=== PATIENT | male | born 1950 | race African-American/Black ===

== ENCOUNTER 2020-08-15 19:02 | Inpatient (IN) ==
--- NOTE | 2020-08-15 20:02 | Emergency Department Note ---
History of Present Illness General Chief complaint: Abdominal Pain Stated complaint: SOB; WEAKNESS; EDEMA, FLUID SAC ON PENIS TIP Time Seen by Provider: 08/15/20 19:27 Source: patient and other (Kirstie RN at [facility]) Mode of arrival: EMS History of Present Illness Provider complaint: Increased confusion Onset (ago): day(s) 3 Location: head Severity: moderate Pain Consistency: + intermittent Quality: + other (Confusion) Relieved By: + none Associated symptoms: no chest pain, no cough, no fever/chills, no headaches, no nausea/vomiting and no shortness of breath This is a 69-year-old male sent in from the [facility] for evaluation. I did obtain history from the patient as well as Kirstie who is the RN there. She states that they did a routine vital sign check and his pulse ox was 84%. He did not display any signs of shortness of breath or difficulty breathing. They rechecked it again it was 89. They try to put him on oxygen but he took it off stating that it was blowing up his penis. He then showed them his penis which was swollen. Kirstie spoke to Dr. Mcdonald who recommended he be sent into the emergency department. The patient states that his penis was swollen today. He also complains of swelling to his legs but does not know when it started. Kirstie stated that he is also been confused for the past 3 days. He does have a history of colon cancer as well as lung cancer neither of which are being treated. 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 He denies having any headaches. Kirstie stated that he will sometimes staring to space and they will have to try to get his attention. He denies any fever, vomiting or diarrhea. He has had no urinary symptoms. Home Medications Medication Instructions Recorded Confirmed Type carvedilol 3.125 mg PO BID 08/15/20 08/15/20 History dextromethorphan-guaifenesin 10 ml PO TID PRN 08/15/20 08/15/20 History [Cough-Chest Congestion DM] dicyclomine 20 mg PO TID PRN 08/15/20 08/15/20 History ferrous gluconate 324 mg PO BID 08/15/20 08/15/20 History fluticasone propion-salmeterol 1 inh INHALATION BID 08/15/20 08/15/20 History [Wixela Inhub] levalbuterol tartrate [Xopenex HFA] 2 inh INHALATION QID PRN 08/15/20 08/15/20 History mirtazapine 15 mg PO HS 08/15/20 08/15/20 History multivitamin 1 tab PO DAILY 08/15/20 08/15/20 History oxycodone-acetaminophen [Percocet] 1 tab PO UD 08/15/20 08/15/20 History pantoprazole 40 mg PO DAILY 08/15/20 08/15/20 History polyethylene glycol 3350 [Miralax] 17 g PO BID 08/15/20 08/15/20 History sennosides [senna] 8.6 mg PO BID 08/15/20 08/15/20 History Allergies Allergy/AdvReac Type Severity Reaction Status Date / Time No Known Allergies Allergy Unverified 08/15/20 20:32 IV contrast Allergy Intermediate hives/vomit Uncoded 08/15/20 22:50 ing Past Med/Surg History Medical History Colon cancer Lung cancer Social History Smoking Status: Never smoker Feels Safe at Home: Yes Review of Systems See HPI for pertinent positives & negatives. and A total of 10 systems reviewed and were otherwise negative Physical Exam Vital Signs Vital Signs - 24 hr 08/15/20 19:12 08/15/20 19:16 08/15/20 19:17 Temperature Temperature Source Pulse Rate 70 76 70 Pulse Rate from SpO2 Sensor 69 74 69 Pulse Rhythm Pulse Strength Respiratory Rate 16 20 19 Respiratory Effort / Characteristics Respiratory Depth Respiratory Pattern Blood Pressure 112/78 Blood Pressure Mean 89 Blood Pressure Position Pulse Oximetry 91 96 95 Oxygen Delivery Method Sepsis Recent Fever Within 48 Hours Sepsis New/Unexplained Change in Mental Status Sepsis Action Taken by Nursing 08/15/20 19:18 08/15/20 19:20 08/15/20 19:30 Temperature 36.4 C L Temperature Source Oral Pulse Rate 61 71 79 Pulse Rate from SpO2 Sensor 63 73 Pulse Rhythm Regular Pulse Strength Normal Respiratory Rate 19 14 19 Respiratory Effort / Characteristics Non-Labored Respiratory Depth Normal Respiratory Pattern Regular Blood Pressure 112/78 Blood Pressure Mean 89 Blood Pressure Position Sitting Pulse Oximetry 98 95 98 Oxygen Delivery Method Room Air Sepsis Recent Fever Within 48 Hours No Sepsis New/Unexplained Change in Mental Status N/A Sepsis Action Taken by Nursing No Action Required 08/15/20 19:40 08/15/20 19:47 08/15/20 19:50 Temperature Temperature Source Pulse Rate 64 88 64 Pulse Rate from SpO2 Sensor 75 61 77 Pulse Rhythm Pulse Strength Respiratory Rate 17 16 16 Respiratory Effort / Characteristics Respiratory Depth Respiratory Pattern Blood Pressure Blood Pressure Mean 80 Blood Pressure Position Pulse Oximetry 95 94 96 Oxygen Delivery Method Sepsis Recent Fever Within 48 Hours Sepsis New/Unexplained Change in Mental Status Sepsis Action Taken by Nursing 08/15/20 20:03 08/15/20 20:10 08/15/20 20:20 Temperature Temperature Source Pulse Rate 75 72 86 Pulse Rate from SpO2 Sensor 64 83 Pulse Rhythm Pulse Strength Respiratory Rate 17 13 13 Respiratory Effort / Characteristics Respiratory Depth Respiratory Pattern Blood Pressure Blood Pressure Mean Blood Pressure Position Pulse Oximetry 97 95 Oxygen Delivery Method Sepsis Recent Fever Within 48 Hours Sepsis New/Unexplained Change in Mental Status Sepsis Action Taken by Nursing 08/15/20 20:30 08/15/20 20:31 08/15/20 20:57 Temperature Temperature Source Pulse Rate 85 68 62 Pulse Rate from SpO2 Sensor 88 78 59 L Pulse Rhythm Pulse Strength Respiratory Rate 12 12 16 Respiratory Effort / Characteristics Respiratory Depth Respiratory Pattern Blood Pressure 86/67 L 100/64 Blood Pressure Mean 73 76 Blood Pressure Position Pulse Oximetry 96 96 96 Oxygen Delivery Method Sepsis Recent Fever Within 48 Hours Sepsis New/Unexplained Change in Mental Status Sepsis Action Taken by Nursing 08/15/20 21:00 08/15/20 21:15 08/15/20 21:32 Temperature Temperature Source Pulse Rate 73 77 77 Pulse Rate from SpO2 Sensor 81 72 Pulse Rhythm Pulse Strength Respiratory Rate 14 17 17 Respiratory Effort / Characteristics Respiratory Depth Respiratory Pattern Blood Pressure 102/69 95/65 L Blood Pressure Mean 80 75 Blood Pressure Position Pulse Oximetry 94 95 94 Oxygen Delivery Method Room Air Room Air Room Air Sepsis Recent Fever Within 48 Hours Sepsis New/Unexplained Change in Mental Status Sepsis Action Taken by Nursing 08/15/20 21:34 08/15/20 21:45 08/15/20 22:19 Temperature Temperature Source Pulse Rate 66 Pulse Rate from SpO2 Sensor 60 63 Pulse Rhythm Pulse Strength Respiratory Rate 18 17 Respiratory Effort / Characteristics Respiratory Depth Respiratory Pattern Blood Pressure 106/78 104/65 114/61 Blood Pressure Mean 87 78 78 Blood Pressure Position Pulse Oximetry 95 95 94 Oxygen Delivery Method Room Air Room Air Room Air Sepsis Recent Fever Within 48 Hours Sepsis New/Unexplained Change in Mental Status Sepsis Action Taken by Nursing 08/15/20 22:30 08/15/20 22:32 Temperature Temperature Source Pulse Rate Pulse Rate from SpO2 Sensor 90 77 Pulse Rhythm Pulse Strength Respiratory Rate Respiratory Effort / Characteristics Respiratory Depth Respiratory Pattern Blood Pressure 102/62 Blood Pressure Mean 75 Blood Pressure Position Pulse Oximetry 94 93 Oxygen Delivery Method Room Air Room Air Sepsis Recent Fever Within 48 Hours Sepsis New/Unexplained Change in Mental Status Sepsis Action Taken by Nursing Constitutional: Vital signs reviewed. Eyes: Pupils are equal round reactive to light. Conjunctiva are noninjected. ENT: Pharynx is clear without erythema or exudate. Mucous membranes are moist. Neck supple without meningeal signs. Respiratory: Clear to auscultation bilaterally. Breath sounds are equal bilaterally. Cardiovascular: Regular rate and rhythm. No rubs or gallops. GI: Soft, nondistended and nontender. Bowel sounds are present. : Normal testicles without scrotal swelling or tenderness. The phallus demonstrates cystic swelling at the distal end without significant tenderness. The swelling is about the size of a walnut. Musculoskeletal: Bilateral lower extremity edema. No lower extremity tenderness. Integumentary: No cyanosis. or jaundice. Neurological: The patient is awake and alert. He is alert and oriented x3. No focal deficits. Psychiatric: Normal affect. Not anxious appearing. Medical Decision Making Differential Diagnosis Anasarca, nephrotic syndrome, metastatic disease to the brain, DVT, ICH, metabolic derangement Medical Records Attestation: I reviewed the patient's medical records. I did perform a limited focused review of portions of the patient's old chart on the electronic medical record. The patient has had no prior visits to this hospital. Home Medications Current Medication List: was personally reviewed by me Laboratory Data Attestation: I reviewed the patient's lab results. Result diagrams: 08/15/20 21:13 08/15/20 21:13 Lab Results 08/15/20 08/15/20 08/15/20 Range/Units 21:13 21:13 22:27 WBC 28.40 H (4.8-10.8) K/uL RBC 4.00 L (4.7-6.1) M/uL Hgb 10.6 L (14.0-18.0) g/dL Hct 33.6 L (42-52) % MCV 84.0 (80-100) fL MCH 26.5 (25-34) pg MCHC 31.5 L (32-36) g/dL RDW Std Deviation 57.1 H (36.4-46.3) fL RDW Coeff of Acacia 19.7 H (11.5-14.5) % Plt Count 375 (130-400) K/uL MPV 8.3 (7.4-10.4) fL Immature Gran % (Auto) 0.6 % Neut % (Auto) 85.6 % Lymph % (Auto) 6.2 % Stewart % (Auto) 5.5 % Eos % (Auto) 1.9 % Baso % (Auto) 0.2 % Neut # (Auto) 24.30 H (1.4-6.5) K/uL Lymph # (Auto) 1.77 (1.2-3.4) K/uL Stewart # (Auto) 1.57 H (0.11-0.59) K/uL Eos # (Auto) 0.53 H (0-0.5) K/uL Baso # (Auto) 0.05 (0-0.2) K/uL Immature Gran # (Auto) 0.18 H (0.00-0.02) K/uL Absolute Nucleated RBC 0.10 H (0-0) K/uL Nucleated RBC % (auto) 0.4 % Sodium 139 (136-145) mmol/L Potassium 4.2 (3.5-5.1) mmol/L Chloride 101 (98-107) mmol/L Carbon Dioxide 27 (21-32) mmol/L Anion Gap 10.0 (3-11) BUN 44 H (7-18) mg/dl Creatinine 1.04 (0.6-1.4) mg/dl Est Cr Clr Drug Dosing 56.7 ml/min Est GFR ( Amer) 83.3 ml/min Est GFR (Non-Af Amer) 71.9 ml/min BUN/Creatinine Ratio 42.5 H (10-20) Glucose 89 (70-99) mg/dl Calcium 9.3 (8.5-10.1) mg/dl Total Bilirubin 0.4 (0.2-1) mg/dl AST 16 (15-37) U/L ALT 13 (12-78) U/L Alkaline Phosphatase 84 (45-117) U/L Troponin I < 0.015 (0-0.045) ng/ml NT-Pro-B Natriuret Pep 5030 H (0-900) pg/ml Total Protein 8.0 (6.4-8.2) gm/dl Albumin 2.0 L (3.4-5.0) gm/dl Globulin 6.0 H (2.5-4.0) gm/dl Albumin/Globulin Ratio 0.3 L (0.9-2) Lipase 33 L (73-393) U/L COVID-19 Eval Order Covid19 at [facility] Imaging Data Radiologist's Impression: Chest X-Ray 08/15/20 19:53 SINGLE VIEW CHEST CLINICAL HISTORY: Pneumonia. FINDINGS: 2 AP, portable, upright chest radiographs are compared obtained. No prior studies are available for comparison at the time of dictation. The examination is degraded by portable technique and patient rotation. The cardiomediastinal silhouette is partially obscured. There is atherosclerotic calcification of the thoracic aorta. There is elevation of the right hemidiaphragm with basilar consolidation. Question a small right pleural effusion. The left lung appears clear. No pneumothorax is seen. The skeletal structures are osteopenic. The bony thorax is grossly intact. IMPRESSION: 1. There is elevation of the right hemidiaphragm with associated basilar consolidation. This could represent atelectasis versus an infectious/inflammatory pneumonitis. Clinical correlation will be required and radiographic follow-up to resolution is recommended. 2. Question a small right pleural effusion. ACT 112: Negative or not required by law. Electronically signed by: Tenzin Huerta M.D. 08/15/2020 8:[address] 08/15/20 19:53 CT SCAN OF THE BRAIN WITHOUT IV CONTRAST CLINICAL HISTORY: Change in mental status. COMPARISON STUDY: No priors. TECHNIQUE: Unenhanced axial CT scan of the brain is performed from the vertex to the skull base. A dose lowering technique was utilized adhering to the principles of ALARA. 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 There are age-related involutional changes noting mild to moderate subcortical and periventricular microangiopathic change. There is no hemorrhage, mass effect, or evidence of acute territorial ischemia by CT criteria. Yanez-white matter differentiation is preserved. No extra-axial fluid collection is seen. Ventricles, sulci, cisterns: Prominent secondary to involutional change. Intracranial vasculature: There is atherosclerotic calcification of the cavernous carotid arteries.. Calvarium: Unremarkable. Sinuses and mastoids: The visualized paranasal sinuses are clear. The mastoid air cells are well pneumatized. Orbits: The bony orbits are grossly intact. IMPRESSION: There is no hemorrhage, mass effect, or evidence of acute territorial ischemia by CT criteria. ACT 112: Negative or not required by law. Electronically signed by: Tenzin Huerta M.D. 08/15/2020 8:50 PM Venous Doppler Study 08/15/20 19:53 ULTRASOUND BILATERAL LOWER EXTREMITY VENOUS CLINICAL HISTORY: Lower extremity edema. COMPARISON STUDY: No priors. TECHNIQUE: Real-time, grayscale, and color Doppler sonography of the deep veins of the right and left lower extremity was performed from the inguinal crease to the calf. Compression and augmentation were utilized. FINDINGS: There is no sonographic evidence of deep venous thrombosis identified in the right or left lower extremity. The common femoral, superficial femoral, and popliteal veins are patent and normally compressible bilaterally. The greater saphenous vein and the profunda femoris vein at the junction with the common femoral vein are clear in both legs. The visualized calf veins are patent bilaterally. Soft tissue edema is present in both legs. IMPRESSION: There is no sonographic evidence of deep venous thrombosis identified in the right or left lower extremity. ACT 112: Negative or not required by law. Electronically signed by: Tenzin Huerta M.D. 08/15/2020 11:17 PM Abdomen/Pelvis CT 08/15/20 21:36 CT SCAN OF THE CHEST, ABDOMEN, AND PELVIS WITHOUT IV CONTRAST CLINICAL HISTORY: Dyspnea. Change in mental status. Generalized abdominal pain. COMPARISON STUDY: Chest x-ray dated 08/15/2020. TECHNIQUE: Unenhanced CT scan of the chest, abdomen, and pelvis was performed from the thoracic inlet to the proximal femora. Images are reviewed in the axial, sagittal, and coronal planes. IV contrast was not administered due to a possible history of contrast allergy. Note that the examination is significantly suboptimal without oral and IV contrast. There is streak artifact from the arms which could not be elevated above the chest or abdomen. A dose lowering technique was utilized adhering to the principles of ALARA. CT DOSE: 591.18 mGy.cm FINDINGS: CHEST: Thyroid: Imaged portions of the thyroid gland are normal in size and heterogeneous and attenuation. Thoracic aorta: There is atherosclerotic calcification of the thoracic aorta. There is mild ectasia of the ascending thoracic aorta which measures up to 3.7 cm in diameter. The remainder of the thoracic aorta is normal in caliber and the arch demonstrates standard 3-vessel anatomy. Heart: The heart is normal in size noting a small pericardial effusion. There is mixed attenuation of the cardiac blood pool as compared to the myocardium suggesting anemia. There are scattered coronary artery calcifications. Lungs and pleural spaces: Emphysematous change is noted. There is elevation of the right hemidiaphragm with dense consolidation at the right lung base with atelectasis of the right lower lung. There is a lobular focus of masslike co nsolidation at the anterior right lung base, best seen on image #169. This measures 7.7 x 4.8 cm. There is also heterogeneous masslike consolidation throughout the right lower lung. Foci of subpleural groundglass change are seen in the left upper lobe. There is at least trace right pleural effusion. There is no left pleural effusion. The trachea and central airways are clear. Mediastinum: There is mild leftward shift of the mediastinum. No mediastinal adenopathy is clearly identified. Francisca: Not well assessed without IV contrast. Axillae: There is no axillary lymphadenopathy. Bony thorax: No lytic or blastic lesions are identified. Soft tissues: The patient is cachectic. There is anasarca of the body wall. ABDOMEN AND PELVIS: Liver: Evaluation of the liver significantly degraded by streak artifact. The unenhanced liver is grossly normal in size, contour, and attenuation. There is no intrahepatic biliary ductal dilatation. Gallbladder: Unremarkable. Spleen: Normal in size and attenuation. Pancreas: Not well visualized. Adrenal glands: Unremarkable. Kidneys: Evaluation of the kidneys is significantly degraded by streak artifact. The unenhanced kidneys demonstrate mild cortical atrophy and are without hydronephrosis. No renal calculi are identified. There is no evidence of contour deforming mass lesion. Abdominal vasculature: The abdominal aorta is normal in course and caliber noting moderate to advanced atherosclerotic calcification. Bowel: There is no bowel obstruction. [id number] fecal retention is seen throughout the colon. Postoperative change is suggested involving the right colon. The appendix is not visualized. Peritoneum: There is no intraperitoneal free air or abdominal ascites. There is diffuse mesenteric edema. Lymphadenopathy: No obvious adenopathy is identified. This is not well assessed. Pelvic viscera: The prostate gland is mildly enlarged and heterogeneous. The bladder wall appears thickened and trabeculated indicating chronic outlet obstruction. There is scrotal edema. Skeletal structures: The skeletal structures are osteopenic. No lytic or blastic lesions are seen. 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 IMPRESSION: 1. Severely suboptimal examination without oral and IV contrast. The examination is also markedly compromised by streak artifact, diffuse edema, and patient cachexia. 2. Emphysema. 3. There is masslike consolidation at the right lung base with atelectasis of the right lower lung and mild leftward shift of the mediastinum. The findings are suspicious for large underlying mass lesion(s). This is not well evaluated on this examination. Correlate clinically for evidence of superimposed infection/pneumonia. 4. There are foci of subpleural groundglass consolidation in the left upper lobe. This could represent chronic parenchymal change versus a mild infectious/inflammatory pneumonitis. 5. There is at least trace right pleural effusion. 6. No gross abnormality is seen in the abdomen or pelvis. 7. There is diffuse anasarca of the body wall and cachexia. 8. Postoperative change is noted involving the right colon. Correlate with the patient's medical/oncological history. 9. Additional findings as above. ACT 112: Negative or not required by law. Electronically signed by: Tenzin Huerta M.D. 08/15/2020 10:[address] 08/15/20 21:36 CT SCAN OF THE CHEST, ABDOMEN, AND PELVIS WITHOUT IV CONTRAST CLINICAL HISTORY: Dyspnea. Change in mental status. Generalized abdominal pain. COMPARISON STUDY: Chest x-ray dated 08/15/2020. TECHNIQUE: Unenhanced CT scan of the chest, abdomen, and pelvis was performed from the thoracic inlet to the proximal femora. Images are reviewed in the axial, sagittal, and coronal planes. IV contrast was not administered due to a possible history of contrast allergy. Note that the examination is significantly suboptimal without oral and IV contrast. There is streak artifact from the arms which could not be elevated above the chest or abdomen. A dose lowering techni que was utilized adhering to the principles of ALARA. CT DOSE: 591.18 mGy.cm FINDINGS: CHEST: Thyroid: Imaged portions of the thyroid gland are normal in size and heterogeneous and attenuation. Thoracic aorta: There is atherosclerotic calcification of the thoracic aorta. There is mild ectasia of the ascending thoracic aorta which measures up to 3.7 cm in diameter. The remainder of the thoracic aorta is normal in caliber and the arch demonstrates standard 3-vessel anatomy. Heart: The heart is normal in size noting a small pericardial effusion. There is mixed attenuation of the cardiac blood pool as compared to the myocardium suggesting anemia. There are scattered coronary artery calcifications. Lungs and pleural spaces: Emphysematous change is noted. There is elevation of the right hemidiaphragm with dense consolidation at the right lung base with atelectasis of the right lower lung. There is a lobular focus of masslike consolidation at the anterior right lung base, best seen on image #169. This measures 7.7 x 4.8 cm. There is also heterogeneous masslike consolidation throughout the right lower lung. Foci of subpleural groundglass change are seen in the left upper lobe. There is at least trace right pleural effusion. There is no left pleural effusion. The trachea and central airways are clear. Mediastinum: There is mild leftward shift of the mediastinum. No mediastinal a denopathy is clearly identified. Francisca: Not well assessed without IV contrast. Axillae: There is no axillary lymphadenopathy. Bony thorax: No lytic or blastic lesions are identified. Soft tissues: The patient is cachectic. There is anasarca of the body wall. ABDOMEN AND PELVIS: Liver: Evaluation of the liver significantly degraded by streak artifact. The unenhanced liver is grossly normal in size, contour, and attenuation. There is no intrahepatic biliary ductal dilatation. Gallbladder: Unremarkable. Spleen: Normal in size and attenuation. Pancreas: Not well visualized. Adrenal glands: Unremarkable. Kidneys: Evaluation of the kidneys is significantly degraded by streak artifact. The unenhanced kidneys demonstrate mild cortical atrophy and are without hydronephrosis. No renal calculi are identified. There is no evidence of contour deforming mass lesion. Abdominal vasculature: The abdominal aorta is normal in course and caliber noting moderate to advanced atherosclerotic calcification. Bowel: There is no bowel obstruction. [id number] fecal retention is seen throughout the colon. Postoperative change is suggested involving the right colon. The appendix is not visualized. Peritoneum: There is no intraperitoneal free air or abdominal ascites. There is diffuse mesenteric edema. Lymphadenopathy: No obvious adenopathy is identified. This is not well assessed. Pelvic viscera: The prostate gland is mildly enlarged and heterogeneous. The bladder wall appears thickened and trabeculated indicating chronic outlet obstruction. There is scrotal edema. Skeletal structures: The skeletal structures are osteopenic. No lytic or blastic lesions are seen. 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 IMPRESSION: 1. Severely suboptimal examination without oral and IV contrast. The examination is also markedly compromised by streak artifact, diffuse edema, and patient cachexia. 2. Emphysema. 3. There is masslike consolidation at the right lung base with atelectasis of the right lower lung and mild leftward shift of the mediastinum. The findings are suspicious for large underlying mass lesion(s). This is not well evaluated on this examination. Correlate clinically for evidence of superimposed infec tion/pneumonia. 4. There are foci of subpleural groundglass consolidation in the left upper lobe. This could represent chronic parenchymal change versus a mild infectious/inflammatory pneumonitis. 5. There is at least trace right pleural effusion. 6. No gross abnormality is seen in the abdomen or pelvis. 7. There is diffuse anasarca of the body wall and cachexia. 8. Postoperative change is noted involving the right colon. Correlate with the patient's medical/oncological history. 9. Additional findings as above. ACT 112: Negative or not required by law. Electronically signed by: Tenzin Huerta M.D. 08/15/2020 10:39 PM ECG Data Attestation: I personally reviewed and interpreted this ECG as follows: Indication: + altered mental status Rate (beats per minute): 74 Rhythm: + normal sinus ECG [place]: + Left axis deviation ECG Findings: + Other (Low voltage QRS) Comparison ECG Date: no prior available MDM Narrative I did evaluate the patient as noted above. The patient is presenting with change in mental status as well as low O2 saturations. He is a bit confused here and contradicts himself at times. I did obtain history from the patient as well as his nurse Kirstie at the [facility]. She stated his O2 saturation was 84% on room air but he had no difficulty breathing. His O2 saturation here is 97% on room air. IV access was established. I did place an order for continuous cardiac monitoring. The monitor showed normal sinus rhythm at a rate of 62 bpm. I did order and personally review the patient's 12-lead EKG as described above. He has low voltage QRS. Q waves inferiorly. I did order and personally reviewed the images of the patient's chest x-ray as described above. He has an elevated right hemidiaphragm. Underlying infiltrate cannot be excluded. I did order a urine analysis. I did order and review the patient's blood work as noted in the electronic medical record. His white count is 28,000. Blood cultures were ordered. Hemoglobin is 10.6. Platelet count is 375. Electrolytes are unremarkable. Troponin is negative. BNP is 5000. LFTs and lipase are unremarkable. I did order a CT of the chest, abdomen and pelvis. Initially I did order this with IV contrast but the patient stated that he had an allergy to IV contrast and that he developed hives, vomiting and he "freaked out." I did review the images myself as well as the radiology report as described above. Exam is compromised due to the lack of contrast due to his allergy. He does appear to have a large consolidation in the right lower lobe. He also has some focal subpleural groundglass consolidation of the left upper lobe. I did treat him with Zosyn IV. He has diffuse anasarca of the body wall. I did order a Doppler ultrasound of the lower extremities to rule out DVT. There is no evidence of DVT. I did discuss the test results with the patient. He will be hospitalized for further care and evaluation. I did discuss case with the hospitalist and case worker. Covid screening test is pending. Impression & Plan Multifocal pneumonia, Lung cancer, Altered mental status, Anasarca, Anemia Discharge Plan Visit Data Chief Complaint: Abdominal Pain Stated Complaint: SOB; WEAKNESS; EDEMA, FLUID SAC ON PENIS TIP ED Provider: Doron Mcclain Discharge Problem: Multifocal pneumonia, Lung cancer, Altered mental status, Anasarca, Anemia Condition: Good Prescriptions Prescriptions: No Action multivitamin Tablet 1 tab PO DAILY RF: 0 carvedilol 3.125 mg Tablet 3.125 mg PO BID RF: 0 mirtazapine 15 mg Tablet 15 mg PO HS RF: 0 ferrous gluconate 324 mg (37.5 mg iron) Tablet 324 mg PO BID RF: 0 fluticasone propion-salmeterol [Wixela Inhub] 250-50 mcg/dose Blister With Device 1 inh INHALATION BID RF: 0 sennosides [senna] 8.6 mg Tablet 8.6 mg PO BID RF: 0 polyethylene glycol 3350 [Miralax] 17 gram Powder In Packet 17 g PO BID RF: 0 oxycodone-acetaminophen [Percocet] 5-325 mg Tablet 1 tab PO UD RF: 0 pantoprazole 40 mg Tablet,Delayed Release (Dr/Ec) 40 mg PO DAILY RF: 0 dicyclomine 20 mg Tablet 20 mg PO TID PRN (Reason: Unknown) RF: 0 Cough-Chest Congestion DM 5-100 mg/5 mL Liquid 10 ml PO TID PRN (Reason: Unknown) RF: 0 levalbuterol tartrate [Xopenex HFA] 45 mcg/actuation Hfa Aerosol Inhaler 2 inh INHALATION QID PRN (Reason: Unknown) RF: 0 [facility] - Discharge Problem: Lung cancer Qualifiers: Laterality: right Lung location: lower lobe of lung Qualified Code(s): C34.31 - Malignant neoplasm of lower lobe, right bronchus or lung Altered mental status Qualifiers: Altered mental status type: unspecified Qualified Code(s): R41.82 - Altered mental status, unspecified Anemia Qualifiers: Anemia type: unspecified type Qualified Code(s): D64.9 - Anemia, unspecified
--- NOTE | 2020-08-15 20:23 | XRay Report ---
SINGLE VIEW CHEST CLINICAL HISTORY: Pneumonia. FINDINGS: 2 AP, portable, upright chest radiographs are compared obtained. No prior studies are avail able for comparison at the time of dictation. The examination is degraded by portable technique and p atient rotation. The cardiomediastinal silhouette is partially obscured. There is atherosclerotic c alcification of the thoracic aorta. There is elevation of the right hemidiaphragm with basilar consol idation. Question a small right pleural effusion. The left lung appears clear. No pneumothorax is see n. The skeletal structures are osteopenic. The bony thorax is grossly intact. IMPRESSION: 1. There is elevation of the right hemidiaphragm with associated basilar consolidation. This could re present atelectasis versus an infectious/inflammatory pneumonitis. Clinical correlation will be requi red and radiographic follow-up to resolution is recommended. 2. Question a small right pleural effusion. ACT 112: Negative or not required by law. Electronically signed by: Tenzin Huerta M.D. 08/15/2020 8:21 PM
--- NOTE | 2020-08-15 20:52 | CT Scan Report ---
CT SCAN OF THE BRAIN WITHOUT IV CONTRAST CLINICAL HISTORY: Change in mental status. COMPARISON STUDY: No priors. TECHNIQUE: Unenhanced axial CT scan of the brain is performed from the vertex to the skull base. A do se lowering technique was utilized adhering to the principles of ALARA. 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 There are age-related involutional changes noting mild to moderate subcortical and periventricular microangiopathic change. There is no hemorrhage, mass effect, or evidence of acute territorial ischem ia by CT criteria. Yanez-white matter differentiation is preserved. No extra-axial fluid collection is seen. Ventricles, sulci, cisterns: Prominent secondary to involutional change. Intracranial vasculature: There is atherosclerotic calcification of the cavernous carotid arteries.. Calvarium: Unremarkable. Sinuses and mastoids: The visualized paranasal sinuses are clear. The mastoid air cells are well pneu matized. Orbits: The bony orbits are grossly intact. IMPRESSION: There is no hemorrhage, mass effect, or evidence of acute territorial ischemia by CT nati amezquita. ACT 112: Negative or not required by law. Electronically signed by: Tenzin Huerta M.D. 08/15/2020 8:50 PM
[2020-08-15 21:26] LABS: Hematocrit (blood only) 33.6 % (42-52); Hemoglobin 10.6 g/dL (14.0-18.0); Mean Corpuscular Hemoglobin 26.5 pg (25-34); Mean Corpuscular Hgb Conc 31.5 g/dL (32-36); Mean Platelet Volume 8.3 fL (7.4-10.4); Nucleated RBC % (auto) 0.4 %; Platelet Count 375 K/uL (130-400); RDW Coefficient of Variation 19.7 % (11.5-14.5); RDW Standard Deviation 57.1 fL (36.4-46.3)
[2020-08-15 21:43] LABS: Alanine Aminotransferase 13 U/L (12-78); Aspartate Aminotransferase 16 U/L (15-37); BUN Creatinine Ratio 42.5 (10-20); Blood Urea Nitrogen 44 mg/dl (7-18); Calcium 9.3 mg/dl (8.5-10.1); Carbon Dioxide 27 mmol/L (21-32); Chloride 101 mmol/L (98-107); Creatinine Clr Calc Pharmacy 56.7 ml/min; Est GFR (African American) 83.3 ml/min; Est GFR (Non-African American) 71.9 ml/min; Glucose 89 mg/dl (70-99); Lipase 33 U/L (73-393); Potassium 4.2 mmol/L (3.5-5.1); Sodium 139 mmol/L (136-145)
[2020-08-15 21:48] LABS: Albumin Globulin Ratio 0.3 (0.9-2); Alkaline Phosphatase 84 U/L (45-117); Bilirubin,Total 0.4 mg/dl (0.2-1); NT Pro B Type Natriuretic Pept 5030 pg/ml (0-900); Troponin I < 0.015 ng/ml (0-0.045)
[2020-08-15 22:13] LABS: Basophils # (auto) 0.05 K/uL (0-0.2); Basophils % (auto) 0.2 %; Eosinophils # (auto) 0.53 K/uL (0-0.5); Eosinophils % (auto) 1.9 %; Immature Granulocytes # (auto) 0.18 K/uL (0.00-0.02); Immature Granulocytes % (auto) 0.6 %; Lymphocytes # (auto) 1.77 K/uL (1.2-3.4); Lymphocytes % (auto) 6.2 %; Monocytes # (auto) 1.57 K/uL (0.11-0.59); Monocytes % (auto) 5.5 %; Neutrophils % (auto) 85.6 %
--- NOTE | 2020-08-15 22:40 | CT Scan Report ---
CT SCAN OF THE CHEST, ABDOMEN, AND PELVIS WITHOUT IV CONTRAST CLINICAL HISTORY: Dyspnea. Change in mental status. Generalized abdominal pain. COMPARISON STUDY: Chest x-ray dated 08/15/2020. TECHNIQUE: Unenhanced CT scan of the chest, abdomen, and pelvis was performed from the thoracic inlet to the proximal femora. Images are reviewed in the axial, sagittal, and coronal planes. IV contrast was not administered due to a possible history of contrast allergy. Note that the examination is sign ificantly suboptimal without oral and IV contrast. There is streak artifact from the arms which could not be elevated above the chest or abdomen. A dose lowering technique was utilized adhering to the p rinciples of ALARA. CT DOSE: 591.18 mGy.cm FINDINGS: CHEST: Thyroid: Imaged portions of the thyroid gland are normal in size and heterogeneous and attenuation. Thoracic aorta: There is atherosclerotic calcification of the thoracic aorta. There is mild ectasia o f the ascending thoracic aorta which measures up to 3.7 cm in diameter. The remainder of the thoracic aorta is normal in caliber and the arch demonstrates standard 3-vessel anatomy. Heart: The heart is normal in size noting a small pericardial effusion. There is mixed attenuation of the cardiac blood pool as compared to the myocardium suggesting anemia. There are scattered coronary artery calcifications. Lungs and pleural spaces: Emphysematous change is noted. There is elevation of the right hemidiaphrag m with dense consolidation at the right lung base with atelectasis of the right lower lung. There is a lobular focus of masslike consolidation at the anterior right lung base, best seen on image #169. T his measures 7.7 x 4.8 cm. There is also heterogeneous masslike consolidation throughout the right lo wer lung. Foci of subpleural groundglass change are seen in the left upper lobe. There is at least tr uli right pleural effusion. There is no left pleural effusion. The trachea and central airways are cl ear. Mediastinum: There is mild leftward shift of the mediastinum. No mediastinal adenopathy is clearly id entified. Francisca: Not well assessed without IV contrast. Axillae: There is no axillary lymphadenopathy. Bony thorax: No lytic or blastic lesions are identified. Soft tissues: The patient is cachectic. There is anasarca of the body wall. ABDOMEN AND PELVIS: Liver: Evaluation of the liver significantly degraded by streak artifact. The unenhanced liver is aníbal ssly normal in size, contour, and attenuation. There is no intrahepatic biliary ductal dilatation. Gallbladder: Unremarkable. Spleen: Normal in size and attenuation. Pancreas: Not well visualized. Adrenal glands: Unremarkable. Kidneys: Evaluation of the kidneys is significantly degraded by streak artifact. The unenhanced kidne ys demonstrate mild cortical atrophy and are without hydronephrosis. No renal calculi are identified. There is no evidence of contour deforming mass lesion. Abdominal vasculature: The abdominal aorta is normal in course and caliber noting moderate to advance d atherosclerotic calcification. Bowel: There is no bowel obstruction. [id number]-oajeivxa fecal retention is seen throughout the colon. Postoperative change is suggested involving the right colon. The appendix is not visualized. Peritoneum: There is no intraperitoneal free air or abdominal ascites. There is diffuse mesenteric ed marianne. Lymphadenopathy: No obvious adenopathy is identified. This is not well assessed. Pelvic viscera: The prostate gland is mildly enlarged and heterogeneous. The bladder wall appears thi ckened and trabeculated indicating chronic outlet obstruction. There is scrotal edema. Skeletal structures: The skeletal structures are osteopenic. No lytic or blastic lesions are seen. 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 IMPRESSION: 1. Severely suboptimal examination without oral and IV contrast. The examination is also markedly com promised by streak artifact, diffuse edema, and patient cachexia. 2. Emphysema. 3. There is masslike consolidation at the right lung base with atelectasis of the right lower lung an d mild leftward shift of the mediastinum. The findings are suspicious for large underlying mass lesio n(s). This is not well evaluated on this examination. Correlate clinically for evidence of superimpos ed infection/pneumonia. 4. There are foci of subpleural groundglass consolidation in the left upper lobe. This could represen t chronic parenchymal change versus a mild infectious/inflammatory pneumonitis. 5. There is at least trace right pleural effusion. 6. No gross abnormality is seen in the abdomen or pelvis. 7. There is diffuse anasarca of the body wall and cachexia. 8. Postoperative change is noted involving the right colon. Correlate with the patient's medical/onco logical history. 9. Additional findings as above. ACT 112: Negative or not required by law. Electronically signed by: Tenzin Huerta M.D. 08/15/2020 10:39 PM
[2020-08-15] MEDS ORDERED: PIPERACILLIN/TAZOBACTAM 4.5 GM/120 ML BAG IV ONE (22:43)
[2020-08-15] MEDS ORDERED: PIPERACILL/TAZOBAC CONSULT ACTIVE PRN (22:43)
--- NOTE | 2020-08-15 23:19 | Ultrasound Report ---
ULTRASOUND BILATERAL LOWER EXTREMITY VENOUS CLINICAL HISTORY: Lower extremity edema. COMPARISON STUDY: No priors. TECHNIQUE: Real-time, grayscale, and color Doppler sonography of the deep veins of the right and left lower extremity was performed from the inguinal crease to the calf. Compression and augmentation wer e utilized. FINDINGS: There is no sonographic evidence of deep venous thrombosis identified in the right or left lower extremity. The common femoral, superficial femoral, and popliteal veins are patent and normally compressible bilaterally. The greater saphenous vein and the profunda femoris vein at the junction w ith the common femoral vein are clear in both legs. The visualized calf veins are patent bilaterally. Soft tissue edema is present in both legs. IMPRESSION: There is no sonographic evidence of deep venous thrombosis identified in the right or lef t lower extremity. ACT 112: Negative or not required by law. Electronically signed by: Tenzin Huerta M.D. 08/15/2020 11:17 PM
[2020-08-15] MEDS ORDERED: VANCOMYCIN HCL 1,500 MG in SODIUM CHLORIDE 0.9% 500 ML IV ONE (23:57)
[2020-08-15] MEDS ORDERED: VANCOMYCIN CONSULT ACTIVE PRN (23:57)
--- NOTE | 2020-08-16 00:18 | History & Physical Report ---
Date of Service August 16, 2020 Assessment & Plan (1) Multifocal pneumonia: Patient is a 69 year old male with PMHx lung cancer, colon cancer of cecum, xerosis cutis, HCV infection, HLD, iron deficiency anemia, CVA, COPD, GERD, that presents from [facility] for hypoxia noted on a regular screen in addition to worsening LE edema, scrotal swelling, and abdominal pain. Multifocal in addition to Post-obstructive Pneumonia from R lung mass -Suspect the cause for patient's initial presenting hypoxia while at [facility] -CT Chest showing emphysema, R lung base with masslike consolidation with distal atelectasis, ground glass consolidation of left upper lobes -Started on IV Zosyn and Vancomycin in ED, will continue at this time -MRSA nares ordered -Repeat CXR in AM -Pulmonology consulted, though unsure of stability of patient for bronchoscopy and poor prognosis Anasarca -Patient with significant fluid overload -BMP elevated 5030 -Unfortunately patient with soft pressures in the low 100's/60's -Will give 50mg IV Albumin followed by 40mg IV lasix for diuresis -May require more diuresis since he will be receiving even more fluids with antibiotics above -Echo ordered for AM -Daily weights -Measure i/o's -Will hold home Carvedilol at this time while diuresing with patient's soft pressures COPD -Continue home Wixela -Continue home Xopenex PRN -Continue Mucinex Hx Colon Cancer of Cecum -Records requested from [facility] -CT Ab/Pelv without acute findings at this time -Holding home bowel regiment at this time Dicyclomine, Senna, Miralax -If constipation becomes an issue can consider resuming Iron Deficiency Anemia -Continue iron supplementation -Hgb stable at 10.6 GERD -Continue Pantoprazole Anxiety -Continue Mirtazapine qHS Dispo: PCU for close monitoring and IV abx and diuresis. FEN: Low Na Diet, Fluid restrict 2000mL DVT: Lovenox Code: Full. Would have further discussion regarding this with patient whenever he is more agreeable to the conversation. (2) Colon cancer: (3) Lung cancer: History of Present Illness Chief Complaint: ABDOMINAL PAIN Primary Care Provider: [facility] Patient is a 69 year old male with PMHx lung cancer, colon cancer of cecum, xerosis cutis, HCV infection, HLD, iron deficiency anemia, CVA, COPD, GERD, that presents from [facility] for hypoxia noted on a regular screen in addition to worsening LE edema, scrotal swelling, and abdominal pain. Initially patient was difficult to converse with due to continuously falling asleep, the second half of the interview and examination was limited by patient's agitation. Prior to becoming resistant to answering questions, patient was able to note that he was recently seen at [facility] for abdominal surgery regarding his colon cancer. He notes that he has been having ongoing abdominal pain since then. He also notes that for the past 2 days he has had worsening SOB in addition to LE swelling that progressed to his scrotum. He denies any fever, chills, chest pain. When discussing code status, patient became very agitated. He noted ineveline ramirez that "I would not want that" to chest compressions and "I certainly wouldn't want that" for intubation, however, would later go to say that he "just want to live my life." Previous record review notes that patient had wanted to be a full code as he has a parole hearing coming up in the next few months that he would like to attend. He also notes that all he really wants right now is to talk to his family. Med Hx: lung cancer, colon cancer of cecum, xerosis cutis, HCV infection, HLD, iron deficiency anemia, CVA, COPD, GERD Surg Hx: Unable to obtain from patient, records requested from [facility] Soc Hx: Unable to obtain from patient Allergies Allergy/AdvReac Type Severity Reaction Status Date / Time Iodinated Contrast Media Allergy Intermediate hives/vomiting Verified 08/16/20 02:22 (IV Contrast) Home Medications Medication Instructions Recorded Confirmed Type carvedilol 3.125 mg PO BID 08/15/20 08/15/20 History dextromethorphan-guaifenesin 10 ml PO TID PRN 08/15/20 08/15/20 History [Cough-Chest Congestion DM] dicyclomine 20 mg PO TID PRN 08/15/20 08/15/20 History ferrous gluconate 324 mg PO BID 08/15/20 08/15/20 History fluticasone propion-salmeterol 1 inh INHALATION BID 08/15/20 08/15/20 History [Wixela Inhub] levalbuterol tartrate [Xopenex HFA] 2 inh INHALATION QID PRN 08/15/20 08/15/20 History mirtazapine 15 mg PO HS 08/15/20 08/15/20 History multivitamin 1 tab PO DAILY 08/15/20 08/15/20 History oxycodone-acetaminophen [Percocet] 1 tab PO UD 08/15/20 08/15/20 History pantoprazole 40 mg PO DAILY 08/15/20 08/15/20 History polyethylene glycol 3350 [Miralax] 17 g PO BID 08/15/20 08/15/20 History sennosides [senna] 8.6 mg PO BID 08/15/20 08/15/20 History Past Med/Surg History Medical History Colon cancer Lung cancer Social History Smoking Status: Former smoker Smoking End Date: 3 years ago; Second Hand Exposure: No; Tobacco Cessation Education Requested by Patient: No Hx Alcohol Use: No Hx Substance Use: No Preferred Language: Italian Communication Ability: Effective Beliefs That Will Affect Care: None Current Living Situation: Other Current Living Situation Comment: care home Other Information That Helps Us Care for You: No Feels Safe at Home: Yes Safety Concerns: Feels Safe At This Time Assistive Devices: None Review of Systems Review of Systems: Unobtainable due to cognitive status Physical Exam Constitutional: + ill appearing, + thin, + cachectic, + behavioral limitations, + frail appearing and + malnourished Eyes: + anicteric sclerae, + corneal abnormality, PERRL and EOM intact bilaterally ENMT: external ear and nose normal, oropharynx normal Neck: trachea midline, no thyromegaly Respiratory: normal respiratory effort, + cough and able to speak in complete sentences; no respiratory distress, no labored breathing and does not use accessory muscles Auscultation: + diminished lung sounds (severely diminished in R middle and lower lobes ) and + rales (throughout ) Cardiovascular: Rate/Rhythm: regular rate and regular rhythm Heart Sounds: + murmur (2/6 VIDA ) Extremities: + edema (2-3+ to the pelvis and scrotum); no calf tenderness Gastrointestinal (Abdomen): Inspection/Auscultation: abdomen normal to inspection and normal bowel sounds; abdomen not distended Percussion/Palpation: + abdomen tender (diffusely throughout ) and abdomen soft Musculoskeletal: Head/Neck/Chest: normocephalic and head atraumatic 4/5 strength in LE b/l 5/5 in UE b/l Neurologic: normal touch/pain/proprioception, awake and + confused Psychiatric: Orientation: alert, oriented to person, oriented to place, oriented to time and + guarded Eye Contact: + fair eye contact Results & Data Results & Data ([facility]) Vital Signs (Past 12 Hours) Vital Signs Temp Pulse Resp BP Pulse Ox 08/15/20 22:32 93 08/15/20 22:30 102/62 94 08/15/20 22:19 114/61 94 08/15/20 21:45 66 17 104/65 95 08/15/20 21:34 18 106/78 95 08/15/20 21:32 77 17 94 08/15/20 21:15 77 17 95/65 L 95 08/15/20 21:00 73 14 102/69 94 08/15/20 20:57 62 16 100/64 96 08/15/20 20:31 68 12 86/67 L 96 08/15/20 20:30 85 12 96 08/15/20 20:20 86 13 95 08/15/20 20:10 72 13 97 08/15/20 20:03 75 17 08/15/20 19:50 64 16 96 08/15/20 19:47 88 16 94 08/15/20 19:40 64 17 95 08/15/20 19:30 79 19 98 08/15/20 19:20 71 14 95 08/15/20 19:18 36.4 C L 61 19 112/78 98 08/15/20 19:17 70 19 95 08/15/20 19:16 76 20 112/78 96 08/15/20 19:12 70 16 91 Supervising Physician Co-Signing Physician Notes Attending addendum: I have physically seen this patient, have supervised the medical residents activities, and agree with the H&P unless as otherwise noted. Assessment and Plan: Multifocal pneumonia/postobstructive/right lung mass/COPD- Continue vancomycin IV and Zosyn IV begun in the ED Duonebs every 4 hours while awake and every 2 hours when necessary. Guaifenesin extended release 600 mg p.o. twice daily Continue Wixela, and Xopenex HFA as needed Consult pulmonology Anasarca- The patient will be admitted to telemetry for serial cardiac enzymes, serial EKG's, cardiac rhythm monitoring and a 2-D echocardiogram with Dopplers. Give combinations of albumin IV and Lasix IV and follow diuretic response, and maintaining adequate blood pressure Hold carvedilol due to borderline blood pressures Remaining orders and notations as noted Resident Activity Tracking Resident Involvement: Resident Care Provided Care Provided: Adult Hospital Medicine (1) Lung cancer Laterality: right Lung location: lower lobe of lung Qualified Code(s): C34.31 - Malignant neoplasm of lower lobe, right bronchus or lung
[2020-08-16] MEDS ORDERED: FUROSEMIDE 40 MG/4 ML VIAL IV STA (00:28)
[2020-08-16] MEDS: ALBUMIN 25% 12.5 GM/50 ML VIAL IV SCH ×8 (00:50→07:52)
[2020-08-16 01:24] LABS: Appearance Urine Clear (Clear); Bacteria Urine Automated Negative (Negative); Bilirubin Urine Negative (Negative); Blood Urine Negative (Negative); Color Urine Yellow; Glucose Urine UA Negative (Negative); Ketones Urine Negative (Negative); Leukocyte Esterase Urine Negative (Negative); Nitrite Urine Negative (Negative); Protein Urine Trace (Negative); RBC Urine Automated 0-4 /hpf (0-4); Specific Gravity Urine 1.019 (1.000-1.030); Urobilinogen Urine Negative (Negative)
[2020-08-16 01:32] LABS: INR 1.4 (0.9-1.1); Partial Thromboplastin Time 27.4 Seconds (21.0-31.0); Prothrombin Time 13.5 Seconds (9.0-12.0)
[2020-08-16 01:39] LABS: Cast Urine Automated 0 /lpf (0-5)
[2020-08-16] MEDS ORDERED: ACETAMINOPHEN 325 MG TAB PO PRN (02:15)
[2020-08-16] MEDS ORDERED: PIPERACILL/TAZOBAC CONSULT ACTIVE PRN (02:15)
[2020-08-16] MEDS ORDERED: guaiFENesin/DEXTROM SYRUP 200MG/20MG 10ML UDC PO PRN (02:15)
[2020-08-16] MEDS ORDERED: VANCOMYCIN HCL 1,250 MG in SODIUM CHLORIDE 0.9% 500 ML IV ONE (02:15)
[2020-08-16] MEDS ORDERED: ONDANSETRON INJ 2 MG/ML 2 ML VIAL IV PRN (02:15)
[2020-08-16] MEDS ORDERED: VANCOMYCIN CONSULT ACTIVE PRN (02:15)
[2020-08-16] MEDS: oxyCODONE/ACETAMINOPHEN 5mg/325mg TAB PO SCH ×2 (02:33→18:36)
[2020-08-16] MEDS: FLUTICASONE/VILANTEROL 200/25MCG 14 PUFFS/INHALER INH SCH (03:00)
[2020-08-16] MEDS ORDERED: FUROSEMIDE 40 MG/4 ML VIAL IV ONE ×2 (03:45→04:00)
[2020-08-16] MEDS ORDERED: FUROSEMIDE 40 MG in SYRINGE 0 ML IV ONE (03:48)
[2020-08-16] MEDS: MAGNESIUM SULFATE / D5W 1 GM/100 ML BAG IV SCH ×2 (04:01→05:12)
[2020-08-16] MEDS ORDERED: AMIODARONE / D5W 150 MG/100 ML BAG IV STA (04:02)
[2020-08-16] MEDS ORDERED: AMIODARONE IV BOLUS & DRIP IV STA (04:02)
[2020-08-16] MEDS ORDERED: 0.2 MICRON FILTER SET 1 EA IV ONE (04:02)
[2020-08-16] MEDS ORDERED: STAT IV Infusion **Titration per Protocol STA (04:02)
[2020-08-16] MEDS ORDERED: AMIODARONE 150MG / 100ML D5W IV ONE (04:04)
[2020-08-16] MEDS ORDERED: AMIODARONE / D5W 360 MG/200 ML BAG IV ONE (04:15)
[2020-08-16] MEDS: PIPERACILLIN/TAZOBACTAM 3.375 GM in DEXTROSE 5% 100 ML IV SCH ×3 (06:19→21:54)
[2020-08-16 07:45] LABS: Hematocrit (blood only) 30.5 % (42-52); Hemoglobin 9.6 g/dL (14.0-18.0); Mean Corpuscular Hemoglobin 26.7 pg (25-34); Mean Corpuscular Hgb Conc 31.5 g/dL (32-36); Mean Platelet Volume 8.3 fL (7.4-10.4); Nucleated RBC # (auto) 0.06 K/uL (0-0); Nucleated RBC % (auto) 0.2 %; Platelet Count 345 K/uL (130-400); RDW Coefficient of Variation 19.8 % (11.5-14.5); RDW Standard Deviation 57.7 fL (36.4-46.3); Red Blood Count 3.59 M/uL (4.7-6.1); White Blood Count 23.87 K/uL (4.8-10.8)
[2020-08-16] MEDS: ENOXAPARIN INJ 40 MG/0.4 ML SYR SQ SCH (07:55)
[2020-08-16] MEDS: FERROUS GLUCONATE 324 MG TAB PO SCH ×2 (07:58→16:43)
[2020-08-16] MEDS: PANTOprazole 40 MG TAB PO SCH (07:59)
[2020-08-16 08:06] LABS: Basophils # (auto) 0.03 K/uL (0-0.2); Basophils % (auto) 0.1 %; Eosinophils # (auto) 0.29 K/uL (0-0.5); Eosinophils % (auto) 1.2 %; Immature Granulocytes # (auto) 0.09 K/uL (0.00-0.02); Immature Granulocytes % (auto) 0.4 %; Lymphocytes % (auto) 6.3 %; Monocytes # (auto) 1.34 K/uL (0.11-0.59); Monocytes % (auto) 5.6 %; Neutrophils # (auto) 20.62 K/uL (1.4-6.5); Neutrophils % (auto) 86.4 %; Target Cells 1+; Toxic Vacuolation 3+
[2020-08-16 08:12] LABS: Albumin Level 2.1 gm/dl (3.4-5.0); Calcium 8.9 mg/dl (8.5-10.1); Creatinine Clr Calc Pharmacy 63.4 ml/min; Est GFR (African American) 100.2 ml/min; Est GFR (Non-African American) 86.4 ml/min; Magnesium 2.8 mg/dl (1.8-2.4); Potassium 3.9 mmol/L (3.5-5.1)
[2020-08-16 08:14] LABS: Albumin Globulin Ratio 0.4 (0.9-2); Bilirubin,Total 0.5 mg/dl (0.2-1); Globulin 4.7 gm/dl (2.5-4.0); Total Protein 6.8 gm/dl (6.4-8.2)
--- NOTE | 2020-08-16 08:25 | Hospitalist Progress Note ---
Date of Service August 16, 2020 Assessment & Plan (1) Multifocal pneumonia: Patient is a 69 year old male with PMHx lung cancer, colon cancer of cecum, xerosis cutis, HCV infection, HLD, iron deficiency anemia, CVA, COPD, GERD, that presents from [facility] for hypoxia noted on a regular screen in addition to worsening LE edema, scrotal swelling, and abdominal pain. Sepsis secondary to multifocal in addition to Post-obstructive Pneumonia from R lung mass Suspect the cause for patient's initial presenting hypoxia while at [facility]. CT Chest showing emphysema, R lung base with masslike consolidation with distal atelectasis, ground glass consolidation of left upper lobes. Meeting SIRS criteria, white count, hypotensive, tachycardic, tachypneic. MRSA nares negative -Continue empiric antibiotics with IV Zosyn and Vancomycin -Lactate: 6.1-> 5.8 -Started on hydrocortisone 50 mg every 6 hours for relative adrenal insufficiency -BP improving, tachycardia resolved, tachypnea resolved -Pulmonology consulted following recommendations -Right lower lobe masslike consolidation unclear metastatic lesion or different primary malignancy -Follow-up with outpatient heat treater and thoracic surgeon -Will not tolerate bronchoscopy -Continue Zosyn for postobstructive pneumonia Hypotension secondary to sepsis -Treat underlying infection -Stress steroid dosing hydrocortisone 50 mg every 6 hours -Trial of 250 mg LR bolus Atrial fibrillation New onset, likely secondary to complex clinical picture. Patient responded to amiodarone overnight, achieved normal sinus rhythm @ approximately 08:08 no sign ificant improvement in pressures. -Continue amiodarone -Continue to monitor on telemetry Anasarca sec to severe right heart dysfunction Patient with significant fluid overload BMP elevated 5030. Unfortunately patient with soft pressures in the low 100's/60's. On admission - Tolerated 50mg IV Albumin followed by 40mg IV lasix for diuresis -echo: Normal LV systolic function, ejection fraction 60-65, flattened septum consistent with RV pressure/volume overload, RV severely dilated and hypokinetic, RA severely dilated, severe tricuspid regurg -Daily weights -Measure i/o's -Holding home carvedilol COPD -Continue home Wixela -Continue home Xopenex PRN -Continue Mucinex Hx Colon Cancer of Cecum Records requested from [facility] CT Ab/Pelv without acute findings at this time. Recently treated at [facility], per records review cancer is terminal, chemotherapy is being administered for palliative purposes. Radiation is not indicated. -Holding home bowel regiment at this time Dicyclomine, Senna, Miralax -If constipation becomes an issue can consider resuming Cachexia/failure to thrive Secondary to history of colon cancer. Palliative has previously been consulted per review of records patient's prognosis indicates he has approximately 3 months. Apparently the patient has a parole board hearing coming up which he would like to attend. His goal is to fight the cancer until the parole board hearing. -Consult nutrition -Palliative consultation placed, patient requested status be changed to DNR/DNI Iron Deficiency Anemia -Continue iron supplementation -Hgb stable at 10.6 GERD -Continue Pantoprazole Anxiety -Continue Mirtazapine qHS Dispo: PCU for close monitoring and IV abx and diuresis. FEN: Low Na Diet, Fluid restrict 2000mL DVT: Lovenox Code: DNR - to continue puruse further discussion for palliative care goals (2) Colon cancer: (3) Lung cancer: Admission and Anticipated Discharge Date Admission Date: August 16, 2020 Supervising Physician Co-Signing Physician Notes Resident Physician Supervision Note: I independently interviewed and examined the patient and verified the hernandez history and physical, reviewed labs and image studies and agree with resident Dr. Baker findings and care plan. Subjective Patient lying in bed this morning somnolent. Patient was arousable upon shakin g. He would intermittently fall asleep during our conversation. The patient denied pain, shortness of breath, fevers, or other complaints. Per regards patient did not eat his breakfast, patient reports voiding, stooling, and sleeping well. Physical Exam Physical Exam: General: Cachectic male in no acute distress lying in bed somnolent HEENT: Normocephalic atraumatic Neck: Normal to visual inspection Cardiac: Regular rate and rhythm I did not appreciate any significant murmurs rubs or gallops, normal S1, normal S2, 2+ pedal edema Respiratory: Clear to auscultation bilaterally with symmetrical chest expansion I did not appreciate any significant wheezes, rales, questionable crackles GI: Soft, nontender, nondistended bowel sounds present Neuro: Arousable however would frequently fall asleep, intermittently alert and oriented Psych: Cooperative with the interview Results & Data Results & Data ([facility]) Vital Signs (Past 12 Hours) Vital Signs Temp Pulse Pulse Resp BP BP Pulse Ox 08/16/20 07:11 36.4 C L 115 H 16 90/47 L 96 08/16/20 06:30 122 H 22 08/16/20 06:20 124 H 17 88/65 L 08/16/20 06:15 126 H 13 08/16/20 06:05 127 H 17 90/60 L 08/16/20 06:00 122 H 13 08/16/20 05:55 123 H 15 83/61 L 08/16/20 05:50 126 H 14 75/58 L 08/16/20 05:45 129 H 10 L 08/16/20 05:35 125 H 16 105/49 L 08/16/20 05:30 123 H 12 08/16/20 05:20 134 H 19 81/51 L 08/16/20 05:15 119 H 21 08/16/20 05:05 131 H 26 H 85/58 L 08/16/20 05:00 135 H 10 L 08/16/20 04:52 134 H 16 97/68 L 08/16/20 04:51 135 H 21 08/16/20 04:45 134 H 13 08/16/20 04:35 131 H 9 L 84/61 L 08/16/20 04:30 127 H 11 L 08/16/20 04:27 123 H 13 80/51 L 08/16/20 04:22 119 H 13 87/50 L 08/16/20 04:21 120 H 10 L 73/52 L 08/16/20 04:20 117 H 12 75/53 L 08/16/20 04:16 132 H 11 L 79/48 L 08/16/20 04:15 129 H 29 H 08/16/20 04:13 136 H 11 L 80/62 L 08/16/20 04:07 155 H 19 60/50 L 97 08/16/20 04:01 153 H 18 67/48 L 96 08/16/20 04:00 144 H 16 96 08/16/20 03:50 150 H 15 85/49 L 95 08/16/20 03:45 149 H 16 96 08/16/20 03:34 151 H 13 79/53 L 96 08/16/20 03:31 158 H 9 L 94 08/16/20 03:15 70 08/16/20 03:06 100 H 08/16/20 02:15 08/16/20 01:54 36.7 C 74 120/64 93 08/16/20 01:30 86 20 99/73 L 95 08/16/20 01:11 36.8 C 08/16/20 01:00 84 20 103/67 95 08/16/20 00:30 96 H 20 110/69 95 08/16/20 00:00 100 H 16 106/75 08/15/20 23:30 95 H 17 98/63 L 08/15/20 23:02 94 08/15/20 22:32 93 08/15/20 22:30 102/62 94 08/15/20 22:19 114/61 94 08/15/20 21:45 66 17 104/65 95 08/15/20 21:34 18 106/78 95 08/15/20 21:32 77 17 94 08/15/20 21:15 77 17 95/65 L 95 08/15/20 21:00 73 14 102/69 94 08/15/20 20:57 62 16 100/64 96 08/15/20 20:31 68 12 86/67 L 96 08/15/20 20:30 85 12 96 Pulse Ox 08/16/20 07:11 08/16/20 06:30 08/16/20 06:20 08/16/20 06:15 08/16/20 06:05 08/16/20 06:00 08/16/20 05:55 08/16/20 05:50 08/16/20 05:45 08/16/20 05:35 08/16/20 05:30 08/16/20 05:20 08/16/20 05:15 08/16/20 05:05 08/16/20 05:00 08/16/20 04:52 08/16/20 04:51 08/16/20 04:45 08/16/20 04:35 08/16/20 04:30 08/16/20 04:27 08/16/20 04:22 08/16/20 04:21 08/16/20 04:20 08/16/20 04:16 08/16/20 04:15 08/16/20 04:13 08/16/20 04:07 08/16/20 04:01 08/16/20 04:00 08/16/20 03:50 08/16/20 03:45 08/16/20 03:34 08/16/20 03:31 08/16/20 03:15 08/16/20 03:06 08/16/20 02:15 93 08/16/20 01:54 08/16/20 01:30 08/16/20 01:11 08/16/20 01:00 08/16/20 00:30 08/16/20 00:00 08/15/20 23:30 08/15/20 23:02 08/15/20 22:32 08/15/20 22:30 08/15/20 22:19 08/15/20 21:45 08/15/20 21:34 08/15/20 21:32 08/15/20 21:15 08/15/20 21:00 08/15/20 20:57 08/15/20 20:31 08/15/20 20:30 Laboratory Results 08/16/20 08/16/20 08/16/20 Range/Units 07:34 07:34 02:42 WBC 23.87 H (4.8-10.8) K/uL RBC 3.59 L (4.7-6.1) M/uL Hgb 9.6 L (14.0-18.0) g/dL Hct 30.5 L (42-52) % MCV 85.0 (80-100) fL MCH 26.7 (25-34) pg MCHC 31.5 L (32-36) g/dL RDW Std Deviation 57.7 H (36.4-46.3) fL RDW Coeff of Acacia 19.8 H (11.5-14.5) % Plt Count 345 (130-400) K/uL MPV 8.3 (7.4-10.4) fL Immature Gran % (Auto) 0.4 % Neut % (Auto) 86.4 % Lymph % (Auto) 6.3 % [place] % (Auto) 5.6 % Eos % (Auto) 1.2 % Baso % (Auto) 0.1 % Neut # (Auto) 20.62 H (1.4-6.5) K/uL Lymph # (Auto) 1.50 (1.2-3.4) K/uL [place] # (Auto) 1.34 H (0.11-0.59) K/uL Eos # (Auto) 0.29 (0-0.5) K/uL Baso # (Auto) 0.03 (0-0.2) K/uL Immature Gran # (Auto) 0.09 H (0.00-0.02) K/uL Absolute Nucleated RBC 0.06 H (0-0) K/uL Nucleated RBC % (auto) 0.2 % Toxic Vacuolation 3+ Target Cells 1+ PT (9.0-12.0) Seconds INR (0.9-1.1) APTT (21.0-31.0) Seconds PTT Ratio Sodium 138 (136-145) mmol/L Potassium 3.9 (3.5-5.1) mmol/L Chloride 103 (98-107) mmol/L Carbon Dioxide 24 (21-32) mmol/L Anion Gap 11.0 (3-11) BUN 38 H (7-18) mg/dl Creatinine 0.88 (0.6-1.4) mg/dl Est Cr Clr Drug Dosing 63.4 ml/min Est GFR ( Amer) 100.2 ml/min Est GFR (Non-Af Amer) 86.4 ml/min BUN/Creatinine Ratio 43.0 H (10-20) Glucose 97 (70-99) mg/dl Lactate (0.4-2.0) mmol/L Calcium 8.9 (8.5-10.1) mg/dl Magnesium 2.8 H (1.8-2.4) mg/dl Total Bilirubin 0.5 (0.2-1) mg/dl AST 11 L (15-37) U/L ALT 10 L (12-78) U/L Alkaline Phosphatase 65 (45-117) U/L Troponin I (0-0.045) ng/ml NT-Pro-B Natriuret Pep (0-900) pg/ml Total Protein 6.8 (6.4-8.2) gm/dl Albumin 2.1 L (3.4-5.0) gm/dl Globulin 4.7 H (2.5-4.0) gm/dl Albumin/Globulin Ratio 0.4 L (0.9-2) Lipase (73-393) U/L Procalcitonin (0-0.5) ng/ml Urine Color Urine Appearance (Clear) Urine pH (4.5-7.5) Ur Specific Chama (1.000-1.030) Urine Protein (Negative) Urine Glucose (UA) (Negative) Urine Ketones (Negative) Urine Blood (Negative) Urine Nitrite (Negative) Urine Bilirubin (Negative) Urine Urobilinogen (Negative) Ur Leukocyte Esterase (Negative) Urine WBC (Auto) (0-5) /hpf Urine RBC (Auto) (0-4) /hpf U Hyaline Cast (Auto) (0-5) /lpf U Epithel Cells (Auto) (0-5) /lpf Urine Bacteria (Auto) (Negative) Nasal Screen MRSA (PCR) Negative (Negative) COVID-19 Eval Order SARS-CoV-2 (PCR) (Negative) 08/16/20 08/16/20 08/16/20 Range/Units 01:13 01:13 00:57 WBC (4.8-10.8) K/uL RBC (4.7-6.1) M/uL Hgb (14.0-18.0) g/dL Hct (42-52) % MCV (80-100) fL MCH (25-34) pg MCHC (32-36) g/dL RDW Std Deviation (36.4-46.3) fL RDW Coeff of Acacia (11.5-14.5) % Plt Count (130-400) K/uL MPV (7.4-10.4) fL Immature Gran % (Auto) % Neut % (Auto) % Lymph % (Auto) % [place] % (Auto) % Eos % (Auto) % Baso % (Auto) % Neut # (Auto) (1.4-6.5) K/uL Lymph # (Auto) (1.2-3.4) K/uL [place] # (Auto) (0.11-0.59) K/uL Eos # (Auto) (0-0.5) K/uL Baso # (Auto) (0-0.2) K/uL Immature Gran # (Auto) (0.00-0.02) K/uL Absolute Nucleated RBC (0-0) K/uL Nucleated RBC % (auto) % Toxic Vacuolation Target Cells PT 13.5 H (9.0-12.0) Seconds INR 1.4 H (0.9-1.1) APTT 27.4 (21.0-31.0) Seconds PTT Ratio 1.0 Sodium (136-145) mmol/L Potassium (3.5-5.1) mmol/L Chloride (98-107) mmol/L Carbon Dioxide (21-32) mmol/L Anion Gap (3-11) BUN (7-18) mg/dl Creatinine (0.6-1.4) mg/dl Est Cr Clr Drug Dosing ml/min Est GFR ( Amer) ml/min Est GFR (Non-Af Amer) ml/min BUN/Creatinine Ratio (10-20) Glucose (70-99) mg/dl Lactate 5.8 H* (0.4-2.0) mmol/L Calcium (8.5-10.1) mg/dl Magnesium (1.8-2.4) mg/dl Total Bilirubin (0.2-1) mg/dl AST (15-37) U/L ALT (12-78) U/L Alkaline Phosphatase (45-117) U/L Troponin I (0-0.045) ng/ml NT-Pro-B Natriuret Pep (0-900) pg/ml Total Protein (6.4-8.2) gm/dl Albumin (3.4-5.0) gm/dl Globulin (2.5-4.0) gm/dl Albumin/Globulin Ratio (0.9-2) Lipase (73-393) U/L Procalcitonin (0-0.5) ng/ml Urine Color Yellow Urine Appearance Clear (Clear) Urine pH 5.0 (4.5-7.5) Ur Specific Chama 1.019 (1.000-1.030) Urine Protein Trace H (Negative) Urine Glucose (UA) Negative (Negative) Urine Ketones Negative (Negative) Urine Blood Negative (Negative) Urine Nitrite Negative (Negative) Urine Bilirubin Negative (Negative) Urine Urobilinogen Negative (Negative) Ur Leukocyte Esterase Negative (Negative) Urine WBC (Auto) 1-5 (0-5) /hpf Urine RBC (Auto) 0-4 (0-4) /hpf U Hyaline Cast (Auto) 0 (0-5) /lpf U Epithel Cells (Auto) 10-20 H (0-5) /lpf Urine Bacteria (Auto) Negative (Negative) Nasal Screen MRSA (PCR) (Negative) COVID-19 Eval Order SARS-CoV-2 (PCR) (Negative) 08/15/20 08/15/20 08/15/20 Range/Units 23:20 22:27 22:27 WBC (4.8-10.8) K/uL RBC (4.7-6.1) M/uL Hgb (14.0-18.0) g/dL Hct (42-52) % MCV (80-100) fL MCH (25-34) pg MCHC (32-36) g/dL RDW Std Deviation (36.4-46.3) fL RDW Coeff of Acacia (11.5-14.5) % Plt Count (130-400) K/uL MPV (7.4-10.4) fL Immature Gran % (Auto) % Neut % (Auto) % Lymph % (Auto) % [place] % (Auto) % Eos % (Auto) % Baso % (Auto) % Neut # (Auto) (1.4-6.5) K/uL Lymph # (Auto) (1.2-3.4) K/uL [place] # (Auto) (0.11-0.59) K/uL Eos # (Auto) (0-0.5) K/uL Baso # (Auto) (0-0.2) K/uL Immature Gran # (Auto) (0.00-0.02) K/uL Absolute Nucleated RBC (0-0) K/uL Nucleated RBC % (auto) % Toxic Vacuolation Target Cells PT (9.0-12.0) Seconds INR (0.9-1.1) APTT (21.0-31.0) Seconds PTT Ratio Sodium (136-145) mmol/L Potassium (3.5-5.1) mmol/L Chloride (98-107) mmol/L Carbon Dioxide (21-32) mmol/L Anion Gap (3-11) BUN (7-18) mg/dl Creatinine (0.6-1.4) mg/dl Est Cr Clr Drug Dosing ml/min Est GFR ( Amer) ml/min Est GFR (Non-Af Amer) ml/min BUN/Creatinine Ratio (10-20) Glucose (70-99) mg/dl Lactate 6.1 H* (0.4-2.0) mmol/L Calcium (8.5-10.1) mg/dl Magnesium (1.8-2.4) mg/dl Total Bilirubin (0.2-1) mg/dl AST (15-37) U/L ALT (12-78) U/L Alkaline Phosphatase (45-117) U/L Troponin I (0-0.045) ng/ml NT-Pro-B Natriuret Pep (0-900) pg/ml Total Protein (6.4-8.2) gm/dl Albumin (3.4-5.0) gm/dl Globulin (2.5-4.0) gm/dl Albumin/Globulin Ratio (0.9-2) Lipase (73-393) U/L Procalcitonin (0-0.5) ng/ml Urine Color Urine Appearance (Clear) Urine pH (4.5-7.5) Ur Specific [place]ama (1.000-1.030) Urine Protein (Negative) Urine Glucose (UA) (Negative) Urine Ketones (Negative) Urine Blood (Negative) Urine Nitrite (Negative) Urine Bilirubin (Negative) Urine Urobilinogen (Negative) Ur Leukocyte Esterase (Negative) Urine WBC (Auto) (0-5) /hpf Urine RBC (Auto) (0-4) /hpf U Hyaline Cast (Auto) (0-5) /lpf U Epithel Cells (Auto) (0-5) /lpf Urine Bacteria (Auto) (Negative) Nasal Screen MRSA (PCR) (Negative) COVID-19 Eval Order Covid19 at [facility] SARS-CoV-2 (PCR) NEGATIVE (Negative) 08/15/20 08/15/20 08/15/20 Range/Units 21:13 21:13 21:13 WBC 28.40 H (4.8-10.8) K/uL RBC 4.00 L (4.7-6.1) M/uL Hgb 10.6 L (14.0-18.0) g/dL Hct 33.6 L (42-52) % MCV 84.0 (80-100) fL MCH 26.5 (25-34) pg MCHC 31.5 L (32-36) g/dL RDW Std Deviation 57.1 H (36.4-46.3) fL RDW Coeff of Acacia 19.7 H (11.5-14.5) % Plt Count 375 (130-400) K/uL MPV 8.3 (7.4-10.4) fL Immature Gran % (Auto) 0.6 % Neut % (Auto) 85.6 % Lymph % (Auto) 6.2 % [place] % (Auto) 5.5 % Eos % (Auto) 1.9 % Baso % (Auto) 0.2 % Neut # (Auto) 24.30 H (1.4-6.5) K/uL Lymph # (Auto) 1.77 (1.2-3.4) K/uL [place] # (Auto) 1.57 H (0.11-0.59) K/uL Eos # (Auto) 0.53 H (0-0.5) K/uL Baso # (Auto) 0.05 (0-0.2) K/uL Immature Gran # (Auto) 0.18 H (0.00-0.02) K/uL Absolute Nucleated RBC 0.10 H (0-0) K/uL Nucleated RBC % (auto) 0.4 % Toxic Vacuolation Target Cells PT (9.0-12.0) Seconds INR (0.9-1.1) APTT (21.0-31.0) Seconds PTT Ratio Sodium 139 (136-145) mmol/L Potassium 4.2 (3.5-5.1) mmol/L Chloride 101 (98-107) mmol/L Carbon Dioxide 27 (21-32) mmol/L Anion Gap 10.0 (3-11) BUN 44 H (7-18) mg/dl Creatinine 1.04 (0.6-1.4) mg/dl Est Cr Clr Drug Dosing 56.7 ml/min Est GFR ( Amer) 83.3 ml/min Est GFR (Non-Af Amer) 71.9 ml/min BUN/Creatinine Ratio 42.5 H (10-20) Glucose 89 (70-99) mg/dl Lactate (0.4-2.0) mmol/L Calcium 9.3 (8.5-10.1) mg/dl Magnesium (1.8-2.4) mg/dl Total Bilirubin 0.4 (0.2-1) mg/dl AST 16 (15-37) U/L ALT 13 (12-78) U/L Alkaline Phosphatase 84 (45-117) U/L Troponin I < 0.015 (0-0.045) ng/ml NT-Pro-B Natriuret Pep 5030 H (0-900) pg/ml Total Protein 8.0 (6.4-8.2) gm/dl Albumin 2.0 L (3.4-5.0) gm/dl Globulin 6.0 H (2.5-4.0) gm/dl Albumin/Globulin Ratio 0.3 L (0.9-2) Lipase 33 L (73-393) U/L Procalcitonin 0.58 H (0-0.5) ng/ml Urine Color Urine Appearance (Clear) Urine pH (4.5-7.5) Ur Specific [place] (1.000-1.030) Urine Protein (Negative) Urine Glucose (UA) (Negative) Urine Ketones (Negative) Urine Blood (Negative) Urine Nitrite (Negative) Urine Bilirubin (Negative) Urine Urobilinogen (Negative) Ur Leukocyte Esterase (Negative) Urine WBC (Auto) (0-5) /hpf Urine RBC (Auto) (0-4) /hpf U Hyaline Cast (Auto) (0-5) /lpf U Epithel Cells (Auto) (0-5) /lpf Urine Bacteria (Auto) (Negative) Nasal Screen MRSA (PCR) (Negative) COVID-19 Eval Order SARS-CoV-2 (PCR) (Negative) Medications Administered Current Inpatient Medications Acetaminophen (Acetaminophen 325 Mg Tab) 650 mg PO Q4H PRN PRN Reason: Pain or Fever Stop: 09/15/20 02:14 Enoxaparin Sodium (Enoxaparin Inj 40 Mg/0.4 Ml Syr) 40 mg SQ Q24H [facility] Stop: 09/15/20 08:59 Last Admin: 08/16/20 07:55 Dose: 40 mg Documented by: Ferrous Gluconate (Ferrous Gluconate 324 Mg Tab) 324 mg PO BIDM [facility] Stop: 09/15/20 07:59 Last Admin: 08/16/20 07:58 Dose: 324 mg Documented by: Fluticasone/Vilanterol (Fluticasone/Vilanterol 200/25mcg 14 Puffs/Inhaler) 1 puffs INH DAILY [facility] Stop: 09/15/20 02:59 Last Admin: 08/16/20 03:00 Dose: 1 puffs Documented by: Guaifenesin/Dextromethorphan (Guaifenesin/Dextrom Syrup 200mg/20mg 10ml Udc) 10 ml PO TID PRN PRN Reason: Unknown Stop: 09/15/20 02:14 Piperacillin Sod/Tazobactam (Sod 3.375 gm/ Dextrose) 115 mls @ 28.75 mls/hr IV Q8H [facility]; Protocol Stop: 08/23/20 05:59 Last Admin: 08/16/20 06:19 Dose: 28.8 mls/hr Documented by: Amiodarone HCl/Dextrose (Nexterone / D5w) 360 mg in 200 mls @ 33.333 mls/hr IV ONE ONE Stop: 08/16/20 10:14 Last Admin: 08/16/20 04:17 Dose: 33.3 mls/hr Documented by: Amiodarone HCl/Dextrose (Nexterone / D5w) 360 mg in 200 mls @ 16.667 mls/hr IV .Q12H [facility] Stop: 09/15/20 10:14 Albumin Human (Albumin 25%) 12.5 gm in 50 mls @ 50 mls/hr IV Q1H [facility] Stop: 08/16/20 08:44 Last Admin: 08/16/20 07:52 Dose: 50 mls/hr Documented by: Vancomycin HCl 750 mg/ Sodium (Chloride) 265 mls @ 200 mls/hr IV Q12H [facility] Stop: 08/23/20 13:59 Levalbuterol HCl (Levalbuterol Tartrate 15 Gm Hfa.Aer.Ad) 2 puffs INH QID PRN PRN Reason: Unknown Stop: 09/15/20 02:14 Mirtazapine (Mirtazapine Tab 15 Mg Tab) 15 mg PO HS [facility] Stop: 09/15/20 20:59 Miscellaneous Information (Piperacill/Tazobac Consult Active) 1 ea N/A UD PRN PRN Reason: Consult Stop: 09/15/20 02:14 Miscellaneous Information (Vancomycin Consult Active) 1 ea N/A UD PRN PRN Reason: Consult Stop: 09/15/20 02:14 Ondansetron HCl (Ondansetron Inj 2 Mg/Ml 2 Ml Vial) 4 mg IV Q6H PRN PRN Reason: Nausea Stop: 09/15/20 02:14 Oxycodone/Acetaminophen (Oxycodone/Acetaminophen 5mg/325mg Tab) 1 tab PO UD [facility] Stop: 08/30/20 02:14 Last Admin: 08/16/20 02:33 Dose: 1 tab Documented by: Pantoprazole Sodium (Pantoprazole 40 Mg Tab) 40 mg PO DAILY [facility] Stop: 09/15/20 08:59 Last Admin: 08/16/20 07:59 Dose: 40 mg Documented by: Resident Activity Tracking Resident Involvement: Resident Care Provided Care Provided: Adult Hospital Medicine (1) Lung cancer Laterality: right Lung location: lower lobe of lung Qualified Code(s): C34.31 - Malignant neoplasm of lower lobe, right bronchus or lung
--- NOTE | 2020-08-16 08:41 | Pharmacy Report ---
Pharmacy Abx Dose Short Note - Date of Service August 16, 2020 - Assessment & Plan Assessment 69 year old with PMHx lung cancer, colon cancer, presenting from [facility] for hypoxia and worsening LE edema, scrotal swelling and abdominal pain. Started on broad spectrum antibiotics with vancomycin and zosyn for possible pneumonia. MRSA swab negative. Discussed with provider and will continue with vancomycin for at least another 24 hrs. Blood cultures x 2 are pending Plan Vancomycin * Received loading dose of vancomycin 1500 mg x 1 this AM (~25 mg/kg/dose) * Will plan to start vancomycin 750 mg (~13 mg/kg/dose) iv q 12 hrs based upon vancomycin AUC nomogram dosing * Plan to collect trough if vancomycin plan to be continued >48 hrs Zosyn * 3.375 gm iv q 8 hr - appropriate for CrCl >30 / no change Pharmacy will continue to follow and will adjust dose/frequency as necessary. Thank you.
[2020-08-16] MEDS ORDERED: LACTATED RINGER'S 250 ML IV ONE (09:38)
[2020-08-16] MEDS: AMIODARONE / D5W 360 MG/200 ML BAG IV SCH ×2 (09:43→21:48)
--- NOTE | 2020-08-16 10:10 | Electrocardiogram Report ---
Test Reason : Blood Pressure : / mmHG Vent. Rate : 074 BPM Atrial Rate : 074 BPM P-R Int : 128 ms QRS Dur : 076 ms QT Int : 418 ms P-R-T Axes : 064 -60 033 degrees QTc Int : 463 ms Sinus rhythm with marked sinus arrhythmia Left atrial enlargement Left anterior fascicular block Low voltage QRS Cannot rule out Anterior infarct , age undetermined Nonspecific T wave abnormality Abnormal ECG No previous ECGs available Confirmed by Gerardo Burrell ([id number]) on 08/16/2020 10:10:04 AM Referred By: [facility] Confirmed By:Gerardo Burrell
--- NOTE | 2020-08-16 10:16 | Electrocardiogram Report ---
Test Reason : Blood Pressure : / mmHG Vent. Rate : 154 BPM Atrial Rate : 182 BPM P-R Int : 000 ms QRS Dur : 074 ms QT Int : 260 ms P-R-T Axes : 000 -69 080 degrees QTc Int : 416 ms Atrial fibrillation with rapid ventricular response Left axis deviation Low voltage QRS Inferior infarct , age undetermined Anterolateral infarct (cited on or before 15-AUG-2020) Abnormal ECG When compared with ECG of 15-AUG-2020 20:13, (unconfirmed) Atrial fibrillation has replaced Sinus rhythm Vent. rate has increased BY 80 BPM Criteria for Inferior infarct , age undetermined now present Confirmed by Gerardo Burrell ([id number]) on 08/16/2020 10:15:28 AM Referred By: [facility] Confirmed By:Gerardo Burrell
[2020-08-16] MEDS: HYDROCORTISONE SOD 50 MG in SYRINGE 0 ML IV SCH ×3 (10:34→21:51)
--- NOTE | 2020-08-16 12:54 | Pulmonary Consultation ---
Date of Consultation August 16, 2020 Assessment & Plan (1) Lung cancer: 69-year-old -[place] male with a past medical history of adenocarcinoma of the colon status post hemicolectomy in April and apparent diagnosis of lung cancer. It is unclear if the lung cancer is a primary lesion o r metastatic lesion. Right lower lobe masslike consolidation: I do not have any old imaging to compare to. It is unclear if this is a metastatic lesion or a different primary malignancy. I would recommend that the patient follow-up with his outpatient pulpwood buyer and thoracic surgeon. He should also follow-up with oncology. The patient looks very frail and weak and has a poor performance status. He also has evidence of severe sepsis and severe tricuspid regurg on echo. He would not tolerate an intervention well such as bronchoscopy at this time. 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 I think it is reasonable to continue treating postobstructive pneumonia. His nasal MRSA screen was negative. I will discontinue vancomycin. Zosyn is reasonable for gram-negative and anaerobic coverage. Agree with palliative care consultation. Pulmonary will follow from the periphery. Please call with questions. Thank you for the consultation. Laterality: right Lung location: lower lobe of lung Qualified Code(s): C34.31 - Malignant neoplasm of lower lobe, right bronchus or lung (2) Colon cancer: (3) Anasarca: (4) Multifocal pneumonia: History of Present Illness Reason for Consultation: Lung mass Attending Physician: Kathy Jimenez MD History of Present Illness 69-year-old -[place] male with apparent history of adenocarcinoma of the lung and adenocarcinoma of the colon status post right hemicolectomy in April 2020 presenting to the hospital due to chest pain and hypoxia. He was found to be hypoxic on routine vital sign checks at [facility]. Pulmonary is consulted due to masslike consolidation in the right lung base with atelectasis. Patient denies any significant shortness of breath at this time. He is laying comfortably in bed. He does endorse some back pain, but he will not specify where. He denies any nausea or vomiting. He falls asleep easily. He repeated numerous times to me that he would like to go back to his hospital. When I asked him where that was he told me that it was in [place]. He is able to tell me that he is currently in [place] in the year 2020. He was also able to tell me that he has cancer that has spread throughout his body. It is noted from the HPI, the patient has seen palliative care in [facility] previously and wa s told that he would only be a candidate for palliative chemotherapy. Palliative care is consulted here. The patient is currently on room air and saturating 96%. He has a leukocytosis of 24,000. His lactate was elevated on hospital admission to 6.1 and has slightly down trended to 5.8. Blood pressure is currently 93/60. CT chest and abdomen imaging was reviewed by me. The studies are very poor given the lack of contrast and motion artifact. There is a large masslike density in the right lower lobe that is ill-defined due to the lack of contrast in the motion artifact. There are also small areas of groundglass opacities in the left upper lobe. Minimal effusion noted on the left. Echo 08/16/2020 with an EF of 60 to 65%. The right ventricle was severely dilated and hypokinetic. Severe tricuspid regurgitation secondary to annular dilation and lack of coaptation of the tricuspid valve was noted. PASP 30mmHg which is likely underestimated due to the RV dysfunction. Allergies Allergy/AdvReac Type Severity Reaction Status Date / Time Iodinated Contrast Media Allergy Intermediate hives/vomiting Verified 08/16/20 02:22 (IV Contrast) Home Medications Medication Instructions Recorded Confirmed Type carvedilol 3.125 mg PO BID 08/15/20 08/15/20 History dextromethorphan-guaifenesin 10 ml PO TID PRN 08/15/20 08/15/20 History [Cough-Chest Congestion DM] dicyclomine 20 mg PO TID PRN 08/15/20 08/15/20 History ferrous gluconate 324 mg PO BID 08/15/20 08/15/20 History fluticasone propion-salmeterol 1 inh INHALATION BID 08/15/20 08/15/20 History [Wixela Inhub] levalbuterol tartrate [Xopenex HFA] 2 inh INHALATION QID PRN 08/15/20 08/15/20 History mirtazapine 15 mg PO HS 08/15/20 08/15/20 History multivitamin 1 tab PO DAILY 08/15/20 08/15/20 History oxycodone-acetaminophen [Percocet] 1 tab PO UD 08/15/20 08/15/20 History pantoprazole 40 mg PO DAILY 08/15/20 08/15/20 History polyethylene glycol 3350 [Miralax] 17 g PO BID 08/15/20 08/15/20 History sennosides [senna] 8.6 mg PO BID 08/15/20 08/15/20 History Patient History Medical History Colon cancer Lung cancer Social History Smoking Status: Former smoker Smoking End Date: 3 years ago; Second Hand Exposure: No; Tobacco Cessation Education Requested by Patient: No Hx Alcohol Use: No Hx Substance Use: No Preferred Language: Maltese Communication Ability: Effective Beliefs That Will Affect Care: None Current Living Situation: Other Current Living Situation Comment: retirement Other Information That Helps Us Care for You: No Feels Safe at Home: Yes Safety Concerns: Feels Safe At This Time Assistive Devices: None Review of Systems Review of Systems: All systems reviewed & are unremarkable except as noted in HPI & below Physical Exam Constitutional: Cachectic appearing male in no apparent distress. Laying in bed. Respiratory: Diminished at the lung bases. No wheezes. Prolonged phase of exhalation. Cardiovascular: Rate/Rhythm: regular rate and regular rhythm Heart Sounds: normal S1 and normal S2 Extremities: + edema Gastrointestinal (Abdomen): normal bowel sounds, soft, nontender, no hepatosplenomegaly Musculoskeletal: Decreased strength in the upper and lower limbs bilaterally Skin: no rashes, warm and dry Neurologic: PERRL, EOMI, accommodation nl, no face palsy, no dysarthria Psychiatric: Orientation: alert, oriented to place and + guarded Mood: + anxious mood Results & Data Results & Data ([facility]) Vital Signs (Past 12 Hours) Vital Signs Temp Pulse Pulse Resp BP BP Pulse Ox 08/16/20 11:21 97.5 F L 64 19 93/60 L 96 08/16/20 08:47 127 H 08/16/20 07:11 97.5 F L 115 H 16 90/47 L 96 08/16/20 06:30 122 H 22 08/16/20 06:20 124 H 17 88/65 L 08/16/20 06:15 126 H 13 08/16/20 06:05 127 H 17 90/60 L 08/16/20 06:00 122 H 13 08/16/20 05:55 123 H 15 83/61 L 08/16/20 05:50 126 H 14 75/58 L 08/16/20 05:45 129 H 10 L 08/16/20 05:35 125 H 16 105/49 L 08/16/20 05:30 123 H 12 08/16/20 05:20 134 H 19 81/51 L 08/16/20 05:15 119 H 21 08/16/20 05:05 131 H 26 H 85/58 L 08/16/20 05:00 135 H 10 L 08/16/20 04:52 134 H 16 97/68 L 08/16/20 04:51 135 H 21 08/16/20 04:45 134 H 13 08/16/20 04:35 131 H 9 L 84/61 L 08/16/20 04:30 127 H 11 L 08/16/20 04:27 123 H 13 80/51 L 08/16/20 04:22 119 H 13 87/50 L 08/16/20 04:21 120 H 10 L 73/52 L 08/16/20 04:20 117 H 12 75/53 L 08/16/20 04:16 132 H 11 L 79/48 L 08/16/20 04:15 129 H 29 H 08/16/20 04:13 136 H 11 L 80/62 L 08/16/20 04:07 155 H 19 60/50 L 97 08/16/20 04:01 153 H 18 67/48 L 96 08/16/20 04:00 144 H 16 96 08/16/20 03:50 150 H 15 85/49 L 95 08/16/20 03:45 149 H 16 96 08/16/20 03:34 151 H 13 79/53 L 96 08/16/20 03:31 158 H 9 L 94 08/16/20 03:15 70 08/16/20 03:06 100 H 08/16/20 02:15 08/16/20 01:54 98.1 F 74 120/64 93 08/16/20 01:30 86 20 99/73 L 95 08/16/20 01:11 98.2 F 08/16/20 01:00 84 20 103/67 95 Pulse Ox 08/16/20 11:21 08/16/20 08:47 08/16/20 07:11 08/16/20 06:30 08/16/20 06:20 08/16/20 06:15 08/16/20 06:05 08/16/20 06:00 08/16/20 05:55 08/16/20 05:50 08/16/20 05:45 08/16/20 05:35 08/16/20 05:30 08/16/20 05:20 08/16/20 05:15 08/16/20 05:05 08/16/20 05:00 08/16/20 04:52 08/16/20 04:51 08/16/20 04:45 08/16/20 04:35 08/16/20 04:30 08/16/20 04:27 08/16/20 04:22 08/16/20 04:21 08/16/20 04:20 08/16/20 04:16 08/16/20 04:15 08/16/20 04:13 08/16/20 04:07 08/16/20 04:01 08/16/20 04:00 08/16/20 03:50 08/16/20 03:45 08/16/20 03:34 08/16/20 03:31 08/16/20 03:15 08/16/20 03:06 08/16/20 02:15 93 08/16/20 01:54 08/16/20 01:30 08/16/20 01:11 08/16/20 01:00 Vital signs, labs and imaging personally reviewed PG Care Time/CCT Total # of Minutes Spent Total Time Spent with Patient: Total time spent is greater than 50% in coordination of care (as documented) at patient's floor/unit and/or counseling patient: Coding Level of Care Code 32087 Initial Inpt Care Lvl 3 Diagnoses Lung cancer C34.31 Laterality: right Lung location: lower lobe of lung Colon cancer C18.9 Anasarca R60.1 Multifocal pneumonia J18.9
[2020-08-16] MEDS ORDERED: VANCOMYCIN HCL 750 MG in SODIUM CHLORIDE 0.9% 250 ML IV SCH (14:00)
[2020-08-16] MEDS ORDERED: MoRPHine SULFATE 2 MG/ML CARP IV PRN (19:30)
[2020-08-16] MEDS: MoRPHine SULFATE 2 MG/ML CARP IV PRN ×2 (20:25→23:49)
[2020-08-16] MEDS: MIRTAZAPINE TAB 15 MG TAB PO SCH (20:26)
--- NOTE | 2020-08-16 22:47 | Billing Data ---
Date of Service August 16, 2020 Coding Level of Care Code 15489 Initial Inpt Care Lvl 3
[2020-08-17] MEDS: oxyCODONE/ACETAMINOPHEN 5mg/325mg TAB PO SCH ×2 (00:30→10:15)
[2020-08-17] MEDS: HYDROCORTISONE SOD 50 MG in SYRINGE 0 ML IV SCH ×3 (03:56→21:53)
[2020-08-17] MEDS: MoRPHine SULFATE 2 MG/ML CARP IV PRN ×4 (03:56→21:43)
[2020-08-17] MEDS: PIPERACILLIN/TAZOBACTAM 3.375 GM in DEXTROSE 5% 100 ML IV SCH ×3 (05:27→21:43)
[2020-08-17] MEDS: LEVALBUTEROL TARTRATE 15 GM HFA.AER.AD INH PRN ×2 (06:22→15:07)
[2020-08-17 07:21] LABS: Creatinine Clr Calc Pharmacy 65.7 ml/min; Est GFR (African American) 95.4 ml/min; Est GFR (Non-African American) 82.3 ml/min
--- NOTE | 2020-08-17 08:16 | Hospitalist Progress Note ---
Date of Service August 17, 2020 Assessment & Plan (1) Multifocal pneumonia: Patient is a 69 year old male with PMHx lung cancer, colon cancer of cecum, xerosis cutis, HCV infection, HLD, iron deficiency anemia, CVA, COPD, GERD, that presents from [facility] for hypoxia noted on a regular screen in addition to worsening LE edema, scrotal swelling, and abdominal pain. Sepsis secondary to multifocal in addition to Post-obstructive Pneumonia from R lung mass Suspect the cause for patient's initial presenting hypoxia while at [facility]. CT Chest showing emphysema, R lung base with masslike consolidation with distal atelectasis, ground glass consolidation of left upper lobes. Meeting SIRS criteria, white count, hypotensive, tachycardic, tachypneic. MRSA nares negative patient made significant improvement with antibiotic therapy and stress steroid dosing. No longer meeting septic criteria as of 08/17. -Downgrade to med telemetry -Continue empiric antibiotics with IV Zosyn narrow pending culture results -WBC: 28.4->23.87->21.14 -Lactate: 6.1-> 5.8 -> -Significant improvement with hydrocortisone stress dosing, will begin to wean to 50 mg every 12 -Pulmonology consulted following recommendations -Right lower lobe masslike consolidation unclear metastatic lesion or different primary malignancy -Follow-up with outpatient infrastructure administrator and thoracic surgeon -Will not tolerate bronchoscopy -Continue Zosyn for postobstructive pneumonia Hypotension secondary to relative adrenal insufficiency and septic shock -Continue Zosyn to treat underlying infection -Wean stress steroid dosing hydrocortisone 50 mg every 12 hours Atrial fibrillation New onset, likely secondary to complex clinical picture. Patient responded to amiodarone overnight, achieved normal sinus rhythm @ approximately 08:08 no sig nificant improvement in pressures. -Transition to p.o. amiodarone 200 mg qday -Continue to monitor on telemetry Anasarca Patient with significant fluid overload BMP elevated 5030 on admit. Unfortunately patient with soft pressures in the low 100's/60's. Tolerated 50mg IV Albumin followed by 40mg IV lasix for diuresis May require more diuresis since he will be receiving even more fluids with antibiotics above. Fluid overload improving -echo: Normal LV systolic function, ejection fraction 60-65, flattened septum consistent with RV pressure/volume overload, RV severely dilated and hypokinetic, RA severely dilated, severe tricuspid regurg -Daily weights -Measure i/o's -Holding home carvedilol COPD -Continue home Wixela -Continue home Xopenex PRN -Continue Mucinex Hx Colon Cancer of Cecum Records requested from [facility] CT Ab/Pelv without acute findings at this time. Recently treated at [facility], per records review cancer is terminal, chemotherapy is being administered for palliative purposes. Radiation is not indicated. -Holding home bowel regiment at this time Dicyclomine, Senna, Miralax -If constipation becomes an issue can consider resuming Cachexia/failure to thrive Secondary to history of colon cancer. Palliative has previously been consulted per review of records patient's prognosis indicates he has approximately 3 months. Apparently the patient has a parole board hearing coming up which he would like to attend. His goal is to fight the cancer until the parole board hearing. -Consult nutrition -Palliative consultation placed, patient requested status be changed to DNR/DNI Iron Deficiency Anemia -Continue iron supplementation -Hgb stable at 10.6 GERD -Continue Pantoprazole Anxiety -Continue Mirtazapine qHS Dispo: PCU for close monitoring and IV abx and diuresis. FEN: Low Na Diet, Fluid restrict 2000mL DVT: Lovenox Code: DNR spoke with [facility] physcian, he and the [facility] are aware of code status (2) Colon cancer: (3) Lung cancer: Admission and Anticipated Discharge Date Admission Date: August 16, 2020 Subjective Lying in bed this morning in no acute distress. Reporting no acute events overnight. Patient reports he feels significantly better from yesterday. Patient is requesting to ambulate about the room and toilet on his own patient reports no problems voiding or stooling, tolerating his diet, his breathing is improved. Acute concerns all questions answered. Physical Exam Physical Exam: General: No acute distress HEENT: Normocephalic atraumatic Neck: Normal to visual inspection, trachea midline Cardiac: Regular rate and rhythm I did not appreciate significant murmurs rubs or gallops Respiratory: Left lobe crackles and rhonchi otherwise clear to auscultation bilaterally with improved breathing GI: Bowel sounds present Neuro: Alert and oriented x4 Psych: Calm and cooperative with the interview Results & Data Results & Data ([facility]) Vital Signs (Past 12 Hours) Vital Signs Temp Pulse Pulse Resp BP BP Pulse Ox 08/17/20 07:18 36.7 C 60 18 116/72 95 08/17/20 06:23 59 L 12 93 08/17/20 03:43 36.4 C L 68 13 111/71 98 08/17/20 00:00 62 08/16/20 23:43 36.7 C 60 15 115/70 95 Laboratory Results 08/17/20 Range/Units 06:20 Creatinine 0.93 (0.6-1.4) mg/dl Est Cr Clr Drug Dosing 65.7 ml/min Est GFR ( Amer) 95.4 ml/min Est GFR (Non-Af Amer) 82.3 ml/min Medications Administered Current Inpatient Medications Acetaminophen (Acetaminophen 325 Mg Tab) 650 mg PO Q4H PRN PRN Reason: Pain or Fever Stop: 09/15/20 02:14 Enoxaparin Sodium (Enoxaparin Inj 40 Mg/0.4 Ml Syr) 40 mg SQ Q24H [facility] Stop: 09/15/20 08:59 Last Admin: 08/17/20 08:39 Dose: 40 mg Documented by: Ferrous Gluconate (Ferrous Gluconate 324 Mg Tab) 324 mg PO BIDM [facility] Stop: 09/15/20 07:59 Last Admin: 08/17/20 08:39 Dose: 324 mg Documented by: Fluticasone/Vilanterol (Fluticasone/Vilanterol 200/25mcg 14 Puffs/Inhaler) 1 puffs INH DAILY [facility] Stop: 09/15/20 02:59 Last Admin: 08/17/20 08:41 Dose: 1 puffs Documented by: Guaifenesin/Dextromethorphan (Guaifenesin/Dextrom Syrup 200mg/20mg 10ml Udc) 10 ml PO TID PRN PRN Reason: Unknown Stop: 09/15/20 02:14 Piperacillin Sod/Tazobactam (Sod 3.375 gm/ Dextrose) 115 mls @ 28.75 mls/hr IV Q8H [facility]; Protocol Stop: 08/23/20 05:59 Last Infusion: 08/17/20 09:31 Dose: Infused Documented by: Amiodarone HCl/Dextrose (Nexterone / D5w) 360 mg in 200 mls @ 16.667 mls/hr IV .Q12H [facility] Stop: 09/15/20 10:14 Last Admin: 08/17/20 08:38 Dose: 0.5 mg/min, 16.7 mls/hr Documented by: Hydrocortisone Sodium (Succinate 50 mg/ Syringe) 1 mls @ 4 mls/min IV Q6H [facility] Stop: 09/15/20 09:59 Last Admin: 08/17/20 03:56 Dose: 4 mls/min Documented by: Levalbuterol HCl (Levalbuterol Tartrate 15 Gm Hfa.Aer.Ad) 2 puffs INH QID PRN PRN Reason: Unknown Stop: 09/15/20 02:14 Last Admin: 08/17/20 06:22 Dose: 2 puffs Documented by: Mirtazapine (Mirtazapine Tab 15 Mg Tab) 15 mg PO HS [facility] Stop: 09/15/20 20:59 Last Admin: 08/16/20 20:26 Dose: 15 mg Documented by: Miscellaneous Information (Piperacill/Tazobac Consult Active) 1 ea N/A UD PRN PRN Reason: Consult Stop: 09/15/20 02:14 Morphine Sulfate (Morphine Sulfate 2 Mg/Ml Carp) 1 mg IV Q3H PRN PRN Reason: Pain (1,2,3,4,5) & Pre PT Stop: 08/30/20 19:29 Morphine Sulfate (Morphine Sulfate 2 Mg/Ml Carp) 2 mg IV Q3H PRN PRN Reason: Pain (6,7,8,9,10) Stop: 08/30/20 19:29 Last Admin: 08/17/20 08:38 Dose: 2 mg Documented by: Ondansetron HCl (Ondansetron Inj 2 Mg/Ml 2 Ml Vial) 4 mg IV Q6H PRN PRN Reason: Nausea Stop: 09/15/20 02:14 Oxycodone/Acetaminophen (Oxycodone/Acetaminophen 5mg/325mg Tab) 1 tab PO UD [facility] Stop: 08/30/20 02:14 Last Admin: 08/17/20 00:30 Dose: 1 tab Documented by: Pantoprazole Sodium (Pantoprazole 40 Mg Tab) 40 mg PO DAILY [facility] Stop: 09/15/20 08:59 Last Admin: 08/17/20 08:39 Dose: 40 mg Documented by: (1) Lung cancer Laterality: right Lung location: lower lobe of lung Qualified Code(s): C34.31 - Malignant neoplasm of lower lobe, right bronchus or lung
[2020-08-17] MEDS: AMIODARONE / D5W 360 MG/200 ML BAG IV SCH (08:38)
[2020-08-17] MEDS: PANTOprazole 40 MG TAB PO SCH (08:39)
[2020-08-17] MEDS: FERROUS GLUCONATE 324 MG TAB PO SCH ×2 (08:39→17:21)
[2020-08-17] MEDS: ENOXAPARIN INJ 40 MG/0.4 ML SYR SQ SCH (08:39)
[2020-08-17] MEDS: FLUTICASONE/VILANTEROL 200/25MCG 14 PUFFS/INHALER INH SCH (08:41)
--- NOTE | 2020-08-17 09:18 | XRay Report ---
XR chest 1V portable CLINICAL HISTORY: Shortness of breath. COMPARISON STUDY: Chest radiograph and chest CT August 15, 2020. FINDINGS: Mass-like opacities within the right lower hemithorax are better depicted on prior chest CT of August 15, 2020. A small right pleural effusion is noted. There is no pneumothorax. There is no evid ence for pulmonary edema. Cardiomediastinal silhouette is stable. Mild leftward deviation of the medi astinum is again noted. IMPRESSION: Redemonstration of mass-like opacities within the right lower lobe with a small right pl eural effusion. Findings are better depicted on chest CT August 15, 2020. ACT 112: Negative or not required by law. Electronically signed by: Kirill Lobato M.D. 08/17/2020 9:17 AM
[2020-08-17 10:29] LABS: Hematocrit (blood only) 32.4 % (42-52); Hemoglobin 9.8 g/dL (14.0-18.0); Mean Corpuscular Hemoglobin 26.1 pg (25-34); Mean Corpuscular Hgb Conc 30.2 g/dL (32-36); Mean Corpuscular Volume 86.4 fL (80-100); Mean Platelet Volume 8.7 fL (7.4-10.4); Nucleated RBC # (auto) 0.06 K/uL (0-0); Nucleated RBC % (auto) 0.3 %; Platelet Count 317 K/uL (130-400); RDW Coefficient of Variation 21.1 % (11.5-14.5); RDW Standard Deviation 60.8 fL (36.4-46.3); Red Blood Count 3.75 M/uL (4.7-6.1); White Blood Count 21.14 K/uL (4.8-10.8)
[2020-08-17 10:59] LABS: Albumin Globulin Ratio 0.4 (0.9-2); Albumin Level 2.1 gm/dl (3.4-5.0); BUN Creatinine Ratio 28.5 (10-20); Bilirubin,Total 0.5 mg/dl (0.2-1); Calcium 8.6 mg/dl (8.5-10.1); Creatinine Clr Calc Pharmacy 60.5 ml/min; Est GFR (African American) 86.3 ml/min; Est GFR (Non-African American) 74.5 ml/min; Globulin 4.9 gm/dl (2.5-4.0)
[2020-08-17 11:25] LABS: Anisocytosis Present; Basophils # (auto) 0.02 K/uL (0-0.2); Basophils % (auto) 0.1 %; Echinocytes 1+; Hypochromasia Present; Immature Granulocytes # (auto) 0.06 K/uL (0.00-0.02); Immature Granulocytes % (auto) 0.3 %; Lymphocytes # (auto) 1.32 K/uL (1.2-3.4); Lymphocytes % (auto) 6.2 %; Monocytes # (auto) 1.18 K/uL (0.11-0.59); Monocytes % (auto) 5.6 %; Neutrophils # (auto) 18.56 K/uL (1.4-6.5); Neutrophils % (auto) 87.8 %
[2020-08-17 11:34] LABS: Potassium 3.7 mmol/L (3.5-5.1)
[2020-08-17] MEDS: AMIODARONE 200 MG TAB PO SCH (13:01)
[2020-08-17] MEDS: MIRTAZAPINE TAB 15 MG TAB PO SCH (21:45)
[2020-08-18] MEDS: LEVALBUTEROL TARTRATE 15 GM HFA.AER.AD INH PRN (00:04)
[2020-08-18] MEDS: MoRPHine SULFATE 2 MG/ML CARP IV PRN ×4 (01:16→14:38)
[2020-08-18] MEDS: oxyCODONE/ACETAMINOPHEN 5mg/325mg TAB PO SCH ×3 (03:10→18:16)
[2020-08-18] MEDS: PIPERACILLIN/TAZOBACTAM 3.375 GM in DEXTROSE 5% 100 ML IV SCH ×3 (06:00→21:04)
[2020-08-18 06:33] LABS: Hematocrit (blood only) 31.6 % (42-52); Hemoglobin 9.3 g/dL (14.0-18.0); Mean Corpuscular Hemoglobin 25.9 pg (25-34); Mean Corpuscular Hgb Conc 29.4 g/dL (32-36); Mean Platelet Volume 8.5 fL (7.4-10.4); Nucleated RBC # (auto) 0.03 K/uL (0-0); Nucleated RBC % (auto) 0.1 %; Platelet Count 285 K/uL (130-400); RDW Coefficient of Variation 21.4 % (11.5-14.5); RDW Standard Deviation 61.6 fL (36.4-46.3); Red Blood Count 3.59 M/uL (4.7-6.1); White Blood Count 24.25 K/uL (4.8-10.8)
[2020-08-18 07:05] LABS: Albumin Level 2.3 gm/dl (3.4-5.0); BUN Creatinine Ratio 27.9 (10-20); Calcium 8.8 mg/dl (8.5-10.1); Creatinine Clr Calc Pharmacy 65.8 ml/min; Est GFR (African American) 99.2 ml/min; Est GFR (Non-African American) 85.6 ml/min; Potassium 3.6 mmol/L (3.5-5.1)
[2020-08-18 07:08] LABS: Albumin Globulin Ratio 0.5 (0.9-2); Bilirubin,Total 0.4 mg/dl (0.2-1); Globulin 4.5 gm/dl (2.5-4.0); Total Protein 6.8 gm/dl (6.4-8.2)
[2020-08-18 07:10] LABS: Anisocytosis Present; Basophils # (auto) 0.02 K/uL (0-0.2); Basophils % (auto) 0.1 %; Eosinophils # (auto) 0.01 K/uL (0-0.5); Hypochromasia Present; Immature Granulocytes % (auto) 0.4 %; Lymphocytes # (auto) 1.25 K/uL (1.2-3.4); Lymphocytes % (auto) 5.2 %; Monocytes # (auto) 1.78 K/uL (0.11-0.59); Monocytes % (auto) 7.3 %; Neutrophils # (auto) 21.09 K/uL (1.4-6.5); Polychromasia 1+; Toxic Vacuolation 1+
--- NOTE | 2020-08-18 08:17 | Hospitalist Progress Note ---
Date of Service August 18, 2020 Assessment & Plan (1) Multifocal pneumonia: Patient is a 69 year old male with PMHx lung cancer, colon cancer of cecum, xerosis cutis, HCV infection, HLD, iron deficiency anemia, CVA, COPD, GERD, that presents from [facility] for hypoxia noted on a regular screen in addition to worsening LE edema, scrotal swelling, and abdominal pain. Sepsis secondary to multifocal in addition to Post-obstructive Pneumonia from R lung mass Suspect the cause for patient's initial presenting hypoxia while at [facility]. CT Chest showing emphysema, R lung base with masslike consolidation with distal atelectasis, ground glass consolidation of left upper lobes. Meeting SIRS criteria, white count, hypotensive, tachycardic, tachypneic. MRSA nares negative patient made significant improvement with antibiotic therapy and stress steroid dosing. No longer meeting septic criteria as of 08/17. -Downgrade to med telemetry -Cultures demonstrating no growth to date continue IV Zosyn DC on p.o. Augmentin -WBC: 28.4->23.87->21.14 -Lactate: 6.1-> 5.8 -Significant improvement with hydrocortisone stress dosing, 50 mg every 12 -Plan to decrease to 50 mg daily -Pulmonology consulted following recommendations -Right lower lobe masslike consolidation unclear metastatic lesion or different primary malignancy -Follow-up with outpatient rag sorter and thoracic surgeon -Will not tolerate bronchoscopy -Continue Zosyn for postobstructive pneumonia and transition to Augmentin on discharge Hypotension secondary to relative adrenal insufficiency and septic shock -Continue Zosyn to treat underlying infection plan to transition to Augmentin on discharge -Continue weaning stress steroid dose Atrial fibrillation New onset, likely secondary to complex clinical picture. Patient responded to amiodarone overnight, achieved normal sinus rhythm @ approximately 08:08 on 08/16 no significant improvement in pressures. -Transition to p.o. amiodarone 200 mg qday -Continue to monitor on telemetry Anasarca Given 50mg IV Albumin followed by 40mg IV lasix for diuresis for concern of fluid overload. Echo showing right sided overload likely from lung ds. -echo: Normal LV systolic function, ejection fraction 60-65, flattened septum consistent with RV pressure/volume overload, RV severely dilated and hypokinetic, RA severely dilated, severe tricuspid regurg -Daily weights -Measure i/o's -Holding home carvedilol COPD -Continue home Wixela -Continue home Xopenex PRN -Continue Mucinex Hx Colon Cancer of Cecum Records requested from [facility] CT Ab/Pelv without acute findings at this time. Recently treated at [facility], per records review cancer is terminal, chemotherapy is being administered for palliative purposes. Radiation is not indicated. -Holding home bowel regiment at this time Dicyclomine, Senna, Miralax -If constipation becomes an issue can consider resuming Cachexia/failure to thrive Secondary to history of colon cancer. Palliative has previously been consulted per review of records patient's prognosis indicates he has approximately 3 months. Apparently the patient has a parole board hearing coming up which he would like to attend. His goal is to fight the cancer until the parole board hearing. -Consult nutrition -Palliative consultation placed, patient requested status be changed to DNR/DNI Iron Deficiency Anemia -Continue iron supplementation GERD -Continue Pantoprazole Anxiety -Continue Mirtazapine qHS Dispo: med/tele FEN: Low Na Diet, Fluid restrict 2000mL DVT: Lovenox Code: DNR spoke with intermediate physcian, he and the prison are aware of code status (2) Colon cancer: (3) Lung cancer: Admission and Anticipated Discharge Date Admission Date: August 16, 2020 Supervising Physician Co-Signing Physician Notes Resident Physician Supervision Note: I independently interviewed and examined the patient and verified the hernandez history and physical, reviewed labs and image studies and agree with resident Dr. Baker findings and care plan. Subjective Patient lying in bed this morning in no acute distress, reporting no acute events overnight. Patient reports significant improvement in his breathing, and overall feelings of malaise. Patient reports he is feeling almost back to normal. Patient reports he has regained some of his strength. All questions answered, no acute concerns Physical Exam Physical Exam: General: No acute distress HEENT: Normocephalic atraumatic Neck: Normal to visual inspection, trachea midline Cardiac: Regular rate and rhythm I did not appreciate significant murmurs rubs or gallops Respiratory: Left lobe crackles and rhonchi otherwise clear to auscultation bilaterally with improved breathing GI: Bowel sounds present Neuro: Alert and oriented x4 Psych: Calm and cooperative with the interview Results & Data [facility] Vital Signs (Past 12 Hours) Vital Signs Temp Pulse Pulse Resp BP Pulse Ox 08/18/20 07:31 36.6 C 88 18 118/75 98 08/18/20 07:03 86 08/18/20 04:05 36.8 C 93 H 18 118/76 99 08/18/20 00:05 95 H 18 99 08/17/20 22:50 36.7 C 81 18 113/71 95 Laboratory Results 08/18/20 08/18/20 08/17/20 Range/Units 06:14 06:14 11:10 WBC 24.25 H (4.8-10.8) K/uL RBC 3.59 L (4.7-6.1) M/uL Hgb 9.3 L (14.0-18.0) g/dL Hct 31.6 L (42-52) % MCV 88.0 (80-100) fL MCH 25.9 (25-34) pg MCHC 29.4 L (32-36) g/dL RDW Std Deviation 61.6 H (36.4-46.3) fL RDW Coeff of Acacia 21.4 H (11.5-14.5) % Plt Count 285 (130-400) K/uL MPV 8.5 (7.4-10.4) fL Immature Gran % (Auto) 0.4 % Neut % (Auto) 87.0 % Lymph % (Auto) 5.2 % [place] % (Auto) 7.3 % Eos % (Auto) 0.0 % Baso % (Auto) 0.1 % Neut # (Auto) 21.09 H (1.4-6.5) K/uL Lymph # (Auto) 1.25 (1.2-3.4) K/uL [place] # (Auto) 1.78 H (0.11-0.59) K/uL Eos # (Auto) 0.01 (0-0.5) K/uL Baso # (Auto) 0.02 (0-0.2) K/uL Immature Gran # (Auto) 0.10 H (0.00-0.02) K/uL Absolute Nucleated RBC 0.03 H (0-0) K/uL Nucleated RBC % (auto) 0.1 % Toxic Vacuolation 1+ Polychromasia 1+ Hypochromasia Present Anisocytosis Present Echinocytes Sodium Pending (136-145) mmol/L Potassium 3.6 (3.5-5.1) mmol/L Chloride 104 (98-107) mmol/L Carbon Dioxide 27 (21-32) mmol/L Anion Gap 10.0 (3-11) BUN 25 H (7-18) mg/dl Creatinine 0.90 (0.6-1.4) mg/dl Est Cr Clr Drug Dosing 65.8 ml/min Est GFR ( Amer) 99.2 ml/min Est GFR (Non-Af Amer) 85.6 ml/min BUN/Creatinine Ratio 27.9 H (10-20) Glucose 90 (70-99) mg/dl Calcium 8.8 (8.5-10.1) mg/dl Total Bilirubin 0.4 (0.2-1) mg/dl AST 11 L (15-37) U/L ALT 9 L (12-78) U/L Alkaline Phosphatase 66 (45-117) U/L Lactate Dehydrogenase 163 Total Protein 6.8 (6.4-8.2) gm/dl Albumin 2.3 L (3.4-5.0) gm/dl Globulin 4.5 H (2.5-4.0) gm/dl Albumin/Globulin Ratio 0.5 L (0.9-2) 08/17/20 08/17/20 08/17/20 Range/Units 11:10 10:19 10:19 WBC (4.8-10.8) K/uL RBC (4.7-6.1) M/uL Hgb (14.0-18.0) g/dL Hct (42-52) % MCV (80-100) fL MCH (25-34) pg MCHC (32-36) g/dL RDW Std Deviation (36.4-46.3) fL RDW Coeff of Acacia (11.5-14.5) % Plt Count (130-400) K/uL MPV (7.4-10.4) fL Immature Gran % (Auto) % Neut % (Auto) % Lymph % (Auto) % [place] % (Auto) % Eos % (Auto) % Baso % (Auto) % Neut # (Auto) (1.4-6.5) K/uL Lymph # (Auto) (1.2-3.4) K/uL [place] # (Auto) (0.11-0.59) K/uL Eos # (Auto) (0-0.5) K/uL Baso # (Auto) (0-0.2) K/uL Immature Gran # (Auto) (0.00-0.02) K/uL Absolute Nucleated RBC (0-0) K/uL Nucleated RBC % (auto) % Toxic Vacuolation Polychromasia Hypochromasia Anisocytosis Echinocytes Sodium 134 L (136-145) mmol/L Potassium 3.7 (3.5-5.1) mmol/L Chloride 100 (98-107) mmol/L Carbon Dioxide 22 (21-32) mmol/L Anion Gap 13.0 H (3-11) BUN 29 H (7-18) mg/dl Creatinine 1.01 (0.6-1.4) mg/dl Est Cr Clr Drug Dosing 60.5 ml/min Est GFR ( Amer) 86.3 ml/min Est GFR (Non-Af Amer) 74.5 ml/min BUN/Creatinine Ratio 28.5 H (10-20) Glucose 127 H (70-99) mg/dl Calcium 8.6 (8.5-10.1) mg/dl Total Bilirubin 0.5 (0.2-1) mg/dl AST 11 L (15-37) U/L ALT 11 L (12-78) U/L Alkaline Phosphatase 59 (45-117) U/L Lactate Dehydrogenase Cancelled Total Protein 7.0 (6.4-8.2) gm/dl Albumin 2.1 L (3.4-5.0) gm/dl Globulin 4.9 H (2.5-4.0) gm/dl Albumin/Globulin Ratio 0.4 L (0.9-2) 08/17/20 Range/Units 10:19 WBC 21.14 H (4.8-10.8) K/uL RBC 3.75 L (4.7-6.1) M/uL Hgb 9.8 L (14.0-18.0) g/dL Hct 32.4 L (42-52) % MCV 86.4 (80-100) fL MCH 26.1 (25-34) pg MCHC 30.2 L (32-36) g/dL RDW Std Deviation 60.8 H (36.4-46.3) fL RDW Coeff of Acacia 21.1 H (11.5-14.5) % Plt Count 317 (130-400) K/uL MPV 8.7 (7.4-10.4) fL Immature Gran % (Auto) 0.3 % Neut % (Auto) 87.8 % Lymph % (Auto) 6.2 % [place] % (Auto) 5.6 % Eos % (Auto) 0.0 % Baso % (Auto) 0.1 % Neut # (Auto) 18.56 H (1.4-6.5) K/uL Lymph # (Auto) 1.32 (1.2-3.4) K/uL [place] # (Auto) 1.18 H (0.11-0.59) K/uL Eos # (Auto) 0.00 (0-0.5) K/uL Baso # (Auto) 0.02 (0-0.2) K/uL Immature Gran # (Auto) 0.06 H (0.00-0.02) K/uL Absolute Nucleated RBC 0.06 H (0-0) K/uL Nucleated RBC % (auto) 0.3 % Toxic Vacuolation Polychromasia Hypochromasia Present Anisocytosis Present Echinocytes 1+ Sodium (136-145) mmol/L Potassium (3.5-5.1) mmol/L Chloride (98-107) mmol/L Carbon Dioxide (21-32) mmol/L Anion Gap (3-11) BUN (7-18) mg/dl Creatinine (0.6-1.4) mg/dl Est Cr Clr Drug Dosing ml/min Est GFR ( Amer) ml/min Est GFR (Non-Af Amer) ml/min BUN/Creatinine Ratio (10-20) Glucose (70-99) mg/dl Calcium (8.5-10.1) mg/dl Total Bilirubin (0.2-1) mg/dl AST (15-37) U/L ALT (12-78) U/L Alkaline Phosphatase (45-117) U/L Lactate Dehydrogenase Total Protein (6.4-8.2) gm/dl Albumin (3.4-5.0) gm/dl Globulin (2.5-4.0) gm/dl Albumin/Globulin Ratio (0.9-2) Medications Administered Current Inpatient Medications Acetaminophen (Acetaminophen 325 Mg Tab) 650 mg PO Q4H PRN PRN Reason: Pain or Fever Stop: 09/15/20 02:14 Amiodarone HCl (Amiodarone 200 Mg Tab) 200 mg PO QAM [facility] Stop: 09/16/20 10:44 Last Admin: 08/17/20 13:01 Dose: 200 mg Documented by: Enoxaparin Sodium (Enoxaparin Inj 40 Mg/0.4 Ml Syr) 40 mg SQ Q24H [facility] Stop: 09/15/20 08:59 Last Admin: 08/17/20 08:39 Dose: 40 mg Documented by: Ferrous Gluconate (Ferrous Gluconate 324 Mg Tab) 324 mg PO BIDM [facility] Stop: 09/15/20 07:59 Last Admin: 08/17/20 17:21 Dose: 324 mg Documented by: Fluticasone/Vilanterol (Fluticasone/Vilanterol 200/25mcg 14 Puffs/Inhaler) 1 puffs INH DAILY [facility] Stop: 09/15/20 02:59 Last Admin: 08/17/20 08:41 Dose: 1 puffs Documented by: Guaifenesin/Dextromethorphan (Guaifenesin/Dextrom Syrup 200mg/20mg 10ml Udc) 10 ml PO TID PRN PRN Reason: Unknown Stop: 09/15/20 02:14 Piperacillin Sod/Tazobactam (Sod 3.375 gm/ Dextrose) 115 mls @ 28.75 mls/hr IV Q8H [facility]; Protocol Stop: 08/23/20 05:59 Last Infusion: 08/18/20 05:12 Dose: Infused Documented by: Hydrocortisone Sodium (Succinate 50 mg/ Syringe) 1 mls @ 4 mls/min IV Q12H [facility] Stop: 09/16/20 20:59 Last Admin: 08/17/20 21:53 Dose: 4 mls/min Documented by: Levalbuterol HCl (Levalbuterol Tartrate 15 Gm Hfa.Aer.Ad) 2 puffs INH QID PRN PRN Reason: Unknown Stop: 09/15/20 02:14 Last Admin: 08/18/20 00:04 Dose: 2 puffs Documented by: Mirtazapine (Mirtazapine Tab 15 Mg Tab) 15 mg PO HS [facility] Stop: 09/15/20 20:59 Last Admin: 08/17/20 21:45 Dose: 15 mg Documented by: Miscellaneous Information (Piperacill/Tazobac Consult Active) 1 ea N/A UD PRN PRN Reason: Consult Stop: 09/15/20 02:14 Last Admin: 08/18/20 06:20 Dose: 1 ea Documented by: Morphine Sulfate (Morphine Sulfate 2 Mg/Ml Carp) 1 mg IV Q3H PRN PRN Reason: Pain (1,2,3,4,5) & Pre PT Stop: 08/30/20 19:29 Morphine Sulfate (Morphine Sulfate 2 Mg/Ml Carp) 2 mg IV Q3H PRN PRN Reason: Pain (6,7,8,9,10) Stop: 08/30/20 19:29 Last Admin: 08/18/20 06:13 Dose: 2 mg Documented by: Ondansetron HCl (Ondansetron Inj 2 Mg/Ml 2 Ml Vial) 4 mg IV Q6H PRN PRN Reason: Nausea Stop: 09/15/20 02:14 Oxycodone/Acetaminophen (Oxycodone/Acetaminophen 5mg/325mg Tab) 1 tab PO UD [facility] Stop: 08/30/20 02:14 Last Admin: 08/18/20 03:10 Dose: 1 tab Documented by: Pantoprazole Sodium (Pantoprazole 40 Mg Tab) 40 mg PO DAILY [facility] Stop: 09/15/20 08:59 Last Admin: 08/17/20 08:39 Dose: 40 mg Documented by: Resident Activity Tracking Resident Involvement: Resident Care Provided Care Provided: Adult Hospital Medicine (1) Lung cancer Laterality: right Lung location: lower lobe of lung Qualified Code(s): C34.31 - Malignant neoplasm of lower lobe, right bronchus or lung
[2020-08-18] MEDS: PANTOprazole 40 MG TAB PO SCH (08:40)
[2020-08-18] MEDS: FERROUS GLUCONATE 324 MG TAB PO SCH ×2 (08:40→17:03)
[2020-08-18] MEDS: AMIODARONE 200 MG TAB PO SCH (08:41)
[2020-08-18] MEDS: ENOXAPARIN INJ 40 MG/0.4 ML SYR SQ SCH (08:41)
[2020-08-18] MEDS: FLUTICASONE/VILANTEROL 200/25MCG 14 PUFFS/INHALER INH SCH (08:41)
[2020-08-18] MEDS: HYDROCORTISONE SOD 50 MG in SYRINGE 0 ML IV SCH ×2 (08:42→21:05)
[2020-08-18] MEDS: POTASSIUM CHLORIDE CRTAB 20 MEQ TABCR PO SCH ×2 (08:46→11:42)
[2020-08-18] MEDS: MIRTAZAPINE TAB 15 MG TAB PO SCH (21:05)
[2020-08-19] MEDS: MoRPHine SULFATE 2 MG/ML CARP IV PRN ×4 (00:16→11:35)
[2020-08-19] MEDS: PIPERACILLIN/TAZOBACTAM 3.375 GM in DEXTROSE 5% 100 ML IV SCH ×2 (05:40→13:51)
[2020-08-19 06:42] LABS: Creatinine Clr Calc Pharmacy 87.5 ml/min; Est GFR (African American) 110.7 ml/min; Est GFR (Non-African American) 95.5 ml/min
[2020-08-19 07:37] LABS: Hematocrit (blood only) 33.2 % (42-52); Hemoglobin 9.8 g/dL (14.0-18.0); Mean Corpuscular Hemoglobin 26.2 pg (25-34); Mean Corpuscular Hgb Conc 29.5 g/dL (32-36); Mean Corpuscular Volume 88.8 fL (80-100); Mean Platelet Volume 8.5 fL (7.4-10.4); Platelet Count 226 K/uL (130-400); RDW Coefficient of Variation 22.1 % (11.5-14.5); RDW Standard Deviation 62.6 fL (36.4-46.3); Red Blood Count 3.74 M/uL (4.7-6.1); White Blood Count 28.82 K/uL (4.8-10.8)
[2020-08-19] MEDS: AMIODARONE 200 MG TAB PO SCH (07:52)
[2020-08-19] MEDS: FERROUS GLUCONATE 324 MG TAB PO SCH (07:52)
[2020-08-19] MEDS: FLUTICASONE/VILANTEROL 200/25MCG 14 PUFFS/INHALER INH SCH (07:52)
[2020-08-19] MEDS: ENOXAPARIN INJ 40 MG/0.4 ML SYR SQ SCH (07:53)
[2020-08-19] MEDS: PANTOprazole 40 MG TAB PO SCH (07:54)
[2020-08-19 08:25] LABS: Albumin Globulin Ratio 0.5 (0.9-2); Albumin Level 2.4 gm/dl (3.4-5.0); BUN Creatinine Ratio 21.1 (10-20); Bilirubin,Total 0.3 mg/dl (0.2-1); Calcium 9.4 mg/dl (8.5-10.1); Creatinine Clr Calc Pharmacy 82.7 ml/min; Est GFR (African American) 108.2 ml/min; Est GFR (Non-African American) 93.3 ml/min; Globulin 4.4 gm/dl (2.5-4.0); Potassium 3.4 mmol/L (3.5-5.1); Total Protein 6.8 gm/dl (6.4-8.2)
[2020-08-19 08:26] LABS: Anisocytosis Present; Basophils # (auto) 0.01 K/uL (0-0.2); Eosinophils # (auto) 0.04 K/uL (0-0.5); Eosinophils % (auto) 0.1 %; Immature Granulocytes # (auto) 0.16 K/uL (0.00-0.02); Immature Granulocytes % (auto) 0.6 %; Lymphocytes # (auto) 1.22 K/uL (1.2-3.4); Lymphocytes % (auto) 4.2 %; Monocytes # (auto) 2.31 K/uL (0.11-0.59); Neutrophils # (auto) 25.08 K/uL (1.4-6.5); Neutrophils % (auto) 87.1 %; Polychromasia 1+; Target Cells 1+; Toxic Vacuolation 2+
[2020-08-19] MEDS ORDERED: HYDROCORTISONE SOD 50 MG in SYRINGE 0 ML IV SCH (09:00)
--- NOTE | 2020-08-19 10:13 | Discharge Summary ---
Date of Service August 19, 2020 Admission HPI Per Admitting Provider Patient is a 69 year old male with PMHx lung cancer, colon cancer of cecum, xerosis cutis, HCV infection, HLD, iron deficiency anemia, CVA, COPD, GERD, that presents from [facility] for hypoxia noted on a regular screen in addition to worsening LE edema, scrotal swelling, and abdominal pain. Initially patient was difficult to converse with due to continuously falling asleep, the second half of the interview and examination was limited by patient's agitation. Prior to becoming resistant to answering questions, patient was able to note that he was recently seen at [facility] for abdominal surgery regarding his colon cancer. He notes that he has been having ongoing abdominal pain since then. He also notes that for the past 2 days he has had worsening SOB in addition to LE swelling that progressed to his scrotum. He denies any fever, chills, chest pain. When discussing code status, patient became very agitated. He noted initially that "I would not want that" to chest compressions and "I certainly wouldn't want that" for intubation, however, would later go to say that he "just want to live my life." Previous record review notes that patient had wanted to be a full code as he has a parole hearing coming up in the next few months that he would like to attend. He also notes that all he really wants right now is to talk to his family. Med Hx: lung cancer, colon cancer of cecum, xerosis cutis, HCV infection, HLD, iron deficiency anemia, CVA, COPD, GERD Surg Hx: Unable to obtain from patient, records requested from [facility] Soc Hx: Unable to obtain from patient Admission Exam Per Admitting Provider Constitutional: + ill appearing, + thin, + cachectic, + behavioral limitations, + frail appearing and + malnourished Eyes: + anicteric sclerae, + corneal abnormality, PERRL and EOM intact bilaterally ENMT: external ear and nose normal, oropharynx normal Neck: trachea midline, no thyromegaly Respiratory: normal respiratory effort, + cough and able to speak in complete sentences; no respiratory distress, no labored breathing and does not use accessory muscles Auscultation: + diminished lung sounds (severely diminished in R middle and lower lobes ) and + rales (throughout ) Cardiovascular: Rate/Rhythm: regular rate and regular rhythm Heart Sounds: + murmur (2/6 VIDA ) Extremities: + edema (2-3+ to the pelvis and scrotum); no calf tenderness Gastrointestinal (Abdomen): Inspection/Auscultation: abdomen normal to inspection and normal bowel sounds; abdomen not distended Percussion/Palpation: + abdomen tender (diffusely throughout ) and abdomen soft Musculoskeletal: Head/Neck/Chest: normocephalic and head atraumatic 4/5 strength in LE b/l 5/5 in UE b/l Neurologic: normal touch/pain/proprioception, awake and + confused Psychiatric: Orientation: alert, oriented to person, oriented to place, oriented to time and + guarded Eye Contact: + fair eye contact Principal Diagnosis Sepsis secondary to postobstructive pneumonia complicated by right lung mass, history of COPD, anasarca, history of colon cancer Discharge Exam General: No acute distress HEENT: Normocephalic atraumatic Neck: Normal to visual inspection, trachea midline Cardiac: Regular rate and rhythm I did not appreciate significant murmurs rubs or gallops 1+ pedal edema bilaterally Respiratory: Left lobe crackles and rhonchi otherwise clear to auscultation bilaterally with improved breathing GI: Bowel sounds present Neuro: Alert and oriented x4 Psych: Calm and cooperative with the interview Discharge Data Allergies Allergy/AdvReac Type Severity Reaction Status Date / Time Iodinated Contrast Media Allergy Intermediate hives/vomiting Verified 08/16/20 02:22 (IV Contrast) Consultations 08/15/20 23:56 ED Decision to Admit Stat 08/16/20 02:15 Consult Pulmonology Routine 08/16/20 10:51 Consult Palliative Care Routine Ordered Studies 08/15/20 19:53 CT head/brain wo con Stat US venous doppler LE BI Stat 08/15/20 21:36 CT abd pelvis wo con Stat CT chest diagnostic wo con Stat Hospital Course (1) Multifocal pneumonia: Patient is a 69 year old male with PMHx lung cancer, colon cancer of cecum, xerosis cutis, HCV infection, HLD, iron deficiency anemia, CVA, COPD, GERD, that presents from [facility] for hypoxia noted on a regular screen in addition to worsening LE edema, scrotal swelling, and abdominal pain. Sepsis secondary to multifocal in addition to Post-obstructive Pneumonia from R lung mass Suspect the cause for patient's initial presenting hypoxia while at [facility]. CT Chest showing emphysema, R lung base with masslike consolidation with distal atelectasis, ground glass consolidation of left upper lobes. Meeting SIRS criteria, white count, hypotensive, tachycardic, tachypneic. MRSA nares negative patient made significant improvement with antibiotic therapy and stress steroid dosing. No longer meeting septic criteria as of 08/17. Patient's cultures continue to demonstrate no growth today, he received 4 days of IV antibiotics with Zosyn, will be transitioned to p.o. Augmentin to complete a total of 10 days of antibiotics. Given his history of COPD, right-sided heart failure we will continue prednisone 50 mg daily x3 days as an outpatient. Pulmonology was consulted while patient was hospitalized, recommending outpatient follow-up with printed forms proofreader and thoracic surgeon, they did not feel that the patient was presently stable enough to tolerate a bronchoscopy. Atrial fibrillation New onset, likely secondary to complex clinical picture. Patient responded to amiodarone overnight, achieved normal sinus rhythm @ approximately 08:08 on 08/16 no significant improvement in pressures. Continue amiodarone 200 mg p.o. daily Anasarca sec to ?corpulmonale and hypoalbuminemia Received one dose of IV albumin with lasix with diuresis. -echo: Normal LV systolic function, ejection fraction 60-65, flattened septum consistent with RV pressure/volume overload, RV severely dilated and hypokinetic, RA severely dilated, severe tricuspid regurg -DC'd carvedilol due to blood pressure running on lower side. COPD -Continued home Wixela -Continued home Xopenex PRN -Continued Mucinex Hx Colon Cancer of Cecum Records requested from [facility] CT Ab/Pelv without acute findings at this time. Recently treated at [facility], per records review cancer is terminal, chemotherapy is being administered for palliative purposes. Radiation is not indicated. -Held home bowel regiment at this time Dicyclomine, Senna, Miralax during hospital stay - resumed on discharge Cachexia/failure to thrive Secondary to history of colon cancer. Palliative has previously been consulted per review of records patient's prognosis indicates he has approximately 3 months. Apparently the patient has a parole board hearing coming up which he would like to attend. His goal is to fight the cancer until the parole board hearing. -Consulted nutrition -patient requested status be changed to DNR/DNI -Consider palliative consult as an outpatient Iron Deficiency Anemia -Continue iron supplementation GERD -Continue Pantoprazole Anxiety -Continue Mirtazapine qHS (2) Colon cancer: (3) Lung cancer: Total Time Total Time Spent Total Time Spent (In Minutes): 45 Discharge Plan Discharge Items [facility] Reason For Visit: MULTIFOCAL PNA, POST-OBSTRUCTIVE PNA, ANASARCA Discharge Diagnosis: Sepsis secondary to postobstructive pneumonia complicated by right lung mass, history of COPD, anasarca, history of colon cancer Condition on Discharge: Good Activity: Resume your previous activity Non-emergency contact: Primary Care Provider Call non-emergency contact if: you have any medication questions, your pain is not controlled and your temperature is above 101.5 [facility] - Diet: Regular Addtl Attending Provider Instructions: Patient is a 69 year old male with PMHx lung cancer, colon cancer of cecum, xerosis cutis, HCV infection, HLD, iron deficiency anemia, CVA, COPD, GERD, that presents from [facility] for hypoxia noted on a regular screen in addition to worsening LE edema, scrotal swelling, and abdominal pain. Sepsis secondary to multifocal in addition to Post-obstructive Pneumonia from R lung mass Suspect the cause for patient's initial presenting hypoxia while at [facility]. CT Chest showing emphysema, R lung base with masslike consolidation with distal atelectasis, ground glass consolidation of left upper lobes. Meeting SIRS criteria, white count, hypotensive, tachycardic, tachypneic. MRSA nares negative patient made significant improvement with antibiotic therapy and stress steroid dosing. No longer meeting septic criteria as of 08/17. Patient's cultures continue to demonstrate no growth today, he received 4 days of IV antibiotics with Zosyn, will be transitioned to p.o. Augmentin to complete a total of 10 days of antibiotics. Given his history of COPD, right-sided heart failure we will continue prednisone 50 mg daily x3 days as an outpatient. Pulmonology was consulted while patient was hospitalized, recommending outpatient follow-up with printed forms proofreader and thoracic surgeon, they did not feel that the patient was presently stable enough to tolerate a bronchoscopy. Atrial fibrillation New onset, likely secondary to complex clinical picture. Patient responded to amiodarone overnight, achieved normal sinus rhythm @ approximately 08:08 on 5/31 no significant improvement in pressures. Continue amiodarone 200 mg p.o. daily Anasarca Patient with significant fluid overload BMP elevated 5030 on admit. Unfortunately patient with soft pressures in the low 100's/60's. Tolerated 50mg IV Albumin followed by 40mg IV lasix for diuresis May require more diuresis since he will be receiving even more fluids with antibiotics above. Fluid overload improving, on discharge DC carvedilol. -echo: Normal LV systolic function, ejection fraction 60-65, flattened septum consistent with RV pressure/volume overload, RV severely dilated and hypokinetic, RA severely dilated, severe tricuspid regurg -DC'd carvedilol COPD -Continued home Wixela -Continued home Xopenex PRN -Continued Mucinex Hx Colon Cancer of Cecum Records requested from [facility] CT Ab/Pelv without acute findings at this time. Recently treated at [facility], per records review cancer is terminal, chemotherapy is being administered for palliative purposes. Radiation is not indicated. -Holding home bowel regiment at this time Dicyclomine, Senna, Miralax resumed on discharge Cachexia/failure to thrive Secondary to history of colon cancer. Palliative has previously been consulted per review of records patient's prognosis indicates he has approximately 3 months. Apparently the patient has a parole board hearing coming up which he would like to attend. His goal is to fight the cancer until the parole board hearing. -Consult nutrition -patient requested status be changed to DNR/DNI -Consider palliative consult as an outpatient Iron Deficiency Anemia -Continue iron supplementation GERD -Continue Pantoprazole Anxiety -Continue Mirtazapine HS Taco Baker MD PGY 2, FCM This chart was completed utilizing wumo voice recognition software. Grammatical errors, random word insertions, pronoun errors, and in complete sentences are an occasional consequence of the system. Any questions or co ncerns about the content, text, or information contained within the body of this dictation should be addressed directly to the physician for clarification. Pending Studies at Discharge: No Stand-Alone Forms: My [facility] [place] [employer] [place] Skilled Items Patient informed of condition?: Yes Discharge Level of Care: Other Communicable Disease: No Discharge Prognosis: Stable Lines: None and Peripheral IV Urinary Catheter: No Medications and DC Order Prescriptions: New prednisone 50 mg tablet 50 mg PO DAILY 3 Days Qty: 3 RF: 0 amiodarone 200 mg Tablet 200 mg PO QAM 30 Days Qty: 30 RF: 0 amoxicillin-pot clavulanate [Augmentin] 875-125 mg tablet 1 tab PO BID 6 Days Qty: 12 RF: 0 Continued multivitamin Tablet 1 tab PO DAILY RF: 0 carvedilol 3.125 mg Tablet 3.125 mg PO BID RF: 0 mirtazapine 15 mg Tablet 15 mg PO HS RF: 0 ferrous gluconate 324 mg (37.5 mg iron) Tablet 324 mg PO BID RF: 0 fluticasone propion-salmeterol [Wixela Inhub] 250-50 mcg/dose Blister With Device 1 inh INHALATION BID RF: 0 sennosides [senna] 8.6 mg Tablet 8.6 mg PO BID RF: 0 polyethylene glycol 3350 [Miralax] 17 gram Powder In Packet 17 g PO BID RF: 0 oxycodone-acetaminophen [Percocet] 5-325 mg Tablet 1 tab PO UD RF: 0 pantoprazole 40 mg Tablet,Delayed Release (Dr/Ec) 40 mg PO DAILY RF: 0 dicyclomine 20 mg Tablet 20 mg PO TID PRN (Reason: Unknown) RF: 0 Cough-Chest Congestion DM 5-100 mg/5 mL Liquid 10 ml PO TID PRN (Reason: Unknown) RF: 0 levalbuterol tartrate [Xopenex HFA] 45 mcg/actuation Hfa Aerosol Inhaler 2 inh INHALATION QID PRN (Reason: Unknown) RF: 0 Discharge Orders: Discharge Order (Routine); Ordered 08/19/20 Ordered By: Taco Baker Admission Data Admit Date/Time: 08/16/20 00:27 Attending Provider: Kathy Jimenez Admit Provider: Doron Ramos Primary Care Provider: Yue LOPEZ Other Providers: Tolu Reid ; Emeka Dumont ; Monique Stearns Other Interventions: Discharge Summary Assessment (RN) Last Done: 08/19/20 11:45 Supervising Physician Co-Signing Physician Notes Resident Physician Supervision Note: I independently interviewed and examined the patient and verified the hernandez history and physical, reviewed labs and image studies and agree with resident Dr. Baker findings and care plan. Resident Activity Tracking Resident Involvement: Resident Care Provided Care Provided: [facility]
--- NOTE | 2020-08-19 15:14 | Palliative Care Consultation ---
Date of Consultation August 19, 2020 Assessment & Plan (1) Palliative care encounter: Mr. Dumont is a 69 year old -[place]inid[place] male who is an inmate at [facility] who presented to the [facility] with hypoxia, abdominal pain, and scrotal swelling. This man has a PMH that includes: colon and cecum cancer, lung cancer, CVA, COPD, GERD, hepatitis C virus, and HLD. He has received most of his cancer care at [facility] and has been progressively more frail and weak. Review of notes from [facility] on 05/21/20 note that patient's colon mass is an adenocarcinoma s/p R hemicolectomy April 2020 and was to follow with Dr. Candelario outpatient for chemotherapy. Patient also was apparently noted to have a LEFT lower lobe lung mass, adenocarcinoma of the lung, and was to follow up with Dr. Mayo (thoracic surgery) and Dr. Candelario as noted prior. He was recently admitted to [facility] from 08/05-08/11/20 for increasing SOB and painful right sided chest pain associated with n/v. Suspicion currently is that the patient has two primary lesions, one in the colon and another in the lung. They discussed the case with [facility] where they felt that chemotherapy at this time would be palliative and that there was no role for radiation. Palliative [facility] was consulted to discuss overall goals of care. I met with Mr. Dumont who was AAOx4; however, has poor insight into his disease process. He was apparently more lethargic prior to the encounter I had with him today. He was able to have a full conversation with me and talked about his previous encounters with his oncologist in [place]. He was clear that he wants to continue to work towards getting stronger so that hopefully he can continue to pursue some treatment. i did remind him that after reviewing the oncology notes from [place] that his cancer appears to be only option for palliative treatment, not curative. He is aware. We talked about his code status and he stated that he would want to remain a full code even though he recognizes that he would likely not have a meaningful recovery from CPR or intubation. Plan is to discharge today. Thanks for involving Palliative Medicine with this individual. (2) Colon cancer: (3) Lung cancer: Laterality: right Lung location: lower lobe of lung Qualified Code(s): C34.31 - Malignant neoplasm of lower lobe, right bronchus or lung (4) Weakness: (5) Altered mental status: Altered mental status type: unspecified Qualified Code(s): R41.82 - Altered mental status, unspecified History of Present Illness Reason for Consultation: goals of care Requesting Physician: Dr. Baker Attending Physician: Kathy Jimenez MD History of Present Illness Mr. Dumont is a 69 year old -[place]inid[place] male who is an inmate at [facility] who presented to the [facility] with hypoxia, abdominal pain, and scrotal swelling. This man has a PMH that includes: colon and cecum cancer, lung cancer, CVA, COPD, GERD, hepatitis C virus, and HLD. He has received most of his cancer care at [facility] and has been progressively more frail and weak. Review of notes from [facility] on 05/21/20 note that patient's colon mass is an adenocarcinoma s/p R hemicolectomy April 2020 and was to follow with Dr. Candelario outpatient for chemotherapy. Patient also was apparently noted to have a LEFT lower lobe lung mass, adenocarcinoma of the lung, and was to follow up with Dr. Mayo (thoracic surgery) and Dr. Candelario as noted prior. He was recently admitted to [facility] from 08/05-08/11/20 for increasing SOB and painful right sided chest pain associated with n/v. Suspicion currently is that the patient has two primary lesions, one in the colon and another in the lung. They discussed the case with [facility] where they felt that chemotherapy at this time would be palliative and that there was no role for radiation. Palliative [facility] was consulted to discuss overall goals of care. Please see A/P for further details. Thanks for involving palliative medicine with this unfortunate male. Allergies Allergy/AdvReac Type Severity Reaction Status Date / Time Iodinated Contrast Media Allergy Intermediate hives/vomiting Verified 08/16/20 02:22 (IV Contrast) Home Medications Medication Instructions Recorded Confirmed Type Cough-Chest Congestion DM 10 ml PO TID PRN 08/15/20 08/15/20 History carvedilol 3.125 mg PO BID 08/15/20 08/15/20 History dicyclomine 20 mg PO TID PRN 08/15/20 08/15/20 History ferrous gluconate 324 mg PO BID 08/15/20 08/15/20 History fluticasone propion-salmeterol 1 inh INHALATION BID 08/15/20 08/15/20 History [Wixela Inhub] levalbuterol tartrate [Xopenex HFA] 2 inh INHALATION QID PRN 08/15/20 08/15/20 History mirtazapine 15 mg PO HS 08/15/20 08/15/20 History multivitamin 1 tab PO DAILY 08/15/20 08/15/20 History oxycodone-acetaminophen [Percocet] 1 tab PO UD 08/15/20 08/15/20 History pantoprazole 40 mg PO DAILY 08/15/20 08/15/20 History polyethylene glycol 3350 [Miralax] 17 g PO BID 08/15/20 08/15/20 History sennosides [senna] 8.6 mg PO BID 08/15/20 08/15/20 History amiodarone 200 mg PO QAM 30 Days #30 tab 08/19/20 Rx amoxicillin-pot clavulanate 1 tab PO BID 6 Days #12 tab 08/19/20 Rx [Augmentin] prednisone 50 mg PO DAILY 3 Days #3 tab 08/19/20 Rx Patient History Medical History Colon cancer Lung cancer Social History Smoking Status: Former smoker Second Hand Exposure: No; Hx Alcohol Use: No Hx Substance Use: No Preferred Language: Pashto Communication Ability: Effective Beliefs That Will Affect Care: None Current Living Situation: Other Current Living Situation Comment: jail Feels Safe at Home: Yes Assistive Devices: Oxygen - Continuous Review of Systems Review of Systems: All systems reviewed & are unremarkable except as noted in HPI & below Physical Exam Constitutional: + thin, + cachectic, + frail appearing, cooperative and comfortable ENMT: Nose: + dry nasal mucous membranes Respiratory: normal respiratory effort, lungs clear to auscultation Cardiovascular: RRR, no murmur, no edema Rate/Rhythm: regular rate and regular rhythm Heart Sounds: normal S1 and normal S2 Extremities: normal capillary refill and + edema Gastrointestinal (Abdomen): normal bowel sounds, soft, nontender, no hepatosplenomegaly Skin: normal turgor Psychiatric: A+Ox3, euthymic affect Insight: + limited insight Judgement: + limited judgement Results & Data ([facility]) Vital Signs (Past 12 Hours) Vital Signs Temp Pulse Pulse Resp BP BP Pulse Ox 08/19/20 11:45 36.6 C 91 H 18 122/75 111/71 98 08/19/20 11:18 36.6 C 91 H 18 122/75 98 08/19/20 09:00 85 08/19/20 07:28 36.7 C 92 H 18 129/83 98 Pulse Ox 08/19/20 11:45 08/19/20 11:18 08/19/20 09:00 97 08/19/20 07:28 PG Care Time/CCT Total # of Minutes Spent Total Time Spent with Patient: Total time spent is greater than 50% in coordination of care (as documented) at patient's floor/unit and/or counseling patient: 70 minutes with > 50% of that time spent assessing the patient, discussing goals of care and collaborating with IDT Coding Level of Care Code 47714 Initial Inpt Care Lvl 3 Diagnoses Palliative care encounter Z51.5 Colon cancer C18.9 Lung cancer C34.31 Laterality: right Lung location: lower lobe of lung Weakness R53.1 Altered mental status R41.82 Altered mental status type: unspecified Time Spent (min) 70
== END 2020-08-19 15:01 | DRG 871 ==
LOC: ED 19:02 → SUATTDRO 08-16 00:27 → 2E 08-16 00:27 → 2N 08-17 11:18

== ENCOUNTER 2020-08-22 20:29 | Inpatient (IN) ==
[~2020-08-22 20:29] MED LIST: MIDAZOLAM HCL 5 MG/ML VIAL IV ONE; VECURONIUM BROMIDE 10 MG VIAL IV ONE; fentaNYL citrate 100 MCG/2 ML VIAL IV ONE
[2020-08-22] MEDS ORDERED: SODIUM CHLORIDE 0.9% 1000ML 1,000 ML IV ONE ×2 (20:41→21:35)
[2020-08-22] MEDS ORDERED: PIPERACILL/TAZOBAC CONSULT ACTIVE PRN (20:59)
[2020-08-22] MEDS ORDERED: PIPERACILLIN/TAZOBACTAM 4.5 GM/120 ML BAG IV ONE (20:59)
--- NOTE | 2020-08-22 21:40 | Emergency Department Note ---
Impression & Plan Altered mental status, Lung cancer, Sepsis, Acute respiratory acidosis, Acidosis, lactic, Acute kidney injury, Abnormal EKG ED Provider Note NAME: TOOTIE MATT AGE: 69 SEX: M : 1950 ARRIVES VIA: Ambulance INFORMANT: EMS personnel ED PROVIDER(S): Florencio Carty DO CHIEF COMPLAINT: Altered mental status HPI: The patient is a 69-year-old male who has a history of end-stage lung cancer who was admitted to our facility recently with multifocal pneumonia and received a palliative care consult. He was discharged back to the snf and was placed on antibiotics. According to the prehospital personnel the patient had been checked on this evening and was found to be in extremitas. He was not responsive at all. According to the EMS personnel the patient was responsive to painful stimuli but is not following commands and does not appear to be able to answer questions appropriately. The patient himself does not complain of chest pain. He has had no reported nausea or vomiting. History was limited secondary to the patient's altered mental status. ROS: See above HPI for pertinent positives & negatives. A total of 10 systems reviewed and were otherwise negative. PAST MEDICAL HISTORY: See Below PAST SURGICAL HISTORY: See Below FAMILY HISTORY: See Below SOCIAL HISTORY: See Below HOME MEDICATIONS: See Below ALLERGIES: See Below VITALS: See Below PHYSICAL EXAMINATION: GENERAL: The patient is listless and does not follow commands. He appears very cachectic appearing and uncomfortable. EYES: The conjunctivae are injected bilaterally eyes are very dry. The pupils are round and reactive. EARS, NOSE, MOUTH AND THROAT: The nose is without any evidence of any deformity. Mucous membranes are dry. NECK: Significant JVD was noted. RESPIRATORY: Diminished breath sounds are noted throughout with rales in all lung mcfadden. CARDIOVASCULAR: Regular rate and rhythm was noted to auscultation. There was no definite murmur. GASTROINTESTINAL: The abdomen is soft. Abdomen is nontender. MUSCULOSKELETAL/EXTREMITIES: There is no evidence of gross deformity full range of motion is noted in the hips and shoulders. SKIN: Skin was warm and dry. Pedal edema was noted bilaterally. NEUROLOGIC: Patient is awake and looking around the room. He does not answer questions or follow command. I am unable to assess orientation at this time. Patient is moving all extremities. MEDICAL DECISION MAKING: The patient is a 69-year-old male who presented to the emergency department with altered mental status. The patient has a history of known lung cancer. He was seen in our facility recently for similar complaints and was diagnosed with multifocal pneumonia. He was sent back to the snf and supposedly was compliant with all his outpatient medications but presented to the emergency department because of lethargy and unresponsiveness. The patient's work-up appears to be consistent with significant sepsis. He was hypotensive. He was t reated with IV fluids and IV antibiotics. He was reevaluated multiple times. I discussed the patient's laboratory and radiographic studies with the on-call [facility] hospitalist. The patient was evaluated by palliative medicine on his recent visit. The patient's condition is considered terminal. It is unclear the patient would benefit from higher level of care at this time. I discussed this with the admitting team. It was also discussed with the mobile paint specialist team. At this time the patient is to be treated with pressors and antibiotics but it is unclear if the patient should receive further higher level care pending further work-up. He did have poor IV access and an external jugul ar line was placed in the right side of the neck. An attempt was made in the left side of the neck but this appeared to have infiltrated with significant hematoma formation. This should be taken into account if the patient is to be placed on anticoagulation. Triage Nursing notes reviewed. Prior medical records reviewed Vital Signs: reviewed and remarkable for hypotension, bradycardia, tachypnea. Differential diagnosis: Infection, hypoglycemia, electrolyte abnormalities, overdose, toxicologic, cardi ac sources, intracerebral event, neurologic, trauma, as well as other pathologies. ER treatment provided: See below Diagnostics interpreted by me: ECG: EKG was obtained in the emergency department. My interpretation is sinus bradycardia at 48 bpm. There is no ectopy. Diffuse T wave inversions were noted. Low voltage was noted throughout. This was compared to a tracing from August 162020. The ischemic changes are new compared to the previous tracing. Cardiac Monitoring: An order was placed for continuous cardiac monitoring. The monitor shows a rate of 52 bpm with sinus bradycardia rhythm. Laboratory studies: As stated above and show below. Imaging studies: See below Consultation(s): 2129: I discussed this case with Dr. Baker who is on-call for the [facility] hospitalist group. ED COURSE: Procedures: none PDMP:reviewed and no issues Critical Care: I have personally spent greater than 55 minutes of critical care time in the direct management of this patient. This includes bedside care, interpretation of diagnostic studies, and testing, discussion with consultants, patient, and family members, and other required patient management activities. This 55 minutes is in excess of all separately billable procedures. Past Med/Surg History Medical History Lung cancer Palliative care encounter Weakness Social History Smoking Status: Unknown if ever smoked Second Hand Exposure: No; Hx Alcohol Use: No Hx Substance Use: No Preferred Language: Lao Communication Ability: Effective Beliefs That Will Affect Care: None Current Living Situation: Other Current Living Situation Comment: snf Feels Safe at Home: Yes Assistive Devices: Oxygen - Continuous Allergies Allergies Allergy/AdvReac Type Severity Reaction Status Date / Time Iodinated Contrast Media Allergy Intermediate hives/vomiting Verified 08/22/20 21:13 (IV Contrast) Home Meds Home Medications Medication Instructions Recorded Confirmed carvedilol 3.125 mg PO BID 08/15/20 08/22/20 dicyclomine 20 mg PO TID PRN 08/15/20 08/22/20 ferrous gluconate 324 mg PO BID 08/15/20 08/22/20 fluticasone propion-salmeterol 1 inh INHALATION BID 08/15/20 08/22/20 [Wixela Inhub] levalbuterol tartrate [Xopenex HFA] 2 inh INHALATION QID PRN 08/15/20 08/22/20 mirtazapine 15 mg PO HS 08/15/20 08/22/20 multivitamin 1 tab PO DAILY 08/15/20 08/22/20 oxycodone-acetaminophen [Percocet] 1 tab PO Q4H 08/15/20 08/22/20 pantoprazole 40 mg PO DAILY 08/15/20 08/22/20 polyethylene glycol 3350 [Miralax] 17 g PO BID 08/15/20 08/22/20 sennosides [senna] 8.6 mg PO BID 08/15/20 08/22/20 lactulose 15 ml PO DAILY PRN 08/22/20 08/22/20 oxycodone [OxyContin] 20 mg PO BID 08/22/20 08/22/20 Previous Rx's Medication Instructions Recorded amiodarone 200 mg PO QAM 30 Days #30 tab 08/19/20 amoxicillin-pot clavulanate 1 tab PO BID 6 Days #12 tab 08/19/20 [Augmentin] Results & Data (ED) Vital Signs Vital Signs - 24 hr 08/22/20 20:40 08/22/20 20:42 08/22/20 20:45 Pulse Rate 49 L 53 L 46 L Pulse Rate from SpO2 Sensor 49 L 46 L Pulse Rhythm Regular Pulse Strength Weak Respiratory Rate 15 9 L 8 L Respiratory Effort / Characteristics Spontaneous Respiratory Depth Shallow Blood Pressure 62/38 L 62/38 L 58/37 L Blood Pressure Mean 46 46 44 Blood Pressure Position Sitting Pulse Oximetry 97 97 97 Oxygen Delivery Method Non-rebreather Non-rebreather Non-rebreather Sepsis Recent Fever Within 48 Hours No Sepsis New/Unexplained Change in Mental Status Yes Sepsis Action Taken by Nursing Physician Notified 08/22/20 20:59 08/22/20 21:15 08/22/20 21:20 Pulse Rate 56 L 55 L Pulse Rate from SpO2 Sensor 55 L 53 L 55 L Pulse Rhythm Pulse Strength Respiratory Rate 27 H Respiratory Effort / Characteristics Respiratory Depth Blood Pressure 62/36 L Blood Pressure Mean 44 Blood Pressure Position Pulse Oximetry 96 81 L 97 Oxygen Delivery Method Non-rebreather Sepsis Recent Fever Within 48 Hours Sepsis New/Unexplained Change in Mental Status Sepsis Action Taken by Nursing 08/22/20 21:22 08/22/20 21:25 08/22/20 21:29 Pulse Rate 52 L 67 Pulse Rate from SpO2 Sensor 63 57 L 56 L Pulse Rhythm Pulse Strength Respiratory Rate Respiratory Effort / Characteristics Respiratory Depth Blood Pressure 70/41 L 67/49 L Blood Pressure Mean 50 55 Blood Pressure Position Pulse Oximetry 84 L 89 L 98 Oxygen Delivery Method Sepsis Recent Fever Within 48 Hours Sepsis New/Unexplained Change in Mental Status Sepsis Action Taken by Nursing 08/22/20 21:30 08/22/20 21:33 08/22/20 21:35 Pulse Rate 53 L 52 L 83 Pulse Rate from SpO2 Sensor 53 L 53 L 59 L Pulse Rhythm Pulse Strength Respiratory Rate Respiratory Effort / Characteristics Respiratory Depth Blood Pressure 72/49 L 74/45 L 70/43 L Blood Pressure Mean 56 54 52 Blood Pressure Position Pulse Oximetry 99 99 94 Oxygen Delivery Method Sepsis Recent Fever Within 48 Hours Sepsis New/Unexplained Change in Mental Status Sepsis Action Taken by Nursing 08/22/20 21:40 08/22/20 21:45 08/22/20 21:50 Pulse Rate 48 L 46 L 46 L Pulse Rate from SpO2 Sensor 48 L 46 L 46 L Pulse Rhythm Pulse Strength Respiratory Rate Respiratory Effort / Characteristics Respiratory Depth Blood Pressure 63/37 L 59/35 L 54/34 L Blood Pressure Mean 45 43 40 Blood Pressure Position Pulse Oximetry 97 98 98 Oxygen Delivery Method Nasal Cannula Nasal Cannula Nasal Cannula Sepsis Recent Fever Within 48 Hours Sepsis New/Unexplained Change in Mental Status Sepsis Action Taken by Nursing 08/22/20 21:55 Pulse Rate 49 L Pulse Rate from SpO2 Sensor 49 L Pulse Rhythm Pulse Strength Respiratory Rate Respiratory Effort / Characteristics Respiratory Depth Blood Pressure 75/35 L Blood Pressure Mean 48 Blood Pressure Position Pulse Oximetry 97 Oxygen Delivery Method Nasal Cannula Sepsis Recent Fever Within 48 Hours Sepsis New/Unexplained Change in Mental Status Sepsis Action Taken by Usp Medications Current Medication List: was personally reviewed by me Laboratory Data Attestation: I reviewed the patient's lab results. Result diagrams: 08/22/20 21:16 08/22/20 21:16 Lab Results 08/22/20 08/22/20 08/22/20 Range/Units 20:58 20:58 21:16 WBC 20.08 H (4.8-10.8) K/uL RBC 3.59 L (4.7-6.1) M/uL Hgb 9.5 L (14.0-18.0) g/dL Hct 35.0 L (42-52) % MCV 97.5 (80-100) fL MCH 26.5 (25-34) pg MCHC 27.1 L (32-36) g/dL RDW Std Deviation 74.4 H (36.4-46.3) fL RDW Coeff of Acacia 21.5 H (11.5-14.5) % Plt Count 144 (130-400) K/uL MPV 9.3 (7.4-10.4) fL Immature Gran % (Auto) 0.4 % Neut % (Auto) 94.4 % Lymph % (Auto) 2.3 % [place] % (Auto) 2.9 % Eos % (Auto) 0.0 % Baso % (Auto) 0.0 % Neut # (Auto) 18.95 H (1.4-6.5) K/uL Lymph # (Auto) 0.46 L (1.2-3.4) K/uL [place] # (Auto) 0.59 (0.11-0.59) K/uL Eos # (Auto) 0.00 (0-0.5) K/uL Baso # (Auto) 0.00 (0-0.2) K/uL Immature Gran # (Auto) 0.08 H (0.00-0.02) K/uL Absolute Nucleated RBC 0.12 H (0-0) K/uL Nucleated RBC % (auto) 0.6 % Hyposegmented Neuts 1+ Toxic Vacuolation 1+ Polychromasia 1+ Hypochromasia Present Poikilocytosis Present Basophilic Stippling 1+ Anisocytosis Present PT (9.0-12.0) Seconds INR (0.9-1.1) APTT (21.0-31.0) Seconds PTT Ratio VBG pH (7.36-7.41) VBG pCO2 (38-50) mmHg VBG pO2 mmHg VBG HCO3 mmol/L VBG O2 Saturation % VBG Base Excess mEq/L Barometric Pressure mm/Hg Sodium (136-145) mmol/L Potassium (3.5-5.1) mmol/L Chloride (98-107) mmol/L Carbon Dioxide (21-32) mmol/L Anion Gap (3-11) BUN (7-18) mg/dl Creatinine (0.6-1.4) mg/dl Est Cr Clr Drug Dosing Est GFR ( Amer) ml/min Est GFR (Non-Af Amer) ml/min BUN/Creatinine Ratio (10-20) Glucose (70-99) mg/dl Lactate (0.4-2.0) mmol/L Calcium (8.5-10.1) mg/dl Magnesium (1.8-2.4) mg/dl Total Bilirubin (0.2-1) mg/dl AST (15-37) U/L ALT (12-78) U/L Alkaline Phosphatase (45-117) U/L Ammonia (11-32) umol/L Troponin I (0-0.045) ng/ml NT-Pro-B Natriuret Pep (0-900) pg/ml Total Protein (6.4-8.2) gm/dl Albumin (3.4-5.0) gm/dl Globulin (2.5-4.0) gm/dl Albumin/Globulin Ratio (0.9-2) Procalcitonin (0-0.5) ng/ml Urine Color Urine Appearance (Clear) Urine pH (4.5-7.5) Ur Specific [place] (1.000-1.030) Urine Protein (Negative) Urine Glucose (UA) (Negative) Urine Ketones (Negative) Urine Blood (Negative) Urine Nitrite (Negative) Urine Bilirubin (Negative) Urine Urobilinogen (Negative) Ur Leukocyte Esterase (Negative) Urine WBC (Auto) (0-5) /hpf Urine RBC (Auto) (0-4) /hpf U Hyaline Cast (Auto) (0-5) /lpf U Epithel Cells (Auto) (0-5) /lpf Urine Bacteria (Auto) (Negative) Urine Crystals Urine Yeast COVID-19 Eval Order Covid19 at [facility] SARS-CoV-2 (PCR) NEGATIVE (Negative) 08/22/20 08/22/20 08/22/20 Range/Units 21:16 21:16 21:16 WBC (4.8-10.8) K/uL RBC (4.7-6.1) M/uL Hgb (14.0-18.0) g/dL Hct (42-52) % MCV (80-100) fL MCH (25-34) pg MCHC (32-36) g/dL RDW Std Deviation (36.4-46.3) fL RDW Coeff of Acacia (11.5-14.5) % Plt Count (130-400) K/uL MPV (7.4-10.4) fL Immature Gran % (Auto) % Neut % (Auto) % Lymph % (Auto) % [place] % (Auto) % Eos % (Auto) % Baso % (Auto) % Neut # (Auto) (1.4-6.5) K/uL Lymph # (Auto) (1.2-3.4) K/uL [place] # (Auto) (0.11-0.59) K/uL Eos # (Auto) (0-0.5) K/uL Baso # (Auto) (0-0.2) K/uL Immature Gran # (Auto) (0.00-0.02) K/uL Absolute Nucleated RBC (0-0) K/uL Nucleated RBC % (auto) % Hyposegmented Neuts Toxic Vacuolation Polychromasia Hypochromasia Poikilocytosis Basophilic Stippling Anisocytosis PT 12.5 H (9.0-12.0) Seconds INR 1.3 H (0.9-1.1) APTT 33.6 H (21.0-31.0) Seconds PTT Ratio 1.3 VBG pH (7.36-7.41) VBG pCO2 (38-50) mmHg VBG pO2 mmHg VBG HCO3 mmol/L VBG O2 Saturation % VBG Base Excess mEq/L Barometric Pressure mm/Hg Sodium 138 (136-145) mmol/L Potassium 5.7 H (3.5-5.1) mmol/L Chloride 100 (98-107) mmol/L Carbon Dioxide 23 (21-32) mmol/L Anion Gap 15.0 H (3-11) BUN 63 H (7-18) mg/dl Creatinine 2.02 H (0.6-1.4) mg/dl Est Cr Clr Drug Dosing Not Reportable Est GFR ( Amer) 37.3 ml/min Est GFR (Non-Af Amer) 32.2 ml/min BUN/Creatinine Ratio 30.9 H (10-20) Glucose 83 (70-99) mg/dl Lactate 8.8 H* (0.4-2.0) mmol/L Calcium 8.2 L (8.5-10.1) mg/dl Magnesium 2.4 (1.8-2.4) mg/dl Total Bilirubin 0.3 (0.2-1) mg/dl AST 12 L (15-37) U/L ALT 6 L (12-78) U/L Alkaline Phosphatase 58 (45-117) U/L Ammonia (11-32) umol/L Troponin I 0.038 (0-0.045) ng/ml NT-Pro-B Natriuret Pep 96064 H (0-900) pg/ml Total Protein 6.2 L (6.4-8.2) gm/dl Albumin 1.8 L (3.4-5.0) gm/dl Globulin 4.4 H (2.5-4.0) gm/dl Albumin/Globulin Ratio 0.4 L (0.9-2) Procalcitonin (0-0.5) ng/ml Urine Color Urine Appearance (Clear) Urine pH (4.5-7.5) Ur Specific Barn[place] (1.000-1.030) Urine Protein (Negative) Urine Glucose (UA) (Negative) Urine Ketones (Negative) Urine Blood (Negative) Urine Nitrite (Negative) Urine Bilirubin (Negative) Urine Urobilinogen (Negative) Ur Leukocyte Esterase (Negative) Urine WBC (Auto) (0-5) /hpf Urine RBC (Auto) (0-4) /hpf U Hyaline Cast (Auto) (0-5) /lpf U Epithel Cells (Auto) (0-5) /lpf Urine Bacteria (Auto) (Negative) Urine Crystals Urine Yeast COVID-19 Eval Order SARS-CoV-2 (PCR) (Negative) 08/22/20 08/22/20 08/22/20 Range/Units 21:16 21:16 21:16 WBC (4.8-10.8) K/uL RBC (4.7-6.1) M/uL Hgb (14.0-18.0) g/dL Hct (42-52) % MCV (80-100) fL MCH (25-34) pg MCHC (32-36) g/dL RDW Std Deviation (36.4-46.3) fL RDW Coeff of Acacia (11.5-14.5) % Plt Count (130-400) K/uL MPV (7.4-10.4) fL Immature Gran % (Auto) % Neut % (Auto) % Lymph % (Auto) % [place] % (Auto) % Eos % (Auto) % Baso % (Auto) % Neut # (Auto) (1.4-6.5) K/uL Lymph # (Auto) (1.2-3.4) K/uL [place] # (Auto) (0.11-0.59) K/uL Eos # (Auto) (0-0.5) K/uL Baso # (Auto) (0-0.2) K/uL Immature Gran # (Auto) (0.00-0.02) K/uL Absolute Nucleated RBC (0-0) K/uL Nucleated RBC % (auto) % Hyposegmented Neuts Toxic Vacuolation Polychromasia Hypochromasia Poikilocytosis Basophilic Stippling Anisocytosis PT (9.0-12.0) Seconds INR (0.9-1.1) APTT (21.0-31.0) Seconds PTT Ratio VBG pH 6.97 L (7.36-7.41) VBG pCO2 111 H (38-50) mmHg VBG pO2 52 mmHg VBG HCO3 25 mmol/L VBG O2 Saturation 82.1 % VBG Base Excess -8.3 mEq/L Barometric Pressure 733.8 mm/Hg Sodium (136-145) mmol/L Potassium (3.5-5.1) mmol/L Chloride (98-107) mmol/L Carbon Dioxide (21-32) mmol/L Anion Gap (3-11) BUN (7-18) mg/dl Creatinine (0.6-1.4) mg/dl Est Cr Clr Drug Dosing Est GFR ( Amer) ml/min Est GFR (Non-Af Amer) ml/min BUN/Creatinine Ratio (10-20) Glucose (70-99) mg/dl Lactate (0.4-2.0) mmol/L Calcium (8.5-10.1) mg/dl Magnesium (1.8-2.4) mg/dl Total Bilirubin (0.2-1) mg/dl AST (15-37) U/L ALT (12-78) U/L Alkaline Phosphatase (45-117) U/L Ammonia 62.0 H (11-32) umol/L Troponin I (0-0.045) ng/ml NT-Pro-B Natriuret Pep (0-900) pg/ml Total Protein (6.4-8.2) gm/dl Albumin (3.4-5.0) gm/dl Globulin (2.5-4.0) gm/dl Albumin/Globulin Ratio (0.9-2) Procalcitonin 17.18 H (0-0.5) ng/ml Urine Color Urine Appearance (Clear) Urine pH (4.5-7.5) Ur Specific [place] (1.000-1.030) Urine Protein (Negative) Urine Glucose (UA) (Negative) Urine Ketones (Negative) Urine Blood (Negative) Urine Nitrite (Negative) Urine Bilirubin (Negative) Urine Urobilinogen (Negative) Ur Leukocyte Esterase (Negative) Urine WBC (Auto) (0-5) /hpf Urine RBC (Auto) (0-4) /hpf U Hyaline Cast (Auto) (0-5) /lpf U Epithel Cells (Auto) (0-5) /lpf Urine Bacteria (Auto) (Negative) Urine Crystals Urine Yeast COVID-19 Eval Order SARS-CoV-2 (PCR) (Negative) 08/22/20 Range/Units 21:25 WBC (4.8-10.8) K/uL RBC (4.7-6.1) M/uL Hgb (14.0-18.0) g/dL Hct (42-52) % MCV (80-100) fL MCH (25-34) pg MCHC (32-36) g/dL RDW Std Deviation (36.4-46.3) fL RDW Coeff of Acacia (11.5-14.5) % Plt Count (130-400) K/uL MPV (7.4-10.4) fL Immature Gran % (Auto) % Neut % (Auto) % Lymph % (Auto) % [place] % (Auto) % Eos % (Auto) % Baso % (Auto) % Neut # (Auto) (1.4-6.5) K/uL Lymph # (Auto) (1.2-3.4) K/uL [place] # (Auto) (0.11-0.59) K/uL Eos # (Auto) (0-0.5) K/uL Baso # (Auto) (0-0.2) K/uL Immature Gran # (Auto) (0.00-0.02) K/uL Absolute Nucleated RBC (0-0) K/uL Nucleated RBC % (auto) % Hyposegmented Neuts Toxic Vacuolation Polychromasia Hypochromasia Poikilocytosis Basophilic Stippling Anisocytosis PT (9.0-12.0) Seconds INR (0.9-1.1) APTT (21.0-31.0) Seconds PTT Ratio VBG pH (7.36-7.41) VBG pCO2 (38-50) mmHg VBG pO2 mmHg VBG HCO3 mmol/L VBG O2 Saturation % VBG Base Excess mEq/L Barometric Pressure mm/Hg Sodium (136-145) mmol/L Potassium (3.5-5.1) mmol/L Chloride (98-107) mmol/L Carbon Dioxide (21-32) mmol/L Anion Gap (3-11) BUN (7-18) mg/dl Creatinine (0.6-1.4) mg/dl Est Cr Clr Drug Dosing Est GFR ( Amer) ml/min Est GFR (Non-Af Amer) ml/min BUN/Creatinine Ratio (10-20) Glucose (70-99) mg/dl Lactate (0.4-2.0) mmol/L Calcium (8.5-10.1) mg/dl Magnesium (1.8-2.4) mg/dl Total Bilirubin (0.2-1) mg/dl AST (15-37) U/L ALT (12-78) U/L Alkaline Phosphatase (45-117) U/L Ammonia (11-32) umol/L Troponin I (0-0.045) ng/ml NT-Pro-B Natriuret Pep (0-900) pg/ml Total Protein (6.4-8.2) gm/dl Albumin (3.4-5.0) gm/dl Globulin (2.5-4.0) gm/dl Albumin/Globulin Ratio (0.9-2) Procalcitonin (0-0.5) ng/ml Urine Color Dark Yellow Urine Appearance Cloudy A (Clear) Urine pH 5.0 (4.5-7.5) Ur Specific [place] 1.024 (1.000-1.030) Urine Protein 2+ H (Negative) Urine Glucose (UA) Negative (Negative) Urine Ketones Trace H (Negative) Urine Blood Negative (Negative) Urine Nitrite Negative (Negative) Urine Bilirubin 1+ H (Negative) Urine Urobilinogen Negative (Negative) Ur Leukocyte Esterase Negative (Negative) Urine WBC (Auto) 1-5 (0-5) /hpf Urine RBC (Auto) 0-4 (0-4) /hpf U Hyaline Cast (Auto) 1-5 (0-5) /lpf U Epithel Cells (Auto) 5-10 H (0-5) /lpf Urine Bacteria (Auto) Negative (Negative) Urine Crystals Not Reportable Urine Yeast Not Reportable COVID-19 Eval Order SARS-CoV-2 (PCR) (Negative) Administered Medications Discontinued Medications Sodium Chloride (Nss 1000ml) 1,000 mls @ 999 mls/hr IV .Q1H1M ONE Stop: 08/22/20 21:41 Last Infusion: 08/22/20 21:59 Dose: 0 mls/hr Documented by: [id number] Admin: 08/22/20 20:58 Dose: 999 mls/hr Documented by: [id number] Piperacillin Sod/Tazobactam Sod (Zosyn) 4.5 gm in 120 mls @ 240 mls/hr IV NOW ONE Stop: 08/22/20 21:28 Last Admin: 08/22/20 21:37 Dose: 240 mls/hr Documented by: [id number] Sodium Chloride (Nss 1000ml) 1,000 mls @ 999 mls/hr IV .Q1H1M ONE Stop: 08/22/20 22:35 Last Admin: 08/22/20 21:37 Dose: 999 mls/hr Documented by: [id number] Imaging Data Attestation: I personally reviewed and interpreted this imaging study as follows: My Impression: 1 view chest x-ray was obtained in the emergency department. My interpretation is severe volume loss in the right lung field. This is consistent with patient's previously known history of lung cancer. Nonspecific bowel gas pattern was noted in the left upper quadrant. Discharge Plan Visit Data Chief Complaint: Unresponsive Stated Complaint: UNRESPONSIVE ED Provider: Florencio Carty Discharge Problem: Altered mental status, Lung cancer, Sepsis, Acute respiratory acidosis, Acidosis, lactic, Acute kidney injury, Abnormal EKG Patient Disposition: Being Evaluated by Hospitalist Condition: Critical Forms Stand Alone Forms: [facility] Prescriptions Prescriptions: No Action lactulose 10 gram/15 mL Solution 15 ml PO DAILY PRN (Reason: Unknown) RF: 0 oxycodone [OxyContin] 20 mg Tablet,Oral Only,Ext.Rel.12 Hr 20 mg PO BID RF: 0 multivitamin Tablet 1 tab PO DAILY RF: 0 carvedilol 3.125 mg Tablet 3.125 mg PO BID RF: 0 mirtazapine 15 mg Tablet 15 mg PO HS RF: 0 ferrous gluconate 324 mg (37.5 mg iron) Tablet 324 mg PO BID RF: 0 fluticasone propion-salmeterol [Wixela Inhub] 250-50 mcg/dose Blister With Device 1 inh INHALATION BID RF: 0 sennosides [senna] 8.6 mg Tablet 8.6 mg PO BID RF: 0 polyethylene glycol 3350 [Miralax] 17 gram Powder In Packet 17 g PO BID RF: 0 oxycodone-acetaminophen [Percocet] 5-325 mg Tablet 1 tab PO Q4H RF: 0 pantoprazole 40 mg Tablet,Delayed Release (Dr/Ec) 40 mg PO DAILY RF: 0 dicyclomine 20 mg Tablet 20 mg PO TID PRN (Reason: Unknown) RF: 0 levalbuterol tartrate [Xopenex HFA] 45 mcg/actuation Hfa Aerosol Inhaler 2 inh INHALATION QID PRN (Reason: Unknown) RF: 0 amiodarone 200 mg Tablet 200 mg PO QAM 30 Days Qty: 30 RF: 0 amoxicillin-pot clavulanate [Augmentin] 875-125 mg tablet 1 tab PO BID 6 Days Qty: 12 RF: 0 Referrals Referrals: Yue LOPEZ [Primary Care Provider] -
[2020-08-22 21:42] LABS: Base Excess VBG -8.3 mEq/L; Oxygen Saturation VBG 82.1 %; pH VBG 6.97 (7.36-7.41)
[2020-08-22 21:46] LABS: Alanine Aminotransferase 6 U/L (12-78); Albumin Level 1.8 gm/dl (3.4-5.0); Aspartate Aminotransferase 12 U/L (15-37); BUN Creatinine Ratio 30.9 (10-20); Blood Urea Nitrogen 63 mg/dl (7-18); Calcium 8.2 mg/dl (8.5-10.1); Carbon Dioxide 23 mmol/L (21-32); Chloride 100 mmol/L (98-107); Est GFR (African American) 37.3 ml/min; Est GFR (Non-African American) 32.2 ml/min; Glucose 83 mg/dl (70-99); INR 1.3 (0.9-1.1); Magnesium 2.4 mg/dl (1.8-2.4); Partial Thromboplastin Ratio 1.3; Partial Thromboplastin Time 33.6 Seconds (21.0-31.0); Potassium 5.7 mmol/L (3.5-5.1); Prothrombin Time 12.5 Seconds (9.0-12.0); Sodium 138 mmol/L (136-145)
[2020-08-22 21:51] LABS: Albumin Globulin Ratio 0.4 (0.9-2); Alkaline Phosphatase 58 U/L (45-117); Bilirubin,Total 0.3 mg/dl (0.2-1); Globulin 4.4 gm/dl (2.5-4.0); NT Pro B Type Natriuretic Pept 25240 pg/ml (0-900); Total Protein 6.2 gm/dl (6.4-8.2); Troponin I 0.038 ng/ml (0-0.045)
[2020-08-22] MEDS ORDERED: ONDANSETRON INJ 2 MG/ML 2 ML VIAL IV STA (22:08)
[2020-08-22 22:11] LABS: Appearance Urine Cloudy (Clear); Bacteria Urine Automated Negative (Negative); Blood Urine Negative (Negative); Color Urine Dark Yellow; Glucose Urine UA Negative (Negative); Ketones Urine Trace (Negative); Leukocyte Esterase Urine Negative (Negative); Nitrite Urine Negative (Negative); Protein Urine 2+ (Negative); RBC Urine Automated 0-4 /hpf (0-4); Specific Gravity Urine 1.024 (1.000-1.030); Urobilinogen Urine Negative (Negative)
[2020-08-22 22:16] LABS: Anisocytosis Present; Basophilic Stippling 1+; Hemoglobin 9.5 g/dL (14.0-18.0); Hypochromasia Present; Immature Granulocytes # (auto) 0.08 K/uL (0.00-0.02); Immature Granulocytes % (auto) 0.4 %; Lymphocytes # (auto) 0.46 K/uL (1.2-3.4); Lymphocytes % (auto) 2.3 %; Mean Corpuscular Hemoglobin 26.5 pg (25-34); Mean Corpuscular Hgb Conc 27.1 g/dL (32-36); Mean Corpuscular Volume 97.5 fL (80-100); Mean Platelet Volume 9.3 fL (7.4-10.4); Monocytes # (auto) 0.59 K/uL (0.11-0.59); Monocytes % (auto) 2.9 %; Neutrophils # (auto) 18.95 K/uL (1.4-6.5); Neutrophils % (auto) 94.4 %; Nucleated RBC # (auto) 0.12 K/uL (0-0); Nucleated RBC % (auto) 0.6 %; Platelet Count 144 K/uL (130-400); Poikilocytosis Present; Polychromasia 1+; RDW Coefficient of Variation 21.5 % (11.5-14.5); RDW Standard Deviation 74.4 fL (36.4-46.3); Red Blood Count 3.59 M/uL (4.7-6.1); Toxic Vacuolation 1+; White Blood Count 20.08 K/uL (4.8-10.8)
[2020-08-22 22:17] LABS: Bilirubin Urine 1+ (Negative)
--- NOTE | 2020-08-22 22:34 | History & Physical Report ---
Date of Service August 22, 2020 Assessment & Plan (1) Unresponsiveness: 69yo male with history of lung cancer, colon cancer presenting from [facility] after being found down and unresponsive. 1. Neuro - Patient encephalopathic on arrival. He is obtunded, unable to answer questions or follow commands. He did have some periods of lucency when he was able to speak - asked for water, told me that he was [place]", denied chest pain. Encephalopathy most likely multifactorial - acidemia, hypercarbia, renal compromise, possible infection, ?hepatic encephalopathy with elevated ammonia level as well. CT Head with atrophy - no acute insult -Patient intubated and sedated - will repeat ABG -IVF and electrolyte correction as able. Avoid nephrotoxic agents -Empiric Vancomycin and Zosyn -Lactulose -Pain control and sedation 2. Pulmonary - patient intubated, sedated. pH initially 6.97, now alkalemic at 7.49. CT Chest with large right lung tumor with atelectasis, small pleural effusion. -Initially HCO3 gtt - would discontinue 3. Cardiovascular - patient hypotensive and bradycardic. ?sepsis, mass effect from large tumor with mediastinal shift, volume depletion. Elevated lactate at 9.9 now in setting of prolonged hypotension -Levophed gtt -IVF 4. Gastrointestinal -NGT -Protonix 5. - SAVANA -possibly secondary to sepsis, volume depletion, prolonged hypotension -IVF -Avoid nephrotoxins -Renal dosing where needed 6. Heme - H/H stable. Leukocytosis improving -Continue to monitor 7. ID - recent PNA, patient afebrile -Vancomycin, Zosyn 8. Endocrine -Check cortisol -Hydrocortisone Patient admitted to MICU. He is critically ill with overall poor prognosis. Patient was seen by the Palliative Care services on 08/19/20 and voiced the desire to be full code. At this stage in his illness patient would not fare well with CPR and I doubt any chance of meaningful recovery. Patient's Emergency Contact from [facility] is listed as SHAUNA RODRIGUEZ (? or Ex- ) - [phone]. Attempted multiple times to contact her throughout the night with no success. Unable to leave message (2) Lung cancer: History of Present Illness Chief Complaint: Unresponsiveness Primary Care Provider: [facility] Kimani Dumont is a 69yo male inmate from [facility] being brought in for unresponsiveness. Patient has history of lung cancer, cecum cancer as well as HCV, prior CVA, COPD and GERD. He was previously admitted to [facility] from 08/17/20 - 08/19/20 for worsening SOB and edema. He was treated with Zosyn to Augmentin as well as stress steroids and returned home to [facility] on 08/19/20. Of note, there was some initial confusion re: patient's code status. He was seen by Palliative Care on 08/19/20 and reported desire to be FULL CODE. Patient presents today after being found down and unresponsive. Hypotensive and bradycardic on arrival. Initially unresponsive - patient woke to Covid-19 testing and was briefly interactive and asking for water. In the ER patient was administered 2L NSS and Zosyn 4.5gm as well as HCO3 x 1 amp He was admitted to the MICU. While staff was attempting placement of an kong rial line the patient became apneic and bradycardic. He maintained a pulse. He was administered Atropine, Bicarbonate and Epinephrine and was intubated. Started on Levophed and Bicarbonate drips Allergies Allergy/AdvReac Type Severity Reaction Status Date / Time Iodinated Contrast Media Allergy Intermediate hives/vomiting Verified 08/22/20 21:13 (IV Contrast) Home Medications Medication Instructions Recorded Confirmed Type carvedilol 3.125 mg PO BID 08/15/20 08/22/20 History dicyclomine 20 mg PO TID PRN 08/15/20 08/22/20 History ferrous gluconate 324 mg PO BID 08/15/20 08/22/20 History fluticasone propion-salmeterol 1 inh INHALATION BID 08/15/20 08/22/20 History [Wixela Inhub] levalbuterol tartrate [Xopenex HFA] 2 inh INHALATION QID PRN 08/15/20 08/22/20 History mirtazapine 15 mg PO HS 08/15/20 08/22/20 History multivitamin 1 tab PO DAILY 08/15/20 08/22/20 History oxycodone-acetaminophen [Percocet] 1 tab PO Q4H 08/15/20 08/22/20 History pantoprazole 40 mg PO DAILY 08/15/20 08/22/20 History polyethylene glycol 3350 [Miralax] 17 g PO BID 08/15/20 08/22/20 History sennosides [senna] 8.6 mg PO BID 08/15/20 08/22/20 History amiodarone 200 mg PO QAM 30 Days #30 tab 08/19/20 08/22/20 Rx amoxicillin-pot clavulanate 1 tab PO BID 6 Days #12 tab 08/19/20 08/22/20 Rx [Augmentin] lactulose 15 ml PO DAILY PRN 08/22/20 08/22/20 History oxycodone [OxyContin] 20 mg PO BID 08/22/20 08/22/20 History Past Med/Surg History Medical History Lung cancer Palliative care encounter Weakness Social History Smoking Status: Former smoker Second Hand Exposure: No; Do You Dip or Chew Tobacco: No; Tobacco Cessation Education Requested by Patient: No Hx Alcohol Use: No Hx Substance Use: No Preferred Language: Somali Communication Ability: Unable Communication Ability Comment: Patient currently intubated Travel Information Center Supervisor Required: No Beliefs That Will Affect Care: None Current Living Situation: Other Current Living Situation Comment: [facility] Other Information That Helps Us Care for You: No Feels Safe at Home: Yes Assistive Devices: None Review of Systems Review of Systems: Unobtainable due to endotracheal tube and Unobtainable due to reduced consciousness Physical Exam Physical Exam: General: frail, cachectic with temporal wasting, unresponsive to questioning, unable to follow commands Skin: warm, dry, intact, no rashes or lesions HEENT: NC/AT, pupils pinpoint and minimally responsive, anicteric sclera, conjunctiva without injection, external ear normal to inspection and nontender, nares patent, moist mucus membranes, dentition intact, no oropharyngeal lesions, neck supple, trachea midline, no LAD, no thyromegaly, no JVD Heart: +S1/S2, regular, bradycardic, distant heart sounds, no m/r/g Lungs: markedly diminished breath sounds on right, no rales/rhonchi/wheezes, poor effort Abd: +BS, soft, NT/ND, no masses/organomegaly/ascites Ext: cool, palpable pulses, no clubbing/cyanosis Neuro: pupils pinpoint, minimally responsive, +gag reflex, patient moving all extremities, unable to conduct full exam Results & Data Results & Data ([facility]) Vital Signs (Past 12 Hours) Vital Signs Pulse Resp BP Pulse Ox 08/22/20 21:55 49 L 75/35 L 97 08/22/20 21:50 46 L 54/34 L 98 08/22/20 21:45 46 L 59/35 L 98 08/22/20 21:40 48 L 63/37 L 97 08/22/20 21:35 83 70/43 L 94 08/22/20 21:33 52 L 74/45 L 99 08/22/20 21:30 53 L 72/49 L 99 08/22/20 21:29 67 67/49 L 98 08/22/20 21:25 89 L 08/22/20 21:22 52 L 70/41 L 84 L 08/22/20 21:20 55 L 97 08/22/20 21:15 56 L 81 L 08/22/20 20:59 27 H 62/36 L 96 08/22/20 20:45 46 L 8 L 58/37 L 97 08/22/20 20:42 53 L 9 L 62/38 L 97 08/22/20 20:40 49 L 15 62/38 L 97 Laboratory Results Laboratory Results WBC 20.08 K/uL (4.8-10.8) H 08/22/20 21:16 RBC 3.59 M/uL (4.7-6.1) L 08/22/20 21:16 Hgb 9.5 g/dL (14.0-18.0) L 08/22/20 21:16 POC Hgb 10.9 g/dl (14.0-18.0) L 08/23/20 01:24 Hct 35.0 % (42-52) L 08/22/20 21:16 POC Hct 32 % (42-52) L 08/23/20 01:24 MCV 97.5 fL (80-100) 08/22/20 21:16 MCH 26.5 pg (25-34) 08/22/20 21:16 MCHC 27.1 g/dL (32-36) L 08/22/20 21:16 RDW Std Deviation 74.4 fL (36.4-46.3) H 08/22/20 21:16 RDW Coeff of [place]acia 21.5 % (11.5-14.5) H 08/22/20 21:16 Plt Count 144 K/uL (130-400) 08/22/20 21:16 MPV 9.3 fL (7.4-10.4) 08/22/20 21:16 Immature Gran % (Auto) 0.4 % 08/22/20 21:16 Neut % (Auto) 94.4 % 08/22/20 21:16 Lymph % (Auto) 2.3 % 08/22/20 21:16 Island % (Auto) 2.9 % 08/22/20 21:16 Eos % (Auto) 0.0 % 08/22/20 21:16 Baso % (Auto) 0.0 % 08/22/20 21:16 Neut # (Auto) 18.95 K/uL (1.4-6.5) H 08/22/20 21:16 Lymph # (Auto) 0.46 K/uL (1.2-3.4) L 08/22/20 21:16 Island # (Auto) 0.59 K/uL (0.11-0.59) 08/22/20 21:16 Eos # (Auto) 0.00 K/uL (0-0.5) 08/22/20 21:16 Baso # (Auto) 0.00 K/uL (0-0.2) 08/22/20 21:16 Immature Gran # (Auto) 0.08 K/uL (0.00-0.02) H 08/22/20 21:16 Absolute Nucleated RBC 0.12 K/uL (0-0) H 08/22/20 21:16 Nucleated RBC % (auto) 0.6 % 08/22/20 21:16 Hyposegmented Neuts 1+ 08/22/20 21:16 Toxic Vacuolation 1+ 08/22/20 21:16 Polychromasia 1+ 08/22/20 21:16 Hypochromasia Present 08/22/20 21:16 Poikilocytosis Present 08/22/20 21:16 Basophilic Stippling 1+ 08/22/20 21:16 Anisocytosis Present 08/22/20 21:16 PT 12.5 Seconds (9.0-12.0) H 08/22/20 21:16 INR 1.3 (0.9-1.1) H 08/22/20 21:16 APTT 33.6 Seconds (21.0-31.0) H 08/22/20 21:16 PTT Ratio 1.3 08/22/20 21:16 Sample Site Art Line 08/23/20 01:24 POC pH 7.49 (7.35-7.45) H 08/23/20 01:24 POC pCO2 35 mmHg (35-46) 08/23/20 01:24 POC pO2 111 mmHg (80-95) H 08/23/20 01:24 POC HCO3 27 vito/L (19-24) H 08/23/20 01:24 POC Total CO2 28 mmol/L (24-31) 08/23/20 01:24 POC Base Excess 4.0 vito/L (-9-1.8) H 08/23/20 01:24 ABG pH (Temp Correct) 7.558 (7.35-7.45) H* 08/23/20 01:24 ABG pCO2 (Temp Corrct 29 mmHg (35-46) L 08/23/20 01:24 POC ABG pO2 at Pt Temp 88 08/23/20 01:24 POC ABG O2 Sat 99.0 % (90-95) H 08/23/20 01:24 Ralph Test NA 08/23/20 01:24 VBG pH 7.30 (7.36-7.41) L 08/23/20 01:02 VBG pCO2 55 mmHg (38-50) H 08/23/20 01:02 VBG pO2 55 mmHg 08/23/20 01:02 VBG HCO3 26 mmol/L 08/23/20 01:02 VBG O2 Saturation 92.0 % 08/23/20 01:02 VBG Base Excess -0.6 mEq/L 08/23/20 01:02 Barometric Pressure 734.8 mm/Hg 08/23/20 01:02 POC Sodium 140 mmol/L (135-144) 08/23/20 01:24 Sodium 138 mmol/L (136-145) 08/22/20 21:16 POC Potassium 4.5 mmol/L (3.3-5.0) 08/23/20 01:24 Potassium 5.7 mmol/L (3.5-5.1) H 08/22/20 21:16 Chloride 100 mmol/L (98-107) 08/22/20 21:16 Carbon Dioxide 23 mmol/L (21-32) 08/22/20 21:16 Anion Gap 15.0 (3-11) H 08/22/20 21:16 BUN 63 mg/dl (7-18) H 08/22/20 21:16 Creatinine 2.02 mg/dl (0.6-1.4) H 08/22/20 21:16 Est Cr Clr Drug Dosing Not Reportable 08/22/20 21:16 Est GFR ( Amer) 37.3 ml/min 08/22/20 21:16 Est GFR (Non-Af Amer) 32.2 ml/min 08/22/20 21:16 BUN/Creatinine Ratio 30.9 (10-20) H 08/22/20 21:16 Glucose 83 mg/dl (70-99) 08/22/20 21:16 Lactate 9.4 mmol/L (0.4-2.0) H* 08/23/20 01:02 Calcium 8.2 mg/dl (8.5-10.1) L 08/22/20 21:16 Magnesium 2.4 mg/dl (1.8-2.4) 08/22/20 21:16 Total Bilirubin 0.3 mg/dl (0.2-1) 08/22/20 21:16 AST 12 U/L (15-37) L 08/22/20 21:16 ALT 6 U/L (12-78) L 08/22/20 21:16 Alkaline Phosphatase 58 U/L (45-117) 08/22/20 21:16 Ammonia 62.0 umol/L (11-32) H 08/22/20 21:16 Troponin I 0.038 ng/ml (0-0.045) 08/22/20 21:16 NT-Pro-B Natriuret Pep 70648 pg/ml (0-900) H 08/22/20 21:16 Total Protein 6.2 gm/dl (6.4-8.2) L 08/22/20 21:16 Albumin 1.8 gm/dl (3.4-5.0) L 08/22/20 21:16 Globulin 4.4 gm/dl (2.5-4.0) H 08/22/20 21:16 Albumin/Globulin Ratio 0.4 (0.9-2) L 08/22/20 21:16 Procalcitonin 17.18 ng/ml (0-0.5) H 08/22/20 21:16 Urine Color Dark Yellow 08/22/20 21:25 Urine Appearance Cloudy (Clear) A 08/22/20 21: Urine pH 5.0 (4.5-7.5) 08/22/20 21: Ur Specific [place] 1.024 (1.000-1.030) 08/22/20 21:25 Urine Protein 2+ (Negative) H 08/22/20 21:25 Urine Glucose (UA) Negative (Negative) 08/22/20: Urine Ketones Trace (Negative) H 08/22/20 21: Urine Blood Negative (Negative) 08/22/20 21: Urine Nitrite Negative (Negative) 08/22/20 21: Urine Bilirubin 1+ (Negative) H 08/22/20 21:25 Urine Urobilinogen Negative (Negative) 08/22/20 21:25 Ur Leukocyte Esterase Negative (Negative) 08/22/20 21:25 Urine WBC (Auto) 1-5 /hpf (0-5) 08/22/20 21:25 Urine RBC (Auto) 0-4 /hpf (0-4) 08/22/20 21:25 U Hyaline Cast (Auto) 1-5 /lpf (0-5) 08/22/20 21:25 U Epithel Cells (Auto) 5-10 /lpf (0-5) H 08/22/20 21:25 Urine Bacteria (Auto) Negative (Negative) 08/22/20 21:25 Urine Crystals Not Reportable 08/22/20 21:25 Urine Yeast Not Reportable 08/22/20 21:25 COVID-19 Eval Order Covid19 at [facility] 08/22/20 20:58 SARS-CoV-2 (PCR) NEGATIVE (Negative) 08/22/20 20:[address] Abdomen and Pelvis - Per STAT Rad - there is minimal amount of fat which makes distinction of structures difficult. In addition there is diffuse fluid infiltration consistent with anasarca contributing to limits of the study. 3 demonstrates large mass at the right lung pase extending to the paraspinal and prevertebral region measuring at least 14.6cm AP x 17cm in transferse dimension. There is mild left sided pleural effusion. Left basilar atelectasis. Heterogeneity in the enhancement of the liver with periportal edema. Overdistended gallbladder. Possible tiny stones near the gallbladder neck or sludge. Unremarkable pancreas. Bilateral kidneys and spleen unremarkable. Decompression of the stomach otherwise difficult to assess. Unremarkable small bowel. Moderate to abundant fecal debris within the colon. Atherosclerotic disease of the aorta. Diffuse ascites. No evidence of dissection. Bony structures are unremarkable. CT Angio Chest - Per STAT Rad - Exam is limited. No PE or aortic dissection. Mild cardiomegaly. Calcified atherosclerotic disease of aorta with no aneurysm. There is REN groundglass opacity which may indicate pneumonitis. There is REN and LLL posterior subpleural atelectasis. There is a large mass at the right lung base and right paraspinal region extending to the prevertebral region at the cehest and abdomen. This is difficult to measure. Debris in right mainstem bronchus and distal trachea. CT Head - No ICH, mass effect or edema. No evidence of acute cortical stroke. Periventricular small vessel ischemic change. Mild generalized brain atrophy. Visualized sinuses and mastoid air cells are clear. ECG Additional Comments: SB at 48, LAE, Left axis, Low voltage, incomplete RBBB, inferior infarct age indeterminant Code Status & VTE Plan VTE Prophylaxis Plan VTE Prophylaxis will be ordered: Yes Critical Care Time Total Critical Care Time: 60 PG Care Time/CCT Total # of Minutes Spent Total Time Spent with Patient: Total time spent is greater than 50% in coordination of care (as documented) at patient's floor/unit and/or counseling patient: Total Critical Care Time: 60 Coding Level of Care Code None Diagnoses Unresponsiveness R41.89 Lung cancer C34.91 Laterality: right Lung location: unspecified part of lung (1) Lung cancer Laterality: right Lung location: unspecified part of lung Qualified Code(s): C34.91 - Malignant neoplasm of unspecified part of right bronchus or lung
[2020-08-22] MEDS ORDERED: SODIUM BICARBONATE 4.2% INJ 10 ML SYR IV STA (22:37)
[2020-08-22] MEDS ORDERED: SODIUM BICARB 8.4% INJ 50 MEQ/50 ML SYR IV STA (22:43)
[2020-08-22] MEDS ORDERED: diphenhydrAMINE 50 MG/ML VIAL IV STA (23:10)
--- NOTE | 2020-08-22 23:27 | History & Physical Report ---
Date of Service August 22, 2020 History of Present Illness Primary Care Provider: JOHN Turner Allergies Allergy/AdvReac Type Severity Reaction Status Date / Time Iodinated Contrast Media Allergy Intermediate hives/vomiting Verified 08/22/20 21:13 (IV Contrast) Home Medications Medication Instructions Recorded Confirmed Type carvedilol 3.125 mg PO BID 08/15/20 08/22/20 History dicyclomine 20 mg PO TID PRN 08/15/20 08/22/20 History ferrous gluconate 324 mg PO BID 08/15/20 08/22/20 History fluticasone propion-salmeterol 1 inh INHALATION BID 08/15/20 08/22/20 History [Wixela Inhub] levalbuterol tartrate [Xopenex HFA] 2 inh INHALATION QID PRN 08/15/20 08/22/20 History mirtazapine 15 mg PO HS 08/15/20 08/22/20 History multivitamin 1 tab PO DAILY 08/15/20 08/22/20 History oxycodone-acetaminophen [Percocet] 1 tab PO Q4H 08/15/20 08/22/20 History pantoprazole 40 mg PO DAILY 08/15/20 08/22/20 History polyethylene glycol 3350 [Miralax] 17 g PO BID 08/15/20 08/22/20 History sennosides [senna] 8.6 mg PO BID 08/15/20 08/22/20 History amiodarone 200 mg PO QAM 30 Days #30 tab 08/19/20 08/22/20 Rx amoxicillin-pot clavulanate 1 tab PO BID 6 Days #12 tab 08/19/20 08/22/20 Rx [Augmentin] lactulose 15 ml PO DAILY PRN 08/22/20 08/22/20 History oxycodone [OxyContin] 20 mg PO BID 08/22/20 08/22/20 History Past Med/Surg History Medical History Lung cancer Palliative care encounter Weakness Social History Smoking Status: Unknown if ever smoked Second Hand Exposure: No; Hx Alcohol Use: No Hx Substance Use: No Preferred Language: Japanese Communication Ability: Effective Beliefs That Will Affect Care: None Current Living Situation: Other Current Living Situation Comment: long term Feels Safe at Home: Yes Assistive Devices: Oxygen - Continuous Results & Data Results & Data ([facility]) Vital Signs (Past 12 Hours) Vital Signs Temp Pulse Resp BP Pulse Ox 08/22/20 23:07 36.0 C L 08/22/20 22:50 65 72/50 L 97 08/22/20 22:45 56 L 80/47 L 97 08/22/20 22:40 63 67/45 L 100 08/22/20 22:35 49 L 65/42 L 97 08/22/20 22:30 48 L 64/40 L 95 08/22/20 22:26 53 L 66/39 L 100 08/22/20 22:20 60 62/42 L 100 08/22/20 22:15 55 L 64/44 L 94 08/22/20 22:11 49 L 67/42 L 95 08/22/20 22:05 56 L 66/46 L 93 08/22/20 21:55 49 L 75/35 L 97 08/22/20 21:50 46 L 54/34 L 98 08/22/20 21:45 46 L 59/35 L 98 08/22/20 21:40 48 L 63/37 L 97 08/22/20 21:35 83 70/43 L 94 08/22/20 21:33 52 L 74/45 L 99 08/22/20 21:30 53 L 72/49 L 99 08/22/20 21:29 67 67/49 L 98 08/22/20 21:25 89 L 08/22/20 21:22 52 L 70/41 L 84 L 08/22/20 21:20 55 L 97 08/22/20 21:15 56 L 81 L 08/22/20 20:59 27 H 62/36 L 96 08/22/20 20:45 46 L 8 L 58/37 L 97 08/22/20 20:42 53 L 9 L 62/38 L 97 08/22/20 20:40 49 L 15 62/38 L 97 Code Status & VTE Plan VTE Prophylaxis Plan VTE Prophylaxis will be ordered: Yes
[2020-08-22] MEDS ORDERED: NOREPINEPHRINE/D5W 8 MG/508 ML IV ONE (23:54)
[2020-08-23] MEDS ORDERED: LACTATED RINGER'S 1,000 ML IV SCH (00:02)
[2020-08-23] MEDS ORDERED: STAT IV Infusion **Titration per Protocol STA ×2 (00:02→02:42)
[2020-08-23] MEDS ORDERED: STAT IV STA (00:02)
[2020-08-23] MEDS ORDERED: SODIUM BICARB 8.4% INJ 50 MEQ/50 ML SYR IV STA (00:02)
[2020-08-23] MEDS ORDERED: PIPERACILL/TAZOBAC CONSULT ACTIVE PRN (00:02)
[2020-08-23] MEDS ORDERED: ICU PROTOCOL FOR HYPERGLYCEMIA PRN (00:02)
[2020-08-23] MEDS ORDERED: VANCOMYCIN CONSULT ACTIVE PRN (00:02)
[2020-08-23] MEDS ORDERED: fentaNYL citrate 100 MCG/2 ML VIAL IV STA (00:04)
[2020-08-23] MEDS ORDERED: fentaNYL citrate 100 MCG/2 ML VIAL ONE (00:04)
[2020-08-23] MEDS: NOREPINEPHRINE/D5W 8 MG/508 ML BAG IV SCH (00:05)
[2020-08-23] MEDS ORDERED: RAPID SEQUENCE INDUCTION BAG ONE (00:12)
[2020-08-23] MEDS ORDERED: SODIUM BICARBONATE 8.4% 150 MEQ in DEXTROSE 5% 1,000 ML IV SCH (00:15)
[2020-08-23] MEDS ORDERED: VANCOMYCIN HCL 1,250 MG in SODIUM CHLORIDE 0.9% 250 ML IV ONE (00:15)
[2020-08-23] MEDS ORDERED: OPTIRAY 350 500ml IV ONE (00:19)
[2020-08-23] MEDS ORDERED: PROPOFOL IV EMULSION 10 MG/ML 100 ML VIAL IV ONE (00:27)
[2020-08-23] MEDS ORDERED: VECURONIUM BROMIDE 10 MG VIAL IV ONE (00:28)
--- NOTE | 2020-08-23 00:41 | Emergency Department Note ---
ED Visit Note Endotracheal Intubation Indication hypoxia. The patient was on 100% oxygen via NRB prior to the procedure. Suction, airway equipment, RSI drugs, respiratory equipment, and appropriate personnel were prepared prior to the initiation of the procedure. A time out was taken. Induction was performed with fentanyl. After observing the clinical benefit of the medications, the airway was easily visualized utilizing a glidescope. A 7.5 size ETT tube was placed atraumatically to 24 cm using standard technique. The cuff inflated without signs of malfunction. There were bilateral breath sounds, positive colormetric change, no gastric sounds, a good capnography waveform, and post procedure pulse oximetry was 100%. Post intubation sedation and paralysis was administered using Versed and Fentanyl and Vecuronium. There were no complications. . : Altered mental status Qualifiers: Altered mental status type: unspecified Qualified Code(s): R41.82 - Altered mental status, unspecified Lung cancer Qualifiers: Laterality: right Lung location: unspecified part of lung Qualified Code(s): C34.91 - Malignant neoplasm of unspecified part of right bronchus or lung Sepsis Qualifiers: Sepsis type: sepsis due to unspecified organism Sepsis acute organ dysfunction status: unspecified Qualified Code(s): A41.9 - Sepsis, unspecified organism
[2020-08-23 01:11] LABS: Base Excess VBG -0.6 mEq/L; pH VBG 7.3 (7.36-7.41)
--- NOTE | 2020-08-23 01:11 | Procedure Note ---
Procedure Note Date of Service August 23, 2020 Note FEMORAL CENTRAL LINE PROCEDURE NOTE: Procedure: Femoral Central Line Placement Attending: Dr. Christopher Feliciano Provider: CECILY Valencia Indication: Central Drug Administration, Anesthesia: None Line placed emergently in the setting of septic shock requiring vasopressor support A time-out was completed verifying correct patient, procedure, site, positioning, and implants(s) or special equipment if applicable. Patients right groin was cleansed and draped in the typical sterile fashion using Chloraprep. The Femoral Vein and Femoral Artery were identified using ultrasound. The Femoral Vein was cannulated under direct ultrasound guidance using an introducer needle on a syringe. Good venous blood return was maintained prior to removal of syringe from introducer needle. Using Seldinger Technique, a guide wire was advanced through the introducer needle without resistance. The introducer needle was removed and ultrasound images were obtained of the guide wire within the Femoral Vein and saved to the patients medical record. A small incision was made in penetrating fashion at the guide wire insertion site utilizing an 11 blade scalpel. The dilator was advanced to the vessel without resistance. The dilator was exchanged for the triple lumen catheter which was advanced into the vessel without resistance. The guide wire was removed intact from the catheter without issue. Claves were placed on each catheter tip with confirmation of good blood flow from each lumen. Each port was easily flushed with sterile saline. The catheter was placed at the hub and sutured in place. BioPatch was applied to the catheter and a sterile Tegaderm dressing was applied over the catheter with careful attention to sterility. Patient tolerated procedure well. No immediate complications were met. Images obtained are saved for permanent record Procedural Ultrasound Guidance: Procedure Date: 08/23/2020 Indication: Central venous catheter insertion Attending: Dr. Christopher Feliciano Provider: CECILY Valencia Artery AND Vein visualized: Yes Compressible Vein: Yes Guidewire or Short Catheter seen in vein prior to dilation: Yes Line confirmed in Vein with ultrasound: Yes Images obtained are saved for permanent record. Coding CPT Codes Tubes, Drains, and Vasc Access - Tubes, Drains, and Vasc Access: [id number] Place catheter in vein superior or inferior vena cava ([id number]) Tubes, Drains, and Vasc Access - Tubes, Drains, and Vasc Access: [id number] Ultrasound Guidance For Vascular ([id number]) [facility] [place] Procedure Codes (Charges) Tubes, Drains, and Vasc Access Procedure 1: Tubes, Drains, and Vasc Access: [id number] Place catheter in vein superior or inferior vena cava Procedure 2: Tubes, Drains, and Vasc Access: [id number] Ultrasound Guidance For Vascular
--- NOTE | 2020-08-23 01:11 | Critical Care Consultation ---
Date of Consultation August 23, 2020 Assessment & Plan (1) Septic shock: Reason Critically Ill: 69-year-old male inmate with end-stage lung and cecum cancer presents to the ICU and what appears to be septic shock. Patient now mechanically ventilated and requiring vasopressor support. Neuro - AMSlikely metabolic from multiple likely sources as patient had elevated CO2, ammonia, BUN, and currently septic -CT head without acute intracranial process -Starting on lactulose via OG tube -CO2 corrected following intubation -See treatment sepsis and SAVANA below Sedationpropofol Cardiac - Septic shockpatient with hypotension with systolics in the 60s in the settings of sepsis, now requiring Levophed drip -Received 2 L crystalloid bolus in the ED without improvement -Cortisol pending, started on stress dose hydrocortisone -H&H stable -Echo 08/16/2020normal LVEF 60 to 65%, severely dilated right ventricle and hypokinetic with severely dilated right atrium -Titrate vasopressors for MAP greater than 65 -A-line for continuous blood pressure monitor -Continuous monitor on telemetry Respiratory - Acute hypercapnic respiratory failuresuspect this is most likely due to patient's obtunded state versus advanced lung cancer and history of COPD -Initial CO2 111 on VBG, patient failed BiPAP trial and required intubation. Respiratory acidosis corrected following intubation -CTA chest negative for PE, right lower lobe mass redemonstrated -Patient is septic with possible pulmonary source, continue broad-spectrum antibiotics -Nebs as needed -Continuous monitoring -Follow-up ABG and wean vent as tolerated -Follow-up chest x-ray in a.m. GI - Elevated ammoniathis appears to be his chronic as patient has home prescription of lactulose. Patient has history of hepatitis C as well -There was evidence of gallbladder distention and possible sludge shown on CT abdomen, however I unlikely that this is culprit as patient's LFTs and bilirubin are within normal limits -Continue lactulose via OG tube with goal of 2-3 bowel movements per day RENAL/LYTES - AKIsuspect this is likely ATN as patient was hypotensive on arrival to the emergency department with systolics in the 60s to 70s -Trend creatinine and BUN with routine BMPs -Continue bicarb drip -Maintain maps greater than 65 -Avoid nephrotoxins and renally adjust medications Lactic acidosispatient with elevated lactate of 8 in the setting of hypotension/sepsis -Continue with bicarb drip -We will routinely monitor pH -Trend - Foleystrict I's and O's ENDO - No history of diabetes or thyroid disease ICU hyperglycemic protocol HEME - Hemoglobin stable at 9.5 consistent with prior baseline, monitor routine CBCs ID - Sepsispatient with elevated lactate, leukocytosis, and elevated procalcitonin -Suspect most likely pulmonary source given advanced lung cancer -Patient did have distended gallbladder and sludge seen on CT abdomen pelvis, however LFTs and bilirubin are within normal limits. Will trend LFTs for now -Blood cultures and urine culture pending, BAL pending -COVID-19 -Nasal MRSA pending -Continue vancomycin and Zosyn for now LINES/IV ACCESS - Right femoral CVC, left femoral A-line, OG tube, ET tube, Ford DVT PROPHYLAXIS - SCDs, heparin I have personally spent 70 minutes of critical care time in the direct management of this patient. This is a life/limb threatening event. This includes time spent evaluating patient, direct bedside care, chart review, placing orders, interpretation of diagnostic studies, discussion with consultants, patient, and family members, as well as other required patient management activities. This time is exclusive of all separately billable procedures, and teaching time and separate from and in addition to any other critical care service time. Thank you for allowing us to participate in the care of this patient. Please refer to my attending physician's documentation for any further recommendations. (2) Lung cancer: (3) Anemia: (4) Anasarca: (5) Altered mental status: (6) Multifocal pneumonia: (7) Acute kidney injury: (8) Acidosis, lactic: (9) Acute respiratory acidosis: (10) Sepsis: History of Present Illness Attending Physician: Kaylen Baker DO History of Present Illness Mr. Dumont is a 69-year-old male inmate from [facility] view is brought into the emergency department today for unresponsiveness. Patient has past medical history of end-stage metastatic lung cancer, cecum cancer as well as hepatitis C, CVA, COPD, GERD. He was recently admitted to [facility] on August 17 to August 19 for worsening shortness of breath and edema and was treated with Zosyn and Augmentin. Patient has followed with Dr. Kodak lane for chemotherapy and Dr. Mayo for thoracic surgery in [place]. It is thought that he has 2 different primary masses. [facility]. Ultimately was determined that chemotherapy would be palliative and there was no role for radiation. On his most recent admission at [facility] he was seen by palliative care and patient was aware that his only options for treatment were palliative and not curative. Despite this, patient wished to be a full code. On arrival to the emergency department today the patient was found to be AMS, hypotensive, bradycardic, and hypothermic. But revealed that the patient had elevated lactate of 8 and severe metabolic acidosis with pH of 6.9. CT head was negative for acute intracranial process. CTA chest negative for PE and redemonstrated mass of the right large mass the right lung base and right paraspinal region extending to the prevertebral region of the chest and abdomen. Also noted left upper lobe groundglass opacity favoring pneumonitis. CT abdomen and pelvis showed distended gallbladder and possible tiny stones near the gallbladder neck versus sludge. However, LFTs and bilirubin within normal limits. Blood cultures and urine culture collected and patient was started on broad-spectrum antibiotics. Patient arrived to the ICU lethargic and confused but arousable. Patient was placed on bicarb and Levophed drips. He was placed on BiPAP. Unfortunately, patient decompensated and became unresponsive and bradycardic. He was given pushes of bicarb and epinephrine and Ambu bag was used until patient was intubated by the ED physician. CVC and arterial line were placed. ABG showed improvement of acidosis and blood pressure has improved with levo drip. Of note, primary team has been trying to contact patient's family through the number given by the halfway but has not gotten an answer. Will need to reattempt to contact family to discuss goals of care. Allergies Allergy/AdvReac Type Severity Reaction Status Date / Time Iodinated Contrast Media Allergy Intermediate hives/vomiting Verified 08/22/20 21:13 (IV Contrast) Home Medications Medication Instructions Recorded Confirmed Type carvedilol 3.125 mg PO BID 08/15/20 08/22/20 History dicyclomine 20 mg PO TID PRN 08/15/20 08/22/20 History ferrous gluconate 324 mg PO BID 08/15/20 08/22/20 History fluticasone propion-salmeterol 1 inh INHALATION BID 08/15/20 08/22/20 History [Wixela Inhub] levalbuterol tartrate [Xopenex HFA] 2 inh INHALATION QID PRN 08/15/20 08/22/20 History mirtazapine 15 mg PO HS 08/15/20 08/22/20 History multivitamin 1 tab PO DAILY 08/15/20 08/22/20 History oxycodone-acetaminophen [Percocet] 1 tab PO Q4H 08/15/20 08/22/20 History pantoprazole 40 mg PO DAILY 08/15/20 08/22/20 History polyethylene glycol 3350 [Miralax] 17 g PO BID 08/15/20 08/22/20 History sennosides [senna] 8.6 mg PO BID 08/15/20 08/22/20 History amiodarone 200 mg PO QAM 30 Days #30 tab 08/19/20 08/22/20 Rx amoxicillin-pot clavulanate 1 tab PO BID 6 Days #12 tab 08/19/20 08/22/20 Rx [Augmentin] lactulose 15 ml PO DAILY PRN 08/22/20 08/22/20 History oxycodone [OxyContin] 20 mg PO BID 08/22/20 08/22/20 History Patient History Medical History Lung cancer Palliative care encounter Weakness Social History Smoking Status: Former smoker Second Hand Exposure: No; Do You Dip or Chew Tobacco: No; Tobacco Cessation Education Requested by Patient: No Hx Alcohol Use: No Hx Substance Use: No Preferred Language: Telugu Communication Ability: Unable Communication Ability Comment: Patient currently intubated Intelligence Chief Required: No Beliefs That Will Affect Care: None Current Living Situation: Other Current Living Situation Comment: [facility] Other Information That Helps Us Care for You: No Feels Safe at Home: Yes Assistive Devices: None Review of Systems Review of Systems: Unobtainable due to cognitive status and Unobtainable due to endotracheal tube Physical Exam Constitutional: + thin, + frail appearing and + mechanically ventilated Eyes: PERRL, conjunctivae normal, anicteric sclerae ENMT: external ear and nose normal, oropharynx normal Neck: trachea midline, no thyromegaly Respiratory: Mechanically ventilated, diminished lung sounds on the right. Symmetrical chest wall movement. No crackles or wheezes Cardiovascular: Rate/Rhythm: regular rate and regular rhythm Heart Sounds: normal S1 and normal S2 Vessels: + JVD Bilateral lower extremity edema Gastrointestinal (Abdomen): normal bowel sounds, soft, nontender, no hepatosplenomegaly Skin: Cool to touch, dry, no evidence of skin trauma Neurologic: Currently unable to assess due to sedation Psychiatric: Currently unable to assess due to sedation Genitourinary: Indwelling Ford catheter Results & Data Results & Data ([facility]) Vital Signs (Past 12 Hours) Vital Signs Temp Pulse Resp BP Pulse Ox 08/23/20 00:00 126 H 30 H 100 08/22/20 23:53 55 L 11 L 76/51 L 100 08/22/20 23:11 62 12 73/39 L 90 08/22/20 23:07 36.0 C L 08/22/20 23:06 57 L 12 67/47 L 92 08/22/20 22:50 65 72/50 L 97 08/22/20 22:45 56 L 80/47 L 97 08/22/20 22:40 63 67/45 L 100 08/22/20 22:35 49 L 65/42 L 97 08/22/20 22:30 48 L 64/40 L 95 08/22/20 22:26 53 L 66/39 L 100 08/22/20 22:20 60 62/42 L 100 08/22/20 22:15 55 L 64/44 L 94 08/22/20 22:11 49 L 67/42 L 95 08/22/20 22:05 56 L 66/46 L 93 08/22/20 21:55 49 L 75/35 L 97 08/22/20 21:50 46 L 54/34 L 98 08/22/20 21:45 46 L 59/35 L 98 08/22/20 21:40 48 L 63/37 L 97 08/22/20 21:35 83 70/43 L 94 08/22/20 21:33 52 L 74/45 L 99 08/22/20 21:30 53 L 72/49 L 99 08/22/20 21:29 67 67/49 L 98 08/22/20 21:25 89 L 08/22/20 21:22 52 L 70/41 L 84 L 08/22/20 21:20 55 L 97 08/22/20 21:15 56 L 81 L 08/22/20 20:59 27 H 62/36 L 96 08/22/20 20:45 46 L 8 L 58/37 L 97 08/22/20 20:42 53 L 9 L 62/38 L 97 08/22/20 20:40 49 L 15 62/38 L 97 Coding Level of Care Code Critical Care 1st 30-74 mins Diagnoses Septic shock A41.9; R65.21 Lung cancer C34.31 Laterality: right Lung location: lower lobe of lung Anemia D64.9 Anemia type: unspecified type Anasarca R60.1 Altered mental status R41.82 Altered mental status type: unspecified Multifocal pneumonia J18.9 Acute kidney injury N17.9 Acidosis, lactic E87.2 Acute respiratory acidosis E87.2 Sepsis A41.9 Sepsis acute organ dysfunction status: unspecified Sepsis type: sepsis due to unspecified organism (1) Lung cancer Laterality: right Lung location: lower lobe of lung Qualified Code(s): C34.31 - Malignant neoplasm of lower lobe, right bronchus or lung (2) Anemia Anemia type: unspecified type Qualified Code(s): D64.9 - Anemia, unspecified (3) Altered mental status Altered mental status type: unspecified Qualified Code(s): R41.82 - Altered mental status, unspecified (4) Sepsis Sepsis acute organ dysfunction status: unspecified Sepsis type: sepsis due to unspecified organism Qualified Code(s): A41.9 - Sepsis, unspecified organism
--- NOTE | 2020-08-23 01:11 | Procedure Note ---
Procedure Note Date of Service August 23, 2020 Note ARTERIAL LINE PROCEDURE NOTE: Procedure: Arterial Line Placement Attending: Dr. Christopher Feliciano Provider: CECILY Valencia Indication: Monitoring on Pressors Anesthesia: None Line placed emergently in the setting of septic shock requiring vasopressor support and continuous blood pressure monitoring. A time-out was completed verifying correct patient, procedure, site, positioning, and implant(s) or special equipment if applicable. Patients left groin was prepped and draped in the usual sterile fashion. Ultrasound guidance was used to aid needle placement. A 20g introducer needle was introduced into the left femoral artery and arterial blood flow was noted. Wire was inserted through the introducer needle into the artery and needle was exchanged for the guidewire using Seldinger technique. Catheter was threaded over the guidewire and the guidewire was removed with appropriate blood return noted from the catheter. Catheter was connected to the transducer and good waveform was observed. The catheter was then sutured in place and a sterile dressing was applied. The patient tolerated the procedure well. Confirmation of placement with ultrasound. Blood Loss: Minimal Complications: None Procedural Ultrasound Guidance: Procedure Date: 08/23/2020 Indication: Arterial line insertion Attending: Dr. Christopher Feliciano Provider: CECILY Valencia Artery Identified: YES Line confirmed in Artery with ultrasound: Yes Complications: NONE Patient tolerated procedure: WELL Coding CPT Codes Tubes, Drains, and Vasc Access - Tubes, Drains, and Vasc Access: [id number] Place Catheter In Artery ([id number]) Tubes, Drains, and Vasc Access - Tubes, Drains, and Vasc Access: [id number] Ultrasound Guidance For Vascular ([id number]) [facility] [place] Procedure Codes (Charges) Tubes, Drains, and Vasc Access Procedure 3: Tubes, Drains, and Vasc Access: [id number] Place Catheter In Artery Procedure 4: Tubes, Drains, and Vasc Access: [id number] Ultrasound Guidance For Vascular
[2020-08-23 01:39] LABS: iSTAT Art Bld Gas pCO2 Correct 29 mmHg (35-46); iSTAT Art Bld Gas pH Corrected 7.558 (7.35-7.45); iSTAT Arterial Blood Gas HCO3 27 meg/L (19-24); iSTAT Arterial Blood Gas pCO2 35 mmHg (35-46); iSTAT Arterial Blood Gas pH 7.49 (7.35-7.45); iSTAT Arterial Blood Gas pO2 111 mmHg (80-95); iSTAT Arterial Blood Gas pO2 C 88; iSTAT Carbon Dioxide 28 mmol/L (24-31); iSTAT Hematocrit 32 % (42-52); iSTAT Hemoglobin 10.9 g/dl (14.0-18.0); iSTAT Potassium 4.5 mmol/L (3.3-5.0); iSTAT Site Art Line; iSTAT Sodium 140 mmol/L (135-144)
[2020-08-23] MEDS ORDERED: HYDROCORTISONE SOD 100 MG in SYRINGE 0 ML IV ONE (02:00)
[2020-08-23 02:04] LABS: BUN Creatinine Ratio 33.3 (10-20); Est GFR (African American) 38.3 ml/min; Magnesium 2.3 mg/dl (1.8-2.4); Potassium 5.1 mmol/L (3.5-5.1)
[2020-08-23] MEDS ORDERED: PROPOFOL BOLUS FROM BAG IV PRN (02:42)
[2020-08-23] MEDS ORDERED: propofoL 1,000 MG/100 ML VIAL IV SCH (02:45)
[2020-08-23] MEDS: PIPERACILLIN/TAZOBACTAM 3.375 GM in DEXTROSE 5% 100 ML IV SCH ×3 (04:06→20:07)
[2020-08-23 04:27] LABS: iSTAT Allen Test Pass; iSTAT Art Bld Gas pCO2 Correct 29 mmHg (35-46); iSTAT Art Bld Gas pH Corrected 7.584 (7.35-7.45); iSTAT Arterial Blood Gas HCO3 28 meg/L (19-24); iSTAT Arterial Blood Gas pCO2 32 mmHg (35-46); iSTAT Arterial Blood Gas pH 7.54 (7.35-7.45); iSTAT Arterial Blood Gas pO2 211 mmHg (80-95); iSTAT Arterial Blood Gas pO2 C 198; iSTAT Carbon Dioxide 29 mmol/L (24-31); iSTAT FiO2 40 %; iSTAT Hematocrit 31 % (42-52); iSTAT Hemoglobin 10.5 g/dl (14.0-18.0); iSTAT Potassium 4.4 mmol/L (3.3-5.0); iSTAT Site Art Line; iSTAT Sodium 139 mmol/L (135-144)
[2020-08-23 05:34] LABS: Albumin Level 1.8 gm/dl (3.4-5.0); BUN Creatinine Ratio 36.1 (10-20); Calcium 7.3 mg/dl (8.5-10.1); Creatinine Clr Calc Pharmacy 36.1 ml/min; Est GFR (Non-African American) 38.9 ml/min; Magnesium 2.2 mg/dl (1.8-2.4); Potassium 4.8 mmol/L (3.5-5.1)
[2020-08-23 05:35] LABS: Basophils # (auto) 0.01 K/uL (0-0.2); Basophils % (auto) 0.1 %; Hematocrit (blood only) 31.1 % (42-52); Immature Granulocytes # (auto) 0.07 K/uL (0.00-0.02); Immature Granulocytes % (auto) 0.5 %; Lymphocytes % (auto) 6.6 %; Mean Corpuscular Hemoglobin 26.6 pg (25-34); Mean Corpuscular Hgb Conc 28.9 g/dL (32-36); Mean Platelet Volume 9.6 fL (7.4-10.4); Monocytes # (auto) 0.57 K/uL (0.11-0.59); Monocytes % (auto) 3.8 %; Nucleated RBC # (auto) 0.08 K/uL (0-0); Nucleated RBC % (auto) 0.5 %; Platelet Count 119 K/uL (130-400); Polychromasia 1+; RDW Coefficient of Variation 21.1 % (11.5-14.5); Red Blood Count 3.38 M/uL (4.7-6.1); Target Cells 1+; Toxic Vacuolation 2+; White Blood Count 15.05 K/uL (4.8-10.8)
[2020-08-23 05:36] LABS: Albumin Globulin Ratio 0.5 (0.9-2); Bilirubin,Total 0.6 mg/dl (0.2-1); Globulin 3.6 gm/dl (2.5-4.0); Phosphorus 4.4 mg/dl (2.5-4.9); Total Protein 5.4 gm/dl (6.4-8.2)
[2020-08-23 05:46] LABS: Anisocytosis Present; Hypochromasia Present
[2020-08-23 05:48] LABS: Basophilic Stippling Occasional
[2020-08-23] MEDS ORDERED: NORMOSOL-R 1,000 ML IV SCH (06:15)
--- NOTE | 2020-08-23 07:05 | XRay Report ---
XR chest 1V portable CLINICAL HISTORY: Respiratory failure COMPARISON STUDY: 08/22/2020 FINDINGS: There is an endotracheal tube 35 mm above the gabbi. An enteric tube has been placed which passes into the stomach.[There is elevation of the right hemidiaphragmatic contour. There is a right pleural effusion with associated right basilar atelectasis/consolidation. There is coarsening of the interstitial markings bilaterally. An electronic device projects over the central chest likely repre senting a loop recorder. IMPRESSION: 1. Persistent right pleural effusion with right lower lobe atelectasis/consolidation 2. Interval placement of endotracheal tube 35 mm above the gabbi 3. Interval placement of an enteric tube which passes into the stomach ACT 112: Negative or not required by law. Electronically signed by: Rob Gomez M.D. 08/23/2020 7:03 AM
--- NOTE | 2020-08-23 07:16 | CT Scan Report ---
CT head/brain wo con CLINICAL HISTORY: Acute change in mental status COMPARISON STUDY: 08/15/2020 TECHNIQUE: Axial CT of the brain is performed from the vertex to the skull base. IV contrast was not administered for this examination. A dose lowering technique was utilized adhering to the principles of ALARA. CT DOSE: FINDINGS: There is a persistent focus of decreased attenuation within the left parietal lobe, statistically rep resenting an old infarct. There is no CT evidence of acute cortical infarction. There is no midline s hift. There is no acute hemorrhage. No calvarial fractures are visualized. There are patchy white matter hypodensities likely on a small vessel basis. There is no evidence of pathologic ventricular dilatation. There is no evidence of acute sinusitis IMPRESSION: 1. Stable focus of decreased attenuation within the left parietal lobe statistically representing an old infarct. 2. No acute findings identified on this noncontrast head CT. ACT 112: Negative or not required by law. Electronically signed by: Rob Gomez M.D. 08/23/2020 7:14 AM
--- NOTE | 2020-08-23 07:31 | XRay Report ---
XR chest 1V portable HISTORY: SEPSIS COMPARISON: 08/17/2020. FINDINGS: Increase in size in the moderate to large right pleural effusion. This likely obscures the right basilar masslike densities. No pneumothorax. No left pleural effusion. The heart remains mildly enlarged. There is mild central pulmonary vascular congestion without overt edema. IMPRESSION: Increase in size in the moderate to large right pleural effusion. ACT 112: Negative or not required by law. Electronically signed by: Gurmeet Carmona M.D. 08/23/2020 7:30 AM
--- NOTE | 2020-08-23 07:37 | CT Scan Report ---
CHEST CTA for PULMONARY ARTERIES CT DOSE: HISTORY: Shortness of breath. Metastatic disease. TECHNIQUE: Multiaxial CT images of the chest were performed following the intravenous administration of contrast to evaluate the pulmonary arteries. Maximal intensity projection images were also obtaine d. A dose lowering technique was utilized adhering to the principles of ALARA. COMPARISON STUDY: Chest CT 08/15/2020. FINDINGS: Normal caliber thoracic aorta with no evidence for dissection. The heart remains enlarged. No filling defects within the pulmonary arteries to suggest a pulmonary embolus. No fractures within the visualized osseous structures. Please refer to same day abdomen and pelvis CT for further evaluat ion of the abdominal structures. Diffuse body wall edema is noted. There is a small right pleural eff usion. No pneumothorax. Emphysema is again noted. Patchy airspace opacities within the left upper lob e has progressed. Left basilar linear densities favor subsegmental atelectasis. Small amount of mucoi d material within the bilateral mainstem bronchi. The right lower lobe bronchi are occluded. Masslike consolidation within the base of the right middle and lower lobes with associated atelectasis. This is similar to the prior study. There is also continuation of the masslike density within the posterio r mediastinum distally displacing the posterior border of the heart and esophagus. This is also uncha nged. IMPRESSION: 1. Persistent masslike consolidation within the right lung base with extension to the posterior media stinum resulting in mild mass effect along the heart and esophagus. 2. Small right pleural effusion has slightly increased in size. 3. Progressive patchy airspace opacities within the left upper lobe. This may represent a pneumonia. 4. Emphysema. 5. No evidence for pulmonary embolus. 6. Partial opacification of the bilateral mainstem bronchi with mucoid material. 7. Please refer the same day abdomen and pelvis CT for further evaluation of the abdominal structures . ACT 112: Negative or not required by law. Electronically signed by: Gurmeet Carmona M.D. 08/23/2020 7:36 AM
--- NOTE | 2020-08-23 07:39 | XRay Report ---
XR chest 1V portable HISTORY: resp failure COMPARISON: Chest 08/23/2020. FINDINGS: The endotracheal tube terminates 3.6 cm from the gabbi. The nasogastric tube terminates be low the diaphragm. The tip is not included on this study. No pneumothorax. Small right and trace left pleural effusions with bibasilar densities. This is similar to the prior study. There is mild centra l pulmonary vascular congestion without overt edema. No pneumothorax. IMPRESSION: 1. Satisfactory support line placement. 2. No change in the bibasilar densities/effusions. 3. Mild central pulmonary vascular congestion without overt edema. ACT 112: Negative or not required by law. Electronically signed by: Gurmeet Carmona M.D. 08/23/2020 7:38 AM
[2020-08-23] MEDS: LACTULOSE SYRUP 20 GM/30 ML UDC PO SCH ×4 (07:56→20:07)
[2020-08-23] MEDS: LANSOPRAZOLE 30 MG SOLTAB NG SCH (07:57)
[2020-08-23] MEDS ORDERED: MIDAZOLAM HCL 1 MG/ML 2ML VIAL IV PRN ×2 (08:34)
[2020-08-23] MEDS ORDERED: fentaNYL citrate 100 MCG/2 ML VIAL IV PRN ×2 (08:34)
--- NOTE | 2020-08-23 08:35 | Critical Care Progress Note ---
Date of Service August 23, 2020 Assessment & Plan (1) Septic shock: Reason Critically Ill: 69-year-old male inmate with end-stage lung and cecum cancer presents to the ICU and what appears to be septic shock. Patient now mechanically ventilated and requiring vasopressor support. Neuro - AMSlikely metabolic from multiple likely sources as patient had elevated CO2, ammonia, BUN, and currently septic -CT head without acute intracranial process -Starting on lactulose via OG tube -CO2 corrected following intubation -See treatment sepsis and SAVANA below Sedationpropofol transition to Versed pushes Cardiac - Septic shockpatient with hypotension with systolics in the 60s in the settings of sepsis, now requiring Levophed drip -Received 2 L crystalloid bolus in the ED without improvement -Cortisol pending, started on stress dose hydrocortisone -35 we will discontinue hydrocortisone -H&H stable -Echo 08/16/2020normal LVEF 60 to 65%, severely dilated right ventricle and hypokinetic with severely dilated right atrium -Titrate vasopressors for MAP greater than 65 -A-line for continuous blood pressure monitor -Continuous monitor on telemetry Respiratory - Acute hypercapnic respiratory failureresolved -Initial CO2 111 on VBG, patient failed BiPAP trial and required intubation. Respiratory acidosis corrected following intubation -CTA chest negative for PE, right lower lobe mass redemonstrated -Patient is septic with possible pulmonary source, continue broad-spectrum antibiotics -Nebs as needed -Continuous monitoring -Follow-up ABG and wean vent as tolerated -Follow-up chest x-ray in a.m. GI - Elevated ammoniathis appears to be his chronic as patient has home prescription of lactulose. Patient has history of hepatitis C as well -There was evidence of gallbladder distention and possible sludge shown on CT abdomen, however I unlikely that this is culprit as patient's LFTs and bilirubin are within normal limits -Continue lactulose via OG tube with goal of 2-3 bowel movements per day RENAL/LYTES - AKIsuspect this is likely ATN as patient was hypotensive on arrival to the emergency department with systolics in the 60s to 70s -Trend creatinine and BUN with routine BMPs -Maintain maps greater than 65 -Avoid nephrotoxins and renally adjust medications Lactic acidosispatient with elevated lactate of 8 in the setting of hypotension/sepsis -Thiamine and vitamin C -We will routinely monitor pH -Trend - Foleystrict I's and O's ENDO - No history of diabetes or thyroid disease ICU hyperglycemic protocol HEME - Hemoglobin stable at 9.5 consistent with prior baseline, monitor routine CBCs ID - Sepsispatient with elevated lactate, leukocytosis, and elevated procalcitonin -Suspect most likely pulmonary source given advanced lung cancer -Patient did have distended gallbladder and sludge seen on CT abdomen pelvis, however LFTs and bilirubin are within normal limits. Will trend LFTs for now -Blood cultures and urine culture pending, BAL pending -COVID-19 -Nasal MRSA Negative -Continue vancomycin and Zosyn for now LINES/IV ACCESS - Right femoral CVC, left femoral A-line, OG tube, ET tube, Ford DVT PROPHYLAXIS - SCDs, heparin 5K TID Patient's phone: [phone] Soraya Gutierrez (2) Lung cancer: (3) Anemia: (4) Anasarca: (5) Altered mental status: (6) Multifocal pneumonia: (7) Acute kidney injury: (8) Acidosis, lactic: (9) Acute respiratory acidosis: (10) Sepsis: Admission and Anticipated Discharge Date Admission Date: August 22, 2020 Supervising Physician Co-Signing Physician Notes Patient was discussed in multidisciplinary rounds I have personally spent 75 minutes of critical care time in the direct management of this patient. This is a life/limb threatening event. This includes time spent evaluating patient, direct bedside care, chart review, placing orders, interpretation of diagnostic studies, discussion with consultan ts, patient, and/or family members regarding treatment decisions, as well as other required patient management activities. This time is exclusive of all separately billable procedures, and teaching time and separate from and in addition to any other critical care service time. Subjective Requiring vasoactive medication for blood pressure support Review of Systems Review of Systems: Unobtainable due to endotracheal tube Physical Exam Physical Exam: General: Sedated. . Skin: Cool, dry, Head: Atraumatic Ears, nose, mouth and throat: airway obscured by endotracheal tube Cardiovascular: Decreased peripheral perfusion Respiratory: Ventilator settings reviewed Gastrointestinal: Non distended Musculoskeletal: No deformity Results & Data Results & Data ([facility]) Vital Signs (Past 12 Hours) Vital Signs Temp Pulse Pulse Resp BP BP Pulse Ox 08/23/20 07:38 80 19 96 08/23/20 06:47 37.0 C 79 93/59 L 96 08/23/20 06:17 36.7 C 79 89/58 L 96 08/23/20 06:00 36.4 C L 79 96 08/23/20 05:47 36.3 C L 76 95/57 L 96 08/23/20 05:45 36.2 C L 77 97 08/23/20 05:30 36.0 C L 76 97 08/23/20 05:17 35.8 C L 76 91/58 L 98 08/23/20 04:47 35.4 C L 74 92/59 L 98 08/23/20 04:34 78 106/70 97 08/23/20 04:17 72 88/57 L 97 08/23/20 04:00 72 97 08/23/20 03:55 18 08/23/20 03:50 71 24 97 08/23/20 03:47 34.3 C L 72 106/71 100 08/23/20 03:17 69 98/67 L 95 08/23/20 02:47 33.5 C L 68 100/67 93 08/23/20 02:35 68 102/70 92 08/23/20 02:17 69 102/69 90 08/23/20 02:15 68 91 08/23/20 02:00 68 91 08/23/20 01:47 32.9 C L 69 106/71 90 08/23/20 01:45 69 91 08/23/20 01:41 32.8 C L 54 L 22 88/55 L 98 08/23/20 01:30 72 90 08/23/20 01:17 76 28 H 132/87 100 08/23/20 01:15 81 28 H 135/91 100 08/23/20 01:09 77 28 H 129/86 100 08/23/20 01:07 77 28 H 131/88 100 08/23/20 01:05 78 27 H 132/89 100 08/23/20 01:03 79 28 H 131/88 100 08/23/20 01:01 79 28 H 132/89 100 08/23/20 00:59 79 28 H 131/88 100 08/23/20 00:57 79 29 H 129/87 99 08/23/20 00:55 80 28 H 130/87 99 08/23/20 00:53 81 28 H 129/86 99 08/23/20 00:51 81 28 H 125/86 99 08/23/20 00:49 81 28 H 125/79 99 08/23/20 00:47 82 28 H 126/89 99 08/23/20 00:45 84 28 H 121/88 99 08/23/20 00:44 80 28 H 100/75 99 08/23/20 00:41 109 H 28 H 100/64 98 08/23/20 00:39 105 H 28 H 112/65 98 08/23/20 00:37 112 H 28 H 116/74 98 08/23/20 00:35 112 H 28 H 125/75 99 08/23/20 00:33 100 H 28 H 131/83 100 08/23/20 00:32 115 H 28 H 114/83 100 08/23/20 00:30 122 H 29 H 08/23/20 00:28 122 H 18 138/107 H 08/23/20 00:26 120 H 16 150/116 H 08/23/20 00:25 112 H 15 159/112 H 08/23/20 00:23 60 29 H 123/94 08/23/20 00:19 40 L 9 L 91/61 L 100 08/23/20 00:18 45 L 0 L 83/55 L 98 08/23/20 00:15 47 L 0 L 82/54 L 100 08/23/20 00:13 50 L 0 L 83/54 L 100 08/23/20 00:08 54 L 0 L 75/51 L 100 08/23/20 00:05 62 08/23/20 00:03 63 7 L 88/55 L 98 08/23/20 00:00 126 H 30 H 100 08/22/20 23:53 55 L 11 L 76/51 L 100 08/22/20 23:11 62 12 73/39 L 90 08/22/20 23:07 36.0 C L 08/22/20 23:06 57 L 12 67/47 L 92 08/22/20 22:50 65 72/50 L 97 08/22/20 22:45 56 L 80/47 L 97 08/22/20 22:40 63 67/45 L 100 08/22/20 22:35 49 L 65/42 L 97 08/22/20 22:30 48 L 64/40 L 95 08/22/20 22:26 53 L 66/39 L 100 08/22/20 22:20 60 62/42 L 100 08/22/20 22:15 55 L 64/44 L 94 08/22/20 22:11 49 L 67/42 L 95 08/22/20 22:05 56 L 66/46 L 93 08/22/20 21:55 49 L 75/35 L 97 08/22/20 21:50 46 L 54/34 L 98 08/22/20 21:45 46 L 59/35 L 98 08/22/20 21:40 48 L 63/37 L 97 08/22/20 21:35 83 70/43 L 94 08/22/20 21:33 52 L 74/45 L 99 08/22/20 21:30 53 L 72/49 L 99 08/22/20 21:29 67 67/49 L 98 08/22/20 21:25 89 L 08/22/20 21:22 52 L 70/41 L 84 L 08/22/20 21:20 55 L 97 08/22/20 21:15 56 L 81 L 08/22/20 20:59 27 H 62/36 L 96 08/22/20 20:45 46 L 8 L 58/37 L 97 08/22/20 20:42 53 L 9 L 62/38 L 97 08/22/20 20:40 49 L 15 62/38 L 97 Coding Level of Care Code Critical Care ea addt'l 30 min Diagnoses Septic shock A41.9; R65.21 Lung cancer C34.31 Laterality: right Lung location: lower lobe of lung Anemia D64.9 Anemia type: unspecified type Anasarca R60.1 Altered mental status R41.82 Altered mental status type: unspecified Multifocal pneumonia J18.9 Acute kidney injury N17.9 Acidosis, lactic E87.2 Acute respiratory acidosis E87.2 Sepsis A41.9 Sepsis acute organ dysfunction status: unspecified Sepsis type: sepsis due to unspecified organism (1) Anemia Anemia type: unspecified type Qualified Code(s): D64.9 - Anemia, unspecified (2) Lung cancer Laterality: right Lung location: lower lobe of lung Qualified Code(s): C34.31 - Malignant neoplasm of lower lobe, right bronchus or lung (3) Sepsis Sepsis acute organ dysfunction status: unspecified Sepsis type: sepsis due to unspecified organism Qualified Code(s): A41.9 - Sepsis, unspecified organism (4) Altered mental status Altered mental status type: unspecified Qualified Code(s): R41.82 - Altered mental status, unspecified
[2020-08-23] MEDS ORDERED: FAMOTIDINE 20 MG in SYRINGE 3 ML IV SCH (09:00)
[2020-08-23] MEDS ORDERED: HYDROCORTISONE SOD 50 MG in SYRINGE 0 ML IV SCH (09:00)
--- NOTE | 2020-08-23 09:04 | CT Scan Report ---
ABDOMEN AND PELVIS CT WITH IV CONTRAST CT DOSE: 1334.06 mGy.cm HISTORY: ?metastatic disease TECHNIQUE: Multiaxial CT images of the abdomen and pelvis were performed following the use of intrave nous contrast. A dose lowering technique was utilized adhering to the principles of ALARA. COMPARISON STUDY: Abdomen and pelvis CT 08/15/2020. FINDINGS: Please refer to the same day chest CT for further evaluation of the large heterogeneous enh ancing mass within the right lung base which extends to the posterior mediastinum and result in mass effect along the heart. Small right and trace left pleural effusions are also noted. There is heterog eneous enhancement within the liver which could be due to cardiac congestion or the timing of contras t. A 6 mm focus of enhancement within the inferior aspect of the spleen is indeterminate but could al so be due to the timing of contrast. The adrenal glands and kidneys are unremarkable. There is diffus e edema throughout the abdomen and pelvis. The gallbladder is mildly distended. No gallbladder wall t hickening. The pancreas enhances normally. No retroperitoneal lymphadenopathy. Mild calcified plaque within the normal caliber abdominal aorta. The main portal vein is patent. The bladder is decompresse d by Ford catheter. Small amount of ascites. No definite bowel wall thickening or obstruction. Moder ate to large amount of stool within the ascending colon and transverse colon. Prior right hemicolecto my is suggested. IMPRESSION: 1. Please refer the same day chest CT for further evaluation of the large heterogeneous enhancing mas s within the right lung base. 2. Diffuse body edema/anasarca. 3. Heterogeneous enhancing liver without focal mass. 4. Additional findings as described above. ACT 112: Negative or not required by law. Electronically signed by: Gurmeet Carmona M.D. 08/23/2020 9:03 AM
[2020-08-23] MEDS: ASCORBIC ACID 1,500 MG, THIAMINE HCL 100 MG in 0.9 % SODIUM CHLORIDE 100 ML IV SCH ×3 (09:58→22:22)
[2020-08-23 10:49] LABS: iSTAT Arterial Blood Gas HCO3 30 meg/L (19-24); iSTAT Arterial Blood Gas pCO2 40 mmHg (35-46); iSTAT Arterial Blood Gas pH 7.49 (7.35-7.45); iSTAT Arterial Blood Gas pO2 79 mmHg (80-95); iSTAT Carbon Dioxide 31 mmol/L (24-31); iSTAT FiO2 30 %; iSTAT Site Art Line
[2020-08-23] MEDS: HEPARIN SOD 5,000 UNIT/0.5 ML VIAL SQ SCH ×2 (12:36→22:22)
--- NOTE | 2020-08-23 13:50 | Pharmacy Report ---
Pharmacy Abx Dose Short Note - Date of Service August 23, 2020 - Assessment & Plan Assessment patient with elevated lactate, leukocytosis, and elevated procalcitonin -Suspect most likely pulmonary source given advanced lung cancer -Patient did have distended gallbladder and sludge seen on CT abdomen pelvis, however LFTs and bilirubin are within normal limits. Will trend LFTs for now -Blood cultures and urine culture pending, BAL pending -COVID-19 -Nasal MRSA Negative -Continue vancomycin and Zosyn for now 69 year old M with end stage lung and cecum cancer presenting with septic shock, elevated lactate, leukocytosis and elevated procal. Leukocytosis improving today, lactate continues to be elevated but trending down. Empirically started on vancomycin and zosyn. Blood cultures pending, urine culture negative, sputum culture pending. Suspecting pulmonary source, MRSA nasal swab negative, however given severity of illness and hx of CA continuing vancomycin + zosyn for now. Acute kidney injury on admission, SCr is trending down. Will adjust dosing as needed. Plan Vancomycin * Vancomycin 1250 mg loading dose * Start 1000 mg q24H @ 2300 tonight * Goal trough level 15-20 mcg/mL * Trough to be ordered if vancomycin continues > 48 hours, continue to monitor renal function changes for adjustments Pharmacy will continue to follow and will adjust dose/frequency as necessary. Thank you.
--- NOTE | 2020-08-23 21:20 | Hospitalist Progress Note ---
Date of Service August 23, 2020 Assessment & Plan (1) Unresponsiveness: 69yo male with history of lung cancer, colon cancer presenting from [facility] after being found down and unresponsive. 1. Neuro - Patient encephalopathic on arrival. He is obtunded, unable to answer questions or follow commands. He did have some periods of lucency when he was able to speak - asked for water, told me that he was from [place]", denied chest pain. Encephalopathy most likely multifactorial - acidemia, hypercarbia, renal compromise, possible infection, ?hepatic encephalopathy with elevated ammonia level as well. CT Head with atrophy - no acute insult -Patient intubated and sedated - will repeat ABG -IVF and electrolyte correction as able. Avoid nephrotoxic agents -Empiric Vancomycin and Zosyn -Lactulose -Pain control and sedation 2. Pulmonary - patient now extubated. Per ICU team 3. Cardiovascular - patient hypotensive and bradycardic. ?sepsis, mass effect from large tumor with mediastinal shift, volume depletion. Elevated lactate at 9.9 now in setting of prolonged hypotension -Levophed gtt titrating off -IVF 4. Gastrointestinal -NGT -Protonix 5. - SAVANA -possibly secondary to sepsis, volume depletion, prolonged hypotension -IVF -Avoid nephrotoxins -Renal dosing where needed 6. Heme - H/H stable. Leukocytosis improving -Continue to monitor 7. ID - recent PNA, patient afebrile -Vancomycin, Zosyn 8. Endocrine -Check cortisol -Hydrocortisone will remain in ICU overnight. (2) Lung cancer: Admission and Anticipated Discharge Date Admission Date: August 22, 2020 Subjective Requiring vasopressive support Review of Systems Review of Systems: Unobtainable due to cognitive status Physical Exam Physical Exam: General: frail, cachectic with temporal wasting, unresponsive to questioning, unable to follow commands Skin: warm, dry, intact, no rashes or lesions HEENT: NC/AT,no oropharyngeal lesions, neck supple, trachea midline, no LAD, no thyromegaly, no JVD Heart: +S1/S2, regular, bradycardic, distant heart sounds, no m/r/g Lungs: markedly diminished breath sounds on right, no rales/rhonchi/wheezes, poor effort Abd: +BS, soft, NT/ND, no masses/organomegaly/ascites Ext: cool, palpable pulses, no clubbing/cyanosis Neuro: minimally responsive Results & Data Results & Data ([facility]) Vital Signs (Past 12 Hours) Vital Signs Temp Pulse Resp BP Pulse Ox 08/23/20 19:47 91 H 118/74 94 08/23/20 19:17 36.5 C 90 115/73 96 08/23/20 17:17 36.5 C 89 114/92 94 08/23/20 17:00 36.5 C 89 20 96 08/23/20 16:47 36.5 C 91 H 116/72 95 08/23/20 16:30 36.7 C 94 H 97 08/23/20 16:17 36.8 C 92 H 116/77 95 08/23/20 16:00 36.8 C 89 20 96 08/23/20 15:48 36.8 C 90 118/73 96 08/23/20 15:30 36.9 C 88 96 08/23/20 15:17 37.0 C 87 117/76 98 08/23/20 15:15 37.0 C 87 99 08/23/20 15:00 37.0 C 86 94 08/23/20 14:47 37.1 C 88 111/69 89 L 08/23/20 14:45 37.1 C 85 93 08/23/20 14:30 37.1 C 81 95 08/23/20 14:17 37.1 C 86 113/69 97 08/23/20 14:15 37.0 C 87 96 08/23/20 14:00 37.1 C 86 95 08/23/20 13:47 37.1 C 80 107/70 94 08/23/20 13:45 37.1 C 82 98 08/23/20 13:30 37.1 C 81 95 08/23/20 13:17 37.1 C 81 113/75 97 08/23/20 13:15 37.1 C 82 97 08/23/20 13:00 37.1 C 79 98 08/23/20 12:47 37.1 C 79 106/68 98 08/23/20 12:45 37.1 C 79 99 08/23/20 12:30 37.1 C 76 99 08/23/20 12:17 37.1 C 77 103/65 98 08/23/20 12:15 37.1 C 77 98 08/23/20 12:00 37.1 C 82 96 08/23/20 11:47 37.1 C 82 111/72 98 08/23/20 11:45 37.1 C 81 96 08/23/20 11:30 37.2 C 80 98 08/23/20 11:17 37.2 C 81 108/69 98 08/23/20 11:15 37.2 C 79 98 08/23/20 11:00 37.2 C 82 98 08/23/20 10:47 37.3 C 81 107/74 97 08/23/20 10:45 37.2 C 82 97 08/23/20 10:40 88 22 98 08/23/20 10:30 37.3 C 79 98 08/23/20 10:17 37.3 C 76 108/70 98 08/23/20 10:15 37.3 C 76 98 08/23/20 10:00 37.2 C 76 99 08/23/20 09:47 37.2 C 78 112/70 99 08/23/20 09:45 37.2 C 79 99 08/23/20 09:30 37.2 C 78 99 PG Care Time/CCT Total # of Minutes Spent Total Time Spent with Patient: Total time spent is greater than 50% in coordination of care (as documented) at patient's floor/unit and/or counseling patient: Coding Level of Care Code 49101 Subseq Hosp Care Lvl 3 Diagnoses Unresponsiveness R41.89 Lung cancer C34.91 Laterality: right Lung location: unspecified part of lung Time Spent (min) 35 Comment 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
--- NOTE | 2020-08-23 22:03 | Electrocardiogram Report ---
Test Reason : Blood Pressure : / mmHG Vent. Rate : 048 BPM Atrial Rate : 048 BPM P-R Int : 166 ms QRS Dur : 098 ms QT Int : 496 ms P-R-T Axes : 019 -60 -01 degrees QTc Int : 443 ms Sinus bradycardia Left atrial enlargement Left axis deviation Low voltage QRS Incomplete right bundle branch block Inferior infarct (cited on or before 16-AUG-2020) Cannot rule out Anterior infarct (cited on or before 15-AUG-2020) T wave abnormality, consider anterolateral ischemia Abnormal ECG When compared with ECG of 16-AUG-2020 03:50, Sinus rhythm has replaced Atrial fibrillation Vent. rate has decreased BY 106 BPM Incomplete right bundle branch block is now Present T wave inversion now evident in Anterolateral leads Confirmed by Luis Alfredo Menjivar ([id number]) on 08/23/2020 10:03:38 PM Referred By: REFERRED SELF Confirmed By:Luis Alfredo Menjivar
--- NOTE | 2020-08-23 22:28 | Electrocardiogram Report ---
Test Reason : Blood Pressure : / mmHG Vent. Rate : 079 BPM Atrial Rate : 079 BPM P-R Int : 128 ms QRS Dur : 082 ms QT Int : 442 ms P-R-T Axes : -04 -62 -39 degrees QTc Int : 506 ms Normal sinus rhythm Left axis deviation Low voltage QRS Inferior infarct (cited on or before 16-AUG-2020) Cannot rule out Anterior infarct (cited on or before 15-AUG-2020) T wave abnormality, consider anterolateral ischemia Prolonged QT Abnormal ECG When compared with ECG of 22-AUG-2020 20:40, Vent. rate has increased BY 31 BPM Incomplete right bundle branch block is no longer Present QT has lengthened Confirmed by Luis Alfredo Menjivar ([id number]) on 08/23/2020 10:28:06 PM Referred By: REFERRED SELF Confirmed By:Luis Alfredo Menjivar
[2020-08-23] MEDS ORDERED: VANCOMYCIN HCL 1,000 MG in SODIUM CHLORIDE 0.9% 250 ML IV SCH (23:00)
[2020-08-24] MEDS: NOREPINEPHRINE/D5W 8 MG/508 ML BAG IV SCH (00:28)
[2020-08-24] MEDS: ASCORBIC ACID 1,500 MG, THIAMINE HCL 100 MG in 0.9 % SODIUM CHLORIDE 100 ML IV SCH (03:26)
[2020-08-24] MEDS: PIPERACILLIN/TAZOBACTAM 3.375 GM in DEXTROSE 5% 100 ML IV SCH ×3 (03:26→19:44)
[2020-08-24 04:17] LABS: Base Excess VBG 8.4 mEq/L; Oxygen Saturation VBG 97.5 %; pH VBG 7.42 (7.36-7.41)
[2020-08-24 04:52] LABS: Basophils # (auto) 0.01 K/uL (0-0.2); Eosinophils # (auto) 0.04 K/uL (0-0.5); Eosinophils % (auto) 0.1 %; Hematocrit (blood only) 29.8 % (42-52); Hemoglobin 9.2 g/dL (14.0-18.0); Immature Granulocytes # (auto) 0.16 K/uL (0.00-0.02); Immature Granulocytes % (auto) 0.6 %; Lymphocytes # (auto) 1.14 K/uL (1.2-3.4); Mean Corpuscular Hemoglobin 26.7 pg (25-34); Mean Corpuscular Hgb Conc 30.9 g/dL (32-36); Mean Corpuscular Volume 86.4 fL (80-100); Mean Platelet Volume 9.4 fL (7.4-10.4); Monocytes # (auto) 1.27 K/uL (0.11-0.59); Monocytes % (auto) 4.5 %; Neutrophils # (auto) 25.85 K/uL (1.4-6.5); Neutrophils % (auto) 90.8 %; Nucleated RBC # (auto) 0.02 K/uL (0-0); Nucleated RBC % (auto) 0.1 %; Platelet Count 77 K/uL (130-400); Platelet Estimate Decreased (Normal); RDW Coefficient of Variation 21.2 % (11.5-14.5); RDW Standard Deviation 63.4 fL (36.4-46.3); Red Blood Count 3.45 M/uL (4.7-6.1); Target Cells 1+; White Blood Count 28.47 K/uL (4.8-10.8)
[2020-08-24 04:54] LABS: Albumin Globulin Ratio 0.5 (0.9-2); Albumin Level 1.8 gm/dl (3.4-5.0); BUN Creatinine Ratio 38.2 (10-20); Bilirubin,Total 0.5 mg/dl (0.2-1); Calcium 7.3 mg/dl (8.5-10.1); Creatinine Clr Calc Pharmacy 58.6 ml/min; Est GFR (African American) 83.3 ml/min; Est GFR (Non-African American) 71.9 ml/min; Globulin 3.9 gm/dl (2.5-4.0); Magnesium 2.4 mg/dl (1.8-2.4); Potassium 3.4 mmol/L (3.5-5.1); Total Protein 5.7 gm/dl (6.4-8.2)
[2020-08-24] MEDS: HEPARIN SOD 5,000 UNIT/0.5 ML VIAL SQ SCH ×4 (05:36→20:50)
[2020-08-24] MEDS: ALBUT/IPRATROP 3MG/0.5MG NEB 3 ML VIAL NEB PRN ×3 (05:56→23:12)
[2020-08-24] MEDS ORDERED: POTASSIUM CHLORIDE CRTAB 20 MEQ TABCR PO STA (06:09)
--- NOTE | 2020-08-24 08:02 | Critical Care Progress Note ---
Date of Service August 24, 2020 Assessment & Plan (1) Septic shock: Reason Critically Ill: 69-year-old male inmate with end-stage lung and cecum cancer presents to the ICU and what appears to be septic shock. Patient now mechanically ventilated and requiring vasopressor support. Neuro - AMSresolved -CT head without acute intracranial process -Starting on lactulose via OG tube Cardiac - Septic shockresolved -Received 2 L crystalloid bolus in the ED without improvement -Cortisol 35 we will discontinue hydrocortisone -H&H stable -Echo 08/16/2020normal LVEF 60 to 65%, severely dilated right ventricle and hypokinetic with severely dilated right atrium -Vasoactive's discontinued yesterday -Discontinue A-line Respiratory - Acute hypercapnic respiratory failureresolved -Initial CO2 111 on VBG, patient failed BiPAP trial and required intubation. Respiratory acidosis corrected following intubation -CTA chest negative for PE, right lower lobe mass redemonstrated -Patient is septic with possible pulmonary source, continue broad-spectrum antibiotics GI - Elevated ammoniaresolved -Continue lactulose via OG tube with goal of 2-3 bowel movements per day Severe protein calorie malnutrition RENAL/LYTES - AKIimproved Lactic acidosisimproved -Thiamine and vitamin C -We will routinely monitor pH -Trend - Foleystrict I's and O's ENDO - No history of diabetes or thyroid disease HEME - Leukocytosis: Likely reactionary ID - Sepsisimproved -Suspect most likely pulmonary source given advanced lung cancer -Patient did have distended gallbladder and sludge seen on CT abdomen pelvis, however LFTs and bilirubin are within normal limits. Will trend LFTs for now -Blood cultures and urine culture pending, BAL pending -COVID-19 -Nasal MRSA Negative -Continue Zosyn for now -Would consider transition to Augmentin in the next 24 to 48 hours if patient remains hemodynamically stable for possible obstructive pneumatic process -Discontinue vancomycin today LINES/IV ACCESS - Right femoral CVC discontinued today, left femoral A-line: Discontinued today, ET tube extubated yesterday, Ford DVT PROPHYLAXIS - SCDs, heparin 5K TID Patient's phone: [phone] Soraya Gutierrez (2) Lung cancer: (3) Anemia: (4) Anasarca: (5) Altered mental status: (6) Multifocal pneumonia: (7) Acute kidney injury: (8) Acidosis, lactic: (9) Acute respiratory acidosis: (10) Sepsis: Admission and Anticipated Discharge Date Admission Date: August 22, 2020 Supervising Physician Co-Signing Physician Notes Patient stable for downgrade out of ICU Subjective Off vasoactives as of 5pm yesterday Review of Systems Review of Systems: All systems reviewed & are unremarkable except as noted in HPI & below Physical Exam Physical Exam: General: alert. Cachectic in appearance sunken cheeks interosseous wasting. Skin: warm, dry, Head: Atraumatic Ears, nose, mouth and throat: airway patent Cardiovascular: normal peripheral perfusion Respiratory: no respiratory distress Gastrointestinal: Non distended Musculoskeletal: No deformity Results & Data Results & Data ([facility]) Vital Signs (Past 12 Hours) Vital Signs Temp Pulse Pulse Resp BP Pulse Ox 08/24/20 06:17 95 H 23 122/78 100 08/24/20 05:56 97 H 97 08/24/20 05:47 93 H 17 117/62 96 08/24/20 05:17 93 H 17 100/64 08/24/20 04:47 88 14 105/62 08/24/20 04:00 36.7 C 08/24/20 03:47 93 H 19 103/73 95 08/24/20 03:17 92 H 13 109/67 99 08/24/20 02:47 86 96/60 L 100 08/24/20 02:17 87 12 107/64 98 08/24/20 01:47 85 98/60 L 97 08/24/20 01:34 36.7 C 08/24/20 01:17 90 12 107/79 97 08/24/20 00:47 36.2 C L 90 12 102/69 96 08/24/20 00:17 36.1 C L 90 13 104/63 98 08/23/20 23:47 36.2 C L 90 18 97/72 L 97 08/23/20 23:17 36.1 C L 94 H 23 110/77 97 08/23/20 23:13 89 08/23/20 22:47 36.1 C L 89 20 100/70 96 08/23/20 22:17 36.2 C L 89 114/63 96 08/23/20 21:47 36.2 C L 93 H 130/80 96 08/23/20 21:17 93 H 114/89 87 L 08/23/20 20:47 88 119/75 95 08/23/20 20:17 92 H 122/76 95 Laboratory Results 08/24/20 08/24/20 08/24/20 Range/Units 03:55 03:55 03:55 WBC (4.8-10.8) K/uL RBC (4.7-6.1) M/uL Hgb (14.0-18.0) g/dL Hct (42-52) % MCV (80-100) fL MCH (25-34) pg MCHC (32-36) g/dL RDW Std Deviation (36.4-46.3) fL RDW Coeff of Acacia (11.5-14.5) % Plt Count (130-400) K/uL MPV (7.4-10.4) fL Immature Gran % (Auto) % Neut % (Auto) % Lymph % (Auto) % Steele % (Auto) % Eos % (Auto) % Baso % (Auto) % Neut # (Auto) (1.4-6.5) K/uL Lymph # (Auto) (1.2-3.4) K/uL Steele # (Auto) (0.11-0.59) K/uL Eos # (Auto) (0-0.5) K/uL Baso # (Auto) (0-0.2) K/uL Immature Gran # (Auto) (0.00-0.02) K/uL Absolute Nucleated RBC (0-0) K/uL Nucleated RBC % (auto) % Platelet Estimate (Normal) Target Cells Sample Site POC pH (7.35-7.45) POC pCO2 (35-46) mmHg POC pO2 (80-95) mmHg POC HCO3 (19-24) vito/L POC Total CO2 (24-31) mmol/L POC Base Excess (-9-1.8) vito/L POC ABG O2 Sat (90-95) % Ralph Test VBG pH 7.42 H (7.36-7.41) VBG pCO2 53 H (38-50) mmHg VBG pO2 102 mmHg VBG HCO3 34 mmol/L VBG O2 Saturation 97.5 % VBG Base Excess 8.4 mEq/L Barometric Pressure 733.8 mm/Hg O2 Delivery Device POC O2 Rate POC FiO2 % Tidal Volume PEEP Sodium (136-145) mmol/L Potassium (3.5-5.1) mmol/L Chloride (98-107) mmol/L Carbon Dioxide (21-32) mmol/L Anion Gap (3-11) BUN (7-18) mg/dl Creatinine (0.6-1.4) mg/dl Est Cr Clr Drug Dosing ml/min Est GFR ( Amer) ml/min Est GFR (Non-Af Amer) ml/min BUN/Creatinine Ratio (10-20) Glucose (70-99) mg/dl POC Glucose (70-99) mg/dl POC Glucose (other) (70-99) mg/dl Lactate 5.1 H* (0.4-2.0) mmol/L Calcium (8.5-10.1) mg/dl Magnesium (1.8-2.4) mg/dl Total Bilirubin (0.2-1) mg/dl AST (15-37) U/L ALT (12-78) U/L Alkaline Phosphatase (45-117) U/L Ammonia 21.0 (11-32) umol/L Total Protein (6.4-8.2) gm/dl Albumin (3.4-5.0) gm/dl Globulin (2.5-4.0) gm/dl Albumin/Globulin Ratio (0.9-2) Random Cortisol mcg/dl 08/24/20 08/24/20 08/24/20 Range/Units 03:55 03:55 00:00 WBC 28.47 H D (4.8-10.8) K/uL RBC 3.45 L (4.7-6.1) M/uL Hgb 9.2 L (14.0-18.0) g/dL Hct 29.8 L (42-52) % MCV 86.4 D (80-100) fL MCH 26.7 (25-34) pg MCHC 30.9 L (32-36) g/dL RDW Std Deviation 63.4 H (36.4-46.3) fL RDW Coeff of Acacia 21.2 H (11.5-14.5) % Plt Count 77 L (130-400) K/uL MPV 9.4 (7.4-10.4) fL Immature Gran % (Auto) 0.6 % Neut % (Auto) 90.8 % Lymph % (Auto) 4.0 % Steele % (Auto) 4.5 % Eos % (Auto) 0.1 % Baso % (Auto) 0.0 % Neut # (Auto) 25.85 H (1.4-6.5) K/uL Lymph # (Auto) 1.14 L (1.2-3.4) K/uL Steele # (Auto) 1.27 H (0.11-0.59) K/uL Eos # (Auto) 0.04 (0-0.5) K/uL Baso # (Auto) 0.01 (0-0.2) K/uL Immature Gran # (Auto) 0.16 H (0.00-0.02) K/uL Absolute Nucleated RBC 0.02 H (0-0) K/uL Nucleated RBC % (auto) 0.1 % Platelet Estimate Decreased L (Normal) Target Cells 1+ Sample Site POC pH (7.35-7.45) POC pCO2 (35-46) mmHg POC pO2 (80-95) mmHg POC HCO3 (19-24) vito/L POC Total CO2 (24-31) mmol/L POC Base Excess (-9-1.8) vito/L POC ABG O2 Sat (90-95) % Ralph Test VBG pH (7.36-7.41) VBG pCO2 (38-50) mmHg VBG pO2 mmHg VBG HCO3 mmol/L VBG O2 Saturation % VBG Base Excess mEq/L Barometric Pressure mm/Hg O2 Delivery Device POC O2 Rate POC FiO2 % Tidal Volume PEEP Sodium 149 H (136-145) mmol/L Potassium 3.4 L D (3.5-5.1) mmol/L Chloride 106 (98-107) mmol/L Carbon Dioxide 33 H (21-32) mmol/L Anion Gap 10.0 (3-11) BUN 40 H (7-18) mg/dl Creatinine 1.04 (0.6-1.4) mg/dl Est Cr Clr Drug Dosing 58.6 ml/min Est GFR ( Amer) 83.3 ml/min Est GFR (Non-Af Amer) 71.9 ml/min BUN/Creatinine Ratio 38.2 H (10-20) Glucose 67 L (70-99) mg/dl POC Glucose 77 (70-99) mg/dl POC Glucose (other) (70-99) mg/dl Lactate (0.4-2.0) mmol/L Calcium 7.3 L (8.5-10.1) mg/dl Magnesium 2.4 (1.8-2.4) mg/dl Total Bilirubin 0.5 (0.2-1) mg/dl AST 37 (15-37) U/L ALT 9 L (12-78) U/L Alkaline Phosphatase 56 (45-117) U/L Ammonia (11-32) umol/L Total Protein 5.7 L (6.4-8.2) gm/dl Albumin 1.8 L (3.4-5.0) gm/dl Globulin 3.9 (2.5-4.0) gm/dl Albumin/Globulin Ratio 0.5 L (0.9-2) Random Cortisol mcg/dl 08/23/20 08/23/20 08/23/20 Range/Units 19:28 17:28 12:45 WBC (4.8-10.8) K/uL RBC (4.7-6.1) M/uL Hgb (14.0-18.0) g/dL Hct (42-52) % MCV (80-100) fL MCH (25-34) pg MCHC (32-36) g/dL RDW Std Deviation (36.4-46.3) fL RDW Coeff of Acacia (11.5-14.5) % Plt Count (130-400) K/uL MPV (7.4-10.4) fL Immature Gran % (Auto) % Neut % (Auto) % Lymph % (Auto) % Steele % (Auto) % Eos % (Auto) % Baso % (Auto) % Neut # (Auto) (1.4-6.5) K/uL Lymph # (Auto) (1.2-3.4) K/uL Steele # (Auto) (0.11-0.59) K/uL Eos # (Auto) (0-0.5) K/uL Baso # (Auto) (0-0.2) K/uL Immature Gran # (Auto) (0.00-0.02) K/uL Absolute Nucleated RBC (0-0) K/uL Nucleated RBC % (auto) % Platelet Estimate (Normal) Target Cells Sample Site POC pH (7.35-7.45) POC pCO2 (35-46) mmHg POC pO2 (80-95) mmHg POC HCO3 (19-24) vito/L POC Total CO2 (24-31) mmol/L POC Base Excess (-9-1.8) vito/L POC ABG O2 Sat (90-95) % Ralph Test VBG pH (7.36-7.41) VBG pCO2 (38-50) mmHg VBG pO2 mmHg VBG HCO3 mmol/L VBG O2 Saturation % VBG Base Excess mEq/L Barometric Pressure mm/Hg O2 Delivery Device POC O2 Rate POC FiO2 % Tidal Volume PEEP Sodium (136-145) mmol/L Potassium (3.5-5.1) mmol/L Chloride (98-107) mmol/L Carbon Dioxide (21-32) mmol/L Anion Gap (3-11) BUN (7-18) mg/dl Creatinine (0.6-1.4) mg/dl Est Cr Clr Drug Dosing ml/min Est GFR ( Amer) ml/min Est GFR (Non-Af Amer) ml/min BUN/Creatinine Ratio (10-20) Glucose (70-99) mg/dl POC Glucose 86 (70-99) mg/dl POC Glucose (other) 75 (70-99) mg/dl Lactate 6.3 H* (0.4-2.0) mmol/L Calcium (8.5-10.1) mg/dl Magnesium (1.8-2.4) mg/dl Total Bilirubin (0.2-1) mg/dl AST (15-37) U/L ALT (12-78) U/L Alkaline Phosphatase (45-117) U/L Ammonia (11-32) umol/L Total Protein (6.4-8.2) gm/dl Albumin (3.4-5.0) gm/dl Globulin (2.5-4.0) gm/dl Albumin/Globulin Ratio (0.9-2) Random Cortisol mcg/dl 08/23/20 08/23/20 08/23/20 Range/Units 12:03 10:36 10:04 WBC (4.8-10.8) K/uL RBC (4.7-6.1) M/uL Hgb (14.0-18.0) g/dL Hct (42-52) % MCV (80-100) fL MCH (25-34) pg MCHC (32-36) g/dL RDW Std Deviation (36.4-46.3) fL RDW Coeff of Acacia (11.5-14.5) % Plt Count (130-400) K/uL MPV (7.4-10.4) fL Immature Gran % (Auto) % Neut % (Auto) % Lymph % (Auto) % Steele % (Auto) % Eos % (Auto) % Baso % (Auto) % Neut # (Auto) (1.4-6.5) K/uL Lymph # (Auto) (1.2-3.4) K/uL Steele # (Auto) (0.11-0.59) K/uL Eos # (Auto) (0-0.5) K/uL Baso # (Auto) (0-0.2) K/uL Immature Gran # (Auto) (0.00-0.02) K/uL Absolute Nucleated RBC (0-0) K/uL Nucleated RBC % (auto) % Platelet Estimate (Normal) Target Cells Sample Site Art Line POC pH 7.49 H (7.35-7.45) POC pCO2 40 (35-46) mmHg POC pO2 79 L (80-95) mmHg POC HCO3 30 H (19-24) vito/L POC Total CO2 31 (24-31) mmol/L POC Base Excess 7.0 H (-9-1.8) vito/L POC ABG O2 Sat 97.0 H (90-95) % Ralph Test NA VBG pH (7.36-7.41) VBG pCO2 (38-50) mmHg VBG pO2 mmHg VBG HCO3 mmol/L VBG O2 Saturation % VBG Base Excess mEq/L Barometric Pressure mm/Hg O2 Delivery Device Ventilator POC O2 Rate 12 POC FiO2 30 % Tidal Volume 450 PEEP 5 Sodium (136-145) mmol/L Potassium (3.5-5.1) mmol/L Chloride (98-107) mmol/L Carbon Dioxide (21-32) mmol/L Anion Gap (3-11) BUN (7-18) mg/dl Creatinine (0.6-1.4) mg/dl Est Cr Clr Drug Dosing ml/min Est GFR ( Amer) ml/min Est GFR (Non-Af Amer) ml/min BUN/Creatinine Ratio (10-20) Glucose (70-99) mg/dl POC Glucose (70-99) mg/dl POC Glucose (other) (70-99) mg/dl Lactate 5.9 H* 5.7 H* (0.4-2.0) mmol/L Calcium (8.5-10.1) mg/dl Magnesium (1.8-2.4) mg/dl Total Bilirubin (0.2-1) mg/dl AST (15-37) U/L ALT (12-78) U/L Alkaline Phosphatase (45-117) U/L Ammonia (11-32) umol/L Total Protein (6.4-8.2) gm/dl Albumin (3.4-5.0) gm/dl Globulin (2.5-4.0) gm/dl Albumin/Globulin Ratio (0.9-2) Random Cortisol mcg/dl 08/23/20 Range/Units 01:06 WBC (4.8-10.8) K/uL RBC (4.7-6.1) M/uL Hgb (14.0-18.0) g/dL Hct (42-52) % MCV (80-100) fL MCH (25-34) pg MCHC (32-36) g/dL RDW Std Deviation (36.4-46.3) fL RDW Coeff of Acacia (11.5-14.5) % Plt Count (130-400) K/uL MPV (7.4-10.4) fL Immature Gran % (Auto) % Neut % (Auto) % Lymph % (Auto) % Steele % (Auto) % Eos % (Auto) % Baso % (Auto) % Neut # (Auto) (1.4-6.5) K/uL Lymph # (Auto) (1.2-3.4) K/uL Steele # (Auto) (0.11-0.59) K/uL Eos # (Auto) (0-0.5) K/uL Baso # (Auto) (0-0.2) K/uL Immature Gran # (Auto) (0.00-0.02) K/uL Absolute Nucleated RBC (0-0) K/uL Nucleated RBC % (auto) % Platelet Estimate (Normal) Target Cells Sample Site POC pH (7.35-7.45) POC pCO2 (35-46) mmHg POC pO2 (80-95) mmHg POC HCO3 (19-24) vito/L POC Total CO2 (24-31) mmol/L POC Base Excess (-9-1.8) vito/L POC ABG O2 Sat (90-95) % Ralph Test VBG pH (7.36-7.41) VBG pCO2 (38-50) mmHg VBG pO2 mmHg VBG HCO3 mmol/L VBG O2 Saturation % VBG Base Excess mEq/L Barometric Pressure mm/Hg O2 Delivery Device POC O2 Rate POC FiO2 % Tidal Volume PEEP Sodium (136-145) mmol/L Potassium (3.5-5.1) mmol/L Chloride (98-107) mmol/L Carbon Dioxide (21-32) mmol/L Anion Gap (3-11) BUN (7-18) mg/dl Creatinine (0.6-1.4) mg/dl Est Cr Clr Drug Dosing ml/min Est GFR ( Amer) ml/min Est GFR (Non-Af Amer) ml/min BUN/Creatinine Ratio (10-20) Glucose (70-99) mg/dl POC Glucose (70-99) mg/dl POC Glucose (other) (70-99) mg/dl Lactate (0.4-2.0) mmol/L Calcium (8.5-10.1) mg/dl Magnesium (1.8-2.4) mg/dl Total Bilirubin (0.2-1) mg/dl AST (15-37) U/L ALT (12-78) U/L Alkaline Phosphatase (45-117) U/L Ammonia (11-32) umol/L Total Protein (6.4-8.2) gm/dl Albumin (3.4-5.0) gm/dl Globulin (2.5-4.0) gm/dl Albumin/Globulin Ratio (0.9-2) Random Cortisol 35.46 mcg/dl Coding Level of Care Code 19444 Subseq Hosp Care Lvl 3 Diagnoses Septic shock A41.9; R65.21 Lung cancer C34.31 Laterality: right Lung location: lower lobe of lung Anemia D64.9 Anemia type: unspecified type Anasarca R60.1 Altered mental status R41.82 Altered mental status type: unspecified Multifocal pneumonia J18.9 Acute kidney injury N17.9 Acidosis, lactic E87.2 Acute respiratory acidosis E87.2 Sepsis A41.9 Sepsis acute organ dysfunction status: unspecified Sepsis type: sepsis due to unspecified organism (1) Anemia Anemia type: unspecified type Qualified Code(s): D64.9 - Anemia, unspecified (2) Lung cancer Laterality: right Lung location: lower lobe of lung Qualified Code(s): C34.31 - Malignant neoplasm of lower lobe, right bronchus or lung (3) Sepsis Sepsis acute organ dysfunction status: unspecified Sepsis type: sepsis due to unspecified organism Qualified Code(s): A41.9 - Sepsis, unspecified organism (4) Altered mental status Altered mental status type: unspecified Qualified Code(s): R41.82 - Altered mental status, unspecified
[2020-08-24] MEDS: LACTULOSE SYRUP 20 GM/30 ML UDC PO SCH ×4 (08:35→20:50)
[2020-08-24] MEDS: LANSOPRAZOLE 30 MG SOLTAB NG SCH (08:35)
[2020-08-24] MEDS ORDERED: VANCOMYCIN HCL 750 MG in SODIUM CHLORIDE 0.9% 250 ML IV SCH (12:00)
[2020-08-24] MEDS ORDERED: HEPARIN 100 UNIT/ML 5ML FLUSH ONE (15:46)
[2020-08-24] MEDS: oxyCODONE HCL 20 MG TABCR (OxyCONTIN) PO SCH (20:50)
[2020-08-24] MEDS: carvediloL 3.125 MG TAB PO SCH (20:51)
[2020-08-24] MEDS: POLYETHYLENE (MIRALAX) 17 GM PACK PO SCH (20:51)
--- NOTE | 2020-08-24 21:35 | Hospitalist Progress Note ---
Date of Service August 24, 2020 Assessment & Plan (1) Unresponsiveness: 69yo male with history of lung cancer, colon cancer presenting from [facility] after being found down and unresponsive. 1. Neuro - Patient encephalopathic on arrival. He is obtunded, unable to answer questions or follow commands. He did have some periods of lucency when he was able to speak - asked for water, told me that he was [place]", denied chest pain. Encephalopathy most likely multifactorial - acidemia, hypercarbia, renal compromise, possible infection, ?hepatic encephalopathy with elevated ammonia level as well. CT Head with atrophy - no acute insult -Patient is now extubated. Patient is doing well. Now will transfer out of ICU. -IVF and electrolyte correction as able. Avoid nephrotoxic agents -continue zosyn. -Lactulose -Pain control and sedation -lactate remains elevated. 2. Pulmonary - patient now extubated. 3. Cardiovascular - patient hypotensive and bradycardic. ?sepsis, mass effect from large tumor with mediastinal shift, volume depletion. Elevated lactate at 9.9 now in setting of prolonged hypotension -Levophed gtt off. -IVF 4. Gastrointestinal -NGT -Protonix 5. - SAVANA -possibly secondary to sepsis, volume depletion, prolonged hypotension -IVF -Avoid nephrotoxins -Renal dosing where needed 6. Heme - H/H stable. Leukocytosis improving -Continue to monitor 7. ID - recent PNA, patient afebrile -Vancomycin, Zosyn 8. Endocrine -does not require hydrocortisone at this time. (2) Lung cancer: Admission and Anticipated Discharge Date Admission Date: August 22, 2020 Subjective Patient reports having intermittent generalized pain and leg swelling. Review of Systems Review of Systems: All systems reviewed & are unremarkable except as noted in HPI & below Physical Exam Physical Exam: General: frail, cachectic with temporal wasting, awake Skin: warm, dry, intact, no rashes or lesions HEENT: NC/AT,no oropharyngeal lesions, neck supple, trachea midline, no LAD, no thyromegaly, no JVD Heart: +S1/S2, regular, bradycardic, distant heart sounds, no m/r/g Lungs: markedly diminished breath sounds on right, no rales/rhonchi/wheezes, poor effort Abd: +BS, soft, NT/ND, no masses/organomegaly/ascites Ext: cool, palpable pulses, no clubbing/cyanosis \\ Results & Data Results & Data ([facility]) Vital Signs (Past 12 Hours) Vital Signs Temp Pulse Pulse Pulse Resp BP BP 08/24/20 20:54 94 H 120/74 08/24/20 18:27 97 H 20 08/24/20 13:45 36.6 C 99 H 20 08/24/20 12:17 36.9 C 106 H 14 128/89 08/24/20 12:00 105 H 20 08/24/20 11:48 99 H 21 135/93 08/24/20 11:17 99 H 25 H 136/82 08/24/20 11:00 08/24/20 10:47 117/100 08/24/20 10:17 93 H 14 107/74 08/24/20 10:00 91 H 13 08/24/20 09:47 88 14 124/65 Pulse Ox 08/24/20 20:54 08/24/20 18:27 96 08/24/20 13:45 96 08/24/20 12:17 100 08/24/20 12:00 90 08/24/20 11:48 94 08/24/20 11:17 96 08/24/20 11:00 93 08/24/20 10:47 92 08/24/20 10:17 96 08/24/20 10:00 96 08/24/20 09:47 98 PG Care Time/CCT Total # of Minutes Spent Total Time Spent with Patient: Total time spent is greater than 50% in coordination of care (as documented) at patient's floor/unit and/or counseling patient: Coding Level of Care Code 85156 Subseq Hosp Care Lvl 3 Diagnoses Unresponsiveness R41.89 Lung cancer C34.91 Laterality: right Lung location: unspecified part of lung Time Spent (min) 35 (1) Lung cancer Laterality: right Lung location: unspecified part of lung Qualified Code(s): C34.91 - Malignant neoplasm of unspecified part of right bronchus or lung
[2020-08-25] MEDS: ACETAMINOPHEN 500 MG TAB PO PRN ×2 (03:23→12:19)
[2020-08-25] MEDS: PIPERACILLIN/TAZOBACTAM 3.375 GM in DEXTROSE 5% 100 ML IV SCH ×3 (03:23→20:03)
[2020-08-25] MEDS: HEPARIN SOD 5,000 UNIT/0.5 ML VIAL SQ SCH ×3 (05:41→22:09)
[2020-08-25 06:35] LABS: Hematocrit (blood only) 27.5 % (42-52); Hemoglobin 8.4 g/dL (14.0-18.0); Mean Corpuscular Hemoglobin 26.2 pg (25-34); Mean Corpuscular Hgb Conc 30.5 g/dL (32-36); Mean Corpuscular Volume 85.7 fL (80-100); Mean Platelet Volume 9.4 fL (7.4-10.4); Platelet Count 32 K/uL (130-400); RDW Standard Deviation 62.8 fL (36.4-46.3); Red Blood Count 3.21 M/uL (4.7-6.1); White Blood Count 21.25 K/uL (4.8-10.8)
[2020-08-25 06:37] LABS: Anisocytosis Present; Eosinophils # (auto) 0.46 K/uL (0-0.5); Eosinophils % (auto) 2.2 %; Hypochromasia Present; Immature Granulocytes # (auto) 0.08 K/uL (0.00-0.02); Immature Granulocytes % (auto) 0.4 %; Lymphocytes # (auto) 1.12 K/uL (1.2-3.4); Lymphocytes % (auto) 5.3 %; Monocytes # (auto) 0.89 K/uL (0.11-0.59); Monocytes % (auto) 4.2 %; Neutrophils % (auto) 87.9 %; Platelet Estimate Decreased (Normal); Target Cells 1+; Toxic Vacuolation 1+
[2020-08-25 07:10] LABS: Albumin Globulin Ratio 0.5 (0.9-2); Albumin Level 1.7 gm/dl (3.4-5.0); BUN Creatinine Ratio 34.3 (10-20); Bilirubin,Total 0.5 mg/dl (0.2-1); Calcium 7.5 mg/dl (8.5-10.1); Creatinine Clr Calc Pharmacy 99.9 ml/min; Est GFR (African American) 116.5 ml/min; Est GFR (Non-African American) 100.5 ml/min; Globulin 3.7 gm/dl (2.5-4.0); Magnesium 2.2 mg/dl (1.8-2.4); Potassium 3.1 mmol/L (3.5-5.1); Total Protein 5.4 gm/dl (6.4-8.2)
[2020-08-25] MEDS: ALBUT/IPRATROP 3MG/0.5MG NEB 3 ML VIAL NEB PRN ×2 (07:43→21:51)
[2020-08-25] MEDS: carvediloL 3.125 MG TAB PO SCH ×2 (09:11→22:08)
[2020-08-25] MEDS: LANSOPRAZOLE 30 MG SOLTAB NG SCH (09:34)
[2020-08-25] MEDS: AMIODARONE 200 MG TAB PO SCH (09:34)
[2020-08-25] MEDS: LACTULOSE SYRUP 20 GM/30 ML UDC PO SCH ×4 (09:35→22:08)
[2020-08-25] MEDS: POLYETHYLENE (MIRALAX) 17 GM PACK PO SCH ×2 (09:35→22:08)
[2020-08-25] MEDS: oxyCODONE HCL 20 MG TABCR (OxyCONTIN) PO SCH ×2 (09:49→22:08)
[2020-08-25] MEDS ORDERED: SODIUM BICARB 8.4% INJ 50 MEQ/50 ML SYR IV ONE (12:54)
[2020-08-25] MEDS ORDERED: ATROPINE SULFATE 0.1 MG/ML 10ML SYR IV ONE (12:54)
[2020-08-25] MEDS: POTASSIUM CHLORIDE CRTAB 20 MEQ TABCR PO SCH ×2 (16:26→22:09)
[2020-08-25] MEDS: oxyCODONE/ACETAMINOPHEN 5mg/325mg TAB PO PRN ×2 (16:29→20:03)
--- NOTE | 2020-08-25 23:04 | Hospitalist Progress Note ---
Date of Service August 25, 2020 Assessment & Plan (1) Unresponsiveness: 69yo male with history of lung cancer, colon cancer presenting from [facility] after being found down and unresponsive. 1. Neuro - Patient encephalopathic on arrival. He is obtunded, unable to answer questions or follow commands. He did have some periods of lucency when he was able to speak - asked for water, told me that he was [place]", denied chest pain. Encephalopathy most likely multifactorial - acidemia, hypercarbia, renal compromise, possible infection, ?hepatic encephalopathy with elevated ammonia level as well. CT Head with atrophy - no acute insult -Patient is now extubated. Patient is doing well. Now will transfer out of ICU. -IVF and electrolyte correction as able. Avoid nephrotoxic agents -continue zosyn. -Lactulose -Pain control and sedation -lactate remains elevated. On 08/25, BP is still labile. Reordered lactic acid, remains elevated likely type B lactic acidosis. 2. Pulmonary - patient now extubated. 3. Cardiovascular - patient hypotensive and bradycardic. ?sepsis, mass effect from large tumor with mediastinal shift, volume depletion. Elevated lactate at 9.9 now in setting of prolonged hypotension -Levophed gtt off. -IVF 4. Gastrointestinal -NGT -Protonix 5. - SAVANA -possibly secondary to sepsis, volume depletion, prolonged hypotension -IVF -Avoid nephrotoxins -Renal dosing where needed 6. Heme - H/H stable. Leukocytosis improving -Continue to monitor 7. ID - recent PNA, patient afebrile -Vancomycin, Zosyn 8. Endocrine -does not require hydrocortisone at this time. (2) Lung cancer: Admission and Anticipated Discharge Date Admission Date: August 22, 2020 Subjective Patient reports no new symptoms. Review of Systems Review of Systems: All systems reviewed & are unremarkable except as noted in HPI & below Physical Exam Physical Exam: General: frail, cachectic with temporal wasting, awake Skin: warm, dry, intact, no rashes or lesions HEENT: NC/AT,no oropharyngeal lesions, neck supple, trachea midline, no LAD, no thyromegaly, no JVD Heart: +S1/S2, regular, bradycardic, distant heart sounds, no m/r/g Lungs: markedly diminished breath sounds on right, no rales/rhonchi/wheezes, poor effort Abd: +BS, soft, NT/ND, no masses/organomegaly/ascites Ext: cool, palpable pulses, no clubbing/cyanosis Results & Data Results & Data ([facility]) Vital Signs (Past 12 Hours) Vital Signs Temp Pulse Resp BP BP Pulse Ox 08/25/20 21:51 76 18 95 08/25/20 21:42 36.8 C 74 18 99/61 L 96 08/25/20 14:44 36.7 C 76 16 90/51 L 96 08/25/20 14:28 79 93/59 L 97 08/25/20 13:56 36.7 C 75 18 88/50 L 96 PG Care Time/CCT Total # of Minutes Spent Total Time Spent with Patient: Total time spent is greater than 50% in coordination of care (as documented) at patient's floor/unit and/or counseling patient: Coding Level of Care Code 03829 Subseq Hosp Care Lvl 2 Diagnoses Unresponsiveness R41.89 Lung cancer C34.91 Laterality: right Lung location: unspecified part of lung Time Spent (min) 25 (1) Lung cancer Laterality: right Lung location: unspecified part of lung Qualified Code(s): C34.91 - Malignant neoplasm of unspecified part of right bronchus or lung
[2020-08-25] MEDS ORDERED: LORazepam 0.5 MG/1 ML VIAL IV STA (23:46)
[2020-08-26] MEDS: PIPERACILLIN/TAZOBACTAM 3.375 GM in DEXTROSE 5% 100 ML IV SCH ×3 (03:39→20:42)
[2020-08-26] MEDS: oxyCODONE/ACETAMINOPHEN 5mg/325mg TAB PO PRN (03:51)
[2020-08-26] MEDS: ALBUT/IPRATROP 3MG/0.5MG NEB 3 ML VIAL NEB PRN ×2 (04:00→20:34)
[2020-08-26] MEDS: HEPARIN SOD 5,000 UNIT/0.5 ML VIAL SQ SCH ×3 (05:51→23:38)
[2020-08-26] MEDS: LACTULOSE SYRUP 20 GM/30 ML UDC PO SCH ×3 (08:42→18:38)
[2020-08-26] MEDS: carvediloL 3.125 MG TAB PO SCH ×2 (08:42→20:43)
[2020-08-26] MEDS: LANSOPRAZOLE 30 MG SOLTAB NG SCH (08:42)
[2020-08-26] MEDS: POTASSIUM CHLORIDE CRTAB 20 MEQ TABCR PO SCH ×2 (08:43→14:39)
[2020-08-26] MEDS: POLYETHYLENE (MIRALAX) 17 GM PACK PO SCH ×2 (08:46→20:43)
[2020-08-26] MEDS: oxyCODONE HCL 20 MG TABCR (OxyCONTIN) PO SCH ×2 (08:51→23:38)
[2020-08-26] MEDS: AMIODARONE 200 MG TAB PO SCH (08:52)
[2020-08-26 18:06] LABS: Hematocrit (blood only) 27.8 % (42-52); Hemoglobin 8.7 g/dL (14.0-18.0); Mean Corpuscular Hemoglobin 26.3 pg (25-34); Mean Corpuscular Hgb Conc 31.3 g/dL (32-36); Platelet Count 14 K/uL (130-400); RDW Coefficient of Variation 20.6 % (11.5-14.5); Red Blood Count 3.31 M/uL (4.7-6.1)
[2020-08-26 18:07] LABS: Basophils # (auto) 0.01 K/uL (0-0.2); Eosinophils # (auto) 0.31 K/uL (0-0.5); Eosinophils % (auto) 1.1 %; Hypochromasia Present; Immature Granulocytes # (auto) 0.47 K/uL (0.00-0.02); Immature Granulocytes % (auto) 1.7 %; Lymphocytes % (auto) 3.9 %; Monocytes % (auto) 4.6 %; Neutrophils # (auto) 24.81 K/uL (1.4-6.5); Neutrophils % (auto) 88.7 %; Platelet Estimate SIGNIFIC DECREASED (Normal); Polychromasia 1+; Target Cells 1+
[2020-08-26 18:11] LABS: Albumin Globulin Ratio 0.4 (0.9-2); Albumin Level 1.6 gm/dl (3.4-5.0); Bilirubin,Total 0.5 mg/dl (0.2-1); Calcium 7.7 mg/dl (8.5-10.1); Creatinine Clr Calc Pharmacy 117.2 ml/min; Est GFR (African American) 124.3 ml/min; Est GFR (Non-African American) 107.3 ml/min; Globulin 3.9 gm/dl (2.5-4.0); Potassium 3.8 mmol/L (3.5-5.1); Total Protein 5.5 gm/dl (6.4-8.2)
[2020-08-26] MEDS: CARBOHYDRATES FOR HYPOGLYCEMIA PO PRN ×3 (18:15→19:41)
[2020-08-26] MEDS ORDERED: GLUCAGON FOR INJ 1 MG VIAL SQ PRN (19:13)
[2020-08-26] MEDS ORDERED: GLUCOSE 40% GEL 15 GM TUBE PO PRN (19:13)
[2020-08-26] MEDS ORDERED: DEXTROSE 50% 50 ML SYRINGE IV PRN (19:13)
[2020-08-26] MEDS ORDERED: GLUCOSE 10 TABS/TUBE PO PRN (19:13)
--- NOTE | 2020-08-26 23:04 | Hospitalist Progress Note ---
Date of Service August 26, 2020 Assessment & Plan (1) Unresponsiveness: 69yo male with history of lung cancer, colon cancer presenting from [facility] after being found down and unresponsive. 1. Neuro - Patient encephalopathic on arrival. He is obtunded, unable to answer questions or follow commands. He did have some periods of lucency when he was able to speak - asked for water, told me that he was from [place]", denied chest pain. Encephalopathy most likely multifactorial - acidemia, hypercarbia, renal compromise, possible infection, ?hepatic encephalopathy with elevated ammonia level as well. CT Head with atrophy - no acute insult -Patient is now extubated. Patient is doing well. Now will transfer out of ICU. -IVF and electrolyte correction as able. Avoid nephrotoxic agents -continue zosyn. -Lactulose -Pain control and sedation -lactate remains elevated. On 08/26, BP ihas improved. Given how thin he is, BP was likely underestimated as the cuff was too big for his arm. Reordered lactic acid, remains elevated likely type B lactic acidosis. will not reorder lactic acid. 2. Pulmonary - patient now extubated. 3. Cardiovascular - patient was hypotensive and bradycardic and required levophed and intubation. ?sepsis, mass effect from large tumor with mediastinal shift, volume depletion. Elevated lactate at 9.9 now in setting of prolonged hypotension -Levophed gtt off. -IVF 4. Gastrointestinal -Protonix -given loose stools, will cut back on lacutlose to BID. 5. - SAVANA -possibly secondary to sepsis, volume depletion, prolonged hypotension -IVF -Avoid nephrotoxins -Renal dosing where needed 6. Heme - H/H stable. Leukocytosis improving -Continue to monitor 7. ID - recent PNA, patient afebrile Sepsispatient with elevated lactate, leukocytosis, and elevated procalcitonin -Suspect most likely pulmonary source given advanced lung cancer -Patient did have distended gallbladder and sludge seen on CT abdomen pelvis, however LFTs and bilirubin are within normal limits. W -ordered cultures. -COVID-19 -Nasal MRSA Negative -Continue zosyn for now. 8. Endocrine -does not require hydrocortisone at this time. will consult Oncology and palliative care. (2) Lung cancer: Admission and Anticipated Discharge Date Admission Date: August 22, 2020 Subjective Patient has been having loose stools today. Patient also reports he jsut wants to if he cannot improve. Patient is agreeable to palliative care consult. Patient also would like to discuss with Oncology. Review of Systems Review of Systems: All systems reviewed & are unremarkable except as noted in HPI & below Physical Exam Physical Exam: General: frail, cachectic with temporal wasting, awake Skin: warm, dry, intact, no rashes or lesions HEENT: NC/AT,no oropharyngeal lesions, neck supple, trachea midline, no LAD, no thyromegaly, no JVD Heart: +S1/S2, regular, bradycardic, distant heart sounds, no m/r/g Lungs: markedly diminished breath sounds on right, no rales/rhonchi/wheezes, poor effort Abd: +BS, soft, NT/ND, no masses/organomegaly/ascites Ext: cool, palpable pulses, no clubbing/cyanosis Results & Data Results & Data ([facility]) Vital Signs (Past 12 Hours) Vital Signs Temp Pulse Resp BP BP Pulse Ox 08/26/20 22:43 36.5 C 89 16 97/48 L 99 08/26/20 20:35 95 H 20 97 08/26/20 16:27 104/51 L 08/26/20 16:25 37 C 85 16 96/42 L 94 PG Care Time/CCT Total # of Minutes Spent Total Time Spent with Patient: Total time spent is greater than 50% in coordination of care (as documented) at patient's floor/unit and/or counseling patient: Coding Level of Care Code 34592 Subseq Hosp Care Lvl 3 Diagnoses Unresponsiveness R41.89 Lung cancer C34.91 Laterality: right Lung location: unspecified part of lung Time Spent (min) 35 (1) Lung cancer Laterality: right Lung location: unspecified part of lung Qualified Code(s): C34.91 - Malignant neoplasm of unspecified part of right bronchus or lung
[2020-08-27] MEDS: ALBUT/IPRATROP 3MG/0.5MG NEB 3 ML VIAL NEB PRN ×4 (01:06→23:56)
[2020-08-27] MEDS: PIPERACILLIN/TAZOBACTAM 3.375 GM in DEXTROSE 5% 100 ML IV SCH ×3 (04:38→20:12)
[2020-08-27] MEDS: HEPARIN SOD 5,000 UNIT/0.5 ML VIAL SQ SCH (06:41)
[2020-08-27] MEDS: oxyCODONE/ACETAMINOPHEN 5mg/325mg TAB PO PRN ×3 (06:43→22:49)
[2020-08-27] MEDS: LACTULOSE SYRUP 20 GM/30 ML UDC PO SCH ×2 (10:07→21:49)
[2020-08-27] MEDS: carvediloL 3.125 MG TAB PO SCH ×2 (10:07→21:50)
[2020-08-27] MEDS: POLYETHYLENE (MIRALAX) 17 GM PACK PO SCH ×2 (10:08→21:50)
[2020-08-27] MEDS: LANSOPRAZOLE 30 MG SOLTAB NG SCH (10:10)
[2020-08-27] MEDS: AMIODARONE 200 MG TAB PO SCH (10:13)
[2020-08-27 10:14] LABS: INR 1.4 (0.9-1.1)
[2020-08-27 10:16] LABS: Platelet Count 9 K/uL (130-400)
[2020-08-27 10:17] LABS: Hematocrit (blood only) 29.1 % (42-52); Hemoglobin 8.9 g/dL (14.0-18.0); Mean Corpuscular Hemoglobin 26.3 pg (25-34); Mean Corpuscular Hgb Conc 30.6 g/dL (32-36); Mean Corpuscular Volume 86.1 fL (80-100); RDW Coefficient of Variation 21.2 % (11.5-14.5); Red Blood Count 3.38 M/uL (4.7-6.1); White Blood Count 18.76 K/uL (4.8-10.8)
[2020-08-27] MEDS: oxyCODONE HCL 20 MG TABCR (OxyCONTIN) PO SCH ×2 (10:19→21:49)
[2020-08-27 10:26] LABS: Anisocytosis Present; Eosinophils % (auto) 2.1 %; Hypochromasia Present; Immature Granulocytes # (auto) 0.06 K/uL (0.00-0.02); Immature Granulocytes % (auto) 0.3 %; Lymphocytes # (auto) 1.16 K/uL (1.2-3.4); Lymphocytes % (auto) 6.2 %; Monocytes % (auto) 4.3 %; Neutrophils # (auto) 16.34 K/uL (1.4-6.5); Neutrophils % (auto) 87.1 %
[2020-08-27 10:32] LABS: Albumin Level 1.7 gm/dl (3.4-5.0); BUN Creatinine Ratio 20.4 (10-20); Calcium 8.1 mg/dl (8.5-10.1); Creatinine Clr Calc Pharmacy 93.8 ml/min; Est GFR (African American) 113.4 ml/min; Est GFR (Non-African American) 97.9 ml/min; Magnesium 1.9 mg/dl (1.8-2.4); Potassium 3.5 mmol/L (3.5-5.1)
[2020-08-27 10:44] LABS: Albumin Globulin Ratio 0.4 (0.9-2); Bilirubin,Total 0.4 mg/dl (0.2-1); Globulin 4.2 gm/dl (2.5-4.0); Phosphorus 1.2 mg/dl (2.5-4.9); Total Protein 5.9 gm/dl (6.4-8.2)
[2020-08-27 11:12] LABS: Fibrinogen 412 mg/dl (184-400)
--- NOTE | 2020-08-27 12:57 | Palliative Care Consultation ---
Date of Consultation August 27, 2020 Assessment & Plan (1) Palliative care encounter: Mr. Dumont is a 69 year old -argent[place] male who is an inmate at [facility] who presented to the [facility] with hypoxia and being found down. This man has a PMH that includes: colon and cecum cancer, lung cancer, CVA, COPD, GERD, hepatitis C virus, and HLD. He has received most of his cancer care at [facility] and has been progressively more frail and weak. Review of notes from [facility] on 05/21/20 note that patient's colon mass is an adenocarcinoma s/p R hemicolectomy April 2020 and was to follow with Dr. Candelario outpatient for chemotherapy. Patient also was apparently noted to have a LEFT lower lobe lung mass, adenocarcinoma of the lung, and was to follow up with Dr. Mayo (thoracic surgery) and Dr. Candelario as noted prior. He was recently admitted to [facility] from 08/05-08/11/20 for increasing SOB and painful right sided chest pain associated with n/v. Suspicion currently is that the patient has two primary lesions, one in the colon and another in the lung. They discussed the case with [facility] where they felt that chemotherapy at this time would be palliative and that there was no role for radiation. Palliative Medicine was consulted to discuss overall goals of care. I met with Mr. Dumont who was AAOx4; however, has poor insight into his disease process. He was able to have an extensive full conversation with me and talked about his previous encounters with his oncologist in [place], just like he did on previous admission. He was clear that he wants to continue to work towards getting stronger so that hopefully he can continue to pursue some treatment, but does recognize that he is declining. He talked about his experience of just being on the ventilator and stated that if he would decline that he would NOT want to be placed on a ventilator again. This is inconsistent with previous encounters, but he also was just on a ventilator so may have recognized what he would want in certain situations. I did remind him that after reviewing the oncology notes from [place] that his cancer appears to be only option for palliative treatment, not curative. No escalation in care per my discussion with him today with regards to ventilator and ICU management, but would like to see if that conversation remains consistent during either my or the hospitalist next encounter. Remain Full code for now until additional encounter. I was able to call Svetlana Friedman, the [facility] medical recruiter at [phone]. She stated that they are keeping Soraya updated internally and are escalating his request internally. Of course, this is unlikely as the patient is not actively dying. [facility] requesting to have service excellence document his advanced directive and DNR/DNI while here and inpatient. I did reach out to Catarina Murray via [employer] to make the request for the visit and I did have positive contact with her. Thanks for involving Palliative Medicine with this individual. No symptom management needs at this time. We will follow as necessary. (2) Lung cancer: Laterality: right Lung location: unspecified part of lung Jeff lified Code(s): C34.91 - Malignant neoplasm of unspecified part of right bronchus or lung (3) Unresponsiveness: (4) Septic shock: (5) Weakness: History of Present Illness Reason for Consultation: Goals of care Requesting Physician: Dr. Wallace Attending Physician: Jeffrey Leon MD History of Present Illness Mr. Dumont is a 69 year old -argent[place] male who is an inmate at [facility] who presented to the [facility] with hypoxia, abdominal pain, and scrotal swelling. This man has a PMH that includes: colon and cecum cancer, lung cancer, CVA, COPD, GERD, hepatitis C virus, and HLD. He has received most of his cancer care at [facility] and has been progressively more frail and weak. Review of notes from [facility] on 05/21/20 note that patient's colon mass is an adenocarcinoma s/p R hemicolectomy April 2020 and was to follow with Dr. Candelario outpatient for chemotherapy. Patient also was apparently noted to have a LEFT lower lobe lung mass, adenocarcinoma of the lung, and was to follow up with Dr. Mayo (thoracic surgery) and Dr. Candelario as noted prior. He was recently admitted to [facility] from 08/05-08/11/20 for increasing SOB and painful right sided chest pain associated with n/v. Suspicion currently is that the patient has two primary lesions, one in the colon and another in the lung. They discussed the case with [facility] where they felt that chemotherapy at this time would be palliative and that there was no role for radiation. Palliative Medicine was consulted to discuss overall goals of care. Allergies Allergy/AdvReac Type Severity Reaction Status Date / Time Iodinated Contrast Media Allergy Intermediate hives/vomiting Verified 08/22/20 21:13 (IV Contrast) Home Medications Medication Instructions Recorded Confirmed Type carvedilol 3.125 mg PO BID 08/15/20 08/22/20 History dicyclomine 20 mg PO TID PRN 08/15/20 08/22/20 History ferrous gluconate 324 mg PO BID 08/15/20 08/22/20 History fluticasone propion-salmeterol 1 inh INHALATION BID 08/15/20 08/22/20 History [Wixela Inhub] levalbuterol tartrate [Xopenex HFA] 2 inh INHALATION QID PRN 08/15/20 08/22/20 History mirtazapine 15 mg PO HS 08/15/20 08/22/20 History multivitamin 1 tab PO DAILY 08/15/20 08/22/20 History oxycodone-acetaminophen [Percocet] 1 tab PO Q4H 08/15/20 08/22/20 History pantoprazole 40 mg PO DAILY 08/15/20 08/22/20 History polyethylene glycol 3350 [Miralax] 17 g PO BID 08/15/20 08/22/20 History sennosides [senna] 8.6 mg PO BID 08/15/20 08/22/20 History amiodarone 200 mg PO QAM 30 Days #30 tab 08/19/20 08/22/20 Rx amoxicillin-pot clavulanate 1 tab PO BID 6 Days #12 tab 08/19/20 08/22/20 Rx [Augmentin] lactulose 15 ml PO DAILY PRN 08/22/20 08/22/20 History oxycodone [OxyContin] 20 mg PO BID 08/22/20 08/22/20 History Patient History Medical History Lung cancer Palliative care encounter Weakness Social History Smoking Status: Former smoker Second Hand Exposure: No; Do You Dip or Chew Tobacco: No; Tobacco Cessation Education Requested by Patient: No Hx Alcohol Use: No Hx Substance Use: No Preferred Language: Greenlandic Communication Ability: Unable Communication Ability Comment: Patient currently intubated Level Vial Curvature Gauger Required: No Beliefs That Will Affect Care: None Current Living Situation: Other Current Living Situation Comment: Senior Care Other Information That Helps Us Care for You: No Feels Safe at Home: Yes Assistive Devices: None Review of Systems Review of Systems: Emma System Assessment Scale: Pain: 0/3 Tiredness: 1/3 Anxiety: 1/3 Lack of appetite: 1/3 Palliative Performance Scale: 30% Physical Exam Constitutional: + thin, + cachectic, + frail appearing and cooperative ENMT: Nose: + dry nasal mucous membranes Respiratory: Auscultation: + diminished lung sounds Cardiovascular: Heart Sounds: normal S1 and normal S2 Extremities: normal capillary refill Gastrointestinal (Abdomen): normal bowel sounds, soft, nontender, no hepatosplenomegaly Skin: no rashes, warm and dry Psychiatric: Orientation: alert and oriented x 3 Insight: + limited insight Judgement: + limited judgement Results & Data ([facility]) Vital Signs (Past 12 Hours) Vital Signs Temp Pulse Resp BP Pulse Ox 08/27/20 10:20 99/58 L 08/27/20 08:41 36.6 C 90 16 90/52 L 97 08/27/20 07:13 83 20 98 08/27/20 01:08 76 20 97 PG Care Time/CCT Total # of Minutes Spent Total Time Spent with Patient: Total time spent is greater than 50% in coordination of care (as documented) at patient's floor/unit and/or counseling patient: 70 mintues with > 50% of that time spent assessing the patient, discussing overall goals of care with patient, and collaborating with IDT and [facility] Coding Level of Care Code 63353 Inpt Consult Level 3 Diagnoses Palliative care encounter Z51.5 Lung cancer C34.91 Laterality: right Lung location: unspecified part of lung Unresponsiveness R41.89 Septic shock A41.9; R65.21 Weakness R53.1 Time Spent (min) 70
[2020-08-27 14:08] LABS: Partial Thromboplastin Ratio 1.3; Partial Thromboplastin Time 35.3 Seconds (21.0-31.0)
--- NOTE | 2020-08-27 15:36 | Hospitalist Progress Note ---
Date of Service August 27, 2020 Assessment & Plan (1) Thrombocytopenia: Platelets were normal (350k on 08/17/2020). Have trended down since then and now down to 9k on 08/27/2020. - Discussed with oncology -> Ddx includes HIT, ITP, medication-related (Zosyn?) - Repeat this afternoon. - Transfuse if needed - Hold heparin (2) Lung cancer: Per prior notes, this is an adenocarcinoma. Follows with a Dr. Clare Mendes at [facility]. - Discussed with Dr. Vela today. - Will follow-up with Dr. Candelario as well. - Palliative care following as well. (3) Colon cancer: S/p right hemicolectomy at [facility] in 05/2020. Diagnosed as adenocarcinoma. - As above (4) Unresponsiveness: Patient was encephalopathic on arrival. He was obtunded, unable to answer questions or follow commands. Ddx includes liver issues vs. infectious encepholpathy. - Continue lactulose (5) Multifocal pneumonia: CTA chest on admission with multifocal pneumonia. MRSA swab on 08/23 was negative. Procalcitonin was 17. - Continue Zosyn (Started on 08/23/2020) - Recheck procalcitonin tomorrow (6) Septic shock: Initially hypotensive on admission. Likely septic shock in the setting of pneumonia. - No longer on any pressors - Resolved, though BP remains low-normal (~100/60 today). (7) DVT prophylaxis: SCDs - Holding all heparin for low platelets. (Was on heparin until 08/27) Admission and Anticipated Discharge Date Admission Date: August 22, 2020 Subjective Feels well overall as he reports he was able to exercise more today. Has some memory difficulty, as he can remember the hemicolectomy, but doesn't have much time reference and doesn't remember the idea of the biopsy to the lung. Reports no fevers/chills, chest pain, shortness of breath, abdominal pain, nausea, or vomiting. Physical Exam Constitutional: WD/WN, vitals as above Eyes: EOM intact bilaterally; no conjunctival abnormality ENMT: external ear and nose normal, oropharynx normal Neck: trachea midline, no thyromegaly normal visual inspection Respiratory: normal respiratory effort, lungs clear to auscultation no respiratory distress Cardiovascular: RRR, no murmur, no edema Gastrointestinal (Abdomen): Inspection/Auscultation: normal bowel sounds and + abdominal surgical scar (Two laparoscopy incisions healing.); + abdomen abnormal to inspection and abdomen not distended Percussion/Palpation: abdomen soft; abdomen nontender, no guarding and abdomen not rigid Musculoskeletal: no cyanosis or clubbing, extremities motor strength 5/5 Skin: no rashes, warm and dry Neurologic: moves all extremities and awake Psychiatric: Orientation: alert, oriented to person and cooperative Results & Data Results & Data ([facility]) Vital Signs (Past 12 Hours) Vital Signs Temp Pulse Resp BP Pulse Ox 08/27/20 14:07 67 91 08/27/20 10:20 99/58 L 08/27/20 08:41 36.6 C 90 16 90/52 L 97 08/27/20 07:13 83 20 98 PG Care Time/CCT Total # of Minutes Spent Total Time Spent with Patient: Total time spent is greater than 50% in coordination of care (as documented) at patient's floor/unit and/or counseling patient: Coding Level of Care Code 68884 Subseq Hosp Care Lvl 3 Diagnoses Thrombocytopenia D69.6 Lung cancer C34.91 Laterality: right Lung location: unspecified part of lung Colon cancer C18.9 Unresponsiveness R41.89 Multifocal pneumonia J18.9 Septic shock A41.9; R65.21 DVT prophylaxis Z29.9 (1) Lung cancer Laterality: right Lung location: unspecified part of lung Qualified Code(s): C34.91 - Malignant neoplasm of unspecified part of right bronchus or lung
[2020-08-27 17:20] LABS: Anisocytosis Present; Basophils # (auto) 0.01 K/uL (0-0.2); Basophils % (auto) 0.1 %; Eosinophils # (auto) 0.41 K/uL (0-0.5); Eosinophils % (auto) 2.4 %; Hematocrit (blood only) 29.9 % (42-52); Hemoglobin 9.2 g/dL (14.0-18.0); Immature Granulocytes # (auto) 0.07 K/uL (0.00-0.02); Immature Granulocytes % (auto) 0.4 %; Lymphocytes # (auto) 1.33 K/uL (1.2-3.4); Lymphocytes % (auto) 7.8 %; Mean Corpuscular Hemoglobin 26.4 pg (25-34); Mean Corpuscular Hgb Conc 30.8 g/dL (32-36); Mean Corpuscular Volume 85.9 fL (80-100); Monocytes # (auto) 0.76 K/uL (0.11-0.59); Monocytes % (auto) 4.5 %; Neutrophils # (auto) 14.44 K/uL (1.4-6.5); Neutrophils % (auto) 84.8 %; Platelet Count 10 K/uL (130-400); Platelet Estimate SIGNIFIC DECREASED (Normal); RDW Coefficient of Variation 21.1 % (11.5-14.5); RDW Standard Deviation 62.9 fL (36.4-46.3); Red Blood Count 3.48 M/uL (4.7-6.1); Target Cells 1+; White Blood Count 17.02 K/uL (4.8-10.8)
[2020-08-27] MEDS ORDERED: POTASSIUM PHOS 3 MMOL/1 ML INFUSION IV STA (19:10)
[2020-08-27] MEDS ORDERED: POTASSIUM PHOSPHATE 24 MMOL in SODIUM CHLORIDE 0.9% 500 ML IV ONE (19:45)
[2020-08-28] MEDS: PIPERACILLIN/TAZOBACTAM 3.375 GM in DEXTROSE 5% 100 ML IV SCH ×3 (03:39→20:00)
[2020-08-28] MEDS: oxyCODONE/ACETAMINOPHEN 5mg/325mg TAB PO PRN ×3 (03:40→14:50)
[2020-08-28] MEDS: ALBUT/IPRATROP 3MG/0.5MG NEB 3 ML VIAL NEB PRN ×5 (05:10→22:17)
[2020-08-28 06:23] LABS: Albumin Level 1.5 gm/dl (3.4-5.0); BUN Creatinine Ratio 24.8 (10-20); Calcium 7.4 mg/dl (8.5-10.1); Creatinine Clr Calc Pharmacy 117.2 ml/min; Est GFR (African American) 124.3 ml/min; Est GFR (Non-African American) 107.3 ml/min; Potassium 4.3 mmol/L (3.5-5.1)
[2020-08-28 06:31] LABS: Albumin Globulin Ratio 0.4 (0.9-2); Bilirubin,Total 0.5 mg/dl (0.2-1); Total Protein 5.5 gm/dl (6.4-8.2)
[2020-08-28 06:33] LABS: Mean Corpuscular Hgb Conc 30.7 g/dL (32-36); Platelet Count 5 K/uL (130-400)
[2020-08-28 06:48] LABS: Basophils # (auto) 0.01 K/uL (0-0.2); Basophils % (auto) 0.1 %; Eosinophils # (auto) 0.65 K/uL (0-0.5); Eosinophils % (auto) 5.1 %; Hemoglobin 8.6 g/dL (14.0-18.0); Hypochromasia Present; Immature Granulocytes # (auto) 0.05 K/uL (0.00-0.02); Immature Granulocytes % (auto) 0.4 %; Lymphocytes # (auto) 1.14 K/uL (1.2-3.4); Lymphocytes % (auto) 8.9 %; Mean Corpuscular Hemoglobin 25.8 pg (25-34); Mean Corpuscular Volume 84.1 fL (80-100); Mean Platelet Volume 10.4 fL (7.4-10.4); Monocytes # (auto) 0.63 K/uL (0.11-0.59); Monocytes % (auto) 4.9 %; Neutrophils # (auto) 10.39 K/uL (1.4-6.5); Neutrophils % (auto) 80.6 %; Polychromasia 1+; RDW Coefficient of Variation 20.7 % (11.5-14.5); RDW Standard Deviation 61.7 fL (36.4-46.3); Red Blood Count 3.33 M/uL (4.7-6.1); Toxic Vacuolation 1+; White Blood Count 12.87 K/uL (4.8-10.8)
[2020-08-28] MEDS: oxyCODONE HCL 20 MG TABCR (OxyCONTIN) PO SCH ×2 (08:04→19:59)
[2020-08-28] MEDS: LANSOPRAZOLE 30 MG SOLTAB NG SCH (08:05)
[2020-08-28] MEDS: AMIODARONE 200 MG TAB PO SCH (08:06)
[2020-08-28] MEDS: LACTULOSE SYRUP 20 GM/30 ML UDC PO SCH ×2 (08:07→19:59)
[2020-08-28] MEDS: POLYETHYLENE (MIRALAX) 17 GM PACK PO SCH ×2 (10:07→19:59)
[2020-08-28] MEDS: carvediloL 3.125 MG TAB PO SCH ×2 (10:07→19:59)
[2020-08-28] MEDS: predniSONE 20 MG TAB PO SCH (11:34)
--- NOTE | 2020-08-28 13:27 | Hospitalist Progress Note ---
Date of Service August 28, 2020 Assessment & Plan (1) Thrombocytopenia: Platelets were normal (350k on 08/17/2020). Have trended down since then and now down to 9k on 08/27/2020, then 5k on 08/28. - Discussed with oncology today -> Ddx includes HIT, ITP, medication-related (Zosyn?). Given exceptionally low platelets, we need to transfuse. - Started prednisone 1 mg/kg (60 mg) PO daily in case this is ITP. - Transfuse 1 unit of platelets -> Get 1 hr post-platelet level. If it stays stable, it will be more likely to be ITP. If it rises, HIT a bit more likely. - Will discuss with oncology after lab is back. (2) Lung cancer: Per prior notes, this is an adenocarcinoma. Discussed with Dr. Vela on 08/27. Discussed with Dr. Candelario as well. He is actually no longer his oncologist. Dr. Marquis Matthews ([facility] oncologist?) at [phone] is his current o ncologist. Per Dr. Candelario, radiation is not an option, and he will need systemic chemotherapy, but it is being held for poor functional status. - Palliative care following as well. (3) Multifocal pneumonia: CTA chest on admission with multifocal pneumonia. MRSA swab on 08/23 was negative. Procalcitonin was 17. - Continue Zosyn (Started on 08/23/2020) - Recheck procalcitonin tomorrow (4) Colon cancer: S/p right hemicolectomy at [facility] in 05/2020. Diagnosed as adenocarcinoma. - As above (5) Unresponsiveness: Patient was encephalopathic on arrival. He was obtunded, unable to answer questions or follow commands. Ddx includes liver issues vs. infectious encephol pedro. - Continue lactulose (6) Septic shock: Initially hypotensive on admission. Likely septic shock in the setting of pneumonia. - No longer on any pressors - Resolved, though BP remains low-normal (~100/60 today). (7) DVT prophylaxis: SCDs - Holding all heparin for low platelets. (Was on heparin until 08/27) Admission and Anticipated Discharge Date Admission Date: August 22, 2020 Subjective Feeling well today. Less back pain. Reports no fevers/chills, chest pain, shortness of breath, abdominal pain, nausea, or vomiting. Physical Exam Constitutional: WD/WN, vitals as above Eyes: EOM intact bilaterally; no conjunctival abnormality ENMT: external ear and nose normal, oropharynx normal Neck: trachea midline, no thyromegaly normal visual inspection Respiratory: normal respiratory effort, lungs clear to auscultation no respiratory distress Cardiovascular: RRR, no murmur, no edema Gastrointestinal (Abdomen): Inspection/Auscultation: normal bowel sounds and + abdominal surgical scar (Two laparoscopy incisions healing.); + abdomen abnormal to inspection and abdomen not distended Percussion/Palpation: abdomen soft; abdomen nontender, no guarding and abdomen not rigid Musculoskeletal: no cyanosis or clubbing, extremities motor strength 5/5 Skin: + ecchymosis (Left neck; stable from yesterday) Neurologic: moves all extremities and awake Psychiatric: Orientation: alert, oriented to person and cooperative Results & Data Results & Data ([facility]) Vital Signs (Past 12 Hours) Vital Signs Temp Pulse Pulse Resp BP BP Pulse Ox 08/28/20 13:21 86 18 97 08/28/20 13:00 36.9 C 83 18 104/62 08/28/20 12:00 36.8 C 88 17 104/60 96 08/28/20 11:30 36.8 C 82 18 83/48 L 93 08/28/20 11:12 36.4 C L 88 18 95/58 L 08/28/20 10:55 36.9 C 82 18 82/48 L 08/28/20 09:45 97/67 L 08/28/20 08:19 81 18 98 08/28/20 07:49 36.5 C 67 17 103/67 98 08/28/20 05:12 76 16 PG Care Time/CCT Total # of Minutes Spent Total Time Spent with Patient: Total time spent is greater than 50% in coordination of care (as documented) at patient's floor/unit and/or counseling patient: Coding Level of Care Code 03216 Subseq Hosp Care Lvl 3 Diagnoses Thrombocytopenia D69.6 Lung cancer C34.91 Laterality: right Lung location: unspecified part of lung Multifocal pneumonia J18.9 Colon cancer C18.9 Unresponsiveness R41.89 Septic shock A41.9; R65.21 DVT prophylaxis Z29.9 (1) Lung cancer Laterality: right Lung location: unspecified part of lung Qualified Code(s): C34.91 - Malignant neoplasm of unspecified part of right bronchus or lung
--- NOTE | 2020-08-28 14:49 | Consultation Report ---
DATE OF CONSULTATION: 08/27/2020 REASON FOR CONSULTATION: Probable lung cancer. 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 Apparently, he has been in steady clinical decline over the past several weeks. Apparently on presentation the patient was not terribly conversant continuously falling asleep during the interview. Apparently, he was previously diagnosed with colorectal cancer and had abdominal surgery but unfortunately details are not available at the time of today's dictation. I was not able to extract a whole lot of additional information from the patient at bedside as he was focused on "give me a chance" eluding to not being able to move about his room. Thus, the patient has undergone extensive laboratory and radiographic workup. CTA of the chest performed in the Emergency Room reveals a persistent mass-like lesion within the right lung base with extension close to posterior mediastinum resulting in mild mass effect along the heart and esophagus, small right pleural effusion is also slightly increased in size. CT of the abdomen and pelvis reveals two diffuse body edema/anasarca and heterogeneous enhancing liver without focal mass. Further information is needed regarding this gentleman's colon cancer status and I see no evidence that a biopsy on the lung mass has been carried out as of yet. The Pulmonary service has been consulted and it would appear based on documentation, this gentleman was actually seen by Palliative Care in [place] and was told he would only be a candidate for palliative chemotherapy. I do not see any notes from Palliative Care here at [facility]. PAST MEDICAL HISTORY: Significant for colorectal and now suspected lung cancer, generalized weakness, anorexia, history of iron deficiency anemia and hypertension. MEDICATIONS: Oxycodone or OxyContin 20 mg p.o. b.i.d., lactulose 15 mL p.o. daily p.r.n., amoxicillin 1 tablet p.o. b.i.d., amiodarone 200 mg p.o. daily, senna 8.6 mg p.o. b.i.d., MiraLax 17 grams p.o. b.i.d., Protonix 40 mg p.o. daily, multivitamin 1 tablet p.o. daily, mirtazapine 15 mg p.o. at bedtime, levalbuterol 2 inhalations q.i.d. p.r.n., fluticasone inhaler 1 inhalation b.i.d., ferrous gluconate 324 mg p.o. b.i.d., dicyclomine 20 mg p.o. t.i.d. p.r.n., carvedilol 3.125 mg p.o. b.i.d. ALLERGIES: TO IV DYE. SOCIAL HISTORY: The patient is a reformed smoker. He is currently an inmate at [facility]. No history of substance abuse or alcohol. FAMILY HISTORY: Unobtainable. REVIEW OF SYSTEMS: Unobtainable. PHYSICAL EXAMINATION: GENERAL: He is a cachectic appearing 69-year-old -Spanish gentleman in no acute distress. VITAL SIGNS: Temperature 36.5, pulse 83, respiratory rate 20, blood pressure 97/48. SKIN: Turgor is poor. Warm, dry otherwise without rash or lesion. HEENT: Atraumatic, normocephalic. Eyes: PERRLA, EOMI. Sclerae nonicteric. No conjunctival injection. Nares patent without rhinorrhea or discharge. Throat clear. Tongue midline. Dentation in poor repair. NECK: Supple. HEART: Regular rate and rhythm. LUNGS: Diminished breath sounds in the right posterior base. ABDOMEN: Soft, nontender, nondistended. EXTREMITIES: No clubbing or cyanosis. 1-2+ peripheral edema bilaterally. NEUROLOGIC: Nonfocal. LABORATORY DATA: WBC count 28,000, hemoglobin 8.7, platelet count 14,000, neutrophils 25,000. Sodium 140, potassium 3.8, chloride 102, carbon dioxide 32, creatinine 0.54, BUN 14, albumin 1.6. IMPRESSION: 1. Probable lung cancer mass in the right lower lobe. 2. History of colorectal cancer. 3. Altered mental status. 4. Hypoalbuminemia. 5. Thrombocytopenia. 6. Anemia. PLAN: I have been asked to render opinion regarding the patient in his current status. I am not sure whether it is being requested here? This gentleman was not very helpful during interview. Difficult to determine what this gentleman's ultimate goals are, clearly his performance status is suboptimal to receive any form of chemotherapy with an albumin of 1.6 to start. I suspect he is profoundly weak and probably could not perform activities of daily living. I have no information on this gentleman's colorectal cancer nor has there been a formal biopsy on the lung lesion. Thus, at this juncture, I cannot make a determination or even recommendation on how to approach this gentleman moving forward. That said, we need to make improvements on his nutritional status and perhaps have physical therapy work with him a little bit to see if he can gain some strength and work on his mental status because at the moment, I do not think he could make rational decision regarding medical care. He is a penitentiary inmate and suspect the State would be his surrogate in this regard. I am certainly comfortable with palliative consult if everyone agrees. He has ongoing hematologic issues. If his platelet count falls below 10,000, we would proceed with single donor platelets. Apparently, he has a history of iron deficiency and has received iron supplementation in the past. Would continue all reasonable supportive medical care, but I believe he is a DNR/DNI and would not pursue mechanical ventilation, CPR or hemodialysis. As for palliative chemotherapy there again without knowing further information about the previously diagnosed colorectal cancer and more importantly his lung mass, I am unable to make any such recommendation at this time. Thank you very much for allowing me to participate in his care. If you have questions or concerns, feel free to contact me by phone.
[2020-08-28 15:49] LABS: Platelet Count 12 K/uL (130-400); Platelet Estimate SIGNIFIC DECREASED (Normal)
[2020-08-28] MEDS: hydrOXYzine HCl 10 MG TAB PO PRN (19:59)
[2020-08-28 21:46] LABS: Platelet Count 25 K/uL (130-400)
[2020-08-29] MEDS: oxyCODONE/ACETAMINOPHEN 5mg/325mg TAB PO PRN ×3 (01:46→11:06)
[2020-08-29] MEDS: PIPERACILLIN/TAZOBACTAM 3.375 GM in DEXTROSE 5% 100 ML IV SCH ×3 (03:23→20:38)
[2020-08-29] MEDS: ALBUT/IPRATROP 3MG/0.5MG NEB 3 ML VIAL NEB PRN ×5 (04:39→20:05)
[2020-08-29 06:27] LABS: Albumin Level 1.6 gm/dl (3.4-5.0); BUN Creatinine Ratio 29.2 (10-20); Calcium 8.1 mg/dl (8.5-10.1); Creatinine Clr Calc Pharmacy 124.4 ml/min; Est GFR (African American) 127.4 ml/min; Est GFR (Non-African American) 109.9 ml/min; Magnesium 1.8 mg/dl (1.8-2.4); Potassium 4.4 mmol/L (3.5-5.1)
[2020-08-29 06:29] LABS: Albumin Globulin Ratio 0.4 (0.9-2); Bilirubin,Total 0.4 mg/dl (0.2-1); Globulin 4.3 gm/dl (2.5-4.0); Phosphorus 1.9 mg/dl (2.5-4.9); Total Protein 5.9 gm/dl (6.4-8.2)
[2020-08-29 06:48] LABS: Mean Corpuscular Hgb Conc 30.9 g/dL (32-36); Platelet Count 12 K/uL (130-400)
[2020-08-29 06:49] LABS: Hematocrit (blood only) 27.5 % (42-52); Hemoglobin 8.5 g/dL (14.0-18.0); Mean Corpuscular Hemoglobin 26.2 pg (25-34); Mean Corpuscular Volume 84.6 fL (80-100); RDW Coefficient of Variation 20.4 % (11.5-14.5); Red Blood Count 3.25 M/uL (4.7-6.1); White Blood Count 11.27 K/uL (4.8-10.8)
[2020-08-29 06:50] LABS: Anisocytosis Present; Eosinophils # (auto) 0.02 K/uL (0-0.5); Eosinophils % (auto) 0.2 %; Hypochromasia Present; Immature Granulocytes # (auto) 0.02 K/uL (0.00-0.02); Immature Granulocytes % (auto) 0.2 %; Lymphocytes # (auto) 1.23 K/uL (1.2-3.4); Lymphocytes % (auto) 10.9 %; Monocytes # (auto) 0.73 K/uL (0.11-0.59); Monocytes % (auto) 6.5 %; Neutrophils # (auto) 9.27 K/uL (1.4-6.5); Neutrophils % (auto) 82.2 %; Platelet Estimate SIGNIFIC DECREASED (Normal); Target Cells 1+; Toxic Vacuolation 1+
[2020-08-29] MEDS: LANSOPRAZOLE 30 MG SOLTAB NG SCH (10:08)
[2020-08-29] MEDS: carvediloL 3.125 MG TAB PO SCH ×2 (10:08→20:38)
[2020-08-29] MEDS: AMIODARONE 200 MG TAB PO SCH (10:08)
[2020-08-29] MEDS: POLYETHYLENE (MIRALAX) 17 GM PACK PO SCH ×3 (10:09→20:45)
[2020-08-29] MEDS: LACTULOSE SYRUP 20 GM/30 ML UDC PO SCH ×2 (10:09→20:38)
[2020-08-29] MEDS: oxyCODONE HCL 20 MG TABCR (OxyCONTIN) PO SCH ×2 (10:21→20:39)
[2020-08-29] MEDS: predniSONE 20 MG TAB PO SCH (11:06)
[2020-08-29] MEDS: HYDROmorphone INJ 0.5 MG/0.5 ML SYR IV PRN ×3 (11:33→21:31)
[2020-08-29 12:33] LABS: Hematocrit (blood only) 27.7 % (42-52); Hemoglobin 8.7 g/dL (14.0-18.0); Mean Corpuscular Hemoglobin 26.1 pg (25-34); Mean Corpuscular Hgb Conc 31.4 g/dL (32-36); Mean Corpuscular Volume 83.2 fL (80-100); Platelet Estimate SIGNIFIC DECREASED (Normal); RDW Coefficient of Variation 20.3 % (11.5-14.5); RDW Standard Deviation 59.7 fL (36.4-46.3); Red Blood Count 3.33 M/uL (4.7-6.1); White Blood Count 13.72 K/uL (4.8-10.8)
[2020-08-29 12:35] LABS: Platelet Count 11 K/uL (130-400)
--- NOTE | 2020-08-29 12:56 | CT Scan Report ---
CT OF THE CHEST WITHOUT IV CONTRAST CLINICAL HISTORY: Low platelets; increased right flank pain COMPARISON STUDY: Chest CT August 22, 2020. Chest radiograph August 23, 2020. TECHNIQUE: Axial images of the chest were obtained without IV contrast. Images were reviewed in the axial, sagittal, and coronal planes. IV contrast was not administered for this examination. Automat ed exposure control was utilized for the study. A dose lowering technique was utilized adhering to t he principles of ALARA. FINDINGS: Evaluation of the chest is suboptimal on this unenhanced examination. Note is made of mult iple masses within the right lower hemithorax. These have slightly increased since CT of August 15, 2020 . Hyperdense foci are noted within these lesions. Cardiomegaly is noted. There is no pericardial effu jeet. Evaluation for thoracic lymphadenopathy is suboptimal on this unenhanced exam however there are suspected enlarged mediastinal lymph nodes. There are small bilateral pleural effusions. There is no pneumothorax. There is mild emphysema. Note is made of moderate left upper lobe airspace opacity whi ch has progressed. Significantly diminished aeration of the right lower lobe is again noted. No suspi cious lesions within the bony thorax are noted. IMPRESSION: 1. Redemonstration of multiple large masses within the right lower hemithorax which have mildly incre ased in size since initial CT of August 15, 2020. These are consistent with a neoplastic process and are likely malignant. Hyperdense foci within the largest lesion could reflect tumor. However, superimpos ed hemorrhage cannot be excluded. 2. Small bilateral pleural effusions. 3. Slight increase in left upper lobe airspace opacity suggestive of pneumonia. ACT 112: Negative or not required by law. Electronically signed by: Kirill Lobato M.D. 08/29/2020 12:55 PM
--- NOTE | 2020-08-29 13:01 | CT Scan Report ---
CT OF THE ABDOMEN AND PELVIS WITHOUT CONTRAST CLINICAL HISTORY: Low platelets; increased right flank pain COMPARISON STUDY: CT of the abdomen and pelvis August 22, 2020 TECHNIQUE: Axial images of the abdomen and pelvis were obtained without IV contrast. Images were revi ewed in the axial, sagittal, and coronal planes. Automated exposure control was utilized for the leigh dy. A dose lowering technique was utilized adhering to the principles of ALARA. FINDINGS: Please note that the chest CT will reported separately. Multiple masses within the right lo wer hemithorax are better depicted on the chest CT. There are small bilateral pleural effusions. Eval uation of the abdomen and pelvis is significantly compromised given the lack of contrast and paucity of intra-abdominal fat. There is anasarca. Unenhanced images of the liver, spleen, adrenal glands, ki dneys and pancreas are grossly unremarkable. There is no evidence for a bowel obstruction. 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 There is no hydronephrosis. Bowel anas tomosis is noted. There is a moderate amount stool within the colon. There is moderate ascites. IMPRESSION: 1. Exam significantly compromised given lack of contrast and paucity of intraabdominal fat with anasa rca. Ascites. 2. No bowel obstruction. Moderate amount stool within the colon. 3. Redemonstration of multiple masses within the right lower hemithorax, better depicted on the chest CT. ACT 112: Negative or not required by law. Electronically signed by: Kirill Lobato M.D. 08/29/2020 12:59 PM
--- NOTE | 2020-08-29 17:35 | Hospitalist Progress Note ---
Date of Service August 29, 2020 Assessment & Plan (1) Thrombocytopenia: Platelets were normal (350k on 08/17/2020). Have trended down since then and now down to 9k on 08/27/2020, then 5k on 08/28. - Discussed with oncology today -> Ddx includes HIT, ITP, medication-related (Zosyn?). Given exceptionally low platelets, we need to transfuse. - Started prednisone 1 mg/kg (60 mg) PO daily in case this is ITP. - Transfuse 1 unit of platelets -> Get 1 hr post-platelet level. (2) Lung cancer: Per prior notes, this is an adenocarcinoma. Discussed with Dr. Vela on 08/27. Discussed with Dr. Candelario as well. He is actually no longer his oncologist. Dr. Marquis Matthews ([facility] oncologist?) at [phone] is his current oncologist. Per Dr. Candelario, radiation is not an option, and he will need systemic chemotherapy, but it is being held for poor functional status. - Palliative care following as well. (3) Multifocal pneumonia: CTA chest on admission with multifocal pneumonia. MRSA swab on 08/23 was negative. Procalcitonin was 17. - Continue Zosyn (Started on 08/23/2020) - Procalcitonin on 08/29 was 0.37. (4) Colon cancer: S/p right hemicolectomy at [facility] in 05/2020. Diagnosed as adenocarcinoma. - As above (5) Unresponsiveness: Patient was encephalopathic on arrival. He was obtunded, unable to answer questions or follow commands. Ddx includes liver issues vs. infectious encepholpathy. - Continue lactulose (6) Septic shock: Initially hypotensive on admission. Likely septic shock in the setting of pneumonia. - No longer on any pressors - Resolved, though BP remains low-normal (~120/60 today). (7) DVT prophylaxis: SCDs - Holding all heparin for low platelets. (Was on heparin until 08/27) Admission and Anticipated Discharge Date Admission Date: August 22, 2020 Subjective Right-sided pain today. Physical Exam Constitutional: WD/WN, vitals as above Eyes: EOM intact bilaterally; no conjunctival abnormality ENMT: external ear and nose normal, oropharynx normal Neck: trachea midline, no thyromegaly normal visual inspection Respiratory: normal respiratory effort, lungs clear to auscultation no respiratory distress Cardiovascular: RRR, no murmur, no edema Gastrointestinal (Abdomen): Inspection/Auscultation: normal bowel sounds and + abdominal surgical scar (Two laparoscopy incisions healing.); + abdomen abnormal to inspection and abdomen not distended Percussion/Palpation: abdomen soft; abdomen nontender, no guarding and abdomen not rigid Musculoskeletal: no cyanosis or clubbing, extremities motor strength 5/5 Skin: no rashes, warm and dry + ecchymosis (Left neck and chest; appear stable from yesterday) Neurologic: moves all extremities and awake Psychiatric: Orientation: alert, oriented to person and cooperative Results & Data Results & Data ([facility]) Vital Signs (Past 12 Hours) Vital Signs Temp Pulse Pulse Resp BP BP BP 08/29/20 15:35 36.5 C 86 16 117/63 08/29/20 15:12 36.7 C 86 18 121/70 08/29/20 14:56 79 16 08/29/20 14:53 36.9 C 88 18 122/67 08/29/20 14:39 36.4 C L 88 18 114/67 08/29/20 11:03 91 H 16 08/29/20 07:31 83 16 08/29/20 07:06 36.6 C 78 17 119/69 Pulse Ox 08/29/20 15:35 08/29/20 15:12 96 08/29/20 14:56 89 L 08/29/20 14:53 95 08/29/20 14:39 08/29/20 11:03 94 08/29/20 07:31 91 08/29/20 07:06 91 PG Care Time/CCT Total # of Minutes Spent Total Time Spent with Patient: Total time spent is greater than 50% in coordination of care (as documented) at patient's floor/unit and/or counseling patient: Coding Level of Care Code 49618 Subseq Hosp Care Lvl 2 Diagnoses Thrombocytopenia D69.6 Lung cancer C34.91 Laterality: right Lung location: unspecified part of lung Multifocal pneumonia J18.9 Colon cancer C18.9 Unresponsiveness R41.89 Septic shock A41.9; R65.21 DVT prophylaxis Z29.9 (1) Lung cancer Laterality: right Lung location: unspecified part of lung Qualified Code(s): C34.91 - Malignant neoplasm of unspecified part of right bronchus or lung
[2020-08-29 18:26] LABS: Platelet Count 45 K/uL (130-400)
[2020-08-30] MEDS: HYDROmorphone INJ 0.5 MG/0.5 ML SYR IV PRN ×7 (00:30→22:47)
[2020-08-30] MEDS: ALBUT/IPRATROP 3MG/0.5MG NEB 3 ML VIAL NEB PRN ×3 (00:48→10:44)
[2020-08-30] MEDS: PIPERACILLIN/TAZOBACTAM 3.375 GM in DEXTROSE 5% 100 ML IV SCH ×3 (04:55→20:25)
[2020-08-30 06:46] LABS: Hematocrit (blood only) 31.9 % (42-52); Hemoglobin 9.7 g/dL (14.0-18.0); Mean Corpuscular Hemoglobin 26.1 pg (25-34); Mean Corpuscular Hgb Conc 30.4 g/dL (32-36); Platelet Count 25 K/uL (130-400); Platelet Estimate SIGNIFIC DECREASED (Normal); RDW Coefficient of Variation 20.7 % (11.5-14.5); RDW Standard Deviation 62.9 fL (36.4-46.3); Red Blood Count 3.71 M/uL (4.7-6.1); White Blood Count 11.16 K/uL (4.8-10.8)
[2020-08-30 06:51] LABS: BUN Creatinine Ratio 19.2 (10-20); Calcium 7.8 mg/dl (8.5-10.1); Creatinine Clr Calc Pharmacy 101.6 ml/min; Est GFR (African American) 117.2 ml/min; Est GFR (Non-African American) 101.2 ml/min; Magnesium 1.9 mg/dl (1.8-2.4); Potassium 4.2 mmol/L (3.5-5.1)
[2020-08-30 08:25] LABS: Fibrinogen 289 mg/dl (184-400)
[2020-08-30] MEDS ORDERED: POTASSIUM PHOS 3 MMOL/1 ML INFUSION IV STA (09:17)
[2020-08-30] MEDS ORDERED: POTASSIUM PHOSPHATE 21 MMOL in SODIUM CHLORIDE 0.9% 500 ML IV ONE (09:30)
[2020-08-30] MEDS: LACTULOSE SYRUP 20 GM/30 ML UDC PO SCH ×2 (10:15→20:21)
[2020-08-30] MEDS: POLYETHYLENE (MIRALAX) 17 GM PACK PO SCH ×2 (10:16→20:21)
[2020-08-30] MEDS: AMIODARONE 200 MG TAB PO SCH (10:18)
[2020-08-30] MEDS: carvediloL 3.125 MG TAB PO SCH ×2 (10:18→20:18)
[2020-08-30] MEDS: LANSOPRAZOLE 30 MG SOLTAB NG SCH (10:19)
[2020-08-30] MEDS: predniSONE 20 MG TAB PO SCH (10:19)
[2020-08-30] MEDS: oxyCODONE HCL 20 MG TABCR (OxyCONTIN) PO SCH ×2 (10:21→20:18)
--- NOTE | 2020-08-30 15:42 | Hospitalist Progress Note ---
Date of Service August 30, 2020 Assessment & Plan (1) Thrombocytopenia: Platelets were normal (350k on 08/17/2020). Have trended down since then and now down to 9k on 08/27/2020, then 5k on 08/28. - Discussed with oncology today -> Ddx includes HIT, ITP, medication-related (Zosyn?). Given exceptionally low platelets, we needed to transfuse. - On 08/28, started prednisone 1 mg/kg (60 mg) PO daily in case this is ITP. - Transfused a total of 3 units of platelets on 08/28 & 08/29. Plts on 08/30 were 25k. HIT-panel still pending. (2) Lung cancer: Per prior notes, this is an adenocarcinoma. Discussed with Dr. Vela on 08/27. Discussed with Dr. Candelario as well. He is actually no longer his oncologist. Dr. Marquis Avalos (sp?) ([facility] oncologist) his [facility] oncologist. - Discussed with Drs. Mcdonald ([facility] computer aided design technician) and Dr. Vela on 08/30. The patient's goal is to get home. [place] hearing is on October 18, and he could be home by November. He just wants to get home to be with his family. - Dr. Vela will speak with the patient and offer palliative, lower-dose chemo. No real goal of cure, but just trying to sustain long enough to be home. - Palliative care following as well. (3) Multifocal pneumonia: CTA chest on admission with multifocal pneumonia. MRSA swab on 08/23 was negative. Procalcitonin was 17. - Continue Zosyn (Started on 08/23/2020) - Procalcitonin on 08/29 was 0.37, though CT chest on 08/29 indicated slight increase in REN opacity. Will continue abx for now. (4) Colon cancer: S/p right hemicolectomy at [facility] in 05/2020. Diagnosed as ching nocarcinoma. - As above (5) Unresponsiveness: Patient was encephalopathic on arrival. He was obtunded, unable to answer questions or follow commands. Ddx includes liver issues vs. infectious encepholpathy. - Continue lactulose (6) Septic shock: Initially hypotensive on admission. Likely septic shock in the setting of pneumonia. - No longer on any pressors - Resolved, though BP remains low-normal (~120/60 today). (7) DVT prophylaxis: SCDs - Holding all heparin for low platelets. (Was on heparin until 08/27) Admission and Anticipated Discharge Date Admission Date: August 22, 2020 Subjective Flank pain is still there, but under better control today. Reports no fevers/chills, chest pain, shortness of breath, nausea, or vomiting. Physical Exam Constitutional: + acute distress and + cachectic Eyes: EOM intact bilaterally; no conjunctival abnormality ENMT: external ear and nose normal, oropharynx normal Neck: trachea midline, no thyromegaly normal visual inspection Respiratory: normal respiratory effort, lungs clear to auscultation no respiratory distress Cardiovascular: RRR, no murmur, no edema Gastrointestinal (Abdomen): Inspection/Auscultation: normal bowel sounds and + abdominal surgical scar (Two laparoscopy incisions healing.); + abdomen abnormal to inspection and abdomen not distended Percussion/Palpation: abdomen soft; abdomen nontender, no guarding and abdomen not rigid Musculoskeletal: no cyanosis or clubbing, extremities motor strength 5/5 Skin: no rashes, warm and dry + ecchymosis (Left neck and chest; appear stable from yesterday) Neurologic: moves all extremities and awake Psychiatric: Orientation: alert, oriented to person and cooperative Results & Data Results & Data ([facility]) Vital Signs (Past 12 Hours) Vital Signs Temp Pulse Resp BP BP Pulse Ox 08/30/20 15:15 36.7 C 89 17 119/66 97 08/30/20 10:45 80 17 94 08/30/20 10:17 86 121/70 08/30/20 07:58 36.7 C 85 18 141/77 H 100 08/30/20 05:21 86 18 92 PG Care Time/CCT Total # of Minutes Spent Total Time Spent with Patient: Total time spent is greater than 50% in coordination of care (as documented) at patient's floor/unit and/or counseling patient: Coding Level of Care Code 83871 Subseq Hosp Care Lvl 3 Diagnoses Thrombocytopenia D69.6 Lung cancer C34.91 Laterality: right Lung location: unspecified part of lung Multifocal pneumonia J18.9 Colon cancer C18.9 Unresponsiveness R41.89 Septic shock A41.9; R65.21 DVT prophylaxis Z29.9 (1) Lung cancer Laterality: right Lung location: unspecified part of lung Qualified Code(s): C34.91 - Malignant neoplasm of unspecified part of right bronchus or lung
[2020-08-30] MEDS: oxyCODONE HCL IR 5 MG TAB (IMMEDIATE RELEASE) PO PRN ×2 (15:44→21:25)
--- NOTE | 2020-08-30 19:35 | CT Scan Report ---
CT head/brain wo con CLINICAL HISTORY: Low platelets, arm numbness COMPARISON STUDY: August 22, 2020 TECHNIQUE: Axial CT of the brain is performed from the vertex to the skull base. IV contrast was not administered for this examination. A dose lowering technique was utilized adhering to the principles of ALARA. CT DOSE: 537.48 mGy.cm FINDINGS: No acute intracranial hemorrhage, no midline shift or space occupying lesions seen. Stable focal area of decreased attenuation within left parietal lobe is again seen. Diffuse atrophic changes of brain parenchyma are again seen and associated with minimal ex vacuo dila tation of ventricles. There are patchy white matter hypodensities likely on a small vessel basis. Stable nodular calcifications of the anterior portion of the falx are again seen. No acute depressed skull fractures are seen. Visualized paranasal sinuses and mastoid air cells are p atent and well-aerated. IMPRESSION: 1. No acute intracranial hemorrhage, no midline shift or space occupying lesions. 2. Stable focal area of decreased attenuation within left parietal lobe likely representing old infa rct. 3. Atrophic changes of brain parenchyma associated with mild ex vacuo dilatation of ventricles. 4. Chronic small vessel ischemia. ACT 112: Negative or not required by law. The above report was generated using voice recognition software. It may contain grammatical, syntax o r spelling errors. Electronically signed by: Jennifer Gonzaelz DO 08/30/2020 7:34 PM
[2020-08-31] MEDS: HYDROmorphone INJ 0.5 MG/0.5 ML SYR IV PRN ×2 (01:03→08:16)
[2020-08-31] MEDS: PIPERACILLIN/TAZOBACTAM 3.375 GM in DEXTROSE 5% 100 ML IV SCH ×3 (04:13→20:08)
[2020-08-31] MEDS: oxyCODONE HCL IR 5 MG TAB (IMMEDIATE RELEASE) PO PRN ×4 (05:55→22:02)
[2020-08-31 06:24] LABS: Hematocrit (blood only) 27.7 % (42-52); Hemoglobin 8.7 g/dL (14.0-18.0); Mean Corpuscular Hemoglobin 26.4 pg (25-34); Mean Corpuscular Hgb Conc 31.4 g/dL (32-36); Mean Corpuscular Volume 83.9 fL (80-100); Platelet Count 19 K/uL (130-400); RDW Coefficient of Variation 20.4 % (11.5-14.5); RDW Standard Deviation 60.8 fL (36.4-46.3); White Blood Count 12.93 K/uL (4.8-10.8)
[2020-08-31 06:26] LABS: Anisocytosis Present; Eosinophils # (auto) 0.04 K/uL (0-0.5); Eosinophils % (auto) 0.3 %; Hypochromasia Present; Immature Granulocytes # (auto) 0.04 K/uL (0.00-0.02); Immature Granulocytes % (auto) 0.3 %; Lymphocytes # (auto) 0.98 K/uL (1.2-3.4); Lymphocytes % (auto) 7.6 %; Monocytes # (auto) 0.81 K/uL (0.11-0.59); Monocytes % (auto) 6.3 %; Neutrophils # (auto) 11.06 K/uL (1.4-6.5); Neutrophils % (auto) 85.5 %; Platelet Estimate SIGNIFIC DECREASED (Normal); Toxic Vacuolation 1+
[2020-08-31 06:41] LABS: Albumin Level 1.8 gm/dl (3.4-5.0); BUN Creatinine Ratio 26.4 (10-20); Calcium 8.3 mg/dl (8.5-10.1); Est GFR (African American) 123.4 ml/min; Est GFR (Non-African American) 106.5 ml/min; Magnesium 1.8 mg/dl (1.8-2.4); Potassium 4.2 mmol/L (3.5-5.1)
[2020-08-31 06:44] LABS: Albumin Globulin Ratio 0.5 (0.9-2); Bilirubin,Total 0.3 mg/dl (0.2-1); Phosphorus 2.2 mg/dl (2.5-4.9); Total Protein 5.8 gm/dl (6.4-8.2)
[2020-08-31 07:06] LABS: Fibrinogen 242 mg/dl (184-400); INR 1.2 (0.9-1.1); Partial Thromboplastin Time 26.8 Seconds (21.0-31.0); Prothrombin Time 12.1 Seconds (9.0-12.0)
[2020-08-31] MEDS: POLYETHYLENE (MIRALAX) 17 GM PACK PO SCH ×2 (08:51→20:09)
[2020-08-31] MEDS: LACTULOSE SYRUP 20 GM/30 ML UDC PO SCH ×2 (08:52→20:09)
[2020-08-31] MEDS: LANSOPRAZOLE 30 MG SOLTAB NG SCH (08:52)
[2020-08-31] MEDS: AMIODARONE 200 MG TAB PO SCH (08:52)
[2020-08-31] MEDS: carvediloL 3.125 MG TAB PO SCH ×2 (08:52→20:37)
[2020-08-31] MEDS: predniSONE 20 MG TAB PO SCH (08:52)
[2020-08-31] MEDS: oxyCODONE HCL 20 MG TABCR (OxyCONTIN) PO SCH (08:53)
[2020-08-31] MEDS: ALBUT/IPRATROP 3MG/0.5MG NEB 3 ML VIAL NEB PRN ×2 (10:07→20:53)
[2020-08-31] MEDS ORDERED: POTASSIUM PHOS 3 MMOL/1 ML INFUSION IV STA (10:14)
[2020-08-31] MEDS ORDERED: POTASSIUM PHOSPHATE 15 MMOL in SODIUM CHLORIDE 0.9% 250 ML IV ONE (10:30)
--- NOTE | 2020-08-31 12:39 | Palliative Care Progress Note ---
Date of Service August 31, 2020 Assessment & Plan (1) Palliative care encounter: Mr. Dumont was sitting upright in no apparent distress. I reviewed the conversation that he had with Dr. Vela over the last few days regarding low dose chemotherapy options of course for palliative treatment, not curative. I was able to call Svetlana Friedman, the [facility] medical physics researcher at [phone] and updated her and Lisa. She stated that they are keeping Soraya updated internally and did get approval for a bedside visit for her; however, she lives in [place] and transportation is a concern. The [facility] is working on helping with this scenario. I discussed that even a phone call visit would be support, they will look to escalate that and hopefully have clearance over the next day or so. It would be beneficial to have his code status addressed and advanced directive completed prior to his return to correction. soaking pits supervisor will be calling palliative number which was given to Svetlana. Remain Full code for now. Cancer associated pain details listed below. (2) Lung cancer: Followed in [place] and by Dr. Vela. Dr. Vela has met with patient over the last few days and has offered a palliative low dose regiment, purely for life prolonging measures as the patient has wishes to get to his parole in October and hopefully home to spend some time with family in November for end of life. (3) Weakness: (4) Thrombocytopenia: Patient wish suspected ITP. Plt levels 45--> 19. (5) Colon cancer: (6) Cancer associated pain: Patient describes patient reports anterior chest wall pain that worsens at night time and radiates to his left side/back/flank area. Reports it as 8/10 when it 'hits' in his words. Has the following on board for pain management: Long-acting: Oxycontin 20 mg PO BID Oxy IR 10 mg PO Q4 PRN and he has utilized FOUR doses over the past 24 hours. Dilaudid 0.5 mg IV PRN and he has utilized FOUR doses over the past 24 hours. Total PRN OME 42 mg. Will increase long acting to be able to discontinue Dilaudid IV PRN use. New order will read: Oxycontin 30 mg PO BID and continue Oxy IR 10 mg PO Q4 PRN I did discuss Gabapentin with the patient for adjuvant use, but he declined at this time. All of the above discussed with patient and hospitalist. Admission and Anticipated Discharge Date Admission Date: August 22, 2020 Subjective patient reports anterior chest wall pain that worsens at night time and radiates to his left side/back/flank area. Reports it as 8/10 when it 'hits' in his words. Pain medication adjustments made. See A/P for further details. Review of Systems Review of Systems: [place] [facility] Assessment Scale: Pain: 0/3 Tiredness: 1/3 Anxiety: 1/3 Lack of appetite: 1/3 Palliative Performance Scale: 30% Physical Exam Constitutional: + thin, + cachectic, + frail appearing and cooperative ENMT: Nose: + dry nasal mucous membranes Respiratory: Auscultation: + diminished lung sounds Cardiovascular: Heart Sounds: normal S1 and normal S2 Extremities: normal capillary refill Gastrointestinal (Abdomen): normal bowel sounds, soft, nontender, no hepatosplenomegaly Skin: no rashes, warm and dry Psychiatric: Orientation: alert and oriented x 3 Insight: + limited insight Judgement: + limited judgement Results & Data ([facility]) Vital Signs (Past 12 Hours) Vital Signs Temp Pulse Resp BP Pulse Ox 08/31/20 10:08 75 18 92 08/31/20 06:04 36.7 C 77 16 131/80 96 PG Care Time/CCT Total # of Minutes Spent Total Time Spent with Patient: Total time spent is greater than 50% in coordination of care (as documented) at patient's floor/unit and/or counseling patient: 35 minutes with > 50% of that time spent assessing the patient, discussing goals of care and pain management, along with collaborating with IDT Coding Level of Care Code 89360 Subseq Hosp Care Lvl 3 Diagnoses Palliative care encounter Z51.5 Lung cancer C34.91 Laterality: right Lung location: unspecified part of lung Weakness R53.1 Thrombocytopenia D69.6 Colon cancer C18.9 Cancer associated pain G89.3 Time Spent (min) 35 (1) Lung cancer Laterality: right Lung location: unspecified part of lung Qualified Code(s): C34.91 - Malignant neoplasm of unspecified part of right bronchus or lung
--- NOTE | 2020-08-31 12:49 | Progress Notes ---
MEDICAL ONCOLOGY PROGRESS NOTE DATE OF SERVICE: 08/31/2020 DIAGNOSES: 1. Probable lung cancer. 2. History of colorectal cancer. 3. Altered mental status. 4. Hypoalbuminemia. 5. Thrombocytopenia. 6. Anemia. SUBJECTIVE: Mr. Dumont was seen and examined at bedside. His mentation is dramatically improved to day; clearly able to articulate and understands the current clinical situation. I discussed the case directly with Dr. Jeffrey Leon who is caring for Mr. Dumont. Dr. Leon had been in contact with Dr. Candelario, medical oncologist at [facility], outlining the fact this gentleman definitely has lung ca ncer along with his history of colorectal cancer. I suspect what we are seeing radiographically is r epresentative of progressing lung cancer. That said, this gentleman remains a significant risk for s alvage chemotherapy moving forward; however, perhaps could offer him modified carboplatin and paclita xel to buy him some time for either compassionate release to see his family or to extend his life unt il he undergoes a legal parole. That said, again there are still significant concerns moving forward . The patient himself offers no specific complaints today. PHYSICAL EXAMINATION: GENERAL: A pleasant 69-year-old -Turk[place] gentleman in no acute distress. VITAL SIGNS: Current temperature 36.7, pulse 75, respiratory rate 18, blood pressure 131/80. SKIN: Without rash or lesion. HEENT: Dentition in poor repair. No buccal lesions or ulcerations. LYMPHATICS: No cervical or supraclavicular palpable adenopathy. HEART: Regular rate and rhythm. LUNGS: Clear to auscultation. ABDOMEN: Soft, nontender, nondistended. EXTREMITIES: 2+ peripheral edema bilaterally. NEUROLOGIC: Grossly intact. LABORATORY DATA: WBC count 12,930, hemoglobin 8.7, platelet count 19,000. Sodium 137, potassium 4.2 , chloride 99, carbon dioxide 26, creatinine 0.53, BUN 14, albumin 1.8. ASSESSMENT: 1. Non-small cell lung cancer. 2. Thrombocytopenia. 3. Multifocal pneumonia. 4. History of colorectal cancer. 5. Septic shock. 6. Altered mental status. PLAN: Mr. Dumont is in a very difficult position, I believe his disease is progressing and unfortun ately, his performance status is quite marginal at best. I agree with Dr. Leon. Mr. Dumont is ce rtainly not a flight risk and I really do not think he would be a harm out in society in his current condition. Perhaps, residential officials could seriously consider compassionate release to allow this ge ntleman to see his family as his survival in current condition is probably measured in days to a coup le of weeks. Discussed the possibility of perhaps a modified chemotherapeutic regimen, which I think might actually expedite his and not necessarily prolong his life. There are just too many com orbid issues to consider such a measure, even with a modified Taxol, his platelet count and albumin are dreadfully low. I think the best this gentleman could hope for is compassionate release sooner r ather than later. I agree with current medical management and I have nothing further to add at this time. We will continue to follow Mr. Dumont periodically during the hospital stay. Job ID: [id number]
--- NOTE | 2020-08-31 16:50 | Hospitalist Progress Note ---
Date of Service August 31, 2020 Assessment & Plan (1) Thrombocytopenia: Platelets were normal (350k on 08/17/2020). Have trended down since then and now down to 9k on 08/27/2020, then 5k on 08/28. - Discussed with oncology today -> Ddx includes HIT, ITP, medication-related (Zosyn?). Given exceptionally low platelets, we needed to transfuse. - On 08/28, started prednisone 1 mg/kg (60 mg) PO daily in case this is ITP. - Transfused a total of 3 units of platelets on 08/28 & 08/29. Plts on 08/30 were 25k. HIT-panel negative. Likely ITP! - On 08/31, plts still only 19k, but generally trending up on prednisone. Will ask Dr. Vela about duration of prednisone tomorrow. Fibrinogen dropping; will monitor. (2) Lung cancer: Per prior notes, this is an adenocarcinoma. Discussed with Dr. Vela on 08/27. Discussed with Dr. Candelario as well. He is actually no longer his oncologist. Dr. Marquis Avalos (sp?) ([facility] oncologist) his [facility] oncologist. - Discussed with Drs. Mcdonald ([employer] apartment hotel manager) and Dr. Vela on 08/30. The patient's goal is to get home. [place] is on October 18, and he could be home by November. He just wants to get home to be with his family. - Dr. Vela will speak with the patient and offer palliative, lower-dose chemo. No real goal of cure, but just trying to sustain long enough to be home. - Palliative care following as well. - Palliative care adjusted pain meds -> More long-acting and removed Dilaudid IV. (3) Multifocal pneumonia: CTA chest on admission with multifocal pneumonia. MRSA swab on 08/23 was negative. Procalcitonin was 17. - Continue Zosyn (Started on 08/23/2020) - Procalcitonin on 08/29 was 0.37, though CT chest on 08/29 indicated slight increase in REN opacity. Procal down to 0.16 on 08/31. - Will continue abx for now. (4) Colon cancer: S/p right hemicolectomy at [facility] in 05/2020. Diagnosed as adenocarcinoma. - As above (5) Unresponsiveness: Patient was encephalopathic on arrival. He was obtunded, unable to answer questions or follow commands. Ddx includes liver issues vs. infectious encepholpathy. - Continue lactulose (6) Septic shock: Initially hypotensive on admission. Likely septic shock in the setting of pneumonia. - No longer on any pressors - Resolved, though BP remains low-normal (~110/60 today). (7) DVT prophylaxis: SCDs - Holding all heparin for low platelets. (Was on heparin until 08/27) Admission and Anticipated Discharge Date Admission Date: August 22, 2020 Subjective Reports continued right flank pain today. Reports no fevers/chills, chest pain, shortness of breath, abdominal pain, nausea, or vomiting. Physical Exam Constitutional: WD/WN, vitals as above + acute distress and + cachectic Eyes: EOM intact bilaterally; no conjunctival abnormality ENMT: external ear and nose normal, oropharynx normal Neck: trachea midline, no thyromegaly normal visual inspection Respiratory: normal respiratory effort, lungs clear to auscultation no respiratory distress Cardiovascular: RRR, no murmur, no edema Gastrointestinal (Abdomen): Inspection/Auscultation: normal bowel sounds and + abdominal surgical scar (Two laparoscopy incisions healing.); + abdomen abnormal to inspection and abdomen not distended Percussion/Palpation: abdomen soft; abdomen nontender, no guarding and abdomen not rigid Musculoskeletal: no cyanosis or clubbing, extremities motor strength 5/5 Skin: no rashes, warm and dry + ecchymosis (Left neck and chest; appear stable from yesterday) Neurologic: moves all extremities and awake Psychiatric: Orientation: alert, oriented to person and cooperative Results & Data Results & Data ([facility]) Vital Signs (Past 12 Hours) Vital Signs Temp Pulse Resp BP Pulse Ox 08/31/20 15:53 36.6 C 79 16 107/57 L 97 08/31/20 10:08 75 18 92 08/31/20 06:04 36.7 C 77 16 131/80 96 PG Care Time/CCT Total # of Minutes Spent Total Time Spent with Patient: Total time spent is greater than 50% in coordination of care (as documented) at patient's floor/unit and/or counseling patient: Coding Level of Care Code 96428 Subseq Hosp Care Lvl 2 Diagnoses Thrombocytopenia D69.6 Lung cancer C34.91 Laterality: right Lung location: unspecified part of lung Multifocal pneumonia J18.9 Colon cancer C18.9 Unresponsiveness R41.89 Septic shock A41.9; R65.21 DVT prophylaxis Z29.9 (1) Lung cancer Laterality: right Lung location: unspecified part of lung Qualified Code(s): C34.91 - Malignant neoplasm of unspecified part of right bronchus or lung
[2020-08-31] MEDS: oxyCODONE HCL 15 MG TABCR (OxyCONTIN) PO SCH (20:07)
[2020-09-01] MEDS: oxyCODONE HCL IR 5 MG TAB (IMMEDIATE RELEASE) PO PRN ×4 (01:59→18:36)
[2020-09-01] MEDS: ACETAMINOPHEN 500 MG TAB PO PRN (04:34)
[2020-09-01] MEDS: PIPERACILLIN/TAZOBACTAM 3.375 GM in DEXTROSE 5% 100 ML IV SCH ×3 (04:34→20:12)
[2020-09-01 06:37] LABS: BUN Creatinine Ratio 21.2 (10-20); Calcium 8.6 mg/dl (8.5-10.1); Est GFR (African American) 123.4 ml/min; Est GFR (Non-African American) 106.5 ml/min; Hematocrit (blood only) 28.2 % (42-52); Hemoglobin 8.6 g/dL (14.0-18.0); Magnesium 1.8 mg/dl (1.8-2.4); Mean Corpuscular Hemoglobin 26.3 pg (25-34); Mean Corpuscular Hgb Conc 30.5 g/dL (32-36); Mean Corpuscular Volume 86.2 fL (80-100); Phosphorus 2.4 mg/dl (2.5-4.9); Platelet Count 22 K/uL (130-400); Platelet Estimate SIGNIFIC DECREASED (Normal); Potassium 4.1 mmol/L (3.5-5.1); RDW Coefficient of Variation 20.5 % (11.5-14.5); RDW Standard Deviation 62.1 fL (36.4-46.3); Red Blood Count 3.27 M/uL (4.7-6.1); White Blood Count 13.79 K/uL (4.8-10.8)
[2020-09-01] MEDS: ALBUT/IPRATROP 3MG/0.5MG NEB 3 ML VIAL NEB PRN ×3 (07:04→20:53)
[2020-09-01 07:39] LABS: Fibrinogen 204 mg/dl (184-400); INR 1.2 (0.9-1.1); Partial Thromboplastin Time 25.6 Seconds (21.0-31.0); Prothrombin Time 12.2 Seconds (9.0-12.0)
[2020-09-01] MEDS: AMIODARONE 200 MG TAB PO SCH (08:30)
[2020-09-01] MEDS: predniSONE 20 MG TAB PO SCH (08:30)
[2020-09-01] MEDS: carvediloL 3.125 MG TAB PO SCH ×2 (08:30→20:01)
[2020-09-01] MEDS: LANSOPRAZOLE 30 MG SOLTAB NG SCH (08:30)
[2020-09-01] MEDS: LACTULOSE SYRUP 20 GM/30 ML UDC PO SCH ×2 (08:31→19:59)
[2020-09-01] MEDS: oxyCODONE HCL 15 MG TABCR (OxyCONTIN) PO SCH ×2 (08:31→20:12)
[2020-09-01] MEDS: POLYETHYLENE (MIRALAX) 17 GM PACK PO SCH ×2 (08:32→20:02)
--- NOTE | 2020-09-01 22:14 | Hospitalist Progress Note ---
Date of Service September 01, 2020 Assessment & Plan (1) Thrombocytopenia: Platelets were normal (350k on 08/17/2020). Have trended down since then and now down to 9k on 08/27/2020, then 5k on 08/28. - Discussed with oncology today -> Ddx includes HIT, ITP, medication-related (Zosyn?). Given exceptionally low platelets, we needed to transfuse. - On 08/28, started prednisone 1 mg/kg (60 mg) PO daily in case this is ITP. - Transfused a total of 3 units of platelets on 08/28 & 08/29. Plts on 08/30 were 25k. HIT-panel negative. Likely ITP! - On 09/01, plts still only 22k, but generally trending up on prednisone. Will ask Dr. Vela about duration of prednisone tomorrow. Fibrinogen dropping; will monitor. (2) Lung cancer: Per prior notes, this is an adenocarcinoma. Discussed with Dr. Vela on 08/27. Discussed with Dr. Candelario as well. He is actually no longer his oncologist. Dr. Marquis Avalos (sp?) ([facility] oncologist) his [facility] oncologist. - Discussed with Drs. Mcdonald ([employer] retail pharmacy manager) and Dr. Vela on 08/30. The patient's goal is to get home. [place] hearing is on October 18, and he could be home by November. He just wants to get home to be with his family. - Dr. Vela will speak with the patient and offer palliative, lower-dose chemo. No real goal of cure, but just trying to sustain long enough to be home. - Palliative care following as well. - Palliative care adjusted pain meds -> More long-acting and removed Dilaudid IV. (3) Multifocal pneumonia: CTA chest on admission with multifocal pneumonia. MRSA swab on 08/23 was negative. Procalcitonin was 17. - Continue Zosyn (Started on 08/23/2020) - Procalcitonin on 08/29 was 0.37, though CT chest on 08/29 indicated slight increase in REN opacity. Procal down to 0.16 on 08/31. - Will continue abx for now. (4) Colon cancer: S/p right hemicolectomy at [facility] in 05/2020. Diagnosed as adenocarcinoma. - As above (5) Unresponsiveness: Patient was encephalopathic on arrival. He was obtunded, unable to answer questions or follow commands. Ddx includes liver issues vs. infectious encepholpathy. - Continue lactulose (6) Septic shock: Initially hypotensive on admission. Likely septic shock in the setting of pneumonia. - No longer on any pressors - Resolved, though BP remains low-normal (~110/60 today). (7) DVT prophylaxis: SCDs - Holding all heparin for low platelets. (Was on heparin until 08/27) Admission and Anticipated Discharge Date Admission Date: August 22, 2020 Subjective 69 yo male reports feeling better. Not at baseline. He is interested in remaining a full code at this time. Review of Systems Review of Systems: All systems reviewed & are unremarkable except as noted in HPI & below Physical Exam Physical Exam: Constitutional: WD/WN, vitals as above + acute distress and + cachectic Eyes: EOM intact bilaterally; no conjunctival abnormality ENMT: external ear and nose normal, oropharynx normal Neck: trachea midline, no thyromegaly normal visual inspection Respiratory: normal respiratory effort, lungs clear to auscultation no respiratory distress Cardiovascular: RRR, no murmur, no edema Gastrointestinal (Abdomen): Inspection/Auscultation: normal bowel sounds and + abdominal surgical scar (Two laparoscopy incisions healing.); + abdomen abnormal to inspection and abdomen not distended Percussion/Palpation: abdomen soft; abdomen nontender, no guarding and abdomen not rigid Musculoskeletal: no cyanosis or clubbing, extremities motor strength 5/5 Skin: no rashes, warm and dry + ecchymosis (Left neck and chest; appear stable from yesterday) Neurologic: moves all extremities and awake Psychiatric: Orientation: alert, oriented to person and cooperative Results & Data Results & Data ([facility]) Vital Signs (Past 12 Hours) Vital Signs Temp Pulse Resp BP Pulse Ox 09/01/20 20:58 81 20 100 09/01/20 16:39 81 16 96 09/01/20 15:19 36.8 C 78 20 110/60 91 PG Care Time/CCT Total # of Minutes Spent Total Time Spent with Patient: Total time spent is greater than 50% in coordination of care (as documented) at patient's floor/unit and/or counseling patient: Coding Level of Care Code 82472 Subseq Hosp Care Lvl 3 Diagnoses Thrombocytopenia D69.6 Lung cancer C34.91 Laterality: right Lung location: unspecified part of lung Multifocal pneumonia J18.9 Colon cancer C18.9 Unresponsiveness R41.89 Septic shock A41.9; R65.21 DVT prophylaxis Z29.9 Time Spent (min) 35 Comment chart review (1) Lung cancer Laterality: right Lung location: unspecified part of lung Qualified Code(s): C34.91 - Malignant neoplasm of unspecified part of right bronchus or lung
[2020-09-02] MEDS: hydrOXYzine HCl 10 MG TAB PO PRN ×2 (00:21→19:40)
[2020-09-02] MEDS: ALBUT/IPRATROP 3MG/0.5MG NEB 3 ML VIAL NEB PRN ×4 (04:36→21:45)
[2020-09-02] MEDS: oxyCODONE HCL IR 5 MG TAB (IMMEDIATE RELEASE) PO PRN ×4 (04:52→22:46)
[2020-09-02] MEDS: oxyCODONE HCL 15 MG TABCR (OxyCONTIN) PO SCH ×2 (08:46→20:34)
[2020-09-02] MEDS: predniSONE 20 MG TAB PO SCH (08:47)
[2020-09-02] MEDS: AMIODARONE 200 MG TAB PO SCH (08:47)
[2020-09-02] MEDS: carvediloL 3.125 MG TAB PO SCH ×2 (08:47→19:41)
[2020-09-02] MEDS: POLYETHYLENE (MIRALAX) 17 GM PACK PO SCH ×2 (08:48→19:40)
[2020-09-02] MEDS: LANSOPRAZOLE 30 MG SOLTAB NG SCH (08:48)
[2020-09-02] MEDS: LACTULOSE SYRUP 20 GM/30 ML UDC PO SCH ×2 (08:48→19:41)
[2020-09-02] MEDS: POT PHOSPHATE MONOBASIC W/ SOD TAB PO SCH ×2 (17:31→19:40)
[2020-09-02 17:51] LABS: Hematocrit (blood only) 27.6 % (42-52); Hemoglobin 8.3 g/dL (14.0-18.0); Mean Corpuscular Hemoglobin 26.1 pg (25-34); Mean Corpuscular Hgb Conc 30.1 g/dL (32-36); Mean Corpuscular Volume 86.8 fL (80-100); Platelet Count 22 K/uL (130-400); Platelet Estimate SIGNIFIC DECREASED (Normal); RDW Coefficient of Variation 20.5 % (11.5-14.5); RDW Standard Deviation 61.6 fL (36.4-46.3); Red Blood Count 3.18 M/uL (4.7-6.1); White Blood Count 15.33 K/uL (4.8-10.8)
--- NOTE | 2020-09-02 22:29 | Hospitalist Progress Note ---
Date of Service September 02, 2020 Assessment & Plan (1) Thrombocytopenia: Platelets were normal (350k on 08/17/2020). Have trended down since then and now down to 9k on 08/27/2020, then 5k on 08/28. - Discussed with oncology today -> Ddx includes HIT, ITP, medication-related (Zosyn?). Given exceptionally low platelets, we needed to transfuse. - On 08/28, started prednisone 1 mg/kg (60 mg) PO daily in case this is ITP. - Transfused a total of 3 units of platelets on 08/28 & 08/29. Plts on 08/30 were 25k. HIT-panel negative. Likely ITP! - On 09/02 , plts are gradually improving and trending up on prednisone. Will ask Dr. Vela about duration of prednisone tomorrow. Fibrinogen dropping; will monitor. will contine to monitor. (2) Lung cancer: Per prior notes, this is an adenocarcinoma. Discussed with Dr. Vela on 08/27. Discussed with Dr. Candelario as well. He is actually no longer his oncologist. Dr. Marquis Avalos (sp?) ([facility] oncologist) his [facility] oncologist. - Discussed with Drs. Mcdonald ([facility] procedural nurse) and Dr. Vela on 08/30. The patient's goal is to get home. [place] is on October 18, and he could be home by November. He just wants to get home to be with his family. - Dr. Vela will speak with the patient and offer palliative, lower-dose chemo. No real goal of cure, but just trying to sustain long enough to be home. - Palliative care following as well. - Palliative care adjusted pain meds -> More long-acting and removed Dilaudid IV. (3) Multifocal pneumonia: CTA chest on admission with multifocal pneumonia. MRSA swab on 08/23 was negative. Procalcitonin was 17. - Continue Zosyn (Started on 08/23/2020) - Procalcitonin on 08/29 was 0.37, though CT chest on 08/29 indicated slight increase in REN opacity. Procal down to 0.16 on 08/31. - Will continue abx for now. (4) Colon cancer: S/p right hemicolectomy at [facility] in 05/2020. Diagnosed as adenocarcinoma. - As above (5) Unresponsiveness: Patient was encephalopathic on arrival. He was obtunded, unable to answer questions or follow commands. Ddx includes liver issues vs. infectious encephol pedro. - Continue lactulose (6) Septic shock: Initially hypotensive on admission. Likely septic shock in the setting of pneumonia. - No longer on any pressors - Resolved, though BP remains low-normal (~110/60 today). (7) DVT prophylaxis: SCDs - Holding all heparin for low platelets. (Was on heparin until 08/27) Admission and Anticipated Discharge Date Admission Date: August 22, 2020 Subjective Patient reports feeling well. Review of Systems Review of Systems: All systems reviewed & are unremarkable except as noted in HPI & below Physical Exam Physical Exam: Constitutional: WD/WN, vitals as above + acute distress and + cachectic Eyes: EOM intact bilaterally; no conjunctival abnormality ENMT: external ear and nose normal, oropharynx normal Neck: trachea midline, no thyromegaly normal visual inspection Respiratory: normal respiratory effort, lungs clear to auscultation no respiratory distress Cardiovascular: RRR, no murmur, no edema Gastrointestinal (Abdomen): Inspection/Auscultation: normal bowel sounds and + abdominal surgical scar (Two laparoscopy incisions healing.); + abdomen abnormal to inspection and abdomen not distended Percussion/Palpation: abdomen soft; abdomen nontender, no guarding and abdomen not rigid Musculoskeletal: no cyanosis or clubbing, extremities motor strength 5/5 Skin: no rashes, warm and dry + ecchymosis (Left neck and chest; appear stable from yesterday) Neurologic: moves all extremities and awake Psychiatric: Orientation: alert, oriented to person and cooperative Results & Data Results & Data ([facility]) Vital Signs (Past 12 Hours) Vital Signs Temp Pulse Resp BP BP Pulse Ox 09/02/20 21:45 18 96 09/02/20 19:43 96 H 18 124/74 92 09/02/20 16:46 83 18 91 09/02/20 15:25 36.7 C 81 18 99/63 L 91 PG Care Time/CCT Total # of Minutes Spent Total Time Spent with Patient: Total time spent is greater than 50% in coordination of care (as documented) at patient's floor/unit and/or counseling patient: Coding Level of Care Code 04400 Subseq Hosp Care Lvl 2 Diagnoses Thrombocytopenia D69.6 Lung cancer C34.91 Laterality: right Lung location: unspecified part of lung Multifocal pneumonia J18.9 Colon cancer C18.9 Unresponsiveness R41.89 Septic shock A41.9; R65.21 DVT prophylaxis Z29.9 Time Spent (min) 25 (1) Lung cancer Laterality: right Lung location: unspecified part of lung Qualified Code(s): C34.91 - Malignant neoplasm of unspecified part of right bronchus or lung
[2020-09-03] MEDS ORDERED: LORazepam 0.5 MG TAB PO STA (02:47)
[2020-09-03] MEDS: oxyCODONE HCL IR 5 MG TAB (IMMEDIATE RELEASE) PO PRN ×4 (04:20→22:24)
[2020-09-03 07:04] LABS: BUN Creatinine Ratio 19.1 (10-20); Calcium 8.4 mg/dl (8.5-10.1); Creatinine Clr Calc Pharmacy 106.9 ml/min; Est GFR (African American) 119.7 ml/min; Est GFR (Non-African American) 103.3 ml/min; Potassium 3.7 mmol/L (3.5-5.1)
[2020-09-03 07:14] LABS: Hematocrit (blood only) 27.1 % (42-52); Hemoglobin 8.4 g/dL (14.0-18.0); Mean Corpuscular Hemoglobin 26.5 pg (25-34); Mean Corpuscular Volume 85.5 fL (80-100); Mean Platelet Volume 10.5 fL (7.4-10.4); Platelet Count 20 K/uL (130-400); RDW Coefficient of Variation 20.6 % (11.5-14.5); RDW Standard Deviation 62.2 fL (36.4-46.3); Red Blood Count 3.17 M/uL (4.7-6.1); White Blood Count 12.61 K/uL (4.8-10.8)
[2020-09-03] MEDS: oxyCODONE HCL 15 MG TABCR (OxyCONTIN) PO SCH ×2 (08:27→20:50)
[2020-09-03] MEDS: LANSOPRAZOLE 30 MG SOLTAB NG SCH (08:28)
[2020-09-03] MEDS: POLYETHYLENE (MIRALAX) 17 GM PACK PO SCH ×2 (08:28→19:23)
[2020-09-03] MEDS: predniSONE 20 MG TAB PO SCH (08:28)
[2020-09-03] MEDS: POT PHOSPHATE MONOBASIC W/ SOD TAB PO SCH ×2 (08:29→13:01)
[2020-09-03] MEDS: carvediloL 3.125 MG TAB PO SCH ×2 (08:30→19:25)
[2020-09-03] MEDS: AMIODARONE 200 MG TAB PO SCH (08:30)
[2020-09-03] MEDS: LACTULOSE SYRUP 20 GM/30 ML UDC PO SCH ×3 (08:31→19:23)
[2020-09-03] MEDS: hydrOXYzine HCl 10 MG TAB PO PRN ×2 (13:04→19:20)
[2020-09-03] MEDS: ALBUT/IPRATROP 3MG/0.5MG NEB 3 ML VIAL NEB PRN ×3 (13:26→23:41)
--- NOTE | 2020-09-03 22:09 | Hospitalist Progress Note ---
Date of Service September 03, 2020 Assessment & Plan (1) Thrombocytopenia: Platelets were normal (350k on 08/17/2020). Have trended down since then and now down to 9k on 08/27/2020, then 5k on 08/28. - Discussed with oncology today -> Ddx includes HIT, ITP, medication-related (Zosyn?). Given exceptionally low platelets, we needed to transfuse. - On 08/28, started prednisone 1 mg/kg (60 mg) PO daily in case this is ITP. - Transfused a total of 3 units of platelets on 08/28 & 08/29. Plts on 08/30 were 25k. HIT-panel negative. Likely ITP! - On 09/02 , plts are gradually improving and trending up on prednisone. Will ask Dr. Vela about duration of prednisone tomorrow. Fibrinogen dropping; will monitor. will contine to monitor. On 09/03 Patient is doing well. Will plan on discharging patient in the AM. (2) Lung cancer: Per prior notes, this is an adenocarcinoma. Discussed with Dr. Vela on 08/27. Discussed with Dr. Candelario as well. He is actually no longer his oncologist. Dr. Marquis Avalos (sp?) ([facility] oncologist) his [facility] oncologist. - Discussed with Drs. Mcdonald ([employer] geothermal powerplant supervisor) and Dr. Vela on 08/30. The patient's goal is to get home. [place] hearing is on October 18, and he could be home by November. He just wants to get home to be with his family. - Dr. Vela will speak with the patient and offer palliative, lower-dose chemo. No real goal of cure, but just trying to sustain long enough to be home. - Palliative care following as well. - Palliative care adjusted pain meds -> More long-acting and removed Dilaudid IV. (3) Multifocal pneumonia: CTA chest on admission with multifocal pneumonia. MRSA swab on 08/23 was negative. Procalcitonin was 17. - Continue Zosyn (Started on 08/23/2020) - Procalcitonin on 08/29 was 0.37, though CT chest on 08/29 indicated slight increase in REN opacity. Procal down to 0.16 on 08/31. - Will continue abx for now. (4) Colon cancer: S/p right hemicolectomy at [facility] in 05/2020. Diagnosed as adenocarcinoma. - As above (5) Unresponsiveness: Patient was encephalopathic on arrival. He was obtunded, unable to answer questions or follow commands. Ddx includes liver issues vs. infectious encepholpathy. - Continue lactulose (6) Septic shock: Initially hypotensive on admission. Likely septic shock in the setting of pneumonia. - No longer on any pressors - Resolved, though BP remains low-normal (~110/60 today). (7) DVT prophylaxis: SCDs - Holding all heparin for low platelets. (Was on heparin until 08/27) Admission and Anticipated Discharge Date Admission Date: August 22, 2020 Subjective Patient reports feeling well. He has no new complaints at this time. Review of Systems Review of Systems: All systems reviewed & are unremarkable except as noted in HPI & below Physical Exam Physical Exam: Constitutional: WD/WN, vitals as above + acute distress and + cachectic Eyes: EOM intact bilaterally; no conjunctival abnormality ENMT: external ear and nose normal, oropharynx normal Neck: trachea midline, no thyromegaly normal visual inspection Respiratory: normal respiratory effort, lungs clear to auscultation no respiratory distress Cardiovascular: RRR, no murmur, no edema Gastrointestinal (Abdomen): Inspection/Auscultation: normal bowel sounds and + abdominal surgical scar (Two laparoscopy incisions healing.); + abdomen abnormal to inspection and abdomen not distended Percussion/Palpation: abdomen soft; abdomen nontender, no guarding and abdomen not rigid Musculoskeletal: no cyanosis or clubbing, extremities motor strength 5/5 Skin: no rashes, warm and dry + ecchymosis (Left neck and chest; appear stable from yesterday) Neurologic: moves all extremities and awake Psychiatric: Orientation: alert, oriented to person and cooperative Results & Data Results & Data ([facility]) Vital Signs (Past 12 Hours) Vital Signs Temp Pulse Resp BP Pulse Ox 09/03/20 21:29 36.7 C 83 14 116/69 92 09/03/20 19:26 89 18 110/62 93 09/03/20 18:18 90 18 89 L 09/03/20 16:10 36.7 C 88 20 98/61 L 90 09/03/20 13:26 92 H 16 98 PG Care Time/CCT Total # of Minutes Spent Total Time Spent with Patient: Total time spent is greater than 50% in coordination of care (as documented) at patient's floor/unit and/or counseling patient: Coding Level of Care Code 88842 Subseq Hosp Care Lvl 2 Diagnoses Thrombocytopenia D69.6 Lung cancer C34.91 Laterality: right Lung location: unspecified part of lung Multifocal pneumonia J18.9 Colon cancer C18.9 Unresponsiveness R41.89 Septic shock A41.9; R65.21 DVT prophylaxis Z29.9 (1) Lung cancer Laterality: right Lung location: unspecified part of lung Qualified Code(s): C34.91 - Malignant neoplasm of unspecified part of right bronchus or lung
[2020-09-04] MEDS: oxyCODONE HCL IR 5 MG TAB (IMMEDIATE RELEASE) PO PRN ×3 (02:24→12:01)
[2020-09-04] MEDS: hydrOXYzine HCl 10 MG TAB PO PRN (06:39)
[2020-09-04] MEDS: ALBUT/IPRATROP 3MG/0.5MG NEB 3 ML VIAL NEB PRN ×2 (06:57→14:50)
[2020-09-04] MEDS: carvediloL 3.125 MG TAB PO SCH (08:41)
[2020-09-04] MEDS: LANSOPRAZOLE 30 MG SOLTAB NG SCH (08:41)
[2020-09-04] MEDS: LACTULOSE SYRUP 20 GM/30 ML UDC PO SCH (08:41)
[2020-09-04] MEDS: predniSONE 20 MG TAB PO SCH (08:42)
[2020-09-04] MEDS: POLYETHYLENE (MIRALAX) 17 GM PACK PO SCH (08:42)
[2020-09-04] MEDS: AMIODARONE 200 MG TAB PO SCH (08:42)
[2020-09-04] MEDS: oxyCODONE HCL 15 MG TABCR (OxyCONTIN) PO SCH (08:47)
[2020-09-04] MEDS: ACETAMINOPHEN 500 MG TAB PO PRN (13:52)
[2020-09-04] MEDS ORDERED: oxyCODONE IR HOME PACK PO PRN (15:07)
[2020-09-04] MEDS ORDERED: oxyCODONE IR HOME PACK PO SCH (15:08)
[2020-09-04] MEDS ORDERED: oxyCODONE HCL 15 MG TABCR (OxyCONTIN) PO SCH ×2 (15:15)
--- NOTE | 2020-09-07 15:14 | Discharge Summary ---
Date of Service September 04, 2020 Admission HPI Per Admitting Provider Kimani Dumont is a 69yo male inmate from [facility] being brought in for unresponsiveness. Patient has history of lung cancer, cecum cancer as well as HCV, prior CVA, COPD and GERD. He was previously admitted to [facility] from 08/17/20 - 08/19/20 for worsening SOB and edema. He was treated with Zosyn to Augmentin as well as stress steroids and returned home to [facility] on 08/19/20. Of note, there was some initial confusion re: patient's code status. He was seen by Palliative Care on 08/19/20 and reported desire to be FULL CODE. Patient presents today after being found down and unresponsive. Hypotensive and bradycardic on arrival. Initially unresponsive - patient woke to Covid-19 testing and was briefly interactive and asking for water. In the ER patient was administered 2L NSS and Zosyn 4.5gm as well as HCO3 x 1 amp He was admitted to the MICU. While staff was attempting placement of an arterial line the patient became apneic and bradycardic. He maintained a pulse. He was administered Atropine, Bicarbonate and Epinephrine and was intubated. Started on Levophed and Bicarbonate drips Principal Diagnosis lung cancer Discharge Exam Constitutional: WD/WN, vitals as above + acute distress and + cachectic Eyes: EOM intact bilaterally; no conjunctival abnormality ENMT: external ear and nose normal, oropharynx normal Neck: trachea midline, no thyromegaly normal visual inspection Respiratory: normal respiratory effort, lungs clear to auscultation no respiratory distress Cardiovascular: RRR, no murmur, no edema Gastrointestinal (Abdomen): Inspection/Auscultation: normal bowel sounds and + abdominal surgical scar (Two laparoscopy incisions healing.); + abdomen abnormal to inspection and abdomen not distended Percussion/Palpation: abdomen soft; abdomen nontender, no guarding and abdomen not rigid Musculoskeletal: no cyanosis or clubbing, extremities motor strength 5/5 Skin: no rashes, warm and dry + ecchymosis (Left neck and chest; appear stable from yesterday) Neurologic: moves all extremities and awake Psychiatric: Orientation: alert, oriented to person and cooperative Discharge Data Allergies Allergy/AdvReac Type Severity Reaction Status Date / Time Iodinated Contrast Media Allergy Intermediate hives/vomiting Verified 08/22/20 21:13 (IV Contrast) Consultations 08/22/20 21:35 ED Decision to Admit Stat 08/22/20 21:45 ED Decision to Admit Stat 08/23/20 00:02 Consult [employer] Routine 08/26/20 17:01 Consult Palliative Care Routine 08/26/20 18:05 Consult Oncology Routine Ordered Studies 08/22/20 22:08 CT angio chest PE protocol Urgent CT head/brain wo con Urgent 08/22/20 22:35 CT abd pelvis IV con only Urgent 08/23/20 00:02 US point of care ultrasound Urgent 08/29/20 11:20 CT abd pelvis wo con Urgent CT chest diagnostic wo con Urgent 08/30/20 18:50 CT head/brain wo con Stat Hospital Course (1) Thrombocytopenia: Platelets were normal (350k on 08/17/2020). Have trended down since then and now down to 9k on 08/27/2020, then 5k on 08/28. - Discussed with oncology today -> Ddx includes HIT, ITP, medication-related (Zosyn?). Given exceptionally low platelets, we needed to transfuse. - On 08/28, started prednisone 1 mg/kg (60 mg) PO daily in case this is ITP. - Transfused a total of 3 units of platelets on 08/28 & 08/29. Plts on 08/30 were 25k. HIT-panel negative. - On 09/02 , plts are gradually improving and trending up on prednisone. On 09/03 Patient is doing well. Will plan on discharging patient in the AM. On 09/04 Patient was discharged. Will be on prednisone taper as described below, however do not feel this is ITP. Oncology agrees. Gvae verbal sign out to correction facility I appreciate the input from Oncology: Mr. Dumont is in a very difficult position, I believe his disease is progressing and unfortunately, his performance status is quite marginal at best. I agree with Dr. Leon. Mr. Dumont is certainly not a flight risk and I really do not think he would be a harm out in society in his current condition. Perhaps, penitentiary officials could seriously consider compassionate release to allow this gentleman to see his family as his survival in current condition is probably measured in days to a couple of weeks. Discussed the possibility of perhaps a modified chemotherapeutic regimen, which I think might actually expedite his and not necessarily prolong his life. There are just too many comorbid issues to consider such a measure, even with a modified Taxol, his platelet count and albumin are dreadfully low. I think the best this gentleman could hope for is compassionate release sooner rather than later. I agree with current medical management and I have nothing further to add at this time. (2) Lung cancer: Per prior notes, this is an adenocarcinoma. Discussed with Dr. Vela on 08/27. Discussed with Dr. Candelario as well. He is actually no longer his oncologist. Dr. Marquis Avalos (sp?) ([facility] oncologist) his [facility] oncologist. - Discussed with Drs. Mcdonald ([facility] ticket machine operator) and Dr. Vela on 08/30. The patient's goal is to get home. [place] hearing is on October 18, and he could be home by November. He just wants to get home to be with his family. - Dr. Vela will speak with the patient and offer palliative, lower-dose chemo. No real goal of cure, but just trying to sustain long enough to be home. - Palliative care following as well. - Palliative care adjusted pain meds -> More long-acting and removed Dilaudid IV. (3) Multifocal pneumonia: CTA chest on admission with multifocal pneumonia. MRSA swab on 08/23 was negative. Procalcitonin was 17. - Continue Zosyn (Started on 08/23/2020) - Procalcitonin on 08/29 was 0.37, though CT chest on 08/29 indicated slight increase in REN opacity. Procal down to 0.16 on 08/31. - Will continue abx for now. (4) Colon cancer: S/p right hemicolectomy at [facility] in 05/2020. Diagnosed as adenocarcinoma. - As above (5) Unresponsiveness: Patient was encephalopathic on arrival. He was obtunded, unable to answer questions or follow commands. Ddx includes liver issues vs. infectious encepholpathy. - Continue lactulose (6) Septic shock: Initially hypotensive on admission. Likely septic shock in the setting of pneumonia. - No longer on any pressors - Resolved, though BP remains low-normal (7) DVT prophylaxis: SCDs - Holding all heparin for low platelets. (Was on heparin until 08/27) Total Time Total Time Spent Total Time Spent (In Minutes): 32 Total Time Includes: Examination of the Patient, Discharge Planning and Medication Reconciliation Discharge Plan Discharge Items Patient Disposition: [facility] Reason For Visit: UNRESPONSIVENESS Discharge Diagnosis: unresponsiveness Condition on Discharge: Critical Activity: Resume your previous activity Non-emergency contact: Primary Care Provider Call non-emergency contact if: you have any medication questions Follow-up/Referrals: Yue LOPEZ [Primary Care Provider] - Diet: Regular Addtl Attending Provider Instructions: From Oncology: Mr. Dumont is in a very difficult position, I believe his disease is progressing and unfortunately, his performance status is quite marginal at best. Mr. Dumont is certainly not a flight risk and I really do not think he would be a harm out in society in his current condition. Perhaps, penitentiary officials could seriously consider compassionate release to allow this gentleman to see his family as his survival in current condition is probably measured in days to a couple of weeks. Discussed the possibility of perhaps a modified chemotherapeutic regimen, which I think might actually expedite his and not necessarily prolong his life. There are just too many comorbid issues to consider such a measure, even with a modified Taxol, his platelet count and albumin are dreadfully low. I think the best this gentleman could hope for is compassionate release sooner rather than later. I agree with current medical management and I have nothing further to add at this time. We will continue to follow Mr. Dumont periodically during the hospital stay. Pending Studies at Discharge: No Stand-Alone Forms: My [facility] Skilled Items Patient informed of condition?: Yes Discharge Level of Care: Other Communicable Disease: No Discharge Prognosis: Stable Lines: None Urinary Catheter: Yes Medications and DC Order Prescriptions: New oxycodone [OxyContin] 15 mg Tablet,Oral Only,Ext.Rel.12 Hr 30 mg PO BID Qty: 10 RF: 0 prednisone 10 mg tablet See Rx Instructions .ROUTE .COMPLEX Qty: 63 RF: 0 Continued multivitamin Tablet 1 tab PO DAILY RF: 0 carvedilol 3.125 mg Tablet 3.125 mg PO BID RF: 0 mirtazapine 15 mg Tablet 15 mg PO HS RF: 0 ferrous gluconate 324 mg (37.5 mg iron) Tablet 324 mg PO BID RF: 0 fluticasone propion-salmeterol [Wixela Inhub] 250-50 mcg/dose Blister With Device 1 inh INHALATION BID RF: 0 sennosides [senna] 8.6 mg Tablet 8.6 mg PO BID RF: 0 polyethylene glycol 3350 [Miralax] 17 gram Powder In Packet 17 g PO BID RF: 0 oxycodone-acetaminophen [Percocet] 5-325 mg Tablet 1 tab PO Q4H RF: 0 pantoprazole 40 mg Tablet,Delayed Release (Dr/Ec) 40 mg PO DAILY RF: 0 dicyclomine 20 mg Tablet 20 mg PO TID PRN (Reason: Unknown) RF: 0 levalbuterol tartrate [Xopenex HFA] 45 mcg/actuation Hfa Aerosol Inhaler 2 inh INHALATION QID PRN (Reason: Unknown) RF: 0 amiodarone 200 mg Tablet 200 mg PO QAM 30 Days Qty: 30 RF: 0 Changed lactulose 10 gram/15 mL Solution 30 ml PO BID Qty: 1 RF: 0 Discontinued oxycodone [OxyContin] 20 mg Tablet,Oral Only,Ext.Rel.12 Hr 20 mg PO BID RF: 0 amoxicillin-pot clavulanate [Augmentin] 875-125 mg tablet 1 tab PO BID 6 Days Qty: 12 RF: 0 Discharge Orders: Discharge Order (Routine); Ordered 09/04/20 Ordered By: Jared Wallace Admission Data Admit Date/Time: 08/22/20 22:33 Attending Provider: Jared Wallace Admit Provider: Kaylen Baker Primary Care Provider: Yue LOPEZ Other Providers: Christopher Feliciano ; Monique Stearns ; Matt Vela V. ; Jeffrey Leon Other Interventions: Discharge Summary Assessment (RN) Last Done: 09/04/20 15:23 Coding Level of Care Code D/C Day Management >30 mins Diagnoses Thrombocytopenia D69.6 Lung cancer C34.91 Laterality: right Lung location: unspecified part of lung Multifocal pneumonia J18.9 Colon cancer C18.9 Unresponsiveness R41.89 Septic shock A41.9; R65.21 DVT prophylaxis Z29.9
== END 2020-09-04 17:21 | DRG 871 ==
LOC: ED 20:29 → SUATTDRO 22:33 → 1E 22:33 → 3E 08-24 11:33

== ENCOUNTER 2020-09-11 10:42 | Inpatient (IN) ==
[2020-09-11] MEDS ORDERED: SODIUM CHLORIDE 0.9% 1000ML 500 ML IV ONE (11:05)
[2020-09-11 11:59] LABS: Base Excess VBG 3.7 mEq/L; HCO3 VBG 31 mmol/L; Hematocrit (blood only) 29.8 % (42-52); Hemoglobin 9.4 g/dL (14.0-18.0); Mean Corpuscular Hemoglobin 26.6 pg (25-34); Mean Corpuscular Hgb Conc 31.5 g/dL (32-36); Mean Corpuscular Volume 84.4 fL (80-100); Oxygen Saturation VBG < 60.0 %; PCO2 VBG 61 mmHg (38-50); PO2 VBG 31 mmHg; RDW Coefficient of Variation 20.8 % (11.5-14.5); RDW Standard Deviation 62.5 fL (36.4-46.3); Red Blood Count 3.53 M/uL (4.7-6.1); White Blood Count 8.41 K/uL (4.8-10.8); pH VBG 7.32 (7.36-7.41)
--- NOTE | 2020-09-11 12:01 | Emergency Department Note ---
History of Present Illness General Chief complaint: Hypotension Stated complaint: HYPOTENSION Time Seen by Provider: 09/11/20 10:59 History of Present Illness Provider complaint: Hypotension 69-year-old male inmate with history of, colon cancer, multifocal pneumonia presents emergency department in custody for hypotension. Per the report, the patient was hypotensive with a systolic blood pressure in the 70s at the present was referred to the emergency department. He reports he has been feeling increasingly weak and had been having increasing shortness of breath. No hemoptysis. No falls. No chest pain. No abdominal pain. No fevers. Home Medications Medication Instructions Recorded Confirmed Type carvedilol 3.125 mg PO BID 08/15/20 09/11/20 History dicyclomine 20 mg PO TID PRN 08/15/20 09/11/20 History ferrous gluconate 324 mg PO BID 08/15/20 09/11/20 History mirtazapine 15 mg PO HS 08/15/20 09/11/20 History multivitamin 1 tab PO DAILY 08/15/20 09/11/20 History pantoprazole 40 mg PO QAM 08/15/20 09/11/20 History polyethylene glycol 3350 [Miralax] 17 g PO BID 08/15/20 09/11/20 History sennosides [senna] 8.6 mg PO BID 08/15/20 09/11/20 History amiodarone 200 mg PO QAM 30 Days #30 tab 08/19/20 09/11/20 Rx prednisone See Rx Instructions .ROUTE 09/04/20 09/11/20 Rx .COMPLEX #63 tab levofloxacin 500 mg PO DAILY 7 Days #7 tab 09/09/20 09/11/20 Rx albuterol sulfate 2.5 mg INHALATION Q4H PRN 09/11/20 09/11/20 History hydroxyzine pamoate [Vistaril] 25 mg PO HS 09/11/20 09/11/20 History lactulose 15 ml PO DAILY PRN 09/11/20 09/11/20 History oxycodone [OxyContin] 20 mg PO BID 09/11/20 09/11/20 History oxycodone [Roxicodone] 5 mg PO QID PRN 09/11/20 09/11/20 History Allergies Allergy/AdvReac Type Severity Reaction Status Date / Time Iodinated Contrast Media Allergy Intermediate hives/vomiting Verified 09/09/20 14:23 (IV Contrast) Past Med/Surg History Medical History (Updated 09/11/20 @ 14:36 by Margo Echevarria MD) Anasarca Anemia Cancer associated pain Chronic respiratory failure with hypoxia Colon cancer Lung cancer Palliative care encounter Pneumonia Septic shock Severe protein-calorie malnutrition Weakness Surgical History H/O hemicolectomy Family History (Updated 09/11/20 @ 13:05 by Margo Echevarria MD) Other Family history non-contributory Social History Smoking Status: Former smoker Tobacco Type: Cigarettes Second Hand Exposure: No; Hx Alcohol Use: No Hx Substance Use: No Preferred Language: Russian Communication Ability: Unable Artist Manager Required: No Beliefs That Will Affect Care: None Current Living Situation: Other Current Living Situation Comment: Correction Feels Safe at Home: Yes Assistive Devices: None Review of Systems A total of 10 systems reviewed and were otherwise negative Physical Exam Vital Signs Vital Signs - 24 hr 09/11/20 10:55 09/11/20 11:00 09/11/20 11:26 Temperature 36.8 C Temperature Source Oral Pulse Rate 79 86 76 Pulse Rate [Left Apical] Pulse Rate from SpO2 Sensor 88 76 Pulse Rhythm Regular Pulse Rhythm [Left Apical] Pulse Strength Normal Pulse Strength [Left Apical] Respiratory Rate 17 23 17 Respiratory Effort / Characteristics Non-Labored Spontaneous Respiratory Depth Normal Respiratory Pattern Regular Blood Pressure 89/59 L 92/62 L 110/69 Blood Pressure [Right Arm] Blood Pressure Mean 69 72 82 Blood Pressure Mean [Right Arm] Blood Pressure Position Sitting Blood Pressure Position [Right Arm] Pulse Oximetry 93 93 100 Oxygen Delivery Method Nasal Cannula Oxygen Flow Rate 2 Sepsis Recent Fever Within 48 Hours No Sepsis New/Unexplained Change in Mental Status N/A Sepsis Action Taken by Nursing No Action Required 09/11/20 11:30 09/11/20 11:45 09/11/20 12:00 Temperature Temperature Source Pulse Rate 78 80 78 Pulse Rate [Left Apical] 73 Pulse Rate from SpO2 Sensor 78 80 76 Pulse Rhythm Pulse Rhythm [Left Apical] Regular Pulse Strength Pulse Strength [Left Apical] Normal Respiratory Rate 20 24 22 Respiratory Effort / Characteristics Non-Labored Spontaneous Non-Labored Spontaneous Respiratory Depth Normal Respiratory Pattern Regular Blood Pressure 107/69 114/72 99/67 L Blood Pressure [Right Arm] 110/69 Blood Pressure Mean 81 86 77 Blood Pressure Mean [Right Arm] 82 Blood Pressure Position Blood Pressure Position [Right Arm] Lying Pulse Oximetry 100 100 100 Oxygen Delivery Method Nasal Cannula Oxygen Flow Rate 2 Sepsis Recent Fever Within 48 Hours Sepsis New/Unexplained Change in Mental Status Sepsis Action Taken by Nursing 09/11/20 12:15 09/11/20 12:30 09/11/20 12:45 Temperature Temperature Source Pulse Rate 75 77 79 Pulse Rate [Left Apical] Pulse Rate from SpO2 Sensor 75 77 80 Pulse Rhythm Pulse Rhythm [Left Apical] Pulse Strength Pulse Strength [Left Apical] Respiratory Rate 14 14 15 Respiratory Effort / Characteristics Non-Labored Spontaneous Respiratory Depth Respiratory Pattern Blood Pressure 101/62 101/61 98/66 L Blood Pressure [Right Arm] Blood Pressure Mean 75 74 76 Blood Pressure Mean [Right Arm] Blood Pressure Position Blood Pressure Position [Right Arm] Pulse Oximetry 100 93 90 Oxygen Delivery Method Oxygen Flow Rate Sepsis Recent Fever Within 48 Hours Sepsis New/Unexplained Change in Mental Status Sepsis Action Taken by Nursing 09/11/20 13:00 09/11/20 13:15 09/11/20 13:30 Temperature Temperature Source Pulse Rate 74 76 84 Pulse Rate [Left Apical] Pulse Rate from SpO2 Sensor 74 76 85 Pulse Rhythm Pulse Rhythm [Left Apical] Pulse Strength Pulse Strength [Left Apical] Respiratory Rate 14 17 20 Respiratory Effort / Characteristics Non-Labored Spontaneous Respiratory Depth Respiratory Pattern Blood Pressure 101/61 107/69 110/59 L Blood Pressure [Right Arm] Blood Pressure Mean 74 81 76 Blood Pressure Mean [Right Arm] Blood Pressure Position Blood Pressure Position [Right Arm] Pulse Oximetry 90 99 96 Oxygen Delivery Method Oxygen Flow Rate Sepsis Recent Fever Within 48 Hours Sepsis New/Unexplained Change in Mental Status Sepsis Action Taken by Nursing 09/11/20 13:45 Temperature Temperature Source Pulse Rate 79 Pulse Rate [Left Apical] Pulse Rate from SpO2 Sensor 78 Pulse Rhythm Pulse Rhythm [Left Apical] Pulse Strength Pulse Strength [Left Apical] Respiratory Rate 20 Respiratory Effort / Characteristics Respiratory Depth Respiratory Pattern Blood Pressure 114/72 Blood Pressure [Right Arm] Blood Pressure Mean 86 Blood Pressure Mean [Right Arm] Blood Pressure Position Blood Pressure Position [Right Arm] Pulse Oximetry 98 Oxygen Delivery Method Oxygen Flow Rate Sepsis Recent Fever Within 48 Hours Sepsis New/Unexplained Change in Mental Status Sepsis Action Taken by Nursing Physical Exam GENERAL: Ill-appearing -Filipino male in custody with snf guards at bedside EYES: Conjunctivae and EOM are normal. Pupils are equal, round, and reactive to light. Right eye exhibits no discharge. Left eye exhibits no discharge. No scleral icterus. NECK: Normal range of motion. Neck supple. No JVD present. No spinous process tenderness present. No carotid bruit present. No rigidity. No tracheal deviation and normal range of motion present. No Brudzinski's sign and no Kernig's sign noted. CV: Normal rate, regular rhythm, normal heart sounds and intact distal pulses. Palpable radial pulses bue. PULM/CHEST: Diminished breath sounds bilaterally. - Chest Wall: He exhibits no tenderness. ABD: The abdomen is soft. MUSC/SKEL: 2+ pitting edema of the bilateral lower extremities. NEURO: He is alert and oriented to person, place, and time. He has normal strength. No cranial nerve deficit or sensory deficit. Coordination and gait normal. GCS eye subscore is 4. GCS verbal subscore is 5. GCS motor subscore is 6. Cerebellar tests wnl. Course Course 1059: The patient was evaluated in room B7. A complete history and physical exam was performed Cardiac monitoring: An order was placed for continuous cardiac monitoring. The monitor shows a rate of 80 with sinus rhythm EMR reviewed. Patient was admitted to the hospital from August 15 to August 19, 2020. Patient was hypoxic at that time. Patient was admitted for multifocal pneumo mag. Patient has a history of lung and colon cancer. History of CVA and COPD. Patient had a palliative care consult on August 19, 2020. According to that note that the patient had a colon mass removed via a right hemicolectomy in April 2020 and was getting treatment for his cancer at [facility]. Patient was interested in continuing his care at [facility]. Per the notes from the palliative care consult the cancer care was palliative treatment not curative. Patient is a full code. Patient was then readmitted to the hospital on August 22, 2020 and required intubation on that visit for multifocal pneumonia. He was admitted to the hospital from August 22, 2020 until September 04, 2020. Per the note by Dr. Vela oncology the patient has a history of non-small cell lung cancer multifocal pneumonia and thrombocytopenia. Oncology's notes states that chemotherapy would expedite his and not necessarily prolong his life and he has too many comorbidities to consider. Patient was reseen in the emergency department on September 09, 2020. Notes from that day are not completed by the ER physician or the hospitalist. There is a drop from the hospitalist which stated that the patient could be discharged with Levaquin back to snf. Patient's systolic blood pressure in the low 90s. We will give judicious fluid boluses given his pitting edema. 1238: Vital signs stable. Labs show a lactic acid of 8.6. proBNP 2750. We will treat the patient on broad-spectrum antibiotics with cefepime and vancomycin. Patient is willing to stay in the hospital for IV antibiotics and pain control of his cancer pain. Discussed case with Dr. Echevarria [facility] hospitalist will evaluate the patient. Administered Medications Sodium Chloride (Nss 1000ml) 1,000 mls @ 80 mls/hr IV .[id number] TREVOR Stop: 10/11/20 12:29 Last Admin: 09/11/20 12:32 Dose: 80 mls/hr Documented by: [id number] Vancomycin HCl 1,500 mg/ (Sodium Chloride) 530 mls @ 200 mls/hr IV NOW ONE Stop: 09/11/20 15:05 Last Admin: 09/11/20 13:11 Dose: 200 mls/hr Documented by: [id number] Discontinued Medications Hydrocodone Bitart/Acetaminophen (Hydrocodone/Acetamophen 5/325mg Tab) 1 tab PO NOW STA Stop: 09/11/20 12:28 Last Admin: 09/11/20 12:31 Dose: 1 tab Documented by: [id number] Sodium Chloride (Nss 1000ml) 500 mls @ 999 mls/hr IV .Q31M ONE Stop: 09/11/20 11:35 Last Infusion: 09/11/20 11:58 Dose: 0 mls/hr Documented by: [id number] Admin: 09/11/20 11:21 Dose: 999 mls/hr Documented by: [id number] Cefepime HCl (Maxipime) 2,000 mg in 20 mls @ 5 mls/min IV NOW STA; Protocol Stop: 09/11/20 12:30 Last Admin: 09/11/20 12:31 Dose: 5 mls/min Documented by: [id number] Critical Care Time Critical Care Time: Yes Total Critical Care Time: 40 I have personally spent greater than 40 minutes of critical care time in the direct management of this patient. This includes bedside care, interpretation of diagnostic studies, and testing, discussion with consultants, patient, and family members, and other required patient management activities. This 40 minutes is in excess of all separately billable procedures. Medical Decision Making Laboratory Data Result diagrams: 09/11/20 11:48 09/11/20 11:48 Lab Results 09/11/20 09/11/20 09/11/20 Range/Units 11:48 11:48 11:48 WBC 8.41 (4.8-10.8) K/uL RBC 3.53 L (4.7-6.1) M/uL Hgb 9.4 L (14.0-18.0) g/dL Hct 29.8 L (42-52) % MCV 84.4 (80-100) fL MCH 26.6 (25-34) pg MCHC 31.5 L (32-36) g/dL RDW Std Deviation 62.5 H (36.4-46.3) fL RDW Coeff of Acacia 20.8 H (11.5-14.5) % Plt Count 57 L (130-400) K/uL MPV 9.9 (7.4-10.4) fL Immature Gran % (Auto) 0.7 % Neut % (Auto) 87.2 % Lymph % (Auto) 6.7 % Clare % (Auto) 4.3 % Eos % (Auto) 1.1 % Baso % (Auto) 0.0 % Neut # (Auto) 7.34 H (1.4-6.5) K/uL Lymph # (Auto) 0.56 L (1.2-3.4) K/uL Clare # (Auto) 0.36 (0.11-0.59) K/uL Eos # (Auto) 0.09 (0-0.5) K/uL Baso # (Auto) 0.00 (0-0.2) K/uL Immature Gran # (Auto) 0.06 H (0.00-0.02) K/uL Hypochromasia Present Anisocytosis Present PT 14.4 H (9.0-12.0) Seconds INR 1.5 H (0.9-1.1) APTT 29.1 (21.0-31.0) Seconds PTT Ratio 1.1 VBG pH 7.32 L (7.36-7.41) VBG pCO2 61 H (38-50) mmHg VBG pO2 31 mmHg VBG HCO3 31 mmol/L VBG O2 Saturation < 60.0 % VBG Base Excess 3.7 mEq/L Barometric Pressure 736.4 mm/Hg Sodium (136-145) mmol/L Potassium (3.5-5.1) mmol/L Chloride (98-107) mmol/L Carbon Dioxide (21-32) mmol/L Anion Gap (3-11) BUN (7-18) mg/dl Creatinine (0.6-1.4) mg/dl Est Cr Clr Drug Dosing ml/min Est GFR ( Amer) ml/min Est GFR (Non-Af Amer) ml/min BUN/Creatinine Ratio (10-20) Glucose (70-99) mg/dl Lactate (0.4-2.0) mmol/L Calcium (8.5-10.1) mg/dl Magnesium (1.8-2.4) mg/dl Total Bilirubin (0.2-1) mg/dl AST (15-37) U/L ALT (12-78) U/L Alkaline Phosphatase (45-117) U/L Troponin I (0-0.045) ng/ml NT-Pro-B Natriuret Pep (0-900) pg/ml Total Protein (6.4-8.2) gm/dl Albumin (3.4-5.0) gm/dl Globulin (2.5-4.0) gm/dl Albumin/Globulin Ratio (0.9-2) Procalcitonin (0-0.5) ng/ml COVID-19 Eval Order SARS-CoV-2 (PCR) (Negative) 09/11/20 09/11/20 09/11/20 Range/Units 11:48 11:48 11:48 WBC (4.8-10.8) K/uL RBC (4.7-6.1) M/uL Hgb (14.0-18.0) g/dL Hct (42-52) % MCV (80-100) fL MCH (25-34) pg MCHC (32-36) g/dL RDW Std Deviation (36.4-46.3) fL RDW Coeff of Accaia (11.5-14.5) % Plt Count (130-400) K/uL MPV (7.4-10.4) fL Immature Gran % (Auto) % Neut % (Auto) % Lymph % (Auto) % Clare % (Auto) % Eos % (Auto) % Baso % (Auto) % Neut # (Auto) (1.4-6.5) K/uL Lymph # (Auto) (1.2-3.4) K/uL Clare # (Auto) (0.11-0.59) K/uL Eos # (Auto) (0-0.5) K/uL Baso # (Auto) (0-0.2) K/uL Immature Gran # (Auto) (0.00-0.02) K/uL Hypochromasia Anisocytosis PT (9.0-12.0) Seconds INR (0.9-1.1) APTT (21.0-31.0) Seconds PTT Ratio VBG pH (7.36-7.41) VBG pCO2 (38-50) mmHg VBG pO2 mmHg VBG HCO3 mmol/L VBG O2 Saturation % VBG Base Excess mEq/L Barometric Pressure mm/Hg Sodium 135 L (136-145) mmol/L Potassium 4.6 (3.5-5.1) mmol/L Chloride 97 L (98-107) mmol/L Carbon Dioxide 32 (21-32) mmol/L Anion Gap 7.0 (3-11) BUN 14 (7-18) mg/dl Creatinine 0.41 L (0.6-1.4) mg/dl Est Cr Clr Drug Dosing 148.4 ml/min Est GFR ( Amer) 137.1 ml/min Est GFR (Non-Af Amer) 118.3 ml/min BUN/Creatinine Ratio 33.2 H (10-20) Glucose 63 L (70-99) mg/dl Lactate 8.6 H* (0.4-2.0) mmol/L Calcium 8.2 L (8.5-10.1) mg/dl Magnesium 1.8 (1.8-2.4) mg/dl Total Bilirubin 0.3 (0.2-1) mg/dl AST 7 L (15-37) U/L ALT 8 L (12-78) U/L Alkaline Phosphatase 54 (45-117) U/L Troponin I < 0.015 (0-0.045) ng/ml NT-Pro-B Natriuret Pep 2750 H (0-900) pg/ml Total Protein 5.2 L (6.4-8.2) gm/dl Albumin 1.6 L (3.4-5.0) gm/dl Globulin 3.6 (2.5-4.0) gm/dl Albumin/Globulin Ratio 0.4 L (0.9-2) Procalcitonin 0.50 (0-0.5) ng/ml COVID-19 Eval Order SARS-CoV-2 (PCR) (Negative) 09/11/20 09/11/20 09/11/20 Range/Units 13:25 13:25 13:53 WBC (4.8-10.8) K/uL RBC (4.7-6.1) M/uL Hgb (14.0-18.0) g/dL Hct (42-52) % MCV (80-100) fL MCH (25-34) pg MCHC (32-36) g/dL RDW Std Deviation (36.4-46.3) fL RDW Coeff of Acacia (11.5-14.5) % Plt Count (130-400) K/uL MPV (7.4-10.4) fL Immature Gran % (Auto) % Neut % (Auto) % Lymph % (Auto) % Clare % (Auto) % Eos % (Auto) % Baso % (Auto) % Neut # (Auto) (1.4-6.5) K/uL Lymph # (Auto) (1.2-3.4) K/uL Clare # (Auto) (0.11-0.59) K/uL Eos # (Auto) (0-0.5) K/uL Baso # (Auto) (0-0.2) K/uL Immature Gran # (Auto) (0.00-0.02) K/uL Hypochromasia Anisocytosis PT (9.0-12.0) Seconds INR (0.9-1.1) APTT (21.0-31.0) Seconds PTT Ratio VBG pH (7.36-7.41) VBG pCO2 (38-50) mmHg VBG pO2 mmHg VBG HCO3 mmol/L VBG O2 Saturation % VBG Base Excess mEq/L Barometric Pressure mm/Hg Sodium (136-145) mmol/L Potassium (3.5-5.1) mmol/L Chloride (98-107) mmol/L Carbon Dioxide (21-32) mmol/L Anion Gap (3-11) BUN (7-18) mg/dl Creatinine (0.6-1.4) mg/dl Est Cr Clr Drug Dosing ml/min Est GFR ( Amer) ml/min Est GFR (Non-Af Amer) ml/min BUN/Creatinine Ratio (10-20) Glucose (70-99) mg/dl Lactate 7.6 H* (0.4-2.0) mmol/L Calcium (8.5-10.1) mg/dl Magnesium (1.8-2.4) mg/dl Total Bilirubin (0.2-1) mg/dl AST (15-37) U/L ALT (12-78) U/L Alkaline Phosphatase (45-117) U/L Troponin I (0-0.045) ng/ml NT-Pro-B Natriuret Pep (0-900) pg/ml Total Protein (6.4-8.2) gm/dl Albumin (3.4-5.0) gm/dl Globulin (2.5-4.0) gm/dl Albumin/Globulin Ratio (0.9-2) Procalcitonin (0-0.5) ng/ml COVID-19 Eval Order Covid19 at [facility] SARS-CoV-2 (PCR) NEGATIVE (Negative) Imaging Data Radiologist's Impression: Chest X-Ray 09/11/20 11:05 XR chest 1V portable CLINICAL HISTORY: Sepsis COMPARISON STUDY: 09/09/2020 FINDINGS: The cardiac and mediastinal contours remain stable. There is a persistent right basilar opacity with associated small right pleural effusion. There are left perihilar airspace opacities, focal edema versus pneumonia. An event recorder is visualized.[ IMPRESSION: 1. Persistent right basilar opacity, previously demonstrated to represent a large mass 2. Small right pleural effusion 3. Left perihilar airspace opacities. Asymmetric edema versus pneumonia ACT 112: Negative or not required by law. Electronically signed by: Rob Gomez M.D. 09/11/2020 12:05 PM Venous Doppler Study 09/11/20 13:45 US venous doppler LE BI CLINICAL HISTORY: LE edema,metastaitc cancer,r/o DVT COMPARISON STUDY: 08/15/2020 FINDINGS: Real-time and color flow Doppler imaging were performed. Flow was seen within the femoral, popliteal and calf veins with no intraluminal thrombus demonstrated. The saphenous vein is patent. There is diffuse bilateral lower extremity edema. IMPRESSION: No evidence of lower extremity DVT. ACT 112: Negative or not required by law. Electronically signed by: Rob Gomez M.D. 09/11/2020 2:28 PM ECG Data Indication: + SOB/dyspnea Rate (beats per minute): 80 Rhythm: + normal sinus ECG Intervals/blocks: + Normal QRS, + Normal MI and + Normal QT-c ECG ST segments: + Normal ST segments MDM Narrative 1059: The patient was evaluated in room B7. A complete history and physical exam was performed Cardiac monitoring: An order was placed for continuous cardiac monitoring. The monitor shows a rate of 80 with sinus rhythm EMR reviewed. Patient was admitted to the hospital from August 15 to August 19, 2020. Patient was hypoxic at that time. Patient was admitted for multifocal pneumonia. Patient has a history of lung and colon cancer. History of CVA and COPD. Patient had a palliative care consult on August 19, 2020. According to that note that the patient had a colon mass removed via a right hemicolectomy in April 2020 and was getting treatment for his cancer at [facility]. Patient was in terested in continuing his care at [facility]. Per the notes from the palliative care consult the cancer care was palliative treatment not curative. Patient is a full code. Patient was then readmitted to the hospital on August 22, 2020 and required intubation on that visit for multifocal pneumonia. He was admitted to the hospital from August 22, 2020 until September 04, 2020. Per the note by Dr. Vela oncology the patient has a history of non-small cell lung cancer multifocal pneumonia and thrombocytopenia. Oncology's notes states that chemotherapy would expedite his and not necessarily prolong his life and he has too many comorbidities to consider. Patient was reseen in the emergency department on September 09, 2020. Notes from that day are not completed by the ER physician or the hospitalist. There is a drop from the hospitalist which stated that the patient could be discharged with Levaquin back to snf. Patient's systolic blood pressure in the low 90s. We will give judicious fluid boluses given his pitting edema. 1238: Vital signs stable. Labs show a lactic acid of 8.6. proBNP 2750. We will treat the patient on broad-spectrum antibiotics with cefepime and vancomycin. Patient is willing to stay in the hospital for IV antibiotics and pain control of his cancer pain. Discussed case with Dr. Echevarria [facility] hospitalist will evaluate the patient. Impression & Plan Multifocal pneumonia, Lung cancer, Sepsis, Cancer associated pain Discharge Plan Visit Data Chief Complaint: Hypotension Stated Complaint: HYPOTENSION ED Provider: Ang Torres Discharge Problem: Multifocal pneumonia, Lung cancer, Sepsis, Cancer associated pain Patient Disposition: Admitted As Inpatient Forms Stand Alone Forms: [facility] Prescriptions Prescriptions: No Action prednisone 10 mg tablet See Rx Instructions .ROUTE .COMPLEX Qty: 63 RF: 0 levofloxacin 500 mg tablet 500 mg PO DAILY 7 Days Qty: 7 RF: 0 albuterol sulfate 2.5 mg /3 mL (0.083 %) Solution For Nebulization 2.5 mg INHALATION Q4H PRN (Reason: Shortness Of Breath) RF: 0 oxycodone [Roxicodone] 5 mg Tablet 5 mg PO QID PRN (Reason: Pain) RF: 0 hydroxyzine pamoate [Vistaril] 25 mg Capsule 25 mg PO HS RF: 0 oxycodone [OxyContin] 20 mg Tablet,Oral Only,Ext.Rel.12 Hr 20 mg PO BID RF: 0 lactulose 10 gram/15 mL solution 15 ml PO DAILY PRN (Reason: .) RF: 0 multivitamin Tablet 1 tab PO DAILY RF: 0 carvedilol 3.125 mg Tablet 3.125 mg PO BID RF: 0 mirtazapine 15 mg Tablet 15 mg PO HS RF: 0 ferrous gluconate 324 mg (37.5 mg iron) Tablet 324 mg PO BID RF: 0 sennosides [senna] 8.6 mg Tablet 8.6 mg PO BID RF: 0 polyethylene glycol 3350 [Miralax] 17 gram Powder In Packet 17 g PO BID RF: 0 pantoprazole 40 mg Tablet,Delayed Release (/Ec) 40 mg PO QAM RF: 0 dicyclomine 20 mg Tablet 20 mg PO TID PRN (Reason: Unknown) RF: 0 amiodarone 200 mg Tablet 200 mg PO QAM 30 Days Qty: 30 RF: 0 Referrals Referrals: Yue LOPEZ [Primary Care Provider] - Discharge Problem: Lung cancer Qualifiers: Laterality: unspecified laterality Lung location: unspecified part of lung Qualified Code(s): C34.90 - Malignant neoplasm of unspecified part of unspecified bronchus or lung Sepsis Qualifiers: Sepsis type: sepsis due to unspecified organism Sepsis acute organ dysfunction status: unspecified Qualified Code(s): A41.9 - Sepsis, unspecified organism
[2020-09-11 12:05] LABS: Mean Platelet Volume 9.9 fL (7.4-10.4); Platelet Count 57 K/uL (130-400)
--- NOTE | 2020-09-11 12:06 | XRay Report ---
XR chest 1V portable CLINICAL HISTORY: Sepsis COMPARISON STUDY: 09/09/2020 FINDINGS: The cardiac and mediastinal contours remain stable. There is a persistent right basilar opa city with associated small right pleural effusion. There are left perihilar airspace opacities, focal edema versus pneumonia. An event recorder is visualized.[ IMPRESSION: 1. Persistent right basilar opacity, previously demonstrated to represent a large mass 2. Small right pleural effusion 3. Left perihilar airspace opacities. Asymmetric edema versus pneumonia ACT 112: Negative or not required by law. Electronically signed by: Rob Gomez M.D. 09/11/2020 12:05 PM
[2020-09-11 12:11] LABS: INR 1.5 (0.9-1.1); Partial Thromboplastin Ratio 1.1; Partial Thromboplastin Time 29.1 Seconds (21.0-31.0); Prothrombin Time 14.4 Seconds (9.0-12.0)
[2020-09-11 12:15] LABS: Alanine Aminotransferase 8 U/L (12-78); Albumin Level 1.6 gm/dl (3.4-5.0); Aspartate Aminotransferase 7 U/L (15-37); BUN Creatinine Ratio 33.2 (10-20); Blood Urea Nitrogen 14 mg/dl (7-18); Calcium 8.2 mg/dl (8.5-10.1); Carbon Dioxide 32 mmol/L (21-32); Chloride 97 mmol/L (98-107); Creatinine Clr Calc Pharmacy 148.4 ml/min; Est GFR (African American) 137.1 ml/min; Est GFR (Non-African American) 118.3 ml/min; Glucose 63 mg/dl (70-99); Magnesium 1.8 mg/dl (1.8-2.4); Potassium 4.6 mmol/L (3.5-5.1); Sodium 135 mmol/L (136-145)
[2020-09-11 12:22] LABS: Albumin Globulin Ratio 0.4 (0.9-2); Alkaline Phosphatase 54 U/L (45-117); Bilirubin,Total 0.3 mg/dl (0.2-1); Globulin 3.6 gm/dl (2.5-4.0); NT Pro B Type Natriuretic Pept 2750 pg/ml (0-900); Total Protein 5.2 gm/dl (6.4-8.2); Troponin I < 0.015 ng/ml (0-0.045)
[2020-09-11 12:26] LABS: Anisocytosis Present; Eosinophils # (auto) 0.09 K/uL (0-0.5); Eosinophils % (auto) 1.1 %; Hypochromasia Present; Immature Granulocytes # (auto) 0.06 K/uL (0.00-0.02); Immature Granulocytes % (auto) 0.7 %; Lymphocytes # (auto) 0.56 K/uL (1.2-3.4); Lymphocytes % (auto) 6.7 %; Monocytes # (auto) 0.36 K/uL (0.11-0.59); Monocytes % (auto) 4.3 %; Neutrophils # (auto) 7.34 K/uL (1.4-6.5); Neutrophils % (auto) 87.2 %
[2020-09-11] MEDS ORDERED: VANCOMYCIN HCL 1,500 MG in SODIUM CHLORIDE 0.9% 500 ML IV ONE (12:27)
[2020-09-11] MEDS ORDERED: CEFEPIME 2,000 MG/20 ML VIAL IV STA (12:27)
[2020-09-11] MEDS ORDERED: VANCOMYCIN CONSULT ACTIVE PRN ×2 (12:27→15:22)
[2020-09-11] MEDS ORDERED: HYDROCODONE/ACETAMOPHEN 5/325MG TAB PO STA (12:27)
[2020-09-11] MEDS: SODIUM CHLORIDE 0.9% 1000ML 1,000 ML IV SCH (12:32)
--- NOTE | 2020-09-11 13:05 | History & Physical Report ---
Date of Service September 11, 2020 Assessment & Plan (1) Hypotension: Presents with hypotension with systolic blood pressure in the 70s. This could be septic shock given elevated lactate although some of his lactic acidosis may not be from sepsis. He does not have leukocytosis, tachycardia, fevers or hypothermia. He was also recently on long course of prednisone taper-random cortisol last admission was within normal limits although could be some degree of adrenal insufficiency He is quite frail and cachectic, severely low albumin also could be playing a role Admit to PCU -Blood pressure is improved with crystalloid boluses-maintain maintenance fluids at 80 mL's per hour normal saline for now, with caution with volume overload given anasarca and right-sided heart failure -Could consider IV albumin -will give stress dose steroids with IV hydrocortisone -Patient is okay with vasopressors as he had this 2 weeks ago if needed but does not need at this time -Treating pneumonia with antibiotics as below -UA still pending at the time of admission-rule out UTI in immunocompromised state (2) Multifocal pneumonia: -Almost certainly postobstructive pneumonia given large lung mass and recurrent hypotension and lactic acidosis prompting treatment for pneumonia -Was treated last admission with IV Zosyn and vancomycin however had significant issues with thrombocytopenia-perhaps this was related to Zosyn -Continue IV cefepime and vancomycin -Check MRSA swab -Pulmonary toilet -DuoNebs as needed Supplemental O2 to keep pulse ox greater than 90% -He is not yet ready for enrollment in hospice care as he is trying to live until his parole date on October 18, however he has significant pain as noted below and request to be made comfortable -He is also requesting a bear hugger as this helps with his comfort and he feels helps him be able to cough up sputum better (3) Cancer associated pain: Mostly located in the right side of the chest wall and is constant and severe Continue OxyContin 30 mg p.o. twice daily-of note, home med rec this admission says 20 mg twice daily, but this was recently increased to 30 on discharge 10 days ago -Continue oxycodone and increase frequency to 5 mg p.o. every 4 hours as needed pain -Add on morphine 2 mg IV every 2 hours as needed severe breakthrough pain -Palliative care consultation requested to help manage with pain and continued goals of care throughout multiple recurrent hospitalizations and end-stage cancer (4) Thrombocytopenia: Platelets were severely low last admission, HIT was ruled out, initially thought to be ITP and was on long prednisone taper which he is still on Could also have been related to Zosyn as noted above Could also be related to bone marrow involvement perhaps metastatic cancer Platelets are now improved at 57 Follow CBC (5) Lung cancer: Large right sided lung mass known to be non-small cell lung carcinoma As above, not pursuing palliative chemotherapy given poor performance status Patient is okay with treating with IV fluids, IV steroids, vasopressors, IV antibiotics, blood products, but does not want resuscitation or intubation Pain control as above (6) Acidosis, lactic: Has persistently elevated lactate levels, today is higher than previously at 8.6 He does not have a metabolic acidosis or anion gap and perhaps some of this is from liver issues and inability to process lactate-as evidenced by elevated INR, thrombocytopenia, and does have history of hepatitis C with previously noted heterogenous liver on imaging -Start IV thiamine 200 mg once daily -Follow lactate -Continue normal saline -Treating pneumonia as above (7) Colon cancer: Status post hemicolectomy No issues with bowel function Continue bowel regimen as per home meds-MiraLAX, senna, lactulose (8) Anemia: Hemoglobin 9.4, MCV 84.4 Likely secondary to chronic disease Follow CBC No evidence of bleeding at this time (9) Lower extremity edema: Likely secondary to hypoalbuminemia, severely poor nutrition Given presence of cancer, check Dopplers lower extremities for DVT-were negative Encourage p.o. intake (10) Severe protein-calorie malnutrition: As noted above, with cachexia, temporal wasting, very poor appetite and in the setting of metastatic cancer Encouraged p.o. intake (11) Chronic respiratory failure with hypoxia: On chronic to 3 L nasal cannula secondary to COPD and lung cancer Continue such keep pulse ox greater than 90% (12) Oral candidiasis: Secondary to steroid use and cancer, immunocompromise state Start nystatin 5 mL p.o. 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 at present who will pass along to his chain of command to request visitation from family as patient is approaching end-of-life Palliative care consultation requested to help manage goals of care and pain control History of Present Illness Chief Complaint: Low blood pressure Primary Care Provider: JOHN Turner This patient is a 69-year-old prisoner with a history of colon cancer status post hemicolectomy, and progressive non-small cell lung cancer, thrombocytopenia, recent multifocal pneumonia with septic shock requiring mechanical ventilation and vasopressors, severe pulmonary hypertension, hepatic encephalopathy, severe protein calorie malnutrition, COPD, GERD, hepatitis C, CVA, hyperlipidemia who presents to the ER with hypotension with systolic blood pressure in the 70s at the shelter. He denies hemoptysis but has been having increased shortness of breath and a weak cough but feels like he cannot get any sputum up. He feels cold all the time and repeatedly requests to have a bear hugger placed as this helped him previously. He also has chronic severe pain in the right side of his chest and feels it is really important for him to have his pain treated and to be kept comfortable. Paperwork from the shelter regarding his advanced directives was reviewed and the patient has made himself a DNR/DNI, but still wants IV antibiotics, IV fluids, IV steroids and vasopressors as his goal is to live until his parole hearing which is reportedly October 18. He is hopeful to see his family before he dies. He is not receiving any chemotherapy for his cancer as he is a very poor performance status and was told by oncology last admission that the chemotherapy would likely shorten his life span. He reports very poor p.o. intake and appetite. Last bowel movement was this morning and he is making urine. He was seen in the ER 2 days ago and sent home with oral levofloxacin for pneu monia. He was started on intravenous fluids in the EMS and in the ER, he was given IV fluids again and blood pressures improved to the 110s. His lactate was found to be significantly high at 8.6 although he has had elevated lactates chronically it seems and his serum bicarbonate was on the high normal side at 32. Glucose persistently in the 60s. Chest x-ray showed persistent right basilar opacity previously demonstrated represent a large mass, small right pleural effusion, left perihilar airspace opacities representing asymmetric edema versus pneumonia. He was given IV cefepime and vancomycin and continued on maintenance fluids with normal saline. He was also given a dose of hydrocodone for diffuse pain. He is on OxyContin chronically for cancer related pain. Upon discharge from the hospital on 09/04 after his ICU stay and severe thrombocytopenia, he was given a prednisone taper. He will be admitted for recurrent likely postobstructive pneumonia with septic shock. Allergies Allergy/AdvReac Type Severity Reaction Status Date / Time Iodinated Contrast Media Allergy Intermediate hives/vomiting Verified 09/09/20 14:23 (IV Contrast) Home Medications Medication Instructions Recorded Confirmed Type carvedilol 3.125 mg PO BID 08/15/20 09/11/20 History dicyclomine 20 mg PO TID PRN 08/15/20 09/11/20 History ferrous gluconate 324 mg PO BID 08/15/20 09/11/20 History mirtazapine 15 mg PO HS 08/15/20 09/11/20 History multivitamin 1 tab PO DAILY 08/15/20 09/11/20 History pantoprazole 40 mg PO QAM 08/15/20 09/11/20 History polyethylene glycol 3350 [Miralax] 17 g PO BID 08/15/20 09/11/20 History sennosides [senna] 8.6 mg PO BID 08/15/20 09/11/20 History amiodarone 200 mg PO QAM 30 Days #30 tab 08/19/20 09/11/20 Rx prednisone See Rx Instructions .ROUTE 09/04/20 09/11/20 Rx .COMPLEX #63 tab levofloxacin 500 mg PO DAILY 7 Days #7 tab 09/09/20 09/11/20 Rx albuterol sulfate 2.5 mg INHALATION Q4H PRN 09/11/20 09/11/20 History hydroxyzine pamoate [Vistaril] 25 mg PO HS 09/11/20 09/11/20 History lactulose 15 ml PO DAILY PRN 09/11/20 09/11/20 History oxycodone [OxyContin] 20 mg PO BID 09/11/20 09/11/20 History oxycodone [Roxicodone] 5 mg PO QID PRN 09/11/20 09/11/20 History Past Med/Surg History Medical History (Updated 09/11/20 @ 14:58 by Margo Echevarria MD) Anasarca Anemia Cancer associated pain Chronic respiratory failure with hypoxia Colon cancer Lung cancer Palliative care encounter Pneumonia Septic shock Severe protein-calorie malnutrition Weakness Surgical History H/O hemicolectomy Family History (Updated 09/11/20 @ 13:05 by Margo Echevarria MD) Other Family history non-contributory Social History Smoking Status: Former smoker Tobacco Type: Cigarettes Second Hand Exposure: No; Hx Alcohol Use: No Hx Substance Use: No Preferred Language: Colombian Communication Ability: Unable Rubber Goods 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 Has pain all over the right side of his chest constantly. No nausea or vomiting, poor appetite. Generally weak all over. Physical Exam Constitutional: + cachectic and + frail appearing; no acute distress Eyes: PERRL, conjunctivae normal, anicteric sclerae ENMT: Ears: no hearing impairment Mouth: + oral mucosal abnormality (Diffuse white exudate over tongue and buccal mucosa) Neck: trachea midline, no thyromegaly Respiratory: normal respiratory effort (With nasal cannula in place) Auscultation: + diminished lung sounds (Significantly diminished at the right lower and middle lung mcfadden, mildly ); no crackles and no wheezes Cardiovascular: Rate/Rhythm: regular rate and regular rhythm Heart Sounds: no murmur Extremities: + edema (2+ pitting edema of the lower extremities to the thighs bilaterally) Chest (Breasts): Chest: normal inspection of chest Gastrointestinal (Abdomen): normal bowel sounds, soft, nontender, no hepatosplenomegaly Musculoskeletal: Extremities: no cyanosis Skin: no rashes, warm and dry Neurologic: moves all extremities and awake; no focal motor deficits Psychiatric: A+Ox3, euthymic affect Results & Data Results & Data ([facility]) Vital Signs (Past 12 Hours) Vital Signs Temp Pulse Pulse Resp BP BP Pulse Ox 09/11/20 12:30 77 14 101/61 93 09/11/20 12:15 75 14 101/62 100 09/11/20 12:00 78 22 99/67 L 100 09/11/20 11:45 80 24 114/72 100 09/11/20 11:30 78 73 20 107/69 110/69 100 09/11/20 11:26 76 17 110/69 100 09/11/20 11:00 86 23 92/62 L 93 09/11/20 10:55 36.8 C 79 17 89/59 L 93 Laboratory Results 09/11/20 09/11/20 09/11/20 Range/Units 11:48 11:48 11:48 WBC (4.8-10.8) K/uL RBC (4.7-6.1) M/uL Hgb (14.0-18.0) g/dL Hct (42-52) % MCV (80-100) fL MCH (25-34) pg MCHC (32-36) g/dL RDW Std Deviation (36.4-46.3) fL RDW Coeff of Acacia (11.5-14.5) % Plt Count (130-400) K/uL MPV (7.4-10.4) fL Immature Gran % (Auto) % Neut % (Auto) % Lymph % (Auto) % Marin % (Auto) % Eos % (Auto) % Baso % (Auto) % Neut # (Auto) (1.4-6.5) K/uL Lymph # (Auto) (1.2-3.4) K/uL Marin # (Auto) (0.11-0.59) K/uL Eos # (Auto) (0-0.5) K/uL Baso # (Auto) (0-0.2) K/uL Immature Gran # (Auto) (0.00-0.02) K/uL Hypochromasia Anisocytosis PT (9.0-12.0) Seconds INR (0.9-1.1) APTT (21.0-31.0) Seconds PTT Ratio VBG pH (7.36-7.41) VBG pCO2 (38-50) mmHg VBG pO2 mmHg VBG HCO3 mmol/L VBG O2 Saturation % VBG Base Excess mEq/L Barometric Pressure mm/Hg Sodium 135 L (136-145) mmol/L Potassium 4.6 (3.5-5.1) mmol/L Chloride 97 L (98-107) mmol/L Carbon Dioxide 32 (21-32) mmol/L Anion Gap 7.0 (3-11) BUN 14 (7-18) mg/dl Creatinine 0.41 L (0.6-1.4) mg/dl Est Cr Clr Drug Dosing 148.4 ml/min Est GFR ( Amer) 137.1 ml/min Est GFR (Non-Af Amer) 118.3 ml/min BUN/Creatinine Ratio 33.2 H (10-20) Glucose 63 L (70-99) mg/dl Lactate 8.6 H* (0.4-2.0) mmol/L Calcium 8.2 L (8.5-10.1) mg/dl Magnesium 1.8 (1.8-2.4) mg/dl Total Bilirubin 0.3 (0.2-1) mg/dl AST 7 L (15-37) U/L ALT 8 L (12-78) U/L Alkaline Phosphatase 54 (45-117) U/L Troponin I < 0.015 (0-0.045) ng/ml NT-Pro-B Natriuret Pep 2750 H (0-900) pg/ml Total Protein 5.2 L (6.4-8.2) gm/dl Albumin 1.6 L (3.4-5.0) gm/dl Globulin 3.6 (2.5-4.0) gm/dl Albumin/Globulin Ratio 0.4 L (0.9-2) Procalcitonin 0.50 (0-0.5) ng/ml 09/11/20 09/11/20 09/11/20 Range/Units 11:48 11:48 11:48 WBC 8.41 (4.8-10.8) K/uL RBC 3.53 L (4.7-6.1) M/uL Hgb 9.4 L (14.0-18.0) g/dL Hct 29.8 L (42-52) % MCV 84.4 (80-100) fL MCH 26.6 (25-34) pg MCHC 31.5 L (32-36) g/dL RDW Std Deviation 62.5 H (36.4-46.3) fL RDW Coeff of Acacia 20.8 H (11.5-14.5) % Plt Count 57 L (130-400) K/uL MPV 9.9 (7.4-10.4) fL Immature Gran % (Auto) 0.7 % Neut % (Auto) 87.2 % Lymph % (Auto) 6.7 % Marin % (Auto) 4.3 % Eos % (Auto) 1.1 % Baso % (Auto) 0.0 % Neut # (Auto) 7.34 H (1.4-6.5) K/uL Lymph # (Auto) 0.56 L (1.2-3.4) K/uL Marin # (Auto) 0.36 (0.11-0.59) K/uL Eos # (Auto) 0.09 (0-0.5) K/uL Baso # (Auto) 0.00 (0-0.2) K/uL Immature Gran # (Auto) 0.06 H (0.00-0.02) K/uL Hypochromasia Present Anisocytosis Present PT 14.4 H (9.0-12.0) Seconds INR 1.5 H (0.9-1.1) APTT 29.1 (21.0-31.0) Seconds PTT Ratio 1.1 VBG pH 7.32 L (7.36-7.41) VBG pCO2 61 H (38-50) mmHg VBG pO2 31 mmHg VBG HCO3 31 mmol/L VBG O2 Saturation < 60.0 % VBG Base Excess 3.7 mEq/L Barometric Pressure 736.4 mm/Hg Sodium (136-145) mmol/L Potassium (3.5-5.1) mmol/L Chloride (98-107) mmol/L Carbon Dioxide (21-32) mmol/L Anion Gap (3-11) BUN (7-18) mg/dl Creatinine (0.6-1.4) mg/dl Est Cr Clr Drug Dosing ml/min Est GFR ( Amer) ml/min Est GFR (Non-Af Amer) ml/min BUN/Creatinine Ratio (10-20) Glucose (70-99) mg/dl Lactate (0.4-2.0) mmol/L Calcium (8.5-10.1) mg/dl Magnesium (1.8-2.4) mg/dl Total Bilirubin (0.2-1) mg/dl AST (15-37) U/L ALT (12-78) U/L Alkaline Phosphatase (45-117) U/L Troponin I (0-0.045) ng/ml NT-Pro-B Natriuret Pep (0-900) pg/ml Total Protein (6.4-8.2) gm/dl Albumin (3.4-5.0) gm/dl Globulin (2.5-4.0) gm/dl Albumin/Globulin Ratio (0.9-2) Procalcitonin (0-0.5) ng/ml Diagnostic Findings Chest X-Ray 09/11/20 11:05 XR chest 1V portable CLINICAL HISTORY: Sepsis COMPARISON STUDY: 09/09/2020 FINDINGS: The cardiac and mediastinal contours remain stable. There is a persistent right basilar opacity with associated small right pleural effusion. There are left perihilar airspace opacities, focal edema versus pneumonia. An event recorder is visualized.[ IMPRESSION: 1. Persistent right basilar opacity, previously demonstrated to represent a large mass 2. Small right pleural effusion 3. Left perihilar airspace opacities. Asymmetric edema versus pneumonia ACT 112: Negative or not required by law. Electronically signed by: Rob Gomez M.D. 09/11/2020 12:05 PM ECG Additional Comments: ECG on 09/11/2020 at 1053 with normal sinus rhythm, rate 80, left axis deviation, T wave inversions in V3 through V6 Code Status & VTE Plan Code Status DNR/DNI VTE Prophylaxis Plan VTE Prophylaxis will be ordered: Yes PG Care Time/CCT Total # of Minutes Spent Total Time Spent with Patient: Total time spent is greater than 50% in coordination of care (as documented) at patient's floor/unit and/or counseling patient: Coding Level of Care Code 88538 Initial Inpt Care Lvl 3 Diagnoses Hypotension I95.9 Multifocal pneumonia J18.9 Cancer associated pain G89.3 Thrombocytopenia D69.6 Lung cancer C34.90 Laterality: unspecified laterality Lung location: unspecified part of lung Acidosis, lactic E87.2 Colon cancer C18.9 Anemia D64.9 Anemia type: unspecified type Lower extremity edema R60.0 Severe protein-calorie malnutrition E43 Chronic respiratory failure with hypoxia J96.11 Oral candidiasis B37.0 DVT prophylaxis Z29.9 (1) Lung cancer Laterality: unspecified laterality Lung location: unspecified part of lung Qualified Code(s): C34.90 - Malignant neoplasm of unspecified part of unspecified bronchus or lung (2) Anemia Anemia type: unspecified type Qualified Code(s): D64.9 - Anemia, unspecified
--- NOTE | 2020-09-11 14:29 | Ultrasound Report ---
US venous doppler LE BI CLINICAL HISTORY: LE edema,metastaitc cancer,r/o DVT COMPARISON STUDY: 08/15/2020 FINDINGS: Real-time and color flow Doppler imaging were performed. Flow was seen within the femoral, popliteal and calf veins with no intraluminal thrombus demonstrated. The saphenous vein is patent. Th ere is diffuse bilateral lower extremity edema. IMPRESSION: No evidence of lower extremity DVT. ACT 112: Negative or not required by law. Electronically signed by: Rob Gomez M.D. 09/11/2020 2:28 PM
[2020-09-11] MEDS ORDERED: ONDANSETRON INJ 2 MG/ML 2 ML VIAL IV PRN (15:22)
[2020-09-11] MEDS ORDERED: oxyCODONE HCL IR 5 MG TAB (IMMEDIATE RELEASE) PO PRN (15:22)
[2020-09-11] MEDS ORDERED: HYDROCORTISONE SOD SUCCINATE 100 MG/2 ML VIAL IV STA (15:22)
[2020-09-11] MEDS ORDERED: HYDROCORTISONE SOD 100 MG in SYRINGE 0 ML IV STA (15:42)
--- NOTE | 2020-09-11 16:10 | Pharmacy Report ---
Pharmacy Abx Initial Consult - Date of Service September 11, 2020 - Pharmacy Dosing Scope Date of Consult: 09/11/20 Consultation requested by: Dr. Echevarria Pharmacy is consulted to initiate vancomycin IV dosing therapy, order appropriate labs and adjust drug dose/frequency. - Subjective The patient is a 69 year old M admitted on 09/11/20 13:55. - Objective Height: 5 ft 8 in Weight: 63.5 kg Vital Signs (Past 12hrs): Vital Signs Temp Pulse Pulse Resp BP BP Pulse Ox 09/11/20 15:40 80 09/11/20 15:22 36.7 C 78 22 117/66 98 09/11/20 13:45 79 20 114/72 98 09/11/20 13:30 84 20 110/59 L 96 09/11/20 13:15 76 17 107/69 99 09/11/20 13:00 74 14 101/61 90 09/11/20 12:45 79 15 98/66 L 90 09/11/20 12:30 77 14 101/61 93 09/11/20 12:15 75 14 101/62 100 09/11/20 12:00 78 22 99/67 L 100 09/11/20 11:45 80 24 114/72 100 09/11/20 11:30 78 73 20 107/69 110/69 100 09/11/20 11:26 76 17 110/69 100 09/11/20 11:00 86 23 92/62 L 93 09/11/20 10:55 36.8 C 79 17 89/59 L 93 Pulse Ox 09/11/20 15:40 09/11/20 15:22 99 09/11/20 13:45 09/11/20 13:30 09/11/20 13:15 09/11/20 13:00 09/11/20 12:45 09/11/20 12:30 09/11/20 12:15 09/11/20 12:00 09/11/20 11:45 09/11/20 11:30 09/11/20 11:26 09/11/20 11:00 09/11/20 10:55 Lab Results (24hrs): Laboratory Tests (24 Hours) 09/11/20 09/11/20 09/11/20 11:48 11:48 11:48 WBC 8.41 Neut # (Auto) 7.34 H Creatinine 0.41 L Est Cr Clr Drug Dosing 148.4 Procalcitonin 0.50 Micro Results: 09/11/20 11:48 Aerobic Blood Culture - Pending Blood Anaerobic Blood Culture - Pending 09/11/20 11:49 Aerobic Blood Culture - Pending Blood Anaerobic Blood Culture - Pending - Risk Factors for Resistance * Incarcerated * Hospitalization for 48 hours or more within the past 90 days * Immunocompromised (chronic steroid therapy) * Antimicrobial use within the last 90 days [levofloxacin, zosyn] - Assessment & Plan Assessment 69 year old M who presents with hypotension and multifocal pneumonia for which he was recently hospitalized, started on vancomycin and cefepime. Past medical history significant for colon cancer s/p hemicolectomy and progressive NSCLC w/ large R sided lung mass (not on chemotherapy). He was seen in the ER 2 days ago and discharged on PO levofloxacin. Received a vancomycin load of 1500mg X 1 this afternoon. MRSA nasal ordered. Afebrile and no leukocytosis, elevated lactate. Renal function stable, however SCr likely not reflective of his true renal function given cachectic state. Plan Vancomycin IV * Patient meets criteria for vancomycin AUC dosing nomogram * AUC/HILDA is the preferred PK/PD target for vancomycin * Target AUC/HILDA = 400-600 * AUC guided dosing is effective and associated with decreased risk of nephrotoxicity * Will initiate vancomycin 1gm (~15mg/kg) IV q8h and obtain a trough at steady state Pharmacy will continue to follow and will adjust dose/frequency as necessary. Thank you.
[2020-09-11] MEDS: THIAMINE HCL 200 MG in SODIUM CHLORIDE 0.9% 50 ML IV SCH (16:15)
[2020-09-11] MEDS: NYSTATIN SUSP 500,000 U/5 ML UDC PO SCH ×2 (16:16→21:00)
[2020-09-11] MEDS: FERROUS GLUCONATE 324 MG TAB PO SCH (16:17)
[2020-09-11 18:01] LABS: Appearance Urine Clear (Clear); Bacteria Urine Automated Negative (Negative); Bilirubin Urine Negative (Negative); Blood Urine Negative (Negative); Color Urine Dark Yellow; Glucose Urine UA Negative (Negative); Ketones Urine Trace (Negative); Leukocyte Esterase Urine Negative (Negative); Nitrite Urine Negative (Negative); Protein Urine Trace (Negative); RBC Urine Automated 0-4 /hpf (0-4); Specific Gravity Urine 1.026 (1.000-1.030); Urobilinogen Urine Negative (Negative)
[2020-09-11 18:15] LABS: Mucus Urine Present (None Prsent)
[2020-09-11] MEDS: oxyCODONE HCL 15 MG TABCR (OxyCONTIN) PO SCH (20:59)
[2020-09-11] MEDS: POLYETHYLENE (MIRALAX) 17 GM PACK PO SCH (20:59)
[2020-09-11] MEDS: VANCOMYCIN HCL 1,000 MG in SODIUM CHLORIDE 0.9% 250 ML IV SCH (20:59)
[2020-09-11] MEDS: HEPARIN SOD 5,000 UNIT/0.5 ML VIAL SQ SCH (20:59)
[2020-09-11] MEDS: CEFEPIME 2,000 MG in SYRINGE 0 ML IV SCH (20:59)
[2020-09-11] MEDS: hydrOXYzine HCl 25 MG TAB PO SCH (21:00)
[2020-09-11] MEDS: HYDROCORTISONE SOD 50 MG in SYRINGE 0 ML IV SCH (21:00)
[2020-09-11] MEDS: MIRTAZAPINE TAB 15 MG TAB PO SCH (21:00)
[2020-09-11] MEDS: SENNA 8.6 MG TAB PO SCH (21:00)
[2020-09-11] MEDS: MELATONIN 3 MG TAB PO PRN (21:56)
[2020-09-11] MEDS ORDERED: HYDROCORTISONE SOD SUCCINATE 100 MG/2 ML VIAL IV SCH (22:00)
[2020-09-11] MEDS: ALBUTEROL 0.083% NEBU SOLN 3 ML VIAL INH PRN (22:35)
[2020-09-12] MEDS: SODIUM CHLORIDE 0.9% 1000ML 1,000 ML IV SCH ×2 (02:27→18:43)
[2020-09-12] MEDS: VANCOMYCIN HCL 1,000 MG in SODIUM CHLORIDE 0.9% 250 ML IV SCH (03:42)
[2020-09-12] MEDS: CEFEPIME 2,000 MG in SYRINGE 0 ML IV SCH ×3 (03:42→21:35)
[2020-09-12] MEDS: HYDROCORTISONE SOD 50 MG in SYRINGE 0 ML IV SCH ×3 (05:54→21:36)
[2020-09-12] MEDS: MoRPHine SULFATE 2 MG/ML CARP IV PRN ×2 (05:58→19:52)
[2020-09-12 06:08] LABS: Hemoglobin 8.6 g/dL (14.0-18.0); Mean Corpuscular Hemoglobin 25.7 pg (25-34); Mean Corpuscular Hgb Conc 29.7 g/dL (32-36); Mean Corpuscular Volume 86.6 fL (80-100); RDW Coefficient of Variation 21.2 % (11.5-14.5); RDW Standard Deviation 65.8 fL (36.4-46.3); Red Blood Count 3.35 M/uL (4.7-6.1); White Blood Count 10.42 K/uL (4.8-10.8)
[2020-09-12 06:10] LABS: Mean Platelet Volume 9.5 fL (7.4-10.4); Platelet Count 68 K/uL (130-400)
[2020-09-12 06:18] LABS: INR 1.4 (0.9-1.1)
[2020-09-12] MEDS: ALBUTEROL 0.083% NEBU SOLN 3 ML VIAL INH PRN ×3 (06:26→20:03)
[2020-09-12 06:39] LABS: Albumin Level 1.6 gm/dl (3.4-5.0); BUN Creatinine Ratio 37.5 (10-20); Calcium 7.9 mg/dl (8.5-10.1); Creatinine Clr Calc Pharmacy 112.7 ml/min; Est GFR (African American) 122.4 ml/min; Est GFR (Non-African American) 105.6 ml/min; Magnesium 1.7 mg/dl (1.8-2.4); Potassium 4.8 mmol/L (3.5-5.1)
[2020-09-12 06:41] LABS: Albumin Globulin Ratio 0.4 (0.9-2); Bilirubin,Total 0.3 mg/dl (0.2-1); Globulin 3.8 gm/dl (2.5-4.0); Phosphorus 3.1 mg/dl (2.5-4.9); Total Protein 5.4 gm/dl (6.4-8.2)
[2020-09-12 06:57] LABS: Anisocytosis Present; Basophils # (auto) 0.01 K/uL (0-0.2); Basophils % (auto) 0.1 %; Eosinophils # (auto) 0.01 K/uL (0-0.5); Eosinophils % (auto) 0.1 %; Immature Granulocytes # (auto) 0.08 K/uL (0.00-0.02); Immature Granulocytes % (auto) 0.8 %; Lymphocytes # (auto) 0.81 K/uL (1.2-3.4); Lymphocytes % (auto) 7.8 %; Monocytes # (auto) 0.47 K/uL (0.11-0.59); Monocytes % (auto) 4.5 %; Neutrophils # (auto) 9.04 K/uL (1.4-6.5); Neutrophils % (auto) 86.7 %
[2020-09-12] MEDS: oxyCODONE HCL 15 MG TABCR (OxyCONTIN) PO SCH ×2 (08:14→21:34)
[2020-09-12] MEDS: LACTULOSE SYRUP 10 GM/15 ML BTL 960 ML PO SCH (08:15)
[2020-09-12] MEDS: SENNA 8.6 MG TAB PO SCH ×2 (08:16→21:37)
[2020-09-12] MEDS: AMIODARONE 200 MG TAB PO SCH (08:16)
[2020-09-12] MEDS: FERROUS GLUCONATE 324 MG TAB PO SCH ×2 (08:16→17:34)
[2020-09-12] MEDS: NYSTATIN SUSP 500,000 U/5 ML UDC PO SCH ×4 (08:16→21:35)
[2020-09-12] MEDS: POLYETHYLENE (MIRALAX) 17 GM PACK PO SCH ×2 (08:17→21:38)
[2020-09-12] MEDS: PANTOprazole 40 MG TAB PO SCH (08:17)
[2020-09-12] MEDS: HEPARIN SOD 5,000 UNIT/0.5 ML VIAL SQ SCH ×2 (08:17→21:37)
[2020-09-12] MEDS: MULTIVITAMIN TAB PO SCH (08:18)
[2020-09-12] MEDS: THIAMINE HCL 200 MG in SODIUM CHLORIDE 0.9% 50 ML IV SCH (08:26)
--- NOTE | 2020-09-12 13:06 | Palliative Care Consultation ---
Date of Consultation September 12, 2020 Assessment & Plan (1) Cancer associated pain: By his description, this is consistent with neuropathic pain. Per previous notes, he had been offered gabapentin but declined. We discussed importance of adjuvant treatments for neuropathic pain. He is agreeable to lidocaine patch and we will continue current dose of oxycodone ER. He is getting 60mg of oxycodone daily in ER dosing. With a target of 10-20% of total dose for breakthrough dosing, will increase to 10mg every four hours as needed. We discussed using this as needed rather that having to watch the clock. (2) Anxiety: He recognizes that this is contributing to his pain level and worrying about prn dosing is contributing to his anxiety level. Will order lorazepam prn to address anxiety symptoms. Encouraged him not to use oxycodone because he is feeling anxious. (3) Palliative care encounter: Kimani understands that he is dying. He had been hoping to make it until his parole hearing in October but is clearly declining. JOHN Turner had been working on a family visit. Will check with them tomorrow on the status of that. He is now DNR/DNI and talks openly about approaching his . He notes that there is "nothing to do now but be comfortable". (4) Lung cancer: Laterality: unspecified laterality Lung location: unspecified part of lung Qualified Code(s): C34.90 - Malignant neoplasm of unspecified part of unspecified bronchus or lung (5) Colon cancer: (6) Multifocal pneumonia: History of Present Illness Reason for Consultation: pain management, goals of care Requesting Physician: Dr. Echevarria Attending Physician: Ander Sal DO History of Present Illness 69 yo gentleman with history of colon cancer and NSCLC who readmitted to the hospital with hypotension related to postobstructive pneumonia. He has had ongoing problems with pain in his right chest requiring medication adjustment on his previous admission. He describes a feeling like there is acid in his chest. The pain radiates around his chest to his flank and back. He does get some relief with oxycodone and has been on 30mg oxycodone ER with 5mg prn. He tells me that as long as he gets the medication when he needs it, the pain is better. He also tells me that when he is feeling anxious, the pain is worse. He has had significant anxiety "dying is scary". He is on mirtazipine and hydroxyzine at HS. Allergies Allergy/AdvReac Type Severity Reaction Status Date / Time Iodinated Contrast Media Allergy Intermediate hives/vomiting Verified 09/09/20 14:23 (IV Contrast) Home Medications Medication Instructions Recorded Confirmed Type carvedilol 3.125 mg PO BID 08/15/20 09/11/20 History dicyclomine 20 mg PO TID PRN 08/15/20 09/11/20 History ferrous gluconate 324 mg PO BID 08/15/20 09/11/20 History mirtazapine 15 mg PO HS 08/15/20 09/11/20 History multivitamin 1 tab PO DAILY 08/15/20 09/11/20 History pantoprazole 40 mg PO QAM 08/15/20 09/11/20 History polyethylene glycol 3350 [Miralax] 17 g PO BID 08/15/20 09/11/20 History sennosides [senna] 8.6 mg PO BID 08/15/20 09/11/20 History amiodarone 200 mg PO QAM 30 Days #30 tab 08/19/20 09/11/20 Rx prednisone See Rx Instructions .ROUTE 09/04/20 09/11/20 Rx .COMPLEX #63 tab levofloxacin 500 mg PO DAILY 7 Days #7 tab 09/09/20 09/11/20 Rx albuterol sulfate 2.5 mg INHALATION Q4H PRN 09/11/20 09/11/20 History hydroxyzine pamoate [Vistaril] 25 mg PO HS 09/11/20 09/11/20 History lactulose 15 ml PO DAILY PRN 09/11/20 09/11/20 History oxycodone [OxyContin] 20 mg PO BID 09/11/20 09/11/20 History oxycodone [Roxicodone] 5 mg PO QID PRN 09/11/20 09/11/20 History Patient History Medical History Anasarca Anemia Cancer associated pain Chronic respiratory failure with hypoxia Colon cancer Lung cancer Palliative care encounter Pneumonia Septic shock Severe protein-calorie malnutrition Weakness Surgical History H/O hemicolectomy Family History Other Family history non-contributory Social History Smoking Status: Former smoker Tobacco Type: Cigarettes Second Hand Exposure: No; Hx Alcohol Use: No Hx Substance Use: Yes Last Used Substance: Unknown Preferred Language: Maori Communication Ability: Effective Labor Relations Analyst Required: No Beliefs That Will Affect Care: None Current Living Situation: Other Current Living Situation Comment: JOHN Turner Feels Safe at Home: Yes Safety Concerns: Feels Safe At This Time Assistive Devices: None Review of Systems Review of Systems: [place] Symptom Assessment Scale Pain 2/3 Dyspnea 1/3 Anxiety 2/3 Fatigue 2/3 Nausea 0/3 Drowsiness 0/3 Palliative Performance Score 40% Physical Exam Constitutional: + ill appearing and + cachectic Respiratory: + uses accessory muscles Cardiovascular: Rate/Rhythm: regular rate and regular rhythm Musculoskeletal: Extremities: + muscle atrophy Neurologic: awake; not confused Psychiatric: Orientation: alert and oriented x 3 Affect: + anxious affect Mood: + anxious mood Results & Data ([facility]) Vital Signs (Past 12 Hours) Vital Signs Temp Pulse Pulse Resp BP Pulse Ox Pulse Ox 09/12/20 12:01 98.1 F 57 L 20 98/60 L 98 09/12/20 11:05 95 09/12/20 10:41 113 H 16 98 09/12/20 08:00 84 09/12/20 07:49 98.4 F 87 20 102/57 L 90 09/12/20 06:26 84 16 96 09/12/20 03:30 97.5 F L 88 18 102/66 92 PG Care Time/CCT Total # of Minutes Spent Total Time Spent with Patient: Total time spent is greater than 50% in coordination of care (as documented) at patient's floor/unit and/or counseling patient: total time spent 60 minutes with more than 50% of time spent on symptom management, patient support, goals of care Coding Level of Care Code 73145 Initial Inpt Care Lvl 2 Diagnoses Cancer associated pain G89.3 Anxiety F41.9 Palliative care encounter Z51.5 Lung cancer C34.90 Laterality: unspecified laterality Lung location: unspecified part of lung Colon cancer C18.9 Multifocal pneumonia J18.9
[2020-09-12] MEDS: oxyCODONE HCL IR 5 MG TAB (IMMEDIATE RELEASE) PO PRN (13:41)
[2020-09-12] MEDS: LORazepam 0.5 MG TAB PO PRN ×2 (13:41→21:35)
--- NOTE | 2020-09-12 13:58 | Hospitalist Progress Note ---
Date of Service September 12, 2020 Assessment & Plan (1) Hypotension: Presents with hypotension with systolic blood pressure in the 70s. This could be septic shock given elevated lactate although some of his lactic acidosis may not be from sepsis. He does not have leukocytosis, tachycardia, fevers or hypothermia. He was also recently on long course of prednisone taper-random cortisol last admission was within normal limits although could be some degree of adrenal insufficiency He is quite frail and cachectic, severely low albumin (1.6) also could be playing a role BP improved today, 90-100 systolic, mentating normally continue NSS @80cc/hr give Albumin x 2 doses continue Hydrocortisone 50mg q8 for stress continue Cefepime, stop Vanco as MRSA swab negative eating a lot better today (2) Multifocal pneumonia: -Almost certainly postobstructive pneumonia given large lung mass and recurrent hypotension and lactic acidosis prompting treatment for pneumonia -Was treated last admission with IV Zosyn and vancomycin however had significant issues with thrombocytopenia-perhaps this was related to Zosyn -Continue IV cefepime, stop vancomycin as MRSA swab negative -Pulmonary toilet -DuoNebs as needed Supplemental O2 to keep pulse ox greater than 90% -He is not yet ready for enrollment in hospice care as he is trying to live until his parole date on October 18, however he has significant pain as noted below and request to be made comfortable -He is also requesting a bear hugger as this helps with his comfort and he feels helps him be able to cough up sputum kriss (3) Cancer associated pain: Mostly located in the right side of the chest wall and is constant and severe Continue OxyContin 30 mg p.o. twice daily -increase oxycodone to 10 mg p.o. every 4 hours as needed pain -Add on morphine 2 mg IV every 2 hours as needed severe breakthrough pain add Lidoderm patch -Palliative care consultation requested to help manage with pain and continued goals of care throughout multiple recurrent hospitalizations and end-stage cancer, appreciate consult patient knows he is dying, wants to be comfortable (4) Thrombocytopenia: Platelets were severely low last admission, HIT was ruled out, initially thought to be ITP and was on long prednisone taper which he is still on Could also have been related to Zosyn as noted above Could also be related to bone marrow involvement perhaps metastatic cancer Platelets are now improved at 68k Follow CBC (5) Lung cancer: Large right sided lung mass known to be non-small cell lung carcinoma As above, not pursuing palliative chemotherapy given poor performance status Patient is okay with treating with IV fluids, IV steroids, vasopressors, IV antibiotics, blood products, but does not want resuscitation or intubation Pain control as above (6) Acidosis, lactic: Has persistently elevated lactate levels, today is higher than previously at 9.8 He does not have a metabolic acidosis or anion gap and perhaps some of this is from liver issues and inability to process lactate-as evidenced by elevated INR, thrombocytopenia, and does have history of hepatitis C with previously noted heterogenous liver on imaging -Start IV thiamine 200 mg once daily -Follow lactate -Continue normal saline -Treating pneumonia as above (7) Colon cancer: Status post hemicolectomy No issues with bowel function Continue bowel regimen as per home meds-MiraLAX, senna, lactulose (8) Anemia: Hemoglobin 8.6 Likely secondary to chronic disease Follow CBC No evidence of bleeding at this time (9) Lower extremity edema: Likely secondary to hypoalbuminemia, severely poor nutrition Given presence of cancer, check Dopplers lower extremities for DVT-were negative Encourage p.o. intake give Albumin today (10) Severe protein-calorie malnutrition: As noted above, with cachexia, temporal wasting, very poor appetite and in the setting of metastatic cancer Encouraged p.o. intake (11) Chronic respiratory failure with hypoxia: On chronic to 3 L nasal cannula secondary to COPD and lung cancer Continue such keep pulse ox greater than 90% (12) Oral candidiasis: Secondary to steroid use and cancer, immunocompromise state Start nystatin 5 mL p.o. 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 command to request visitation from family as patient is approaching end-of-life Palliative care consultation requested to help manage goals of care and pain control Admission and Anticipated Discharge Date Admission Date: September 11, 2020 Subjective appreciate palliative care consult, will increase Oxycodone, add Lidoderm patch, use Ativan for anxiety he acknowledges that he is dying, just wants to be comfortable reviewed chart from admission, reviewed labs patient says he feels "a whole lot better compared to yesterday" he is breathing easier, has less pain, less anxious he is concerned about his edema in his legs, he does say the edema was worse yesterday he is eating really well, he ate all his food he is waiting to have a bowel movement labs today show WBC 10k, Hb 8.6, plts 68k INR 1.4 Cr is 0.54, BUN 20, K 4.8, Na 135 lactic acid up at 9.6? BP is a lot better Review of Systems Review of Systems: All systems reviewed & are unremarkable except as noted in Subjective Constitutional: + weakness and + weight loss; no fever Respiratory: + cough, + dyspnea and + sputum production (green) Cardiovascular: + edema (pitting to the knees); no chest pain Gastrointestinal: no abdominal pain, no nausea and no vomiting Physical Exam Constitutional: + ill appearing, + thin, + cachectic, + frail appearing and + disheveled; no acute distress Neck: trachea midline, no thyromegaly Respiratory: normal respiratory effort and + cough; no respiratory distress Auscultation: + diminished lung sounds (right base) Cardiovascular: Rate/Rhythm: regular rate and regular rhythm Heart Sounds: normal S1 and normal S2; no murmur Extremities: normal capillary refill and + edema (pitting to the knees bilaterally) Gastrointestinal (Abdomen): normal bowel sounds, soft, nontender, no hepatosplenomegaly Musculoskeletal: Head/Neck/Chest: normocephalic, head atraumatic and neck supple Extremities: + abnormal strength (generalized weakness), + muscle atr ophy and + clubbing; no cyanosis and no petechiae Skin: no rashes, warm and dry Neurologic: CN's II-XI intact bilaterally, moves all extremities and awake; no focal motor deficits Psychiatric: A+Ox3, euthymic affect Results & Data Results & Data ([facility]) Vital Signs (Past 12 Hours) Vital Signs Temp Pulse Pulse Resp BP Pulse Ox Pulse Ox 09/12/20 12:01 36.7 C 57 L 20 98/60 L 98 09/12/20 11:05 95 09/12/20 10:41 113 H 16 98 09/12/20 08:00 84 09/12/20 07:49 36.9 C 87 20 102/57 L 90 09/12/20 06:26 84 16 96 09/12/20 03:30 36.4 C L 88 18 102/66 92 Laboratory Results Laboratory Results - last 24 hr 09/11/20 09/11/20 09/11/20 13:25 13:53 17:35 WBC RBC Hgb Hct MCV MCH MCHC RDW Std Deviation RDW Coeff of Acacia Plt Count MPV Immature Gran % (Auto) Neut % (Auto) Lymph % (Auto) [place] % (Auto) Eos % (Auto) Baso % (Auto) Neut # (Auto) Lymph # (Auto) [place] # (Auto) Eos # (Auto) Baso # (Auto) Immature Gran # (Auto) Anisocytosis PT INR Sodium Potassium Chloride Carbon Dioxide Anion Gap BUN Creatinine Est Cr Clr Drug Dosing Est GFR ( Amer) Est GFR (Non-Af Amer) BUN/Creatinine Ratio Glucose Lactate 7.6 H* Calcium Phosphorus Magnesium Total Bilirubin AST ALT Alkaline Phosphatase Total Protein Albumin Globulin Albumin/Globulin Ratio Urine Color Urine Appearance Urine pH Ur Specific [place] Urine Protein Urine Glucose (UA) Urine Ketones Urine Blood Urine Nitrite Urine Bilirubin Urine Urobilinogen Ur Leukocyte Esterase Urine WBC (Auto) Urine RBC (Auto) U Hyaline Cast (Auto) U Epithel Cells (Auto) Urine Bacteria (Auto) Urine Mucus Nasal Screen MRSA (PCR) Negative SARS-CoV-2 (PCR) NEGATIVE 09/11/20 09/12/20 09/12/20 17:48 05:57 05:57 WBC 10.42 RBC 3.35 L Hgb 8.6 L Hct 29.0 L MCV 86.6 MCH 25.7 MCHC 29.7 L RDW Std Deviation 65.8 H RDW Coeff of Acacia 21.2 H Plt Count 68 L MPV 9.5 Immature Gran % (Auto) 0.8 Neut % (Auto) 86.7 Lymph % (Auto) 7.8 [place] % (Auto) 4.5 Eos % (Auto) 0.1 Baso % (Auto) 0.1 Neut # (Auto) 9.04 H Lymph # (Auto) 0.81 L [place] # (Auto) 0.47 Eos # (Auto) 0.01 Baso # (Auto) 0.01 Immature Gran # (Auto) 0.08 H Anisocytosis Present PT 14.0 H INR 1.4 H Sodium Potassium Chloride Carbon Dioxide Anion Gap BUN Creatinine Est Cr Clr Drug Dosing Est GFR ( Amer) Est GFR (Non-Af Amer) BUN/Creatinine Ratio Glucose Lactate Calcium Phosphorus Magnesium Total Bilirubin AST ALT Alkaline Phosphatase Total Protein Albumin Globulin Albumin/Globulin Ratio Urine Color Dark Yellow Urine Appearance Clear Urine pH 5.0 Ur Specific [place] 1.026 Urine Protein Trace H Urine Glucose (UA) Negative Urine Ketones Trace H Urine Blood Negative Urine Nitrite Negative Urine Bilirubin Negative Urine Urobilinogen Negative Ur Leukocyte Esterase Negative Urine WBC (Auto) 1-5 Urine RBC (Auto) 0-4 U Hyaline Cast (Auto) 10-30 H U Epithel Cells (Auto) 10-20 H Urine Bacteria (Auto) Negative Urine Mucus Present A Nasal Screen MRSA (PCR) SARS-CoV-2 (PCR) 09/12/20 09/12/20 05:57 06:02 WBC RBC Hgb Hct MCV MCH MCHC RDW Std Deviation RDW Coeff of [place] Plt Count MPV Immature Gran % (Auto) Neut % (Auto) Lymph % (Auto) [place] % (Auto) Eos % (Auto) Baso % (Auto) Neut # (Auto) Lymph # (Auto) [place] # (Auto) Eos # (Auto) Baso # (Auto) Immature Gran # (Auto) Anisocytosis PT INR Sodium 135 L Potassium 4.8 Chloride 98 Carbon Dioxide 25 Anion Gap 12.0 H BUN 20 H Creatinine 0.54 L Est Cr Clr Drug Dosing 112.7 Est GFR ( Amer) 122.4 Est GFR (Non-Af Amer) 105.6 BUN/Creatinine Ratio 37.5 H Glucose 74 Lactate 9.6 H* Calcium 7.9 L Phosphorus 3.1 Magnesium 1.7 L Total Bilirubin 0.3 AST 6 L ALT 7 L Alkaline Phosphatase 55 Total Protein 5.4 L Albumin 1.6 L Globulin 3.8 Albumin/Globulin Ratio 0.4 L Urine Color Urine Appearance Urine pH Ur Specific [place] Urine Protein Urine Glucose (UA) Urine Ketones Urine Blood Urine Nitrite Urine Bilirubin Urine Urobilinogen Ur Leukocyte Esterase Urine WBC (Auto) Urine RBC (Auto) U Hyaline Cast (Auto) U Epithel Cells (Auto) Urine Bacteria (Auto) Urine Mucus Nasal Screen MRSA (PCR) SARS-CoV-2 (PCR) Medications Administered Current Inpatient Medications Acetaminophen (Acetaminophen 325 Mg Tab) 650 mg PO Q4H PRN PRN Reason: Pain or Fever Stop: 10/11/20 15:21 Albuterol (Albuterol 0.083% Nebu Soln 3 Ml Vial) 2.5 mg INH Q4H PRN PRN Reason: Shortness Of Breath Stop: 10/11/20 15:21 Last Admin: 09/12/20 10:40 Dose: 2.5 mg Documented by: Amiodarone HCl (Amiodarone 200 Mg Tab) 200 mg PO QAM [facility] Stop: 10/12/20 08:59 Last Admin: 09/12/20 08:16 Dose: 200 mg Documented by: Ferrous Gluconate (Ferrous Gluconate 324 Mg Tab) 324 mg PO BIDM [facility] Stop: 10/11/20 16:59 Last Admin: 09/12/20 08:16 Dose: 324 mg Documented by: Heparin Sodium (Porcine) (Heparin Sod 5,000 Unit/0.5 Ml Vial) 5,000 units SQ Q12 [facility] Stop: 10/11/20 20:59 Last Admin: 09/12/20 08:17 Dose: 5,000 units Documented by: Hydroxyzine HCl (Hydroxyzine Hcl 25 Mg Tab) 25 mg PO HS [facility] Stop: 10/11/20 20:59 Last Admin: 09/11/20 21:00 Dose: 25 mg Documented by: Sodium Chloride (Nss 1000ml) 1,000 mls @ 80 mls/hr IV .[id number] [facility] Stop: 10/11/20 12:29 Last Admin: 09/12/20 02:27 Dose: 80 mls/hr Documented by: Cefepime HCl 2,000 mg/ Syringe 20 mls @ 5 mls/min IV Q8H [facility]; Protocol Stop: 09/18/20 20:59 Last Admin: 09/12/20 12:47 Dose: 5 mls/min Documented by: Thiamine HCl 200 mg/ Sodium (Chloride) 52 mls @ 208 mls/hr IV QAM [facility] Stop: 10/11/20 15:59 Last Infusion: 09/12/20 08:51 Dose: Infused Documented by: Hydrocortisone Sodium (Succinate 50 mg/ Syringe) 1 mls @ 4 mls/min IV Q8H [facility] Stop: 10/11/20 21:59 Last Admin: 09/12/20 05:54 Dose: 4 mls/min Documented by: Lactulose (Lactulose Syrup 10 Gm/15 Ml Btl 960 Ml) 10 gm PO DAILY [facility] Stop: 10/12/20 08:59 Last Admin: 09/12/20 08:15 Dose: 10 gm Documented by: Lidocaine (Lidocaine 5% 1 Patch) 1 patch TD QAM [facility] Stop: 10/12/20 13:59 Lorazepam (Lorazepam 0.5 Mg Tab) 0.5 mg PO Q4H PRN PRN Reason: Anxiety Stop: 10/12/20 12:44 Last Admin: 09/12/20 13:41 Dose: 0.5 mg Documented by: Melatonin (Melatonin 3 Mg Tab) 3 mg PO HS PRN PRN Reason: Sleep Stop: 10/11/20 21:25 Last Admin: 09/11/20 21:56 Dose: 3 mg Documented by: Mirtazapine (Mirtazapine Tab 15 Mg Tab) 15 mg PO HS [facility] Stop: 10/11/20 20:59 Last Admin: 09/11/20 21:00 Dose: 15 mg Documented by: Miscellaneous (Remove Lidoderm Patch) 1 ea N/A DAILY@2100 [facility] Stop: 10/12/20 13:58 Morphine Sulfate (Morphine Sulfate 2 Mg/Ml Carp) 2 mg IV Q2H PRN PRN Reason: severe breakthrough pain Stop: 09/25/20 15:21 Last Admin: 09/12/20 05:58 Dose: 2 mg Documented by: Multivitamins (Multivitamin Tab) 1 tab PO DAILY [facility] Stop: 10/12/20 08:59 Last Admin: 09/12/20 08:18 Dose: 1 tab Documented by: Nystatin (Nystatin Susp 500,000 U/5 Ml Udc) 5 ml PO ACHS [facility] Stop: 09/21/20 16:29 Last Admin: 09/12/20 12:47 Dose: 5 ml Documented by: Ondansetron HCl (Ondansetron Inj 2 Mg/Ml 2 Ml Vial) 4 mg IV Q6H PRN PRN Reason: Nausea Stop: 10/11/20 15:21 Oxycodone HCl (Oxycodone Hcl 15 Mg Tabcr (Oxycontin)) 30 mg PO BID [facility] Stop: 09/25/20 20:59 Last Admin: 09/12/20 08:14 Dose: 30 mg Documented by: Oxycodone HCl (Oxycodone Hcl Ir 5 Mg Tab (Immediate Release)) 10 mg PO Q4H PRN PRN Reason: Pain Stop: 09/25/20 15:21 Last Admin: 09/12/20 13:41 Dose: 10 mg Documented by: Pantoprazole Sodium (Pantoprazole 40 Mg Tab) 40 mg PO QAM [facility] Stop: 10/12/20 08:59 Last Admin: 09/12/20 08:17 Dose: 40 mg Documented by: Polyethylene Glycol (Polyethylene (Miralax) 17 Gm Pack) 17 gm PO BID [facility] Stop: 10/11/20 20:59 Last Admin: 09/12/20 08:17 Dose: 17 gm Documented by: Sennosides (Senna 8.6 Mg Tab) 8.6 mg PO BID [facility] Stop: 10/11/20 20:59 Last Admin: 09/12/20 08:16 Dose: 8.6 mg Documented by: PG Care Time/CCT Total # of Minutes Spent Total Time Spent with Patient: Total time spent is greater than 50% in coordination of care (as documented) at patient's floor/unit and/or counseling patient: Coding Level of Care Code 28756 Subseq Hosp Care Lvl 3 Diagnoses Hypotension I95.9 Multifocal pneumonia J18.9 Cancer associated pain G89.3 Thrombocytopenia D69.6 Lung cancer C34.90 Laterality: unspecified laterality Lung location: unspecified part of lung Acidosis, lactic E87.2 Colon cancer C18.9 Anemia D64.9 Anemia type: unspecified type Lower extremity edema R60.0 Severe protein-calorie malnutrition E43 Chronic respiratory failure with hypoxia J96.11 Oral candidiasis B37.0 DVT prophylaxis Z29.9 (1) Anemia Anemia type: unspecified type Qualified Code(s): D64.9 - Anemia, unspecified (2) Lung cancer Laterality: unspecified laterality Lung location: unspecified part of lung Qualified Code(s): C34.90 - Malignant neoplasm of unspecified part of unspecified bronchus or lung
[2020-09-12] MEDS ORDERED: MAGNESIUM SULFATE / D5W 1 GM/100 ML BAG IV ONE (15:30)
[2020-09-12] MEDS: LIDOCAINE 5% 1 PATCH TD SCH (15:55)
[2020-09-12] MEDS: ALBUMIN 25% 12.5 GM/50 ML VIAL IV SCH ×2 (15:55→17:35)
[2020-09-12] MEDS: ACETAMINOPHEN 325 MG TAB PO PRN (21:34)
[2020-09-12] MEDS: MELATONIN 3 MG TAB PO PRN (21:34)
[2020-09-12] MEDS: hydrOXYzine HCl 25 MG TAB PO SCH (21:36)
[2020-09-12] MEDS: MIRTAZAPINE TAB 15 MG TAB PO SCH (21:37)
[2020-09-13] MEDS: ALBUTEROL 0.083% NEBU SOLN 3 ML VIAL INH PRN (03:25)
[2020-09-13] MEDS: ACETAMINOPHEN 325 MG TAB PO PRN (04:23)
[2020-09-13] MEDS: CEFEPIME 2,000 MG in SYRINGE 0 ML IV SCH ×3 (04:23→21:48)
[2020-09-13] MEDS: oxyCODONE HCL IR 5 MG TAB (IMMEDIATE RELEASE) PO PRN ×2 (04:24→12:13)
[2020-09-13] MEDS: SODIUM CHLORIDE 0.9% 1000ML 1,000 ML IV SCH ×2 (04:26→19:25)
[2020-09-13] MEDS: MoRPHine SULFATE 2 MG/ML CARP IV PRN (05:50)
[2020-09-13] MEDS: HYDROCORTISONE SOD 50 MG in SYRINGE 0 ML IV SCH ×3 (05:51→21:32)
[2020-09-13] MEDS: AMIODARONE 200 MG TAB PO SCH (08:38)
[2020-09-13] MEDS: SENNA 8.6 MG TAB PO SCH ×2 (08:38→21:32)
[2020-09-13] MEDS: LIDOCAINE 5% 1 PATCH TD SCH (08:39)
[2020-09-13] MEDS: POLYETHYLENE (MIRALAX) 17 GM PACK PO SCH ×2 (08:39→21:33)
[2020-09-13] MEDS: NYSTATIN SUSP 500,000 U/5 ML UDC PO SCH ×4 (08:39→21:33)
[2020-09-13] MEDS: PANTOprazole 40 MG TAB PO SCH (08:39)
[2020-09-13] MEDS: LACTULOSE SYRUP 10 GM/15 ML BTL 960 ML PO SCH (08:39)
[2020-09-13] MEDS: MULTIVITAMIN TAB PO SCH (08:39)
[2020-09-13] MEDS: HEPARIN SOD 5,000 UNIT/0.5 ML VIAL SQ SCH ×2 (08:41→21:33)
[2020-09-13] MEDS: FERROUS GLUCONATE 324 MG TAB PO SCH ×2 (08:41→16:58)
[2020-09-13] MEDS: THIAMINE HCL 200 MG in SODIUM CHLORIDE 0.9% 50 ML IV SCH (08:52)
[2020-09-13] MEDS: oxyCODONE HCL 15 MG TABCR (OxyCONTIN) PO SCH ×2 (09:31→21:47)
[2020-09-13] MEDS: LORazepam 0.5 MG TAB PO PRN ×2 (10:40→23:53)
--- NOTE | 2020-09-13 13:34 | Electrocardiogram Report ---
Test Reason : Blood Pressure : / mmHG Vent. Rate : 080 BPM Atrial Rate : 080 BPM P-R Int : 128 ms QRS Dur : 082 ms QT Int : 414 ms P-R-T Axes : 067 -60 016 degrees QTc Int : 477 ms Normal sinus rhythm Left atrial enlargement Left axis deviation Low voltage QRS Cannot rule out Anterior infarct (cited on or before 15-AUG-2020) Abnormal ECG When compared with ECG of 09-SEP-2020 12:16, Premature ventricular complexes are no longer Present Confirmed by Kimani Morley ([id number]) on 09/13/2020 1:33:53 PM Referred By: [facility] Confirmed By:Kimani Morley
--- NOTE | 2020-09-13 14:21 | Palliative Care Progress Note ---
Date of Service September 13, 2020 Assessment & Plan (1) Cancer associated pain: Improved control with lidocaine patch, breakthrough oxycodone dose of 10mg every four hours as needed. (2) Anxiety: Significant contributor to pain and fear of dying. He talks about the experience of his mother dying and hearing her ribs crack when they did CPR. He is very anxious about what it will be like for his dying time and what impact that will have on his family. Continue prn lorazepam. (3) Palliative care encounter: I talked extensively with Kimani about his dying time. He acknowledges that the time is approaching and that there is nothing anyone can do to stop that. He talks about wanting the focus of his care to be comfort until his dying time. We talked about what that would look like and him having hospice care at [facility]. He had been at [facility] for 14 years and considers that to be home, where his friends are. He would prefer to be able to there. I explained that the decision about which facility he is at is up to the corrections system and beyond our control. We reviewed a recent advance directive that he signed on 09/07/20 that indicated DNR/DNI but yes to surgery, dialysis, antibiotics, artificial nutrition and hydration. We talked about IV antibiotics and IVF being additional needle sticks which are very difficult for him and ultimately these interventions do not significantly contribute to his comfort. He acknowledges this. We completed a POLST form per his wishes with DNR, comfort measures only, no IV fluids or antibiotics. He is requesting a discussion with his prior to signing this. He has had a compassionate visit with her a few weeks ago. He is requesting another phone call which would be determined by [facility]. Kimani has asked that palliative care speak with his . Will reach out to [facility] to seek permission to speak with is . (4) Severe protein-calorie malnutrition: (5) Chronic respiratory failure with hypoxia: (6) Lung cancer: Admission and Anticipated Discharge Date Admission Date: September 11, 2020 Subjective Awake and alert. He reports "feeling much better" today. He has had two prn doses each of morphine and oxycodone in last 24 hours as well as three prn doses of lorazepam. He tells me that he feels that he has better control over his pain and anxiety at this point. Review of Systems Review of Systems: [place] Symptom Assessment Scale Pain 0/3 Dyspnea 1/3 Fatigue 2/3 Nausea 0/3 Drowsiness 1/3 Palliative Performance Score 40% Physical Exam Constitutional: + ill appearing and + cachectic Respiratory: normal respiratory effort; no labored breathing Cardiovascular: Rate/Rhythm: regular rate and regular rhythm Musculoskeletal: Extremities: + muscle atrophy Neurologic: awake; not confused Psychiatric: A+Ox3, euthymic affect Results & Data ([facility]) Vital Signs (Past 12 Hours) Vital Signs Temp Pulse Pulse Resp BP Pulse Ox 09/13/20 11:29 97.8 F 89 24 90/60 L 93 09/13/20 08:00 77 09/13/20 07:06 98.2 F 86 18 102/62 96 09/13/20 03:25 80 16 98 09/13/20 03:08 98.1 F 87 18 98/64 L 94 PG Care Time/CCT Total # of Minutes Spent Total Time Spent with Patient: Total time spent is greater than 50% in coordination of care (as documented) at patient's floor/unit and/or counseling patient: Total time spent 50 minutes with more than 50% of time spent on goals of care, symptom management, coordination of care with SCI Coding Level of Care Code 83506 Subseq Hosp Care Lvl 3 Diagnoses Cancer associated pain G89.3 Anxiety F41.9 Palliative care encounter Z51.5 Severe protein-calorie malnutrition E43 Chronic respiratory failure with hypoxia J96.11 Lung cancer C34.31 Laterality: right Lung location: lower lobe of lung (1) Lung cancer Laterality: right Lung location: lower lobe of lung Qualified Code(s): C 34.31 - Malignant neoplasm of lower lobe, right bronchus or lung
[2020-09-13] MEDS: hydrOXYzine HCl 25 MG TAB PO SCH (21:32)
[2020-09-13] MEDS: MIRTAZAPINE TAB 15 MG TAB PO SCH (21:33)
--- NOTE | 2020-09-13 21:42 | Discharge Summary ---
Date of Service September 13, 2020 Admission HPI Per Admitting Provider This patient is a 69-year-old prisoner with a history of colon cancer status post hemicolectomy, and progressive non-small cell lung cancer, thrombocytopenia, recent multifocal pneumonia with septic shock requiring mecha nical ventilation and vasopressors, severe pulmonary hypertension, hepatic encephalopathy, severe protein calorie malnutrition, COPD, GERD, hepatitis C, CVA, hyperlipidemia who presents to the ER with hypotension with systolic blood pressure in the 70s at the care home. He denies hemoptysis but has been having increased shortness of breath and a weak cough but feels like he cannot get any sputum up. He feels cold all the time and repeatedly requests to have a bear hugger placed as this helped him previously. He also has chronic severe pain in the right side of his chest and feels it is really important for him to have his pain treated and to be kept comfortable. Paperwork from the care home regarding his advanced directives was reviewed and the patient has made himself a DNR/DNI, but still wants IV antibiotics, IV fluids, IV steroids and vasopressors as his goal is to live until his parole hearing which is reportedly October 18. He is hopeful to see his family before he dies. He is not receiving any chemotherapy for his cancer as he is a very poor performance status and was told by oncology last admission that the chemotherapy would likely shorten his life span. He reports very poor p.o. intake and appetite. Last bowel movement was this morning and he is making urine. He was seen in the ER 2 days ago and sent home with oral levofloxacin for pneumonia. He was started on intravenous fluids in the EMS and in the ER, he was given IV fluids again and blood pressures improved to the 110s. His lactate was found to be significantly high at 8.6 although he has had elevated lactates chronically it seems and his serum bicarbonate was on the high normal side at 32. Glucose persistently in the 60s. Chest x-ray showed persistent right basilar opacity previously demonstrated represent a large mass, small right pleural effusion, left perihilar airspace opacities representing asymmetric edema versus pneumonia. He was given IV cefepime and vancomycin and continued on maintenance fluids with normal saline. He was also given a dose of hydrocodone for diffuse pain. He is on OxyContin chronically for cancer related pain. Upon discharge from the hospital on 09/04 after his ICU stay and severe thrombocytopenia, he was given a prednisone taper. He will be admitted for recurrent likely postobstructive pneumonia with septic shock. Discharge Data Allergies Allergy/AdvReac Type Severity Reaction Status Date / Time Iodinated Contrast Media Allergy Intermediate hives/vomiting Verified 09/09/20 14:23 (IV Contrast) Consultations 09/11/20 12:28 ED Decision to Admit Stat 09/11/20 15:22 Consult Palliative Care Routine Ordered Studies 09/11/20 13:45 US venous doppler [facility] Stat Hospital Course (1) Hypotension: Presents with hypotension with systolic blood pressure in the 70s. This could be septic shock given elevated lactate although some of his lactic acidosis may not be from sepsis. He does not have leukocytosis, tachycardia, fevers or hypothermia. He was also recently on long course of prednisone taper-random cortisol last admission was within normal limits although could be some degree of adrenal insufficiency He is quite frail and cachectic, severely low albumin (1.6) also could be playing a role BP improved today, 90-100 systolic, mentating normally continue NSS @80cc/hr give Albumin x 2 doses continue Hydrocortisone 50mg q8 for stress continue Cefepime, stop Vanco as MRSA swab negative eating a lot better today (2) Multifocal pneumonia: -Almost certainly postobstructive pneumonia given large lung mass and recurrent hypotension and lactic acidosis prompting treatment for pneumonia -Was treated last admission with IV Zosyn and vancomycin however had significant issues with thrombocytopenia-perhaps this was related to Zosyn -Continue IV cefepime, stop vancomycin as MRSA swab negative -Pulmonary toilet -DuoNebs as needed Supplemental O2 to keep pulse ox greater than 90% -He is not yet ready for enrollment in hospice care as he is trying to live until his parole date on October 18, however he has significant pain as noted below and request to be made comfortable -He is also requesting a bear hugger as this helps with his comfort and he feels helps him be able to cough up sputum kriss (3) Cancer associated pain: Mostly located in the right side of the chest wall and is constant and severe Continue OxyContin 30 mg p.o. twice daily -increase oxycodone to 10 mg p.o. every 4 hours as needed pain -Add on morphine 2 mg IV every 2 hours as needed severe breakthrough pain add Lidoderm patch -Palliative care consultation requested to help manage with pain and continued goals of care throughout multiple recurrent hospitalizations and end-stage cancer, appreciate consult patient knows he is dying, wants to be comfortable (4) Thrombocytopenia: Platelets were severely low last admission, HIT was ruled out, initially thought to be ITP and was on long prednisone taper which he is still on Could also have been related to Zosyn as noted above Could also be related to bone marrow involvement perhaps metastatic cancer Platelets are now improved at 68k Follow CBC (5) Lung cancer: Large right sided lung mass known to be non-small cell lung carcinoma As above, not pursuing palliative chemotherapy given poor performance status Patient is okay with treating with IV fluids, IV steroids, vasopressors, IV antibiotics, blood products, but does not want resuscitation or intubation Pain control as above (6) Acidosis, lactic: Has persistently elevated lactate levels, today is higher than previously at 9.8 He does not have a metabolic acidosis or anion gap and perhaps some of this is from liver issues and inability to process lactate-as evidenced by elevated INR, thrombocytopenia, and does have history of hepatitis C with previously noted heterogenous liver on imaging -Start IV thiamine 200 mg once daily -Follow lactate -Continue normal saline -Treating pneumonia as above (7) Colon cancer: Status post hemicolectomy No issues with bowel function Continue bowel regimen as per home meds-MiraLAX, senna, lactulose (8) Anemia: Hemoglobin 8.6 Likely secondary to chronic disease Follow CBC No evidence of bleeding at this time (9) Lower extremity edema: Likely secondary to hypoalbuminemia, severely poor nutrition Given presence of cancer, check Dopplers lower extremities for DVT-were negative Encourage p.o. intake give Albumin today (10) Severe protein-calorie malnutrition: As noted above, with cachexia, temporal wasting, very poor appetite and in the setting of metastatic cancer Encouraged p.o. intake (11) Chronic respiratory failure with hypoxia: On chronic to 3 L nasal cannula secondary to COPD and lung cancer Continue such keep pulse ox greater than 90% (12) Oral candidiasis: Secondary to steroid use and cancer, immunocompromise state Start nystatin 5 mL p.o. 4 times daily x14-day course (13) DVT prophylaxis: Heparin SQ, follow platelets carefully and would hold heparin if platelets drop below 50,000 Disposition-admit to PCU DNR/DNI Discussed care with RN shipping supervisor at present who will pass along to his chain of command to request visitation from family as patient is approaching end-of-life Palliative care consultation requested to help manage goals of care and pain control Discharge Plan Discharge Items Reason For Visit: HYPOTENSION,PNA Medications and DC Order Prescriptions: No Action prednisone 10 mg tablet See Rx Instructions .ROUTE .COMPLEX Qty: 63 RF: 0 levofloxacin 500 mg tablet 500 mg PO DAILY 7 Days Qty: 7 RF: 0 albuterol sulfate 2.5 mg /3 mL (0.083 %) Solution For Nebulization 2.5 mg INHALATION Q4H PRN (Reason: Shortness Of Breath) RF: 0 oxycodone [Roxicodone] 5 mg Tablet 5 mg PO QID PRN (Reason: Pain) RF: 0 hydroxyzine pamoate [Vistaril] 25 mg Capsule 25 mg PO HS RF: 0 oxycodone [OxyContin] 20 mg Tablet,Oral Only,Ext.Rel.12 Hr 20 mg PO BID RF: 0 lactulose 10 gram/15 mL solution 15 ml PO DAILY PRN (Reason: .) RF: 0 multivitamin Tablet 1 tab PO DAILY RF: 0 carvedilol 3.125 mg Tablet 3.125 mg PO BID RF: 0 mirtazapine 15 mg Tablet 15 mg PO HS RF: 0 ferrous gluconate 324 mg (37.5 mg iron) Tablet 324 mg PO BID RF: 0 sennosides [senna] 8.6 mg Tablet 8.6 mg PO BID RF: 0 polyethylene glycol 3350 [Miralax] 17 gram Powder In Packet 17 g PO BID RF: 0 pantoprazole 40 mg Tablet,Delayed Release (Dr/Ec) 40 mg PO QAM RF: 0 dicyclomine 20 mg Tablet 20 mg PO TID PRN (Reason: Unknown) RF: 0 amiodarone 200 mg Tablet 200 mg PO QAM 30 Days Qty: 30 RF: 0 Admission Data Admit Date/Time: 09/11/20 13:55 Attending Provider: Jared Wallace Admit Provider: Margo Echevarria Primary Care Provider: Yue LOPEZ Other Providers: Margo Echevarria ; Monique Stearns Coding Diagnoses Hypotension I95.9 Multifocal pneumonia J18.9 Cancer associated pain G89.3 Thrombocytopenia D69.6 Lung cancer C34.90 Laterality: unspecified laterality Lung location: unspecified part of lung Acidosis, lactic E87.2 Colon cancer C18.9 Anemia D64.9 Anemia type: unspecified type Lower extremity edema R60.0 Severe protein-calorie malnutrition E43 Chronic respiratory failure with hypoxia J96.11 Oral candidiasis B37.0 DVT prophylaxis Z29.9
--- NOTE | 2020-09-13 21:44 | Hospitalist Progress Note ---
Date of Service September 13, 2020 Assessment & Plan (1) Hypotension: Presents with hypotension with systolic blood pressure in the 70s. This could be septic shock given elevated lactate although some of his lactic acidosis may not be from sepsis. He does not have leukocytosis, tachycardia, fevers or hypothermia. He was also recently on long course of prednisone taper-random cortisol last admission was within normal limits although could be some degree of adrenal insufficiency He is quite frail and cachectic, severely low albumin (1.6) also could be playing a role Patient is leaning towards comfort measures. will maintain antibiotics and IVF for now. BP improved today, 90-100 systolic, mentating normally (2) Multifocal pneumonia: -Almost certainly postobstructive pneumonia given large lung mass and recurrent hypotension and lactic acidosis prompting treatment for pneumonia -Was treated last admission with IV Zosyn and vancomycin however had significant issues with thrombocytopenia-perhaps this was related to Zosyn -Continue IV cefepime, stop vancomycin as MRSA swab negative -Pulmonary toilet -DuoNebs as needed Supplemental O2 to keep pulse ox greater than 90% -He is not yet ready for enrollment in hospice care as he is trying to live until his parole date on October 18, however he has significant pain as noted below and request to be made comfortable -He is also requesting a bear hugger as this helps with his comfort and he feels helps him be able to cough up sputum kriss (3) Cancer associated pain: Mostly located in the right side of the chest wall and is constant and severe Continue OxyContin 30 mg p.o. twice daily -increase oxycodone to 10 mg p.o. every 4 hours as needed pain -Add on morphine 2 mg IV every 2 hours as needed severe breakthrough pain add Lidoderm patch -Palliative care consultation requested to help manage with pain and continued goals of care throughout multiple recurrent hospitalizations and end-stage cancer, appreciate consult patient knows he is dying, wants to be comfortable (4) Thrombocytopenia: Platelets were severely low last admission, HIT was ruled out, initially thought to be ITP and was on long prednisone taper which he is still on Could also have been related to Zosyn as noted above Could also be related to bone marrow involvement perhaps metastatic cancer Platelets are now improved at 68k Follow CBC (5) Lung cancer: Large right sided lung mass known to be non-small cell lung carcinoma As above, not pursuing palliative chemotherapy given poor performance status Patient is okay with treating with IV fluids, IV steroids, vasopressors, IV antibiotics, blood products, but does not want resuscitation or intubation Pain control as above (6) Acidosis, lactic: Has persistently elevated lactate levels, today is higher than previously at 9.8 He does not have a metabolic acidosis or anion gap and perhaps some of this is from liver issues and inability to process lactate-as evidenced by elevated INR, thrombocytopenia, and does have history of hepatitis C with previously noted heterogenous liver on imaging -Start IV thiamine 200 mg once daily -Follow lactate -Continue normal saline -Treating pneumonia as above (7) Colon cancer: Status post hemicolectomy No issues with bowel function Continue bowel regimen as per home meds-MiraLAX, senna, lactulose (8) Anemia: Hemoglobin 8.6 Likely secondary to chronic disease Follow CBC No evidence of bleeding at this time (9) Lower extremity edema: Likely secondary to hypoalbuminemia, severely poor nutrition Given presence of cancer, check Dopplers lower extremities for DVT-were negative Encourage p.o. intake give Albumin today (10) Severe protein-calorie malnutrition: As noted above, with cachexia, temporal wasting, very poor appetite and in the setting of metastatic cancer Encouraged p.o. intake (11) Chronic respiratory failure with hypoxia: On chronic to 3 L nasal cannula secondary to COPD and lung cancer Continue such keep pulse ox greater than 90% (12) Oral candidiasis: Secondary to steroid use and cancer, immunocompromise state Start nystatin 5 mL p.o. 4 times daily x14-day course (13) DVT prophylaxis: Heparin SQ, follow platelets carefully and would hold heparin if platelets drop below 50,000 Disposition-admit to PCU DNR/DNI Discussed care with RN harvest crew supervisor at present who will pass along to his chain of command to request visitation from family as patient is approaching end-of-life Palliative care consultation requested to help manage goals of care and pain control Admission and Anticipated Discharge Date Admission Date: September 11, 2020 Subjective Patient reports being more comfortable. Review of Systems Review of Systems: All systems reviewed & are unremarkable except as noted in HPI & below Physical Exam Physical Exam: Constitutional: + ill appearing, + thin, + cachectic, + frail appearing; no acute distress Neck: trachea midline, no thyromegaly Respiratory: normal respiratory effort and + cough; no respiratory distress Auscultation: + diminished lung sounds (right base) Cardiovascular: Rate/Rhythm: regular rate and regular rhythm Heart Sounds: normal S1 and normal S2; no murmur Extremities: normal capillary refill and + edema (pitting to the knees bilaterally) Gastrointestinal (Abdomen): normal bowel sounds, soft, nontender, no hepatosplenomegaly Musculoskeletal: Head/Neck/Chest: normocephalic, head atraumatic and neck supple Extremities: + abnormal strength (generalized weakness), + muscle atroph y and + clubbing; no cyanosis and no petechiae Skin: no rashes, warm and dry Neurologic: CN's II-XI intact bilaterally, moves all extremities and awake; no focal motor deficits Psychiatric: A+Ox3, euthymic affect Results & Data Results & Data ([facility]) Vital Signs (Past 12 Hours) Vital Signs Temp Pulse Pulse Resp BP Pulse Ox 09/13/20 20:03 36.7 C 85 24 86/59 L 93 09/13/20 16:00 91 H 09/13/20 15:37 36.7 C 90 18 84/58 L 94 09/13/20 11:29 36.6 C 89 24 90/60 L 93 PG Care Time/CCT Total # of Minutes Spent Total Time Spent with Patient: Total time spent is greater than 50% in coordination of care (as documented) at patient's floor/unit and/or counseling patient: Coding Level of Care Code 93262 Subseq Hosp Care Lvl 3 Diagnoses Hypotension I95.9 Multifocal pneumonia J18.9 Cancer associated pain G89.3 Thrombocytopenia D69.6 Lung cancer C34.90 Laterality: unspecified laterality Lung location: unspecified part of lung Acidosis, lactic E87.2 Colon cancer C18.9 Anemia D64.9 Anemia type: unspecified type Lower extremity edema R60.0 Severe protein-calorie malnutrition E43 Chronic respiratory failure with hypoxia J96.11 Oral candidiasis B37.0 DVT prophylaxis Z29.9 Time Spent (min) 35 Comment chart review (1) Anemia Anemia type: unspecified type Qualified Code(s): D64.9 - Anemia, unspecified (2) Lung cancer Laterality: unspecified laterality Lung location: unspecified part of lung Qualified Code(s): C34.90 - Malignant neoplasm of unspecified part of unspecified bronchus or lung
[2020-09-14] MEDS ORDERED: oxyCODONE IR HOME PACK PO SCH
[2020-09-14] MEDS ORDERED: LIDOCAINE 5% 1 PATCH TD SCH
[2020-09-14] MEDS ORDERED: SODIUM CHLORIDE 0.9% 1000ML 500 ML IV STA (02:27)
[2020-09-14] MEDS: ALBUMIN 25% 12.5 GM/50 ML VIAL IV SCH ×4 (03:22→05:38)
[2020-09-14] MEDS: CEFEPIME 2,000 MG in SYRINGE 0 ML IV SCH ×2 (04:58→14:43)
[2020-09-14] MEDS: HYDROCORTISONE SOD 50 MG in SYRINGE 0 ML IV SCH ×2 (05:38→14:45)
[2020-09-14] MEDS: NYSTATIN SUSP 500,000 U/5 ML UDC PO SCH ×2 (07:52→11:47)
[2020-09-14] MEDS: LORazepam 0.5 MG TAB PO PRN ×2 (08:33→14:42)
[2020-09-14] MEDS: THIAMINE HCL 200 MG in SODIUM CHLORIDE 0.9% 50 ML IV SCH (08:33)
[2020-09-14] MEDS: oxyCODONE HCL 15 MG TABCR (OxyCONTIN) PO SCH (08:33)
[2020-09-14] MEDS: AMIODARONE 200 MG TAB PO SCH (08:34)
[2020-09-14] MEDS: SENNA 8.6 MG TAB PO SCH (08:34)
[2020-09-14] MEDS: MULTIVITAMIN TAB PO SCH (08:34)
[2020-09-14] MEDS: LACTULOSE SYRUP 10 GM/15 ML BTL 960 ML PO SCH (08:34)
[2020-09-14] MEDS: HEPARIN SOD 5,000 UNIT/0.5 ML VIAL SQ SCH (08:34)
[2020-09-14] MEDS: POLYETHYLENE (MIRALAX) 17 GM PACK PO SCH (08:35)
[2020-09-14] MEDS: PANTOprazole 40 MG TAB PO SCH (08:35)
[2020-09-14] MEDS: LIDOCAINE 5% 1 PATCH TD SCH (08:35)
[2020-09-14] MEDS: FERROUS GLUCONATE 324 MG TAB PO SCH (08:47)
--- NOTE | 2020-09-14 13:10 | Palliative Care Progress Note ---
Date of Service September 14, 2020 Assessment & Plan (1) Cancer associated pain: Improved control with lidocaine patch, breakthrough oxycodone dose of 10mg every four hours as needed. (2) Anxiety: Significant contributor to pain and fear of dying. He talks about the experience of his mother dying and hearing her ribs crack when they did CPR. He told me today that he is scared about dying and doesn't want to be 'tricked' into anything. He is very anxious about what it will be like for his dying time and what impact that will have on his family. Continue prn lorazepam. (3) Palliative care encounter: I talked extensively with Kimani about his dying time. He recognizes that he is dying and knows that it is scary for him. The most important thing to him is being able to talk to his , Soraya. I expressed that [facility] is working on visitation/phone visit and will ensure that Soraya is updated as they have been consistently providing her with updates. We were able to complete and sign a POLST form, see below for details. He requests that his and Yue have a phone conversation, including him when he returns to [facility] so he can hear them discuss hospice with her. He has had a compassionate visit with Soraya a few weeks ago. He is requesting another phone call which would be determined by [facility] upon his return. I was able to talk with [facility]; Lisa Petty and Bruce in administration. All were updated on the above plan. We reviewed his medication usage and they confirmed that they will be certainly able to do phone visits with Soraya for Julian when he returns. Reviewed the POLST details and they are very grateful for the communication we have had along with the persistent dedication to this patients quality of life. Patient discussed with the hospitalist who will discharge today. [facility] to arrange transportation and if there is a delay, they will contact case management. Thanks for involving Palliative Medicine with this individual. (4) Severe protein-calorie malnutrition: (5) Chronic respiratory failure with hypoxia: (6) Lung cancer: (7) POLST (Physician Orders for Life-Sustaining Treatment): POLST form completed and signed by the patient. He said he needs to talk to his further about it upon his return to [facility]. 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 Copy and original on chart. Svetlanadarrell Garrett at [facility] requesting POLST to be faxed to her at [phone]. Admission and Anticipated Discharge Date Admission Date: September 11, 2020 Subjective Patient reports being more comfortable, eating lunch when I was in the room. Two guards at bedside. patient aaox3 and able to speak in complete sentences. Review of Systems Review of Systems: [place] Symptom Assessment Scale Pain 0/3 Dyspnea 1/3 Fatigue 2/3 Nausea 0/3 Drowsiness 1/3 Palliative Performance Score 40% Physical Exam Constitutional: + ill appearing and + cachectic Respiratory: normal respiratory effort and + uses accessory muscles; no labored breathing Cardiovascular: Rate/Rhythm: regular rate and regular rhythm Musculoskeletal: Extremities: + muscle atrophy Neurologic: awake; not confused Psychiatric: A+Ox3, euthymic affect Orientation: alert and oriented x 3 Affect: + anxious affect Mood: + anxious mood Results & Data ([facility]) Vital Signs (Past 12 Hours) Vital Signs Temp Pulse Pulse Resp BP Pulse Ox 09/14/20 11:46 36.7 C 83 16 91/57 L 96 09/14/20 08:00 84 09/14/20 07:51 36.6 C 88 18 110/68 98 09/14/20 04:33 36.5 C 84 12 103/64 97 PG Care Time/CCT Total # of Minutes Spent Total Time Spent with Patient: Total time spent is greater than 50% in coordination of care (as documented) at patient's floor/unit and/or counseling patient: 45 minutes with > 50% of that time spent assessing the patient, discussing goals of care, completing a POLST form and collaborating with the IDT Coding Level of Care Code 52131 Subseq Hosp Care Lvl 3 Diagnoses Cancer associated pain G89.3 Anxiety F41.9 Palliative care encounter Z51.5 Severe protein-calorie malnutrition E43 Chronic respiratory failure with hypoxia J96.11 Lung cancer C34.31 Laterality: right Lung location: lower lobe of lung POLST (Physician Orders for Life-Sustaining Treatment) Z78.9 Time Spent (min) 45 (1) Lung cancer Laterality: right Lung location: lower lobe of lung Qualified Code(s): C34.31 - Malignant neoplasm of lower lobe, right bronchus or lung
[2020-09-14] MEDS: SODIUM CHLORIDE 0.9% 1000ML 1,000 ML IV SCH (14:41)
[2020-09-14] MEDS: MoRPHine SULFATE 2 MG/ML CARP IV PRN (15:24)
--- NOTE | 2020-09-16 06:33 | Discharge Summary ---
Date of Service September 14, 2020 Admission HPI Per Admitting Provider This patient is a 69-year-old prisoner with a history of colon cancer status post hemicolectomy, and progressive non-small cell lung cancer, thrombocytopenia, recent multifocal pneumonia with septic shock requiring mecha nical ventilation and vasopressors, severe pulmonary hypertension, hepatic encephalopathy, severe protein calorie malnutrition, COPD, GERD, hepatitis C, CVA, hyperlipidemia who presents to the ER with hypotension with systolic blood pressure in the 70s at the [facility]. He denies hemoptysis but has been having increased shortness of breath and a weak cough but feels like he cannot get any sputum up. He feels cold all the time and repeatedly requests to have a bear hugger placed as this helped him previously. He also has chronic severe pain in the right side of his chest and feels it is really important for him to have his pain treated and to be kept comfortable. Paperwork from the [facility] regarding his advanced directives was reviewed and the patient has made himself a DNR/DNI, but still wants IV antibiotics, IV fluids, IV steroids and vasopressors as his goal is to live until his parole hearing which is reportedly October 18. He is hopeful to see his family before he dies. He is not receiving any chemotherapy for his cancer as he is a very poor performance status and was told by oncology last admission that the chemotherapy would likely shorten his life span. He reports very poor p.o. intake and appetite. Last bowel movement was this morning and he is making urine. He was seen in the ER 2 days ago and sent home with oral levofloxacin for pneumonia. He was started on intravenous fluids in the EMS and in the ER, he was given IV fluids again and blood pressures improved to the 110s. His lactate was found to be significantly high at 8.6 although he has had elevated lactates chronically it seems and his serum bicarbonate was on the high normal side at 32. Glucose persistently in the 60s. Chest x-ray showed persistent right basilar opacity previously demonstrated represent a large mass, small right pleural effusion, left perihilar airspace opacities representing asymmetric edema versus pneumonia. He was given IV cefepime and vancomycin and continued on maintenance fluids with normal saline. He was also given a dose of hydrocodone for diffuse pain. He is on OxyContin chronically for cancer related pain. Upon discharge from the hospital on 09/04 after his ICU stay and severe thrombocytopenia, he was given a prednisone taper. He will be admitted for recurrent likely postobstructive pneumonia with septic shock. Principal Diagnosis hypotension Discharge Exam Constitutional: + ill appearing, + thin, + cachectic, + frail appearing; no acute distress Neck: trachea midline, no thyromegaly Respiratory: normal respiratory effort and + cough; no respiratory distress Auscultation: + diminished lung sounds (right base) Cardiovascular: Rate/Rhythm: regular rate and regular rhythm Heart Sounds: normal S1 and normal S2; no murmur Extremities: normal capillary refill and + edema (pitting to the knees bilaterally) Gastrointestinal (Abdomen): normal bowel sounds, soft, nontender, no hepatosplenomegaly Musculoskeletal: Head/Neck/Chest: normocephalic, head atraumatic and neck supple Extremities: + abnormal strength (generalized weakness), + muscle at rophy and + clubbing; no cyanosis and no petechiae Skin: no rashes, warm and dry Neurologic: CN's II-XI intact bilaterally, moves all extremities and awake; no focal motor deficits Psychiatric: A+Ox3, euthymic affect Discharge Data Allergies Allergy/AdvReac Type Severity Reaction Status Date / Time Iodinated Contrast Media Allergy Intermediate hives/vomiting Verified 09/09/20 14:23 (IV Contrast) Consultations 09/11/20 12:28 ED Decision to Admit Stat 09/11/20 15:22 Consult Palliative Care Routine Ordered Studies 09/11/20 13:45 US venous doppler [facility] Stat Hospital Course (1) Hypotension: Presents with hypotension with systolic blood pressure in the 70s. This could be septic shock given elevated lactate although some of his lactic acidosis may not be from sepsis. He does not have leukocytosis, tachycardia, fevers or hypothermia. He was also recently on long course of prednisone taper-random cortisol last admission was within normal limits although could be some degree of adrenal insufficiency He is quite frail and cachectic, severely low albumin (1.6) also could be playing a role Patient is leaning towards comfort measures. will maintain antibiotics and IVF for now. BP improved today, 90-100 systolic, mentating normally On 09/14 Patient was discharged. POLST form completed and signed by the patient. He said he needs to talk to his further about it upon his return to [facility]. 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 (2) Multifocal pneumonia: -Almost certainly postobstructive pneumonia given large lung mass and recurrent hypotension and lactic acidosis prompting treatment for pneumonia -Was treated last admission with IV Zosyn and vancomycin however had significant issues with thrombocytopenia-perhaps this was related to Zosyn -Continue IV cefepime, stop vancomycin as MRSA swab negative -Pulmonary toilet -DuoNebs as needed Supplemental O2 to keep pulse ox greater than 90% -He is not yet ready for enrollment in hospice care as he is trying to live until his parole date on October 18, however he has significant pain as noted below and request to be made comfortable -He is also requesting a bear hugger as this helps with his comfort and he feels helps him be able to cough up sputum kriss (3) Cancer associated pain: Mostly located in the right side of the chest wall and is constant and severe Continue OxyContin 30 mg p.o. twice daily -increase oxycodone to 10 mg p.o. every 4 hours as needed pain -Add on morphine 2 mg IV every 2 hours as needed severe breakthrough pain add Lidoderm patch -Palliative care consultation requested to help manage with pain and continued goals of care throughout multiple recurrent hospitalizations and end-stage cancer, appreciate consult patient knows he is dying, wants to be comfortable (4) Thrombocytopenia: Platelets were severely low last admission, HIT was ruled out, initially thought to be ITP and was on long prednisone taper which he is still on Could also have been related to Zosyn as noted above Could also be related to bone marrow involvement perhaps metastatic cancer Platelets are now improved at 68k Follow CBC (5) Lung cancer: Large right sided lung mass known to be non-small cell lung carcinoma As above, not pursuing palliative chemotherapy given poor performance status Patient is okay with treating with IV fluids, IV steroids, vasopressors, IV antibiotics, blood products, but does not want resuscitation or intubation Pain control as above (6) Acidosis, lactic: Has persistently elevated lactate levels, today is higher than previously at 9.8 He does not have a metabolic acidosis or anion gap and perhaps some of this is from liver issues and inability to process lactate-as evidenced by elevated INR, thrombocytopenia, and does have history of hepatitis C with previously noted het erogenous liver on imaging -Start IV thiamine 200 mg once daily -Follow lactate -Continue normal saline -Treating pneumonia as above (7) Colon cancer: Status post hemicolectomy No issues with bowel function Continue bowel regimen as per home meds-MiraLAX, senna, lactulose (8) Anemia: Hemoglobin 8.6 Likely secondary to chronic disease Follow CBC No evidence of bleeding at this time (9) Lower extremity edema: Likely secondary to hypoalbuminemia, severely poor nutrition Given presence of cancer, check Dopplers lower extremities for DVT-were negative Encourage p.o. intake give Albumin today (10) Severe protein-calorie malnutrition: As noted above, with cachexia, temporal wasting, very poor appetite and in the setting of metastatic cancer Encouraged p.o. intake (11) Chronic respiratory failure with hypoxia: On chronic to 3 L nasal cannula secondary to COPD and lung cancer Continue such keep pulse ox greater than 90% (12) Oral candidiasis: Secondary to steroid use and cancer, immunocompromise state Start nystatin 5 mL p.o. 4 times daily x14-day course (13) DVT prophylaxis: Heparin SQ, follow platelets carefully and would hold heparin if platelets drop below 50,000 Disposition-admit to PCU DNR/DNI Discussed care with RN supervisor heat treating at present who will pass along to his chain of command to request visitation from family as patient is approaching end-of-life Palliative care consultation requested to help manage goals of care and pain control Total Time Total Time Spent Total Time Spent (In Minutes): 32 Total Time Includes: Examination of the Patient, Discharge Planning, Medication Reconciliation and Communication With Other Providers Discharge Plan Discharge Items [facility] Disposition: [facility] Reason For Visit: HYPOTENSION,PNA Discharge Diagnosis: Stage 4 cancer Activity: Resume your previous activity Non-emergency contact: Primary Care Provider Call non-emergency contact if: you have any medication questions Follow-up/Referrals: Yue LOPEZ [Primary Care Provider] - Diet: Regular Addtl Attending Provider Instructions: discharge with POLST Form Pending Studies at Discharge: No Stand-Alone Forms: [employer] Skilled Items Patient informed of condition?: Yes Discharge Level of Care: Other Communicable Disease: No Discharge Prognosis: Deteriorating Lines: None Urinary Catheter: Yes Medications and DC Order Prescriptions: New acetaminophen 325 mg Tablet 650 mg PO Q4H PRN (Reason: fever or pain) Qty: 10 RF: 0 lorazepam 0.5 mg Tablet 0.5 mg PO Q4H PRN (Reason: agitation) Qty: 30 RF: 0 oxycodone 5 mg Tablet 10 mg PO Q4H PRN (Reason: pain) Qty: 30 RF: 0 oxycodone [OxyContin] 15 mg Tablet,Oral Only,Ext.Rel.12 Hr 30 mg PO BID Qty: 10 RF: 0 lidocaine 5 % Adhesive Patch,Medicated 1 patch transdermal QAM Qty: 2 RF: 0 Continued albuterol sulfate 2.5 mg /3 mL (0.083 %) Solution For Nebulization 2.5 mg INHALATION Q4H PRN (Reason: Shortness Of Breath) RF: 0 hydroxyzine pamoate [Vistaril] 25 mg Capsule 25 mg PO HS RF: 0 oxycodone [OxyContin] 20 mg Tablet,Oral Only,Ext.Rel.12 Hr 20 mg PO BID RF: 0 lactulose 10 gram/15 mL solution 15 ml PO DAILY PRN (Reason: .) RF: 0 multivitamin Tablet 1 tab PO DAILY RF: 0 carvedilol 3.125 mg Tablet 3.125 mg PO BID RF: 0 mirtazapine 15 mg Tablet 15 mg PO HS RF: 0 ferrous gluconate 324 mg (37.5 mg iron) Tablet 324 mg PO BID RF: 0 sennosides [senna] 8.6 mg Tablet 8.6 mg PO BID RF: 0 polyethylene glycol 3350 [Miralax] 17 gram Powder In Packet 17 g PO BID RF: 0 pantoprazole 40 mg Tablet,Delayed Release (Dr/Ec) 40 mg PO QAM RF: 0 dicyclomine 20 mg Tablet 20 mg PO TID PRN (Reason: Unknown) RF: 0 amiodarone 200 mg Tablet 200 mg PO QAM 30 Days Qty: 30 RF: 0 Discontinued prednisone 10 mg tablet See Rx Instructions .ROUTE .COMPLEX Qty: 63 RF: 0 oxycodone [Roxicodone] 5 mg Tablet 5 mg PO QID PRN (Reason: Pain) RF: 0 Discharge Orders: Discharge Order (Routine); Ordered 09/14/20 Ordered By: Jared Wallace Admission Data Admit Date/Time: 09/11/20 13:55 Attending Provider: Jared Wallace Admit Provider: Margo Echevarria [facility] Other Providers: Margo Echevarria ; Monique Stearns Other Interventions: Discharge Summary Assessment (RN) Last Done: 09/14/20 16:35 Coding Level of Care Code D/C Day Management >30 mins Diagnoses Hypotension I95.9 Multifocal pneumonia J18.9 Cancer associated pain G89.3 Thrombocytopenia D69.6 Lung cancer C34.90 Laterality: unspecified laterality Lung location: unspecified part of lung Acidosis, lactic E87.2 Colon cancer C18.9 Anemia D64.9 Anemia type: unspecified type Lower extremity edema R60.0 Severe protein-calorie malnutrition E43 Chronic respiratory failure with hypoxia J96.11 Oral candidiasis B37.0 DVT prophylaxis Z29.9
== END 2020-09-14 18:05 | DRG 871 ==
LOC: ED 10:42 → SUATTDRO 13:55 → 2E 13:55